=== PATIENT | male | born 1955 | race Caucasian/White ===

== ENCOUNTER 2021-09-05 03:59 | Inpatient (IN) | payer MEDICARE, SELFPAY ==
[2021-09-05] VITALS (12 sets, daily range): BP systolic 133–194; BP diastolic 74–98; PULSE 68–118; RESP 16–28; TEMP 36.5–37.2; O2SAT 90–100; BMI 45.6
--- NOTE | ~2021-09-05 | US_ITS ---
EXAMINATION: US VENOUS ULTRASOUND WITH DOPPLER LOWER EXTREMITY, BILATERAL CLINICAL INFORMATION: Bilateral lower extremity swelling. COMPARISON: Left lower extremity DVT study dated 01/23/2017. TECHNIQUE: Ultrasound of the deep veins is performed from the hip to the calf with compression sonography and color and pulse Doppler assessment. Spectral analysis with color-flow imaging is performed. FINDINGS: Technically limited study due to patient's body habitus. Limited visualization of bilateral mid to distal femoral and popliteal and the calf veins. RIGHT: There is normal venous compression and respiratory variation and augmented flow. The visualized common femoral vein, superficial femoral vein, profunda femoral vein, popliteal vein, and the trifurcation region shows no evidence of deep venous thrombosis. There is no significant popliteal fossa cyst. LEFT: There is normal venous compression and respiratory variation and augmented flow. The visualized common femoral vein, superficial femoral vein, profunda femoral vein, popliteal vein, and the trifurcation region shows no evidence of deep venous thrombosis. There is no significant popliteal fossa cyst. If the patient's symptoms persist, followup ultrasound in 5 days 7 days might be of value to exclude proximal propagation from a non-visualized calf vein. US/US venous duplex LE BI IMPRESSION: No DVT demonstrated in the bilateral lower extremity. Technically limited study due to suboptimal visualization (related to body habitus) of bilateral mid to distal femoral, and popliteal and calf veins.
--- NOTE | ~2021-09-05 | CT_ITS ---
EXAMINATION: CT HEAD WITHOUT CONTRAST CLINICAL INFORMATION: Fall. Unknown loss of consciousness. COMPARISON: None. TECHNIQUE: Contiguous axial imaging was performed from the skull base to vertex without intravenous contrast. This CT examination was performed using dose optimization techniques as appropriate, variously including the following: * Automated exposure control * Adjustment of mA and/or kV according to patient size (this includes techniques or standardized protocols for targeted exams where dose is matched to indication/reason for exam; i.e. extremities or head) Use of iterative reconstruction technique DLP: 841 mGy-cm. FINDINGS: There is no evidence of acute intracranial hemorrhage or territorial infarction. No abnormal mass effect or midline shift is seen. Darnell to white matter differentiation is well preserved. No extra-axial fluid collections are identified. No hydrocephalus. Proportional prominence of the ventricles and sulcal spaces is consistent with mild volume loss. Patchy periventricular and deep white matter hypoattenuation is consistent with mild small vessel ischemic changes. The osseous structures and soft tissues are normal. The mastoid air cells and visualized portions of the paranasal sinuses are well aerated. CT/CT head/brain wo con IMPRESSION: No acute intracranial pathology.
--- NOTE | ~2021-09-05 | XR_ITS ---
EXAMINATION: XR CHEST CLINICAL INFORMATION: Shortness of breath COMPARISON: 01/23/2017 TECHNIQUE: Frontal view of the chest was obtained. FINDINGS: Cardiac leads overlie the chest. The lungs are well expanded. Central vascular prominence without overt edema. Small left pleural effusion suspected. No pneumothorax. The cardiomediastinal silhouette is unchanged XR/XR chest 1V IMPRESSION: Central vascular prominence without overt edema. Small left pleural effusion suspected.
--- NOTE | 2021-09-05 04:11 | ECG_ITS ---
Test Reason : CHF Blood Pressure : / mmHG Vent. Rate : 096 BPM Atrial Rate : 096 BPM P-R Int : 168 ms QRS Dur : 082 ms QT Int : 368 ms P-R-T Axes : 067 121 016 degrees QTc Int : 464 ms Normal sinus rhythm Right axis deviation Possible Right ventricular hypertrophy Nonspecific T wave abnormality Abnormal ECG When compared with ECG of 23-JAN-2017 14:52, Nonspecific T wave abnormality now evident in Inferior leads Nonspecific T wave abnormality, worse in Anterolateral leads QT has lengthened Referred By: Willa Phan Electronically Signed By:TOBIAS ALBERTO MD
--- NOTE | 2021-09-05 04:17 | ED_ITS ---
HPI - SOB/Dyspnea General Chief Complaint: Dyspnea Stated Complaint: difficulty breathing Time Seen by Provider: 09/05/21 04:11 Source: patient and EMS Mode of arrival: EMS Limitations: no limitations History of Present Illness HPI Narrative: Patient comes to the emergency room complaining of shortness of breath. This morning, patient's friend called the patient to check on him. Patient did not answer, EMS called. Patient was found sleeping on the floor, laying flat. Patient states that he remembers going to bed, unclear how he ended up on the floor. Patient does not remember falling. Patient states that he usually sleeps almost sitting up. But he was on the floor for approximately 5 hours laying completely flat. Oxygen saturation was approximately in the 80s, diffuse crackles, patient was started on CPAP. On arrival to the emergency room, patient speaking in full sentences, CPAP was removed, patient states that he feels much better. Patient denies any chest pain, shortness of breath signifi cantly improved. Related Data Allergies Allergy/AdvReac Type Severity Reaction Status Date / Time No Known Allergies Allergy Unverified 01/31/20 14:57 [No Known Allergies*] Review of Systems Review of Systems: Constitutional : No Weight loss, No Fever, No Chills, No Night Sweats, No Fatigue, No Malaise ENT/Mouth : No Hearing loss, No Ear Pain, No Nasal Congestion, No Sinus Pain, No Hoarseness, No sore throat, No Rhinorrhea, No Swallowing Difficulty Eyes: No Eye Pain, No Swelling, No Redness, No Foreign Body, No Discharge, No Vision Changes Cardiovascular : No Chest Pain, complaining of worsening lower extremity edema, worsening orthopnea, no palpitations Respiratory : No Cough, No Sputum, No Wheezing, No Smoke Exposure, complaining of shortness of breath Gastrointestinal : No Nausea, No Vomiting, No Diarrhea, No Constipation, No abdominal Pain, No Hematochezia, No Melena Genitourinary : no irregular bleeding, No Dysuria, No Urinary Frequency, No Hematuria, No Urinary Incontinence, No Urgency, No Flank Pain, No Urinary Flow Changes, No Hesitancy Musculoskeletal : No joint pain, No Myalgias, No Joint Swelling Skin : No Skin Lesions, No rash Neuro : No Weakness, No Numbness, No Paresthesias, No Loss of Consciousness, No Dizziness, No Headache Psych : No Anxiety/Panic, No Depression, No SI/HI/AH/VH, No Social Issues, Heme/Lymph: No Bruising, No Bleeding,No Lymphadenopathy Endocrine : No Polyuria, No Polydipsia, No Temperature Intolerance [facility] Past Medical History Medical History (Updated 09/05/21 @ 05:16 by Willa Phan MD) Bilateral lower extremity edema CHF (congestive heart failure) Coronary artery disease Diabetes Hypertension Morbid obesity Myocardial infarction Surgical History (Updated 09/05/21 @ 04:20 by Willa Phan MD) S/P coronary artery stent placement Social History Social History Advance Directives: No Physical Exam Vital Signs: Vital Signs: Last Vital Signs Temp 98.0 F 09/05/21 04:07 Pulse 103 H 09/05/21 04:07 Resp 28 H 09/05/21 04:07 BP 145/79 H 09/05/21 04:07 Pulse Ox 99 09/05/21 04:07 Oxygen Flow Rate 99 09/05/21 04:07 BMI result Body Mass Index 45.6 Const: Other: Appearance: Alert. Oriented X3. No acute distress. Eyes: Pupils equal, round and reactive to light. Edematous sclera and periorbital edema ENT: Pharynx normal. Neck: Normal inspection. Neck supple. No lymph nodes noted. No crepitus CVS: Normal heart rate and rhythm. Pulses normal. Normal S1 and S2 Respiratory: No respiratory distress. Breath sounds normal. No Wheezing. No rales Abdomen: Soft and nontender. No rigidity. No distention. Skin: Skin warm and dry. Extremities below Extremities: +4 pitting edema bilaterally, erythematous lower extremities, likely chronic venous stasis, no additional warmth to touch Neuro: Oriented X 3. No motor deficit. No sensory deficit. Moving all extremities. No slurred speech. CN 2 through 12 grossly intact Psych: calm, cooperative, normal affect Course Course Course Narrative: Patient arrived on CPAP. We were able to wean patient off to 4 L of oxygen. Patient does not need O2. In a few more minutes we will go ahead and discontinue oxygen All the labs and imaging pending. Patient doing well own nasal cannula. Chest x-ray shows pulmonary edema and small left pleural effusion. BNP 1100, Patient was given 60 mg of IV Lasix. I discussed the patient with Dr. Biswas, patient being admitted for CHF exacerbation. EKG does not show any acute abnormalities MDM - SOB/Dyspnea Lab Data Result diagrams: 09/05/21 04:18 09/05/21 04:18 Labs: Lab Results 09/05/21 09/05/21 09/05/21 Range/Units 04:18 04:18 04:18 WBC 7.0 (4.8-10.8) X10*3/uL RBC 4.80 (4.60-5.80) X10*6/uL Hgb 13.1 L (14.0-18.0) g/dl Hct 43.3 (42.0-52.0) % MCV 90.2 (80.0-98.0) fL MCH 27.3 (27.0-33.0) pg MCHC 30.3 L (31.0-36.0) g/dl RDW 19.7 H (11.0-16.0) % Plt Count 236 (160-400) X10*3/uL MPV 11.1 (9.4-12.4) fL Immature Gran % (Auto) 0.3 (0.0-0.4) % Neut % (Auto) 69.1 (45-73) % Lymph % (Auto) 20.4 (20-40) % [place] % (Auto) 7.0 (2-11) % Eos % (Auto) 2.6 (0-4) % Baso % (Auto) 0.6 (0-2) % Lymph # (Auto) 1.4 (1.2-4.9) X10*3/uL [place] # (Auto) 0.5 (0.1-1.2) X10*3/uL Eos # (Auto) 0.2 (0.0-0.4) X10*3/uL Baso # (Auto) 0.0 (0.0-0.2) X10*3/uL Abs Immat Gran (auto) 0.02 (0.00-0.03) X10*3/uL Absolute Neuts (auto) 4.9 (2.0-8.3) x10*3/uL Absolute Nucleated RBC 0.000 (0.0-0.012) X10*3/uL Nucleated RBC % (auto) 0.0 (0.0-0.2) /100WBC VBG pH (7.32-7.43) VBG pCO2 mmHg VBG pO2 mmHg VBG HCO3 (22-26) mmol/L VBG O2 Saturation % VBG Base Excess mmol/L Sodium 141 (135-145) mmol/L Potassium 3.9 (3.3-5.1) mmol/L Chloride 101 (96-108) mmol/L Carbon Dioxide 29 (22-29) mmol/L Anion Gap 15 (12-20) BUN 15 (9-16) mg/dL Creatinine 0.86 (0.5-1.4) mg/dL Estim Creat Clear Calc 111.0 Estimated GFR > 60 Random Glucose 137 H (60-115) mg/dL Lactic Acid 1.7 (0.5-2.0) mmol/L Calcium 9.8 (8.4-10.2) mg/dL Magnesium 1.6 (1.6-2.6) mg/dL Total Bilirubin 1.6 H (0.0-1.0) mg/dL Direct Bilirubin 1.0 H (0.0-0.5) mg/dL AST 33 (5-37) U/L ALT 28 (0-40) U/L Alkaline Phosphatase 70 (39-117) U/L Total Creatine Kinase 78 (38-174) U/L Troponin I High Sens (<3.5-35.0) ng/L B-Natriuretic Peptide (<100) pg/mL Total Protein 7.1 (6.5-8.0) g/dL Albumin 3.1 L (3.5-5.0) g/dL TSH 4.61 H (0.32-4.0) uIU/mL Ethyl Alcohol mg/dL COVID-19 ([facility]) (Negative) COVID-19 Clin Com 09/05/21 09/05/21 09/05/21 Range/Units 04:18 04:18 04:18 WBC (4.8-10.8) X10*3/uL RBC (4.60-5.80) X10*6/uL Hgb (14.0-18.0) g/dl Hct (42.0-52.0) % MCV (80.0-98.0) fL MCH (27.0-33.0) pg MCHC (31.0-36.0) g/dl RDW (11.0-16.0) % Plt Count (160-400) X10*3/uL MPV (9.4-12.4) fL Immature Gran % (Auto) (0.0-0.4) % Neut % (Auto) (45-73) % Lymph % (Auto) (20-40) % [place] % (Auto) (2-11) % Eos % (Auto) (0-4) % Baso % (Auto) (0-2) % Lymph # (Auto) (1.2-4.9) X10*3/uL [place] # (Auto) (0.1-1.2) X10*3/uL Eos # (Auto) (0.0-0.4) X10*3/uL Baso # (Auto) (0.0-0.2) X10*3/uL Abs Immat Gran (auto) (0.00-0.03) X10*3/uL Absolute Neuts (auto) (2.0-8.3) x10*3/uL Absolute Nucleated RBC (0.0-0.012) X10*3/uL Nucleated RBC % (auto) (0.0-0.2) /100WBC VBG pH (7.32-7.43) VBG pCO2 mmHg VBG pO2 mmHg VBG HCO3 (22-26) mmol/L VBG O2 Saturation % VBG Base Excess mmol/L Sodium (135-145) mmol/L Potassium (3.3-5.1) mmol/L Chloride (96-108) mmol/L Carbon Dioxide (22-29) mmol/L Anion Gap (12-20) BUN (9-16) mg/dL Creatinine (0.5-1.4) mg/dL Estim Creat Clear Calc Estimated GFR Random Glucose (60-115) mg/dL Lactic Acid (0.5-2.0) mmol/L Calcium (8.4-10.2) mg/dL Magnesium (1.6-2.6) mg/dL Total Bilirubin (0.0-1.0) mg/dL Direct Bilirubin (0.0-0.5) mg/dL AST (5-37) U/L ALT (0-40) U/L Alkaline Phosphatase (39-117) U/L Total Creatine Kinase (38-174) U/L Troponin I High Sens 28.8 (<3.5-35.0) ng/L B-Natriuretic Peptide 1117 H (<100) pg/mL Total Protein (6.5-8.0) g/dL Albumin (3.5-5.0) g/dL TSH (0.32-4.0) uIU/mL Ethyl Alcohol < 10 mg/dL COVID-19 ([facility]) Negative (Negative) COVID-19 Clin Com See Note 09/05/21 Range/Units 04:22 WBC (4.8-10.8) X10*3/uL RBC (4.60-5.80) X10*6/uL Hgb (14.0-18.0) g/dl Hct (42.0-52.0) % MCV (80.0-98.0) fL MCH (27.0-33.0) pg MCHC (31.0-36.0) g/dl RDW (11.0-16.0) % Plt Count (160-400) X10*3/uL MPV (9.4-12.4) fL Immature Gran % (Auto) (0.0-0.4) % Neut % (Auto) (45-73) % Lymph % (Auto) (20-40) % [place] % (Auto) (2-11) % Eos % (Auto) (0-4) % Baso % (Auto) (0-2) % Lymph # (Auto) (1.2-4.9) X10*3/uL [place] # (Auto) (0.1-1.2) X10*3/uL Eos # (Auto) (0.0-0.4) X10*3/uL Baso # (Auto) (0.0-0.2) X10*3/uL Abs Immat Gran (auto) (0.00-0.03) X10*3/uL Absolute Neuts (auto) (2.0-8.3) x10*3/uL Absolute Nucleated RBC (0.0-0.012) X10*3/uL Nucleated RBC % (auto) (0.0-0.2) /100WBC VBG pH 7.34 (7.32-7.43) VBG pCO2 67 mmHg VBG pO2 70 mmHg VBG HCO3 37 H (22-26) mmol/L VBG O2 Saturation 91.0 % VBG Base Excess 8.5 mmol/L Sodium (135-145) mmol/L Potassium (3.3-5.1) mmol/L Chloride (96-108) mmol/L Carbon Dioxide (22-29) mmol/L Anion Gap (12-20) BUN (9-16) mg/dL Creatinine (0.5-1.4) mg/dL Estim Creat Clear Calc Estimated GFR Random Glucose (60-115) mg/dL Lactic Acid (0.5-2.0) mmol/L Calcium (8.4-10.2) mg/dL Magnesium (1.6-2.6) mg/dL Total Bilirubin (0.0-1.0) mg/dL Direct Bilirubin (0.0-0.5) mg/dL AST (5-37) U/L ALT (0-40) U/L Alkaline Phosphatase (39-117) U/L Total Creatine Kinase (38-174) U/L Troponin I High Sens (<3.5-35.0) ng/L B-Natriuretic Peptide (<100) pg/mL Total Protein (6.5-8.0) g/dL Albumin (3.5-5.0) g/dL TSH (0.32-4.0) uIU/mL Ethyl Alcohol mg/dL COVID-19 ([facility]) (Negative) COVID-19 Clin Com Imaging Data Chest x-ray: Radiologist's impression: Cardiac leads overlie the chest. The lungs are well expanded. Central vascular prominence without overt edema. Small left pleural effusion suspected. No pneumothorax. The cardiomediastinal silhouette is unchanged XR/XR chest 1V IMPRESSION: Central vascular prominence without overt edema. Small left pleural effusion suspected. ECG Data Attestation: I personally reviewed and interpreted this ECG as follows: (Sinus rhythm, heart rate 96, no ST segment depression or elevation, no T-wave inver neil, QTC 464) Discharge Plan Discharge Clinical Impression: Congestive heart failure Patient Disposition: Admitted As Inpatient
--- NOTE | 2021-09-05 04:28 | PC.NURSE ---
This RN to bedside to assist primary RN (Rui Hicks). Arrived via [facility] on CPAP, which was placed by EMS. Pt tolerated well, changed to 6L oxygen via nasal cannula per instructions. Maintaining oxygen saturation on 6L oxygen. 18g IV access placed to left AC by this RN, labs drawn and sent for analysis. Awaiting results. Per EMS, patient fell approximately 4-6 hours ago and was unable to get up to call for help. Patient is alert & oriented x4 on evaluation by [facility] staff. Pt does not use oxygen at home at baseline, but does have a history of Congestive Heart Failure. Bilateral lower extremity edema noted, skin is dry & red. Rui COBIAN to continue to monitor patient.
[2021-09-05 04:29] LABS: MANUAL DIFF FLAG NO
[2021-09-05 04:30] LABS: Basophils Percent Auto 0.6 % (0-2); Eosinophils Absolute Auto 0.2 X10*3/uL (0.0-0.4); Eosinophils Percent Auto 2.6 % (0-4); Hematocrit 43.3 % (42.0-52.0); Hemoglobin 13.1 g/dl (14.0-18.0); Imm Gran Abs Auto 0.02 X10*3/uL (0.00-0.03); Imm Gran Pct Auto 0.3 % (0.0-0.4); Lymphocytes Absolute Auto 1.4 X10*3/uL (1.2-4.9); Lymphocytes Percent Auto 20.4 % (20-40); Mean Corpuscular HGB Conc 30.3 g/dl (31.0-36.0); Mean Corpuscular Hemoglobin 27.3 pg (27.0-33.0); Mean Corpuscular Volume 90.2 fL (80.0-98.0); Mean Platelet Volume 11.1 fL (9.4-12.4); Monocytes Absolute Auto 0.5 X10*3/uL (0.1-1.2); Neutrophils Absolute Auto 4.9 x10*3/uL (2.0-8.3); Neutrophils Percent Auto 69.1 % (45-73); Platelet Count 236 X10*3/uL (160-400); Red Cell Distribution Width 19.7 % (11.0-16.0)
[2021-09-05 04:31] LABS: VBG Base Excess 8.5 mmol/L; VBG HCO3 37 mmol/L (22-26); VBG pCO2 67 mmHg; VBG pH 7.34 (7.32-7.43); VBG pO2 70 mmHg
[2021-09-05 04:35] LABS: Venous Blood Gas Refer to POC result
[2021-09-05 04:49] LABS: Lactic Acid 1.7 mmol/L (0.5-2.0)
[2021-09-05 04:53] LABS: Alanine Aminotransferase 28 U/L (0-40); Albumin Level 3.1 g/dL (3.5-5.0); Alkaline Phosphatase 70 U/L (39-117); Anion Gap 15 (12-20); Aspartate Amino Transferase 33 U/L (5-37); Bilirubin Total 1.6 mg/dL (0.0-1.0); Blood Urea Nitrogen 15 mg/dL (9-16); Calcium 9.8 mg/dL (8.4-10.2); Carbon Dioxide 29 mmol/L (22-29); Chloride 101 mmol/L (96-108); Estimated Glomerular Filt Rate > 60; Glucose Random 137 mg/dL (60-115); Magnesium 1.6 mg/dL (1.6-2.6); Potassium 3.9 mmol/L (3.3-5.1); Sodium 141 mmol/L (135-145); Total Protein 7.1 g/dL (6.5-8.0)
[2021-09-05 04:54] LABS: Ethanol < 10 mg/dL
[2021-09-05 04:57] LABS: B Type Natriuretic Peptide 1117 pg/mL (<100); Troponin-I High Sensitivity 28.8 ng/L (<3.5-35.0)
[2021-09-05 05:13] LABS: COVID-19 Test Negative (Negative); TSH reflex Free T4 4.61 uIU/mL (0.32-4.0)
[2021-09-05] MEDS: Furosemide 100 MG/10 ML VIAL 60 MG IVPUSH (05:29)
[2021-09-05 05:44] LABS: INTERNATIONAL NORM RATIO 1.1 (0.9-1.1); Prothrombin Time 12.7 SEC (9.9-13.0)
[2021-09-05 05:45] LABS: Free T4 (Free Thyroxine) 0.82 ng/dL (0.71-1.85)
--- NOTE | 2021-09-05 06:13 | PM.IMHP ---
History of Present Illness Date of Service: 09/05/21 Chief Complaint: Shortness of breath This is a 66-year-old male with past medical history of CHF, CAD, diabetes, HTN, history of CO, presents to the hospital after being hypoxic at home. It appears that patient friend called his home, patient did not answer, therefore she called EMS, on arrival of EMS patient was found to be on the floor and hypoxic with an O2 level of 80%. Patient was placed on CPAP and brought into the ED. patient does not remember losing consciousness, he remembers going to bed but he is unsure how he ended up on the floor. He reports that he was sleeping upright and he usually sleeps in a way to avoid falling, but woke up with many things on top of him so he mustve fallen out of bed, but he does not remember how that might have happened. He reports orthopnea and PND. reports lower extremity edema for past 4-6 wks he states that he stopped taking his diuretics because he felt that they made his swelling worst. He has not taken any diuretic in over 4 wks. On arrival to the ED patient was placed on 4 L of oxygen satting 98%, has a heart rate of 103, respiratory rate of 28, blood pressure 145/79 Labs are significant for WBC count of 7, hemoglobin of 13.1, pH of 7.34 CO2 of 67 bicarb of 29, BNP of 1117, TSH of 4.61, chest x-ray shows central vascular prominence without overt edema . Left pleural effusion Patient started on IV Lasix and will be admitted for further management Review of Systems Review of Systems: Yes all other systems are reviewed and are negative [facility] Medical History Bilateral lower extremity edema CHF (congestive heart failure) Coronary artery disease Diabetes Hypertension Morbid obesity Myocardial infarction Family History Other No family history of coronary artery disease Surgical History S/P coronary artery stent placement Social History Advance Directives: No Meds Allergies Allergy/AdvReac Type Severity Reaction Status Date / Time No Known Allergies Allergy Unverified 01/31/20 14:57 [No Known Allergies*] Physical Exam Vital Signs and Narrative: Vital Signs: Last Vital Signs Temp 98.0 F 09/05/21 04:07 Pulse 98 09/05/21 05:34 Resp 22 H 09/05/21 05:34 BP 145/83 H 09/05/21 05:34 Pulse Ox 98 09/05/21 05:34 Oxygen Flow Rate 99 09/05/21 04:07 BMI result Body Mass Index 45.6 Const: General: cooperative and no acute distress Orientation/consciousness: patient oriented x3 Eyes: General: appearance normal, both eyes and all related structures Pupils: Equal, round and reactive pupils present Resp: Effort & Inspection: normal respiratory effort Auscultation: clear to auscultation bilaterally Cardio: Rate: regular rate Rhythm: regular rhythm GI: Palpation (GI): Soft to palpation Auscultation: normal bowel sounds Skin: General skin exam: no rashes or lesions noted Neuro: General: patient oriented x3 Cranial nerves: Yes Equal, round and reactive pupils present Cognition (Neuro): normal cognition Extrem: Other: Bilateral lower extremity edema, erythema, warmth, 3+ pitting edema to above the knees Results Labs CBC and Chem 7: 09/05/21 04:18 09/05/21 04:18 Labs: Laboratory Results - last 24 hr 09/05/21 09/05/21 09/05/21 04:18 04:18 04:18 MCV 90.2 MCH 27.3 MCHC 30.3 L RDW 19.7 H Plt Count 236 MPV 11.1 Immature Gran % (Auto) 0.3 Neut % (Auto) 69.1 Lymph % (Auto) 20.4 [place] % (Auto) 7.0 Eos % (Auto) 2.6 Baso % (Auto) 0.6 Lymph # (Auto) 1.4 [place] # (Auto) 0.5 Eos # (Auto) 0.2 Baso # (Auto) 0.0 Abs Immat Gran (auto) 0.02 Absolute Neuts (auto) 4.9 Absolute Nucleated RBC 0.000 Nucleated RBC % (auto) 0.0 PT INR VBG pH VBG pCO2 VBG pO2 VBG HCO3 VBG O2 Saturation VBG Base Excess Anion Gap 15 Estim Creat Clear Calc 111.0 Estimated GFR > 60 Random Glucose 137 H Lactic Acid 1.7 Calcium 9.8 Magnesium 1.6 Total Bilirubin 1.6 H Direct Bilirubin 1.0 H AST 33 ALT 28 Alkaline Phosphatase 70 Total Creatine Kinase 78 Troponin I High Sens B-Natriuretic Peptide Total Protein 7.1 Albumin 3.1 L TSH 4.61 H Free T4 0.82 Ethyl Alcohol COVID-19 ([facility]) COVID-19 Clin Com 09/05/21 09/05/21 09/05/21 04:18 04:18 04:18 MCV MCH MCHC RDW Plt Count MPV Immature Gran % (Auto) Neut % (Auto) Lymph % (Auto) [place] % (Auto) Eos % (Auto) Baso % (Auto) Lymph # (Auto) [place] # (Auto) Eos # (Auto) Baso # (Auto) Abs Immat Gran (auto) Absolute Neuts (auto) Absolute Nucleated RBC Nucleated RBC % (auto) PT 12.7 INR 1.1 VBG pH VBG pCO2 VBG pO2 VBG HCO3 VBG O2 Saturation VBG Base Excess Anion Gap Estim Creat Clear Calc Estimated GFR Random Glucose Lactic Acid Calcium Magnesium Total Bilirubin Direct Bilirubin AST ALT Alkaline Phosphatase Total Creatine Kinase Troponin I High Sens 28.8 B-Natriuretic Peptide 1117 H Total Protein Albumin TSH Free T4 Ethyl Alcohol COVID-19 ([facility]) Negative COVID-19 Clin Com See Note 09/05/21 09/05/21 04:18 04:22 MCV MCH MCHC RDW Plt Count MPV Immature Gran % (Auto) Neut % (Auto) Lymph % (Auto) [place] % (Auto) Eos % (Auto) Baso % (Auto) Lymph # (Auto) [place] # (Auto) Eos # (Auto) Baso # (Auto) Abs Immat Gran (auto) Absolute Neuts (auto) Absolute Nucleated RBC Nucleated RBC % (auto) PT INR VBG pH 7.34 VBG pCO2 67 VBG pO2 70 VBG HCO3 37 H VBG O2 Saturation 91.0 VBG Base Excess 8.5 Anion Gap Estim Creat Clear Calc Estimated GFR Random Glucose Lactic Acid Calcium Magnesium Total Bilirubin Direct Bilirubin AST ALT Alkaline Phosphatase Total Creatine Kinase Troponin I High Sens B-Natriuretic Peptide Total Protein Albumin TSH Free T4 Ethyl Alcohol < 10 COVID-19 ([facility]) COVID-19 Clin Com Imaging Radiologist's Impressions: Impressions Chest X-Ray 09/05/21 04:45 IMPRESSION: Central vascular prominence without overt edema. Small left pleural effusion suspected. Head CT 09/05/21 05:25 IMPRESSION: No acute intracranial pathology. Assessment and Plan (1) Acute respiratory failure with hypoxia: Status: Acute (2) Acute exacerbation of CHF (congestive heart failure): Status: Acute (3) Cellulitis: Status: Acute (4) Lower extremity edema: Status: Acute Plan 66-year-old male with past medical history of CHF presents to the hospital with hypoxia # acute hypoxic respiratory failure - as a secondary to CHF exacerbation - no evidence of pneumonia, less likely to be PE - patient currently on 4 L of oxygen satting 98% - will treat with IV Lasix - titrate O2 as tolerated # acute CHF exacerbation - likely 2/2 non-compliance - history of CHF - has elevated BNP, orthopnea, PND, lower extremity edema - will treat with IV Lasix, strict I&O, daily weights, and low-sodium diet - cardiology consulted - Echocardiogram # Cellulitis - has warmth , erythema, tenderness - although bilateral has evidence of cellulitis - will treat w iv abx - follow cultures # lower extremity edema - likely due to chf - will obtain venous duplex # CAD status post CABG - pending all medication review # diabetes - low-dose sliding scale insulin - diabetic diet Hypertension - stable - Continue home antihypertensives when meds reviewed DVT ppx: heparin sub q Pt will need a medically necessary 2 night stay for managemtn of chf and hypoxia Quality Stroke Does the patient have a stroke diagnosis?: No VTE Prior VTE?: No VTE Risk Level:: Medical - moderate - high VTE Device Contraindication: Treatment Not Indicated VTE Drug Contraindication: N/A - Med Ordered
[2021-09-05 06:19] LABS: Appearance Urine CLEAR; Color Urine YELLOW; Glucose Urine UA NEG (NEG); Leukocyte Esterase Urine NEG (NEG); Nitrite Urine NEG (NEG); Specific Gravity - Urine 1.025 (1.005-1.025); UACC Culture Trigger NO; Urine Blood NEG (NEG); Urine Ketones NEG (NEG); Urine Protein 1+ MG/DL (NEG-TRACE)
[2021-09-05 06:25] LABS: Calcium Oxalate Crystals Urine 1+ /LPF; Hyaline Casts Urine 0-2 /LPF; Mucus Urine 2+ /LPF; Squamous Epithelial Cell Urine 1+ /LPF
[2021-09-05 06:26] LABS: Bacteria Urine 1+ /LPF; WBC Urine 0-2 /HPF (0-4)
[2021-09-05 06:31] LABS: Amphetamine Screen Urine Not Detected (Not Detect); Barbiturates, Urine Not Detected (Not Detect); Benzodiazepines Screen Urine Not Detected (Not Detect); Cannabinoid Screen Urine Not Detected (Not Detect); Cocaine Screen Urine Not Detected (Not Detect); Fentanyl, urine Not Detected (Not Detect); Opiate Screen Urine POSITIVE (Not Detect); Phencyclidine Screen Urine Not Detected (Not Detect)
--- NOTE | 2021-09-05 06:45 | PC.NURSE ---
Med rec completed at bed side with PT.
[2021-09-05 07:34] LABS: Lactic Acid 1.5 mmol/L (0.5-2.0)
[2021-09-05] MEDS: ceFAZolin Sodium/Dextrose,Iso 2 GM/50 ML PIGGYBACK IV ×2 (07:40→15:41)
--- NOTE | 2021-09-05 08:04 | PHA.MEDREC ---
Pharmacy Consult ? Medication Reconciliation RN has completed the medication reconciliation., pharmacy reviewed
--- NOTE | 2021-09-05 08:31 | PC.NURSE ---
Transfer report given to ARANZA Mcrae at [facility] [place].
[2021-09-05 08:57] LABS: Glucose, Whole Blood 102 mg/dL (60-115)
[2021-09-05] MEDS: Enoxaparin Sodium 40 MG/0.4 ML SYRINGE SUBCUT (09:03)
[2021-09-05] MEDS: Metoprolol Tartrate 12.5 MG HALFTAB PO ×2 (09:03→20:14)
[2021-09-05] MEDS: Furosemide 40 MG/4 ML VIAL IVPUSH ×2 (09:03→17:25)
[2021-09-05] MEDS: Atorvastatin Calcium 80 MG TABLET PO (09:03)
[2021-09-05] MEDS: lisinopriL 40 MG TABLET PO (09:03)
[2021-09-05 11:42] LABS: Glucose, Whole Blood 165 mg/dL (60-115)
[2021-09-05] MEDS: Ammonium Lactate 12 % Lotion 226 GM BOTTLE 1 APPL TOPICAL ×2 (12:51→20:14)
--- NOTE | 2021-09-05 14:14 | PM.CNCAR ---
History of Present Illness History of Present Illness Date of Service: 09/05/21 Requesting physician: Jessica Nelson Consult reason: congestive heart failure Chief complaint: hypoxic resp failure, chf exacerbation Narrative: I was requested to see Mahesh in cardiology consultation today for hypoxemic respiratory failure. Finding suggestive of heart failure. History was obtained from the chart. Patient does not provide much history and was not very communicative. He appeared to be drowsy but was opening his eyes to verbal cues. On asking question he declined to answer any questions. He was brought to the hospital because of noted to be hypoxemia at home. EMS was called by patient's friend after patient not answering his telephone. EMS came and was noted to be in hypoxemic respiratory failure and was brought to the emergency room with CPAP therapy. Chest x-ray finding suggestive of pulmonary vascular congestion with BNP in above 1000. Patient still appears to be short of breath. As per the chart patient has stopped taking his diuretics for few weeks and has increasing leg swelling. Clinically appears to be short of breath. He does not provide much history to me. History obtained from the chart. Review of Systems Review of Systems: Yes Unobtainable due to mental status PMFSH Past Medical History Medical History Bilateral lower extremity edema CHF (congestive heart failure) Coronary artery disease Diabetes Hypertension Morbid obesity Myocardial infarction Family History Family History Other No family history of coronary artery disease Surgical History Surgical History S/P coronary artery stent placement Social History Social History Household Members: None Housing: Unknown / Unable to assess Do you presently have visiting nurse or other home services: No Patient Tobacco Use Status: Current everyday Tobacco user Tobacco use type: Cigarette Cigarette Packs Per Day: 0.75 Cigarettes Per Day: 15.0 Years Smoked: 50 e-Cigarette/Vaping Use: Never Used Meds Allergies Allergy/AdvReac Type Severity Reaction Status Date / Time No Known Allergies Allergy Unverified 01/31/20 14:57 [No Known Allergies*] Active Medications: Current Medications Acetaminophen (Acetaminophen 325 Mg Tablet) 650 mg PO Q6H PRN PRN Reason: Pain, Mild (Pain Scale 1-3) Atorvastatin Calcium (Atorvastatin Calcium 80 Mg Tablet) 80 mg PO DAILY [facility] Last Admin: 09/05/21 09:03 Dose: 80 mg Documented by: Clotrimazole (Clotrimazole 1 % Cream 15 Gm Tube) 1 appl TOPICAL BID [facility]; Protocol Docusate Sodium (Docusate Sodium 100 Mg Capsule) 100 mg PO DAILY PRN PRN Reason: Constipation Enoxaparin Sodium (Enoxaparin Sodium 40 Mg/0.4 Ml Syringe) 40 mg SUBCUT Q24H [facility] Last Admin: 09/05/21 09:03 Dose: 40 mg Documented by: Furosemide (Furosemide 40 Mg/4 Ml Vial) 40 mg IVPUSH BID@0900,1800 [facility]; Protocol Last Admin: 09/05/21 09:03 Dose: 40 mg Documented by: Cefazolin Sodium/Dextrose (Ancef) 2 gm in 50 mls @ 100 mls/hr IV Q8H [facility] Last Infusion: 09/05/21 08:24 Dose: Infused Documented by: Lactic Acid (Ammonium Lactate 12 % Lotion 226 Gm Bottle) 1 appl TOPICAL BID [facility]; Protocol Last Admin: 09/05/21 12:51 Dose: 1 appl Documented by: Lisinopril (Lisinopril 40 Mg Tablet) 40 mg PO DAILY [facility]; Protocol Last Admin: 09/05/21 09:03 Dose: 40 mg Documented by: Metoprolol Tartrate (Metoprolol Tartrate 12.5 Mg Halftab) 12.5 mg PO BID [facility]; Protocol Last Admin: 09/05/21 09:03 Dose: 12.5 mg Documented by: Morphine Sulfate (Morphine Sulfate Er 15 Mg Tablet.Er) 15 mg PO BID PRN PRN Reason: Pain, Severe (Pain Scale 7-10) Ondansetron HCl (Ondansetron Hcl 4 Mg/2 Ml Vial) 4 mg IVPUSH Q8H PRN PRN Reason: Nausea and Vomiting Oxycodone HCl (Oxycodone Hcl Immed Release 5 Mg Tablet) 5 mg PO Q6H PRN PRN Reason: moderate pain Home Medications Medication Instructions Recorded Confirmed Last Taken Type atorvastatin 80 mg tablet 80 mg PO DAILY 09/05/21 09/05/21 09/04/21 09:00 History duloxetine 60 mg capsule,delayed 60 mg PO DAILY 04/09/05/21 09/04/21 09:00 History release etodolac 400 mg tablet 400 mg PO BID 09/05/21 09/05/21 09/04/21 21:00 History lisinopril 40 mg tablet 40 mg PO DAILY 09/05/21 09/05/21 09/04/21 09:00 History metformin 500 mg tablet 500 mg PO BID 09/05/21 09/05/21 09/04/21 21:00 History metoprolol tartrate 25 mg tablet 12.5 mg PO BID 09/05/21 09/05/21 09/04/21 21:00 History morphine 15 mg tablet,extended 15 mg PO BID PRN 09/05/21 09/05/21 09/04/21 21:00 History release oxycodone 5 mg tablet 5 mg PO Q6H PRN 09/05/21 09/05/21 09/04/21 21:00 History Physical Exam Vital Signs: Vital Signs: Last Vital Signs Temp 98.1 F 09/05/21 11:27 Pulse 97 09/05/21 11:27 Resp 20 09/05/21 11:27 BP 133/81 09/05/21 11:27 Pulse Ox 94 09/05/21 11:27 Oxygen Flow Rate 99 09/05/21 04:07 BMI result Body Mass Index 45.6 Const: General: in distress mild and respiratory, lethargic and poor hygiene Nutritional Appearance: obese Orientation/consciousness: lethargic HEENT: Head: Yes normocephalic and Yes atraumatic Neck: Neck: Yes trachea midline and Yes supple Resp: Effort & Inspection: normal respiratory effort Auscultation: crackles, wheezes and diminished lung sounds Cardio: Palpation: normal PMI Rate: regular rate Rhythm: regular rhythm Heart sounds: S1 normal heart sound present, S2 normal heart sound present, no click, no gallops and no murmurs GI: Auscultation: normal bowel sounds Skin: General skin exam: no rashes or lesions noted Neuro: General: no focal motor deficits Extrem: General: No clubbing, No cyanosis and Yes edema Objective Labs and Meds Result diagrams: 09/05/21 04:18 09/05/21 04:18 Lab results: Laboratory Results - last 24 hr 04/23/22 04/23/22 04/23/22 04:18 04:18 04:18 WBC 7.0 RBC 4.80 Hgb 13.1 L Hct 43.3 MCV 90.2 MCH 27.3 MCHC 30.3 L RDW 19.7 H Plt Count 236 MPV 11.1 Immature Gran % (Auto) 0.3 Neut % (Auto) 69.1 Lymph % (Auto) 20.4 Surry % (Auto) 7.0 Eos % (Auto) 2.6 Baso % (Auto) 0.6 Lymph # (Auto) 1.4 Surry # (Auto) 0.5 Eos # (Auto) 0.2 Baso # (Auto) 0.0 Abs Immat Gran (auto) 0.02 Absolute Neuts (auto) 4.9 Absolute Nucleated RBC 0.000 Nucleated RBC % (auto) 0.0 PT INR VBG pH VBG pCO2 VBG pO2 VBG HCO3 VBG O2 Saturation VBG Base Excess Sodium 141 Potassium 3.9 Chloride 101 Carbon Dioxide 29 Anion Gap 15 BUN 15 Creatinine 0.86 Estim Creat Clear Calc 111.0 Estimated GFR > 60 POC Glucose Random Glucose 137 H Lactic Acid 1.7 Calcium 9.8 Magnesium 1.6 Total Bilirubin 1.6 H Direct Bilirubin 1.0 H AST 33 ALT 28 Alkaline Phosphatase 70 Total Creatine Kinase 78 Troponin I High Sens B-Natriuretic Peptide Total Protein 7.1 Albumin 3.1 L TSH 4.61 H Free T4 0.82 Urine Color Urine Appearance Urine pH Ur Specific Belen Urine Protein Urine Glucose (UA) Urine Ketones Urine Blood Urine Nitrite Ur Leukocyte Esterase Urine RBC Urine WBC Ur Squamous Epith Cells Calcium Oxalate Crystal Urine Bacteria Hyaline Casts Urine Mucus Urine Yeast Urine Opiates Screen Urine Fentanyl Screen Ur Barbiturates Screen Ur Phencyclidine Scrn Ur Amphetamines Screen U Benzodiazepines Scrn Urine Cocaine Screen U Marijuana (THC) Screen Ethyl Alcohol COVID-19 ([facility]) COVID-19 Clin Com 09/05/21 09/05/21 09/05/21 04:18 04:18 04:18 WBC RBC Hgb Hct MCV MCH MCHC RDW Plt Count MPV Immature Gran % (Auto) Neut % (Auto) Lymph % (Auto) Surry % (Auto) Eos % (Auto) Baso % (Auto) Lymph # (Auto) Surry # (Auto) Eos # (Auto) Baso # (Auto) Abs Immat Gran (auto) Absolute Neuts (auto) Absolute Nucleated RBC Nucleated RBC % (auto) PT 12.7 INR 1.1 VBG pH VBG pCO2 VBG pO2 VBG HCO3 VBG O2 Saturation VBG Base Excess Sodium Potassium Chloride Carbon Dioxide Anion Gap BUN Creatinine Estim Creat Clear Calc Estimated GFR POC Glucose Random Glucose Lactic Acid Calcium Magnesium Total Bilirubin Direct Bilirubin AST ALT Alkaline Phosphatase Total Creatine Kinase Troponin I High Sens 28.8 B-Natriuretic Peptide 1117 H Total Protein Albumin TSH Free T4 Urine Color Urine Appearance Urine pH Ur Specific Belen Urine Protein Urine Glucose (UA) Urine Ketones Urine Blood Urine Nitrite Ur Leukocyte Esterase Urine RBC Urine WBC Ur Squamous Epith Cells Calcium Oxalate Crystal Urine Bacteria Hyaline Casts Urine Mucus Urine Yeast Urine Opiates Screen Urine Fentanyl Screen Ur Barbiturates Screen Ur Phencyclidine Scrn Ur Amphetamines Screen U Benzodiazepines Scrn Urine Cocaine Screen U Marijuana (THC) Screen Ethyl Alcohol COVID-19 ([facility]) Negative COVID-19 Clin Com See Note 09/05/21 09/05/21 09/05/21 04:18 04:22 06:14 WBC RBC Hgb Hct MCV MCH MCHC RDW Plt Count MPV Immature Gran % (Auto) Neut % (Auto) Lymph % (Auto) Surry % (Auto) Eos % (Auto) Baso % (Auto) Lymph # (Auto) Surry # (Auto) Eos # (Auto) Baso # (Auto) Abs Immat Gran (auto) Absolute Neuts (auto) Absolute Nucleated RBC Nucleated RBC % (auto) PT INR VBG pH 7.34 VBG pCO2 67 VBG pO2 70 VBG HCO3 37 H VBG O2 Saturation 91.0 VBG Base Excess 8.5 Sodium Potassium Chloride Carbon Dioxide Anion Gap BUN Creatinine Estim Creat Clear Calc Estimated GFR POC Glucose Random Glucose Lactic Acid Calcium Magnesium Total Bilirubin Direct Bilirubin AST ALT Alkaline Phosphatase Total Creatine Kinase Troponin I High Sens B-Natriuretic Peptide Total Protein Albumin TSH Free T4 Urine Color YELLOW Urine Appearance CLEAR Urine pH 6.0 Ur Specific Belen 1.025 Urine Protein 1+ H Urine Glucose (UA) NEG Urine Ketones NEG Urine Blood NEG Urine Nitrite NEG Ur Leukocyte Esterase NEG Urine RBC 5-9 H Urine WBC 0-2 Ur Squamous Epith Cells 1+ Calcium Oxalate Crystal 1+ Urine Bacteria 1+ Hyaline Casts 0-2 Urine Mucus 2+ Urine Yeast TRACE Urine Opiates Screen Urine Fentanyl Screen Ur Barbiturates Screen Ur Phencyclidine Scrn Ur Amphetamines Screen U Benzodiazepines Scrn Urine Cocaine Screen U Marijuana (THC) Screen Ethyl Alcohol < 10 COVID-19 ([facility]) COVID-19 Clin Com 09/05/21 09/05/21 09/05/21 06:14 07:17 08:54 WBC RBC Hgb Hct MCV MCH MCHC RDW Plt Count MPV Immature Gran % (Auto) Neut % (Auto) Lymph % (Auto) Surry % (Auto) Eos % (Auto) Baso % (Auto) Lymph # (Auto) Surry # (Auto) Eos # (Auto) Baso # (Auto) Abs Immat Gran (auto) Absolute Neuts (auto) Absolute Nucleated RBC Nucleated RBC % (auto) PT INR VBG pH VBG pCO2 VBG pO2 VBG HCO3 VBG O2 Saturation VBG Base Excess Sodium Potassium Chloride Carbon Dioxide Anion Gap BUN Creatinine Estim Creat Clear Calc Estimated GFR POC Glucose 102 Random Glucose Lactic Acid 1.5 Calcium Magnesium Total Bilirubin Direct Bilirubin AST ALT Alkaline Phosphatase Total Creatine Kinase Troponin I High Sens B-Natriuretic Peptide Total Protein Albumin TSH Free T4 Urine Color Urine Appearance Urine pH Ur Specific Belen Urine Protein Urine Glucose (UA) Urine Ketones Urine Blood Urine Nitrite Ur Leukocyte Esterase Urine RBC Urine WBC Ur Squamous Epith Cells Calcium Oxalate Crystal Urine Bacteria Hyaline Casts Urine Mucus Urine Yeast Urine Opiates Screen POSITIVE H Urine Fentanyl Screen Not Detected Ur Barbiturates Screen Not Detected Ur Phencyclidine Scrn Not Detected Ur Amphetamines Screen Not Detected U Benzodiazepines Scrn Not Detected Urine Cocaine Screen Not Detected U Marijuana (THC) Screen Not Detected Ethyl Alcohol COVID-19 ([facility]) COVID-19 Clin Com 09/05/21 11:26 WBC RBC Hgb Hct MCV MCH MCHC RDW Plt Count MPV Immature Gran % (Auto) Neut % (Auto) Lymph % (Auto) Surry % (Auto) Eos % (Auto) Baso % (Auto) Lymph # (Auto) Surry # (Auto) Eos # (Auto) Baso # (Auto) Abs Immat Gran (auto) Absolute Neuts (auto) Absolute Nucleated RBC Nucleated RBC % (auto) PT INR VBG pH VBG pCO2 VBG pO2 VBG HCO3 VBG O2 Saturation VBG Base Excess Sodium Potassium Chloride Carbon Dioxide Anion Gap BUN Creatinine Estim Creat Clear Calc Estimated GFR POC Glucose 165 H Random Glucose Lactic Acid Calcium Magnesium Total Bilirubin Direct Bilirubin AST ALT Alkaline Phosphatase Total Creatine Kinase Troponin I High Sens B-Natriuretic Peptide Total Protein Albumin TSH Free T4 Urine Color Urine Appearance Urine pH Ur Specific Belen Urine Protein Urine Glucose (UA) Urine Ketones Urine Blood Urine Nitrite Ur Leukocyte Esterase Urine RBC Urine WBC Ur Squamous Epith Cells Calcium Oxalate Crystal Urine Bacteria Hyaline Casts Urine Mucus Urine Yeast Urine Opiates Screen Urine Fentanyl Screen Ur Barbiturates Screen Ur Phencyclidine Scrn Ur Amphetamines Screen U Benzodiazepines Scrn Urine Cocaine Screen U Marijuana (THC) Screen Ethyl Alcohol COVID-19 ([facility]) COVID-19 Clin Com Imaging Radiologist's impression: Impressions Chest X-Ray 09/05/21 04:45 IMPRESSION: Central vascular prominence without overt edema. Small left pleural effusion suspected. Head CT 09/05/21 05:25 IMPRESSION: No acute intracranial pathology. Venous Duplex 09/05/21 08:09 IMPRESSION: No DVT demonstrated in the bilateral lower extremity. Technically limited study due to suboptimal visualization (related to body habitus) of bilateral mid to distal femoral, and popliteal and calf veins. Assessment and Plan (1) Acute exacerbation of CHF (congestive heart failure): Status: Acute Acute decompensated heart failure in this middle-aged man with multiple risk factors including morbid obesity and most likely obesity hypoventilation syndrome and underlying sleep apnea with underlying probable COPD as well. Patient appears to be volume overloaded significantly. Continue IV diuresis. Strict intake and output chart needs to be pursued. Patient has noncompliance on admission with diuretic therapy. CHF education needs to be provided. Echocardiogram on Tuesday. Continue monitor renal function replace electrolytes as needed. Add Aldactone 25 mg to his regimen. Consider pulmonary evaluation as well as a blood gas as he most likely as chronic hypercapnic respiratory failure. Will continue to follow with you Procedures Date of Service Date of Service: 09/05/21
[2021-09-05 15:37] LABS: Glucose, Whole Blood 154 mg/dL (60-115)
[2021-09-05 16:31] LABS: ABG Base Excess 15.4 mmol/L; ABG HCO3 44 mmol/L (22-26); ABG pCO2 76 mmHg (32-45); ABG pH 7.37 (7.35-7.45); ABG pO2 73 mmHg (83-108)
--- NOTE | 2021-09-05 16:36 | PM.EVENT ---
Event Note Date of Service: 09/05/21 Event Note: Patient seems to be admitted for acute hypoxemic respiratory failure secondary to CHF exacerbation due to noncompliance. This late afternoon-staff call because thought to be patient is short of breath. Patient seen examined: Does not look in much short of breath, patient said he was sleeping and has history of sleep apnea. Sats are also in in 90s on 4 L Otherwise physical exam seems unchanged accept lung exam shows bilateral wheezing. Mental status unchanged (from H&P). ABG noted pH in maintained, pCO2 is slightly up to 76. Assessment and plan: Will continue CHF management with IV Lasix given is extra 1 dose of Lasix. Possibly has COPD exacerbation: Added is nebs, steroids, CPAP also added at night which she use at home. Will repeat ABG if further clinical situation changes. Night staff is aware.
[2021-09-05] MEDS: methylPREDNISolone Sod Succ 40 MG/ML VIAL IVPUSH (16:48)
[2021-09-05] MEDS: Furosemide 20 MG/2 ML VIAL IVPUSH (16:48)
[2021-09-05] MEDS: Albuterol/Iprat 2.5/0.5MG 3 ML AMPUL.NEB INHALE ×2 (17:00→20:21)
--- NOTE | 2021-09-05 17:29 | PC.NURSE ---
Patient drowsy,arousable to louder repeated voice ,shallow breathing , oxygen saturation down to 58% when pt accidentally took the cannula off. DR Cyr evaluated patient at the bedside. ABG gases done, lasix 20 mg IV additional dose ordered, neuro q 2 hrs, duoneb ordered. CPAP at bedtime. Currently pt is on 4 l via NC and o2sat 93-94% .
[2021-09-05 18:11] LABS: ABG Refer to POC result
[2021-09-05 19:50] LABS: Glucose, Whole Blood 163 mg/dL (60-115)
[2021-09-05] MEDS: Clotrimazole 1 % Cream 15 GM TUBE 1 APPL TOPICAL (20:15)
[2021-09-06] VITALS (10 sets, daily range): BP systolic 125–154; BP diastolic 44–88; PULSE 89–108; RESP 16–20; TEMP 36.3–36.7; O2SAT 85–98; BMI 44.1
[2021-09-06] MEDS: ceFAZolin Sodium/Dextrose,Iso 2 GM/50 ML PIGGYBACK IV ×4 (00:48→23:58)
[2021-09-06 02:47] LABS: ABG Base Excess 18.6 mmol/L; ABG HCO3 48 mmol/L (22-26); ABG pCO2 82 mmHg (32-45); ABG pH 7.37 (7.35-7.45); ABG pO2 77 mmHg (83-108)
[2021-09-06 03:49] LABS: ABG Refer to POC result
[2021-09-06] MEDS: methylPREDNISolone Sod Succ 40 MG/ML VIAL IVPUSH ×2 (05:29→17:51)
--- NOTE | 2021-09-06 05:47 | PC.NURSE ---
At approx 0200- pt woke up A&Ox1, confused/disoriented, pulling at BiPAP mask, not redirectable. MD notified, repeat ABGs drawn/aware of results. BiPAP mask replaced and settings changed by RT- current settings 27/12, oxygen titrated between 1-2L to maintain SpO2 > 88%. Resting quietly at this time, tolerating well, responds to tactile stimuli.
--- NOTE | 2021-09-06 05:53 | PM.EVENT ---
Event Note Date of Service: 09/06/21 Event Note: ABG showed worsening Hypercapnia. changed BiPAP setting to go from 04/19 to 27/12
[2021-09-06 07:19] LABS: Glucose, Whole Blood 140 mg/dL (60-115)
[2021-09-06 07:20] LABS: MANUAL DIFF FLAG NO
[2021-09-06 07:23] LABS: Basophils Percent Auto 0.2 % (0-2); Hematocrit 39.9 % (42.0-52.0); Hemoglobin 12.1 g/dl (14.0-18.0); Imm Gran Abs Auto 0.01 X10*3/uL (0.00-0.03); Imm Gran Pct Auto 0.2 % (0.0-0.4); Lymphocytes Absolute Auto 0.8 X10*3/uL (1.2-4.9); Lymphocytes Percent Auto 15.1 % (20-40); Mean Corpuscular HGB Conc 30.3 g/dl (31.0-36.0); Mean Corpuscular Hemoglobin 27.8 pg (27.0-33.0); Mean Corpuscular Volume 91.5 fL (80.0-98.0); Mean Platelet Volume 11.1 fL (9.4-12.4); Monocytes Absolute Auto 0.2 X10*3/uL (0.1-1.2); Monocytes Percent Auto 4.2 % (2-11); Neutrophils Absolute Auto 4.3 x10*3/uL (2.0-8.3); Neutrophils Percent Auto 80.3 % (45-73); Platelet Count 228 X10*3/uL (160-400); Red Blood Count 4.36 X10*6/uL (4.60-5.80); Red Cell Distribution Width 19.2 % (11.0-16.0); White Blood Count 5.3 X10*3/uL (4.8-10.8)
[2021-09-06] MEDS: Albuterol/Iprat 2.5/0.5MG 3 ML AMPUL.NEB INHALE ×3 (07:33→19:23)
[2021-09-06] MEDS: Metoprolol Tartrate 12.5 MG HALFTAB PO ×2 (08:01→20:30)
[2021-09-06] MEDS: Atorvastatin Calcium 80 MG TABLET PO (08:02)
[2021-09-06] MEDS: Furosemide 40 MG/4 ML VIAL IVPUSH ×2 (08:02→17:51)
[2021-09-06] MEDS: lisinopriL 40 MG TABLET PO (08:02)
[2021-09-06] MEDS: Ammonium Lactate 12 % Lotion 226 GM BOTTLE 1 APPL TOPICAL ×2 (08:03→20:31)
[2021-09-06] MEDS: Clotrimazole 1 % Cream 15 GM TUBE 1 APPL TOPICAL ×2 (08:03→20:31)
[2021-09-06 08:09] LABS: B Type Natriuretic Peptide 658 pg/mL (<100)
[2021-09-06 08:48] LABS: ABG Base Excess 21.7 mmol/L; ABG HCO3 49 mmol/L (22-26); ABG pCO2 64 mmHg (32-45); ABG pH 7.49 (7.35-7.45); ABG pO2 66 mmHg (83-108)
[2021-09-06 08:51] LABS: ABG Refer to POC result
--- NOTE | 2021-09-06 09:02 | MHC.CM.PN ---
CM met with Patient at bedside and addressed IMM with him, providing him with the original and placing a copy on the chart. Patient lives alone in a house and uses crutches to assist with mobility. Home no services is the goal for dc and CM has initiated and will follow for dc planning. PCP is Dr. Alecia Spivey and Patient has received Covid/J&J vax X1 only.No home O2 ENROBER.
[2021-09-06 09:16] LABS: Anion Gap 9 (12-20); Blood Urea Nitrogen 13 mg/dL (9-16); Calcium 9.4 mg/dL (8.4-10.2); Carbon Dioxide 43 mmol/L (22-29); Chloride 95 mmol/L (96-108); Estimated Glomerular Filt Rate > 60; Glucose Random 137 mg/dL (60-115); Potassium 3.6 mmol/L (3.3-5.1); Sodium 143 mmol/L (135-145)
[2021-09-06] MEDS: acetaZOLAMIDE sodium 500 MG VIAL IVPUSH (10:25)
[2021-09-06] MEDS: Enoxaparin Sodium 40 MG/0.4 ML SYRINGE SUBCUT (10:26)
[2021-09-06 11:02] LABS: Glucose, Whole Blood 239 mg/dL (60-115)
[2021-09-06] MEDS: Insulin Lispro 100 UNIT/ML 3 ML VIAL SUBCUT ×2 (12:03→21:09)
--- NOTE | 2021-09-06 12:55 | P.PNIM_ITS ---
Subjective Subjective Date of Service: 09/06/21 Physical Exam Vital Signs: Vital Signs: Last Vital Signs Temp 97.3 F 09/06/21 11:20 Pulse 90 09/06/21 11:35 Resp 18 09/06/21 11:35 BP 150/87 H 09/06/21 11:20 Pulse Ox 91 L 09/06/21 11:20 Oxygen Flow Rate 2 09/06/21 03:11 BMI result Body Mass Index 44.1 Objective Data Active Medications Acetaminophen (Acetaminophen 325 Mg Tablet) 650 mg PO Q6H PRN PRN Reason: Pain, Mild (Pain Scale 1-3) Acetazolamide (Acetazolamide 250 Mg Tablet) 500 mg PO BID [facility] Albuterol/Ipratropium (Albuterol/Iprat 2.5/0.5mg 3 Ml Ampul.Neb) 3 ml INHALE RQ4H WHILE AWAKE [facility] Last Admin: 09/06/21 11:33 Dose: 3 ml Documented by: SYLVAIN Albuterol/Ipratropium (Albuterol/Iprat 2.5/0.5mg 3 Ml Ampul.Neb) 3 ml INHALE Q4H PRN PRN Reason: sob Last Admin: 09/05/21 17:00 Dose: 3 ml Documented by: ANH Atorvastatin Calcium (Atorvastatin Calcium 80 Mg Tablet) 80 mg PO DAILY [facility] Last Admin: 09/06/21 08:02 Dose: 80 mg Documented by: BRODY Clotrimazole (Clotrimazole 1 % Cream 15 Gm Tube) 1 appl TOPICAL BID [facility]; Protocol Last Admin: 09/06/21 08:03 Dose: 1 appl Documented by: BRODY Docusate Sodium (Docusate Sodium 100 Mg Capsule) 100 mg PO DAILY PRN PRN Reason: Constipation Enoxaparin Sodium (Enoxaparin Sodium 40 Mg/0.4 Ml Syringe) 40 mg SUBCUT Q24H [facility] Last Admin: 09/06/21 10:26 Dose: 40 mg Documented by: BRODY Furosemide (Furosemide 40 Mg/4 Ml Vial) 40 mg IVPUSH BID@0900,1800 [facility]; Protocol Last Admin: 09/06/21 08:02 Dose: 40 mg Documented by: BRODY Cefazolin Sodium/Dextrose (Ancef) 2 gm in 50 mls @ 100 mls/hr IV Q8H [facility] Last Infusion: 09/06/21 09:08 Dose: 100 mls/hr Documented by: BRODY Insulin Human Lispro (Insulin Lispro 100 Unit/Ml 3 Ml Vial) 0 unit SUBCUT QIDACHS [facility]; Protocol Last Admin: 09/06/21 12:03 Dose: 4 unit Documented by: BRODY Lactic Acid (Ammonium Lactate 12 % Lotion 226 Gm Bottle) 1 appl TOPICAL BID [facility]; Protocol Last Admin: 09/06/21 08:03 Dose: 1 appl Documented by: BRODY Lisinopril (Lisinopril 40 Mg Tablet) 40 mg PO DAILY [facility]; Protocol Last Admin: 09/06/21 08:02 Dose: 40 mg Documented by: BRODY Methylprednisolone Sodium Succinate (Methylprednisolone Sod Succ 40 Mg/Ml Vial) 40 mg IVPUSH Q12H [facility] Last Admin: 09/06/21 05:29 Dose: 40 mg Documented by: CHELITA Metoprolol Tartrate (Metoprolol Tartrate 12.5 Mg Halftab) 12.5 mg PO BID [facility]; Protocol Last Admin: 09/06/21 08:01 Dose: 12.5 mg Documented by: BRODY Morphine Sulfate (Morphine Sulfate Er 15 Mg Tablet.Er) 15 mg PO BID PRN PRN Reason: Pain, Severe (Pain Scale 7-10) Ondansetron HCl (Ondansetron Hcl 4 Mg/2 Ml Vial) 4 mg IVPUSH Q8H PRN PRN Reason: Nausea and Vomiting Oxycodone HCl (Oxycodone Hcl Immed Release 5 Mg Tablet) 5 mg PO Q6H PRN PRN Reason: moderate pain Labs CBC & Chem 7: 09/06/21 06:39 09/06/21 06:39 Labs: Laboratory Results - last 24 hr 09/05/21 09/05/21 09/05/21 15:31 16:22 19:45 MCV MCH MCHC RDW Plt Count MPV Immature Gran % (Auto) Neut % (Auto) Lymph % (Auto) [place] % (Auto) Eos % (Auto) Baso % (Auto) Lymph # (Auto) [place] # (Auto) Eos # (Auto) Baso # (Auto) Abs Immat Gran (auto) Absolute Neuts (auto) Absolute Nucleated RBC Nucleated RBC % (auto) O2 Saturation 92.0 ABG pH at Pt Temp 7.37 ABG pCO2 at Pt Temp 76 H* ABG pO2 at Pt Temp 73 L ABG HCO3 44 H ABG Base Excess (Actual) 15.4 Anion Gap Estim Creat Clear Calc Estimated GFR POC Glucose 154 H 163 H Random Glucose Calcium B-Natriuretic Peptide 09/06/21 09/06/21 09/06/21 02:39 06:39 06:39 MCV 91.5 MCH 27.8 MCHC 30.3 L RDW 19.2 H Plt Count 228 MPV 11.1 Immature Gran % (Auto) 0.2 Neut % (Auto) 80.3 H Lymph % (Auto) 15.1 L [place] % (Auto) 4.2 Eos % (Auto) 0.0 Baso % (Auto) 0.2 Lymph # (Auto) 0.8 L [place] # (Auto) 0.2 Eos # (Auto) 0.0 Baso # (Auto) 0.0 Abs Immat Gran (auto) 0.01 Absolute Neuts (auto) 4.3 Absolute Nucleated RBC 0.000 Nucleated RBC % (auto) 0.0 O2 Saturation 93.0 ABG pH at Pt Temp 7.37 ABG pCO2 at Pt Temp 82 H* ABG pO2 at Pt Temp 77 L ABG HCO3 48 H ABG Base Excess (Actual) 18.6 Anion Gap 9 L Estim Creat Clear Calc 125.0 Estimated GFR > 60 POC Glucose Random Glucose 137 H Calcium 9.4 B-Natriuretic Peptide 09/06/21 09/06/21 09/06/21 06:39 07:12 08:27 MCV MCH MCHC RDW Plt Count MPV Immature Gran % (Auto) Neut % (Auto) Lymph % (Auto) [place] % (Auto) Eos % (Auto) Baso % (Auto) Lymph # (Auto) [place] # (Auto) Eos # (Auto) Baso # (Auto) Abs Immat Gran (auto) Absolute Neuts (auto) Absolute Nucleated RBC Nucleated RBC % (auto) O2 Saturation 91.0 ABG pH at Pt Temp 7.49 H ABG pCO2 at Pt Temp 64 H* ABG pO2 at Pt Temp 66 L ABG HCO3 49 H ABG Base Excess (Actual) 21.7 Anion Gap Estim Creat Clear Calc Estimated GFR POC Glucose 140 H Random Glucose Calcium B-Natriuretic Peptide 658 H 09/06/21 10:56 MCV MCH MCHC RDW Plt Count MPV Immature Gran % (Auto) Neut % (Auto) Lymph % (Auto) [place] % (Auto) Eos % (Auto) Baso % (Auto) Lymph # (Auto) [place] # (Auto) Eos # (Auto) Baso # (Auto) Abs Immat Gran (auto) Absolute Neuts (auto) Absolute Nucleated RBC Nucleated RBC % (auto) O2 Saturation ABG pH at Pt Temp ABG pCO2 at Pt Temp ABG pO2 at Pt Temp ABG HCO3 ABG Base Excess (Actual) Anion Gap Estim Creat Clear Calc Estimated GFR POC Glucose 239 H Random Glucose Calcium B-Natriuretic Peptide Microbiology Microbiology Results: Microbiology 09/05/21 07:17 Blood Culture - Preliminary Blood - Venous No growth after 24 hours. 09/05/21 07:17 Blood Culture - Preliminary Blood - Venous No growth after 24 hours. 09/05/21 04:35 Blood Culture - Preliminary Blood - Venous No growth after 24 hours. 09/05/21 04:18 Blood Culture - Preliminary Blood - Venous No growth after 24 hours. Assessment and Plan (1) Lower extremity edema: Status: Acute (2) Cellulitis: Status: Acute (3) Acute exacerbation of CHF (congestive heart failure): Status: Acute (4) Acute respiratory failure with hypoxia: Status: Acute (5) Hypercapnia: Status: Acute Plan 66-year-old male with past medical history of CHF presents to the hospital with hypoxia # acute hypoxic/ hypercapnic respiratory failure # secondary to CHF exacerbation and OHS\ Sleep apnea improving slowly continue IV Lasix Started on Diamox for traction alkalosis cardiology input appreciated Monitor intake and output Pending echo Low-sodium diet , fluid restriction start all duct own 25 mg daily # OHS\FARSHAD To use BiPAP at night and with naps To get pulmonary evaluation for his hypercapnic respiratory failure Overnight oxygen study # Cellulitis warmth , erythema, tenderness Bilateral lower extremities likely stasis dermatitis with the cellulitis continue iv abx to use cream for athlete's foot follow cultures to apply Khadar wrap # lower extremity edema due to chf Negative venous duplex for DVT # CAD status post CABG restart home medications # diabetes low-dose sliding scale insulin diabetic diet # Hypertension stable Continue home antihypertensives DVT ppx: heparin sub q patient will need overnight hospital stay to continue treatment of CHF exacerbation and hypoxic respiratory failure along with cellulitis Given high c sara of decompensation into respiratory failure. Quality Stroke Does the patient have a stroke diagnosis?: No VTE Prior VTE?: No VTE Risk Level:: Medical - moderate - high VTE Device Contraindication: Treatment Not Indicated VTE Drug Contraindication: N/A - Med Ordered
--- NOTE | 2021-09-06 13:11 | PM.PNCARD ---
Subjective Subjective Date of Service: 09/06/21 Principal diagnosis: CHF Interval history: Patient much more aware and alert today in responding to questions. He said he was getting progressively increasing leg swelling and generally billing a with fluid and could not get up and therefore stopped taking his diuretics. Overnight has diuresed about 5.6 L. he says he is still choking with phlegm and has and feels congested. His blood pressure is elevated. He was given CPAP last night. Review of Systems Constitutional: Reports no additional constitutional complaints Cardiovascular: Denies chest pain, Reports leg edema, Denies lightheadedness, Denies Loss of Consciousness and Reports dyspnea Respiratory: Reports chest congestion, Reports excessive phlegm production and Reports dyspnea Gastrointestinal: Reports no additional gastrointestinal complaints Musculoskeletal: Reports no additional musculoskeletal complaints Reports system reviewed and no additional complaints, except as documented Physical Exam Vital Signs: Last Vital Signs Temp 97.3 F 09/06/21 11:20 Pulse 90 09/06/21 11:35 Resp 18 09/06/21 11:35 BP 150/87 H 09/06/21 11:20 Pulse Ox 91 L 09/06/21 11:20 Oxygen Flow Rate 2 09/06/21 03:11 BMI result Body Mass Index 44.1 Objective Labs and Meds Result diagrams: 09/06/21 06:39 09/06/21 06:39 Lab results: Laboratory Results - last 24 hr 09/05/21 09/05/21 09/05/21 15:31 16:22 19:45 WBC RBC Hgb Hct MCV MCH MCHC RDW Plt Count MPV Immature Gran % (Auto) Neut % (Auto) Lymph % (Auto) [place] % (Auto) Eos % (Auto) Baso % (Auto) Lymph # (Auto) [place] # (Auto) Eos # (Auto) Baso # (Auto) Abs Immat Gran (auto) Absolute Neuts (auto) Absolute Nucleated RBC Nucleated RBC % (auto) O2 Saturation 92.0 ABG pH at Pt Temp 7.37 ABG pCO2 at Pt Temp 76 H* ABG pO2 at Pt Temp 73 L ABG HCO3 44 H ABG Base Excess (Actual) 15.4 Sodium Potassium Chloride Carbon Dioxide Anion Gap BUN Creatinine Estim Creat Clear Calc Estimated GFR POC Glucose 154 H 163 H Random Glucose Calcium B-Natriuretic Peptide 09/06/21 09/06/21 09/06/21 02:39 06:39 06:39 WBC 5.3 RBC 4.36 L Hgb 12.1 L Hct 39.9 L MCV 91.5 MCH 27.8 MCHC 30.3 L RDW 19.2 H Plt Count 228 MPV 11.1 Immature Gran % (Auto) 0.2 Neut % (Auto) 80.3 H Lymph % (Auto) 15.1 L [place] % (Auto) 4.2 Eos % (Auto) 0.0 Baso % (Auto) 0.2 Lymph # (Auto) 0.8 L [place] # (Auto) 0.2 Eos # (Auto) 0.0 Baso # (Auto) 0.0 Abs Immat Gran (auto) 0.01 Absolute Neuts (auto) 4.3 Absolute Nucleated RBC 0.000 Nucleated RBC % (auto) 0.0 O2 Saturation 93.0 ABG pH at Pt Temp 7.37 ABG pCO2 at Pt Temp 82 H* ABG pO2 at Pt Temp 77 L ABG HCO3 48 H ABG Base Excess (Actual) 18.6 Sodium 143 Potassium 3.6 Chloride 95 L Carbon Dioxide 43 H* D Anion Gap 9 L BUN 13 Creatinine 0.75 Estim Creat Clear Calc 125.0 Estimated GFR > 60 POC Glucose Random Glucose 137 H Calcium 9.4 B-Natriuretic Peptide 09/06/21 09/06/21 09/06/21 06:39 07:12 08:27 WBC RBC Hgb Hct MCV MCH MCHC RDW Plt Count MPV Immature Gran % (Auto) Neut % (Auto) Lymph % (Auto) [place] % (Auto) Eos % (Auto) Baso % (Auto) Lymph # (Auto) [place] # (Auto) Eos # (Auto) Baso # (Auto) Abs Immat Gran (auto) Absolute Neuts (auto) Absolute Nucleated RBC Nucleated RBC % (auto) O2 Saturation 91.0 ABG pH at Pt Temp 7.49 H ABG pCO2 at Pt Temp 64 H* ABG pO2 at Pt Temp 66 L ABG HCO3 49 H ABG Base Excess (Actual) 21.7 Sodium Potassium Chloride Carbon Dioxide Anion Gap BUN Creatinine Estim Creat Clear Calc Estimated GFR POC Glucose 140 H Random Glucose Calcium B-Natriuretic Peptide 658 H 09/06/21 10:56 WBC RBC Hgb Hct MCV MCH MCHC RDW Plt Count MPV Immature Gran % (Auto) Neut % (Auto) Lymph % (Auto) [place] % (Auto) Eos % (Auto) Baso % (Auto) Lymph # (Auto) [place] # (Auto) Eos # (Auto) Baso # (Auto) Abs Immat Gran (auto) Absolute Neuts (auto) Absolute Nucleated RBC Nucleated RBC % (auto) O2 Saturation ABG pH at Pt Temp ABG pCO2 at Pt Temp ABG pO2 at Pt Temp ABG HCO3 ABG Base Excess (Actual) Sodium Potassium Chloride Carbon Dioxide Anion Gap BUN Creatinine Estim Creat Clear Calc Estimated GFR POC Glucose 239 H Random Glucose Calcium B-Natriuretic Peptide Progress Note: A&P Assessment and plan (1) Acute exacerbation of CHF (congestive heart failure): Status: Acute Assessment and Plan: Patient present with hypoxic respiratory failure with good response to IV diuresis. Continue IV diuresis with Lasix. Strict intake and output chart needs to be pursued. On discharge may need alternative oral diuretic such as Bumex which is better absorption rate. Will require echocardiogram. Also requires pulmonary workup and consider blood gas to evaluate for chronic respiratory failure. Most likely has obesity hypoventilation syndrome. Continue supportive care. Consider pulmonary consultation. Continue better blood pressure control. Add Aldactone 25 mg to his regimen. Also consider adding Jardiance 10 mg to his regimen. Will continue to follow with you Fall Risk Details Current Medications: Current Medications Acetaminophen (Acetaminophen 325 Mg Tablet) 650 mg PO Q6H PRN PRN Reason: Pain, Mild (Pain Scale 1-3) Acetazolamide (Acetazolamide 250 Mg Tablet) 500 mg PO BID [facility] Albuterol/Ipratropium (Albuterol/Iprat 2.5/0.5mg 3 Ml Ampul.Neb) 3 ml INHALE RQ4H WHILE AWAKE [facility] Last Admin: 09/06/21 11:33 Dose: 3 ml Documented by: Albuterol/Ipratropium (Albuterol/Iprat 2.5/0.5mg 3 Ml Ampul.Neb) 3 ml INHALE Q4H PRN PRN Reason: sob Last Admin: 09/05/21 17:00 Dose: 3 ml Documented by: Atorvastatin Calcium (Atorvastatin Calcium 80 Mg Tablet) 80 mg PO DAILY [facility] Last Admin: 09/06/21 08:02 Dose: 80 mg Documented by: Clotrimazole (Clotrimazole 1 % Cream 15 Gm Tube) 1 appl TOPICAL BID [facility]; Protocol Last Admin: 09/06/21 08:03 Dose: 1 appl Documented by: Docusate Sodium (Docusate Sodium 100 Mg Capsule) 100 mg PO DAILY PRN PRN Reason: Constipation Enoxaparin Sodium (Enoxaparin Sodium 40 Mg/0.4 Ml Syringe) 40 mg SUBCUT Q24H [facility] Last Admin: 09/06/21 10:26 Dose: 40 mg Documented by: Furosemide (Furosemide 40 Mg/4 Ml Vial) 40 mg IVPUSH BID@0900,1800 [facility]; Protocol Last Admin: 09/06/21 08:02 Dose: 40 mg Documented by: Cefazolin Sodium/Dextrose (Ancef) 2 gm in 50 mls @ 100 mls/hr IV Q8H [facility] Last Infusion: 09/06/21 09:08 Dose: Infused Documented by: Insulin Human Lispro (Insulin Lispro 100 Unit/Ml 3 Ml Vial) 0 unit SUBCUT QIDACHS [facility]; Protocol Last Admin: 09/06/21 12:03 Dose: 4 unit Documented by: Lactic Acid (Ammonium Lactate 12 % Lotion 226 Gm Bottle) 1 appl TOPICAL BID [facility]; Protocol Last Admin: 09/06/21 08:03 Dose: 1 appl Documented by: Lisinopril (Lisinopril 40 Mg Tablet) 40 mg PO DAILY [facility]; Protocol Last Admin: 09/06/21 08:02 Dose: 40 mg Documented by: Methylprednisolone Sodium Succinate (Methylprednisolone Sod Succ 40 Mg/Ml Vial) 40 mg IVPUSH Q12H [facility] Last Admin: 09/06/21 05:29 Dose: 40 mg Documented by: Metoprolol Tartrate (Metoprolol Tartrate 12.5 Mg Halftab) 12.5 mg PO BID [facility]; Protocol Last Admin: 09/06/21 08:01 Dose: 12.5 mg Documented by: Morphine Sulfate (Morphine Sulfate Er 15 Mg Tablet.Er) 15 mg PO BID PRN PRN Reason: Pain, Severe (Pain Scale 7-10) Ondansetron HCl (Ondansetron Hcl 4 Mg/2 Ml Vial) 4 mg IVPUSH Q8H PRN PRN Reason: Nausea and Vomiting Oxycodone HCl (Oxycodone Hcl Immed Release 5 Mg Tablet) 5 mg PO Q6H PRN PRN Reason: moderate pain Time Spent With Patient Time: Total time spent is greater than 50% in coordination of care (as documented) at patient's floor/unit and/or counseling patient: Progress Note: Quality Stroke Does the patient have a stroke diagnosis?: No Procedures Date of Service Date of Service: 09/06/21
[2021-09-06 16:31] LABS: Glucose, Whole Blood 160 mg/dL (60-115)
[2021-09-06] MEDS: acetaZOLAMIDE 250 MG TABLET 500 MG PO (20:30)
[2021-09-06] MEDS: oxyCODONE HCl Immed Release 5 MG TABLET PO (20:30)
[2021-09-06] MEDS: Morphine Sulfate ER 15 MG TABLET.ER PO (20:30)
[2021-09-06 20:33] LABS: Glucose, Whole Blood 258 mg/dL (60-115)
[2021-09-07 03:23] VITALS: BP 134/60; PULSE 99; RESP 18; TEMP 36.7; O2SAT 91
[2021-09-07] MEDS: methylPREDNISolone Sod Succ 40 MG/ML VIAL IVPUSH (04:59)
[2021-09-07 05:26] VITALS: BMI 42.7
[2021-09-07 06:56] LABS: B Type Natriuretic Peptide 312 pg/mL (<100)
[2021-09-07 07:04] LABS: Anion Gap 7 (12-20); Blood Urea Nitrogen 37 mg/dL (9-16); Calcium 8.7 mg/dL (8.4-10.2); Carbon Dioxide 37 mmol/L (22-29); Chloride 98 mmol/L (96-108); Creatinine Clr Calc Pharmacy 117.9; Estimated Glomerular Filt Rate > 60; Glucose Random 171 mg/dL (60-115); Potassium 4.1 mmol/L (3.3-5.1); Sodium 138 mmol/L (135-145)
[2021-09-07 07:22] LABS: Glucose, Whole Blood 160 mg/dL (60-115)
[2021-09-07 07:32] VITALS: BP 137/71; PULSE 94; RESP 18; TEMP 36.6; O2SAT 94
[2021-09-07] MEDS: Furosemide 40 MG/4 ML VIAL IVPUSH (07:49)
[2021-09-07] MEDS: ceFAZolin Sodium/Dextrose,Iso 2 GM/50 ML PIGGYBACK IV (07:49)
[2021-09-07] MEDS: lisinopriL 40 MG TABLET PO (07:50)
[2021-09-07] MEDS: Albuterol/Iprat 2.5/0.5MG 3 ML AMPUL.NEB INHALE (07:50)
[2021-09-07] MEDS: Atorvastatin Calcium 80 MG TABLET PO (07:50)
[2021-09-07] MEDS: Metoprolol Tartrate 12.5 MG HALFTAB PO (07:50)
[2021-09-07] MEDS: acetaZOLAMIDE 250 MG TABLET 500 MG PO (07:50)
[2021-09-07] MEDS: Clotrimazole 1 % Cream 15 GM TUBE 1 APPL TOPICAL (07:52)
[2021-09-07] MEDS: Ammonium Lactate 12 % Lotion 226 GM BOTTLE 1 APPL TOPICAL (07:52)
[2021-09-07 07:53] VITALS: PULSE 87; RESP 18; O2SAT 94
[2021-09-07] MEDS: Insulin Lispro 100 UNIT/ML 3 ML VIAL SUBCUT ×2 (08:04→12:06)
[2021-09-07] MEDS: oxyCODONE HCl Immed Release 5 MG TABLET PO (08:04)
[2021-09-07] MEDS: Enoxaparin Sodium 40 MG/0.4 ML SYRINGE SUBCUT (08:05)
[2021-09-07 08:06] VITALS: O2SAT 87
[2021-09-07 08:27] LABS: ABG Base Excess 10.9 mmol/L; ABG HCO3 35 mmol/L (22-26); ABG pCO2 47 mmHg (32-45); ABG pH 7.48 (7.35-7.45); ABG pO2 58 mmHg (83-108)
--- NOTE | 2021-09-07 08:51 | PM.CNPUL ---
History of Present Illness History of Present Illness Consult date: 09/07/21 Requesting physician: Jessica Nelson Chief complaint: hypoxic resp failure, chf exacerbation Narrative: I have seen this 66 years old gentleman this morning, for pulmonary and sleep evaluation, He was admitted on 09/05 after his friend found him on the floor , where he had been during the night. A change in mental status was noted. When brought to the emergency room he had evidence of fluid retention secondary to congestive heart failure, In addition blood gases were grossly abnormal, in face of morbid obesity. Over the weekend with aggressive diuresis he has diuresed well and improved . Because of abnormal blood gas study, pulmonary consultation was requested. The patient denies having had any chronic pulmonary disease. He has morbid obesity, he has been talked about sleep apnea, a sleep study is scheduled to be done in next few weeks. Since he was in the emergency room and found to have CO2 retention a BiPAP has been tried, but he resents putting on the mask. Patient has history of smoking for almost 50 years 15 cigarettes a day. Review of Systems Review of Systems: Yes all other systems are reviewed and are negative Constitutional: Constitutional: Denies snoring Eyes: Eyes: Reports no additional eye complaints ENT: Reports system reviewed and no additional complaints, except as documented Cardiovascular: Cardiovascular: Reports Abdominal Distension, Reports leg edema and Reports dyspnea Respiratory: Respiratory: Denies cough, Denies excessive phlegm production, Reports dyspnea, Denies snoring and Denies wheezing Gastrointestinal: Gastrointestinal: Reports no additional gastrointestinal complaints Genitourinary: Genitourinary: Reports no additional male genitourinary complaints Musculoskeletal: Musculoskeletal: Reports no additional musculoskeletal complaints Neurologic: Reports system reviewed and no additional complaints, except as documented Psychiatric: Psychiatric: Reports no additional psychiatric complaints Allergic/Immunologic: Allergic/Immunologic: Denies wheezing PMFSH Past Medical History Medical History (Updated 09/07/21 @ 09:07 by Ivelisse Herrmann MD) Bilateral lower extremity edema CHF (congestive heart failure) Coronary artery disease Diabetes Hypertension Morbid obesity Morbid obesity Myocardial infarction Respiratory failure with hypoxia and hypercapnia Family History Family History Other No family history of coronary artery disease Surgical History Surgical History S/P coronary artery stent placement Social History Social History Household Members: None Housing: Unknown / Unable to assess Do you presently have visiting nurse or other home services: No Patient Tobacco Use Status: Current everyday Tobacco user Tobacco use type: Cigarette Cigarette Packs Per Day: 0.75 Cigarettes Per Day: 15.0 Years Smoked: 50 e-Cigarette/Vaping Use: Never Used service: No Current occupational status: disabled Meds Allergies Allergy/AdvReac Type Severity Reaction Status Date / Time No Known Allergies Allergy Unverified 01/31/20 14:57 [No Known Allergies*] Active Medications: Current Medications Acetaminophen (Acetaminophen 325 Mg Tablet) 650 mg PO Q6H PRN PRN Reason: Pain, Mild (Pain Scale 1-3) Acetazolamide (Acetazolamide 250 Mg Tablet) 500 mg PO BID [facility] Last Admin: 09/07/21 07:50 Dose: 500 mg Documented by: Albuterol/Ipratropium (Albuterol/Iprat 2.5/0.5mg 3 Ml Ampul.Neb) 3 ml INHALE RQ4H WHILE AWAKE [facility] Last Admin: 09/07/21 07:50 Dose: 3 ml Documented by: Albuterol/Ipratropium (Albuterol/Iprat 2.5/0.5mg 3 Ml Ampul.Neb) 3 ml INHALE Q4H PRN PRN Reason: sob Last Admin: 09/05/21 17:00 Dose: 3 ml Documented by: Atorvastatin Calcium (Atorvastatin Calcium 80 Mg Tablet) 80 mg PO DAILY [facility] Last Admin: 09/07/21 07:50 Dose: 80 mg Documented by: Clotrimazole (Clotrimazole 1 % Cream 15 Gm Tube) 1 appl TOPICAL BID [facility]; Protocol Last Admin: 09/07/21 07:52 Dose: 1 appl Documented by: Docusate Sodium (Docusate Sodium 100 Mg Capsule) 100 mg PO DAILY PRN PRN Reason: Constipation Enoxaparin Sodium (Enoxaparin Sodium 40 Mg/0.4 Ml Syringe) 40 mg SUBCUT Q24H [facility] Last Admin: 09/07/21 08:05 Dose: 40 mg Documented by: Furosemide (Furosemide 40 Mg/4 Ml Vial) 40 mg IVPUSH BID@0900,1800 [facility]; Protocol Last Admin: 09/07/21 07:49 Dose: 40 mg Documented by: Cefazolin Sodium/Dextrose (Ancef) 2 gm in 50 mls @ 100 mls/hr IV Q8H [facility] Last Infusion: 09/07/21 08:20 Dose: Infused Documented by: Insulin Human Lispro (Insulin Lispro 100 Unit/Ml 3 Ml Vial) 0 unit SUBCUT QIDACHS [facility]; Protocol Last Admin: 09/07/21 08:04 Dose: 2 unit Documented by: Lactic Acid (Ammonium Lactate 12 % Lotion 226 Gm Bottle) 1 appl TOPICAL BID [facility]; Protocol Last Admin: 09/07/21 07:52 Dose: 1 appl Documented by: Lisinopril (Lisinopril 40 Mg Tablet) 40 mg PO DAILY [facility]; Protocol Last Admin: 09/07/21 07:50 Dose: 40 mg Documented by: Methylprednisolone Sodium Succinate (Methylprednisolone Sod Succ 40 Mg/Ml Vial) 40 mg IVPUSH Q12H [facility] Last Admin: 09/07/21 04:59 Dose: 40 mg Documented by: Metoprolol Tartrate (Metoprolol Tartrate 12.5 Mg Halftab) 12.5 mg PO BID [facility]; Protocol Last Admin: 09/07/21 07:50 Dose: 12.5 mg Documented by: Morphine Sulfate (Morphine Sulfate Er 15 Mg Tablet.Er) 15 mg PO BID PRN PRN Reason: Pain, Severe (Pain Scale 7-10) Last Admin: 09/06/21 20:30 Dose: 15 mg Documented by: Ondansetron HCl (Ondansetron Hcl 4 Mg/2 Ml Vial) 4 mg IVPUSH Q8H PRN PRN Reason: Nausea and Vomiting Oxycodone HCl (Oxycodone Hcl Immed Release 5 Mg Tablet) 5 mg PO Q6H PRN PRN Reason: moderate pain Last Admin: 09/07/21 08:04 Dose: 5 mg Documented by: Home Medications Medication Instructions Recorded Confirmed Last Taken Type atorvastatin 80 mg tablet 80 mg PO DAILY 09/05/21 09/05/21 09/04/21 09:00 History duloxetine 60 mg capsule,delayed 60 mg PO DAILY 09/05/21 09/05/21 09/04/21 09:00 History release etodolac 400 mg tablet 400 mg PO BID 09/05/21 09/05/21 09/04/21 21:00 History lisinopril 40 mg tablet 40 mg PO DAILY 09/05/21 09/05/21 09/04/21 09:00 History metformin 500 mg tablet 500 mg PO BID 09/05/21 09/05/21 09/04/21 21:00 History metoprolol tartrate 25 mg tablet 12.5 mg PO BID 09/05/21 09/05/21 09/04/21 21:00 History morphine 15 mg tablet,extended 15 mg PO BID PRN 09/05/21 09/05/21 09/04/21 21:00 History release oxycodone 5 mg tablet 5 mg PO Q6H PRN 09/05/21 09/05/21 09/04/21 21:00 History Physical Exam Vital Signs: Vital Signs: Last Vital Signs Temp 97.9 F 09/07/21 07:32 Pulse 87 09/07/21 07:53 Resp 18 09/07/21 07:53 BP 137/71 09/07/21 07:32 Pulse Ox 94 09/07/21 07:32 Oxygen Flow Rate 2 09/06/21 03:11 BMI result Body Mass Index 42.7 Const: Other: Grossly obese, and there is evidence of generalized fluid retention. General: comfortable, no acute distress, alert and awake Orientation/consciousness: patient oriented x3 HEENT: Head: Yes normal to inspection General nose exam: No nasal polyps present and No nasal discharge present Face and sinus: Yes sinuses nontender Mouth: oropharynx normal Throat: No posterior oropharynx normal (Narrow and crowded, Mallampati class 3) Eyes: General: appearance normal, both eyes and all related structures Neck: Other: Neck is short and obese Neck: Yes normal visual inspection, Yes no lymphadenopathy, Yes trachea midline and Yes no JVD Thyroid: Thyroid normal Chest: Chest palpation & inspection: normal inspection of the chest, normal palpation of entire chest wall and no tenderness Resp: Other: Percussion note not perceptible, breath sounds are very distant, A few inspiratory crackles over the basilar areas, no wheezes are heard. Cardio: Palpation: normal PMI Rate: regular rate Rhythm: regular rhythm Heart sounds: no gallops and no murmurs GI: Palpation (GI): Soft to palpation, nontender, No hepatosplenomegaly present, no masses and Other GI palpation findings present (Abdomen is obese and protuberant, with flabby abdominal wall) Auscultation: normal bowel sounds Back/Spine/Pelvis: Other: Not examine Thoracic/Lumbar Spine: thoracic and lumbar spine normal to inspection Skin: General skin exam: no rashes or lesions noted Neuro: General: patient oriented x3 and no focal motor deficits Cranial nerves: Yes CN's II-XII intact bilaterally Extrem: General: Yes normal to inspection, Yes no clubbing, cyanosis or edema and Yes no calf tenderness Psych: Speech and movement: Normal speech and movement present Results Laboratory Findings CBC and BMP: 09/06/21 06:39 09/07/21 06:17 ABG, PT/INR, D-dimer: PT/INR, D-dimer PT 12.7 SEC (9.9-13.0) 09/05/21 04:18 INR 1.1 (0.9-1.1) 09/05/21 04:18 Abnormal lab findings: Abnormal Labs 09/05/21 09/05/21 09/05/21 04:18 04:18 04:18 RBC Hgb 13.1 L Hct MCHC 30.3 L RDW 19.7 H Neut % (Auto) Lymph % (Auto) Lymph # (Auto) ABG pH at Pt Temp ABG pCO2 at Pt Temp ABG pO2 at Pt Temp ABG HCO3 VBG HCO3 Chloride Carbon Dioxide Anion Gap BUN POC Glucose Random Glucose 137 H Total Bilirubin 1.6 H Direct Bilirubin 1.0 H B-Natriuretic Peptide 1117 H Albumin 3.1 L TSH 4.61 H Urine Protein Urine RBC Urine Opiates Screen 09/05/21 09/05/21 09/05/21 04:22 06:14 06:14 RBC Hgb Hct MCHC RDW Neut % (Auto) Lymph % (Auto) Lymph # (Auto) ABG pH at Pt Temp ABG pCO2 at Pt Temp ABG pO2 at Pt Temp ABG HCO3 VBG HCO3 37 H Chloride Carbon Dioxide Anion Gap BUN POC Glucose Random Glucose Total Bilirubin Direct Bilirubin B-Natriuretic Peptide Albumin TSH Urine Protein 1+ H Urine RBC 5-9 H Urine Opiates Screen POSITIVE H 09/05/21 09/05/21 09/05/21 11:26 15:31 16:22 RBC Hgb Hct MCHC RDW Neut % (Auto) Lymph % (Auto) Lymph # (Auto) ABG pH at Pt Temp ABG pCO2 at Pt Temp 76 H* ABG pO2 at Pt Temp 73 L ABG HCO3 44 H VBG HCO3 Chloride Carbon Dioxide Anion Gap BUN POC Glucose 165 H 154 H Random Glucose Total Bilirubin Direct Bilirubin B-Natriuretic Peptide Albumin TSH Urine Protein Urine RBC Urine Opiates Screen 09/05/21 09/06/21 09/06/21 19:45 02:39 06:39 RBC 4.36 L Hgb 12.1 L Hct 39.9 L MCHC 30.3 L RDW 19.2 H Neut % (Auto) 80.3 H Lymph % (Auto) 15.1 L Lymph # (Auto) 0.8 L ABG pH at Pt Temp ABG pCO2 at Pt Temp 82 H* ABG pO2 at Pt Temp 77 L ABG HCO3 48 H VBG HCO3 Chloride Carbon Dioxide Anion Gap BUN POC Glucose 163 H Random Glucose Total Bilirubin Direct Bilirubin B-Natriuretic Peptide Albumin TSH Urine Protein Urine RBC Urine Opiates Screen 09/06/21 09/06/21 09/06/21 06:39 06:39 07:12 RBC Hgb Hct MCHC RDW Neut % (Auto) Lymph % (Auto) Lymph # (Auto) ABG pH at Pt Temp ABG pCO2 at Pt Temp ABG pO2 at Pt Temp ABG HCO3 VBG HCO3 Chloride 95 L Carbon Dioxide 43 H* D Anion Gap 9 L BUN POC Glucose 140 H Random Glucose 137 H Total Bilirubin Direct Bilirubin B-Natriuretic Peptide 658 H Albumin TSH Urine Protein Urine RBC Urine Opiates Screen 09/06/21 09/06/21 09/06/21 08:27 10:56 15:59 RBC Hgb Hct MCHC RDW Neut % (Auto) Lymph % (Auto) Lymph # (Auto) ABG pH at Pt Temp 7.49 H ABG pCO2 at Pt Temp 64 H* ABG pO2 at Pt Temp 66 L ABG HCO3 49 H VBG HCO3 Chloride Carbon Dioxide Anion Gap BUN POC Glucose 239 H 160 H Random Glucose Total Bilirubin Direct Bilirubin B-Natriuretic Peptide Albumin TSH Urine Protein Urine RBC Urine Opiates Screen 09/06/21 09/07/21 09/07/21 20:30 06:17 06:17 RBC Hgb Hct MCHC RDW Neut % (Auto) Lymph % (Auto) Lymph # (Auto) ABG pH at Pt Temp ABG pCO2 at Pt Temp ABG pO2 at Pt Temp ABG HCO3 VBG HCO3 Chloride Carbon Dioxide 37 H Anion Gap 7 L BUN 37 H D POC Glucose 258 H Random Glucose 171 H Total Bilirubin Direct Bilirubin B-Natriuretic Peptide 312 H Albumin TSH Urine Protein Urine RBC Urine Opiates Screen 09/07/21 09/07/21 07:05 08:20 RBC Hgb Hct MCHC RDW Neut % (Auto) Lymph % (Auto) Lymph # (Auto) ABG pH at Pt Temp 7.48 H ABG pCO2 at Pt Temp 47 H ABG pO2 at Pt Temp 58 L ABG HCO3 35 H VBG HCO3 Chloride Carbon Dioxide Anion Gap BUN POC Glucose 160 H Random Glucose Total Bilirubin Direct Bilirubin B-Natriuretic Peptide Albumin TSH Urine Protein Urine RBC Urine Opiates Screen Microbiology: Microbiology 09/05/21 04:35 Blood - Venous Blood Culture - Preliminary No growth after 48 hours. 09/05/21 04:18 Blood - Venous Blood Culture - Preliminary No growth after 48 hours. 09/05/21 07:17 Blood - Venous Blood Culture - Preliminary No growth after 24 hours. 09/05/21 07:17 Blood - Venous Blood Culture - Preliminary No growth after 24 hours. Diagnostic Findings Chest x-ray: report reviewed and image reviewed Additional studies: Venous blood gases on 09/05 : PH 7.34 pCO2 67 bicarb 29. 09/06 : Pco2 =82 04.25 7.48,pco2=47,Po2 58 Assessment and Plan (1) Morbid obesity: Status: Acute (2) Acute exacerbation of CHF (congestive heart failure): Status: Acute (3) Respiratory failure with hypoxia and hypercapnia: Status: Acute Plan This gentleman definitely has features, correct restrict cough obstructive sleep apnea/chronic hypoventilation syndrome. At present his CO2 retention has improved. He requires O2 supplementation to overcome hypoxemia. He would need a sleep study, to determine the diagnosis of FARSHAD/hypoventilation syndrome, and then he should be started on CPAP or Bipap therapy. The patient seems to be in denial, does not like to put the mask on his face, and would need lot of counseling/Education. He may be treated with a small dose of Diamox ( 250 mg daily) to correct the alkalosis, When patient is more cooperative, he should be encouraged to do deep breathing exercises with incentive spirometry, and also with pursed lip technique. Would be glad to follow him as outpatient. Procedures Date of Service Date of Service: 09/07/21
--- NOTE | 2021-09-07 09:51 | MHC.CM.PN ---
Addendum entered by Kristy Cuevas 09/07/21 14:25: No home care services can be obtained due to staffing shortages and [facility] payor. The patient will F/U with his PCP 09/17/21. Original Note: Male 66 DX HF Plan to discharge today. [facility] services referrals placed per pt choice. [facility] [place] will provide home O2 services. The pt qualifies for home O2. Patient has arranged for transport to home.
--- NOTE | 2021-09-07 10:10 | P.PNCA_ITS ---
Subjective Subjective Date of Service: 09/07/21 Principal diagnosis: CHF Interval history: He states that he is feeling good. No specific complaints. He denies any chest pain or shortness of breath or palpitations or in fact anything else cardiac related. Per patient, leg swelling slightly improved but he is somewhat vague about it. Review of Systems Review of Systems Yes all other systems are reviewed and are negative Constitutional: Reports as per HPI Eyes: Reports as per HPI Reports as per HPI Cardiovascular: Reports as per HPI, Denies acrocyanosis, Denies cool extremities, Denies chest pain, Reports pedal edema, Denies leg edema, Denies lightheadedness, Denies palpitations and Denies dyspnea Respiratory: Reports as per HPI, Reports no additional respiratory complaints and Denies dyspnea Gastrointestinal: Reports as per HPI and Reports no additional gastrointestinal complaints Genitourinary: Reports no additional male genitourinary complaints and Reports as per HPI Musculoskeletal: Reports no additional musculoskeletal complaints and Reports as per HPI Skin/Breast: Reports system reviewed and no additional complaints, except as docu Reports system reviewed and no additional complaints, except as documented and Reports as per HPI Psychiatric: Reports no additional psychiatric complaints and Reports as per HPI Endocrine: Reports no additional endocrine complaints, Reports as per HPI and Denies palpitations Hematologic/Lymphatic: Reports no additional hematologic/lymphatic complaints and Reports as per HPI Allergic/Immunologic: Reports no additional allergic/immunologic complaints and Reports as per HPI Physical Exam Vital Signs: Last Vital Signs Temp 97.9 F 09/07/21 07:32 Pulse 87 09/07/21 07:53 Resp 18 09/07/21 07:53 BP 137/71 09/07/21 07:32 Pulse Ox 94 09/07/21 07:32 Oxygen Flow Rate 2 09/06/21 03:11 BMI result Body Mass Index 42.7 Const General: comfortable and no acute distress Orientation/consciousness: patient oriented x3 HEENT Other: Unremarkable Head: Yes normal to inspection Neck Neck: Yes normal visual inspection Chest Chest palpation & inspection: normal inspection of the chest Resp Auscultation: clear to auscultation bilaterally Cardio Palpation: normal PMI Heart sounds: S1 normal heart sound present, S2 normal heart sound present, no gallops, no murmurs and no rubs GI Palpation (GI): Soft to palpation Back/Spine/Pelvis Other: unremarkable Skin General skin exam: no rashes or lesions noted Neuro General: patient oriented x3 Extrem General: Yes pedal edema (2-3+) Psych Mental Status: mental status grossly normal Objective Labs and Meds Result diagrams: 09/06/21 06:39 09/07/21 06:17 Lab results: Laboratory Results - last 24 hr 09/06/21 09/06/21 09/06/21 10:56 15:59 20:30 O2 Saturation ABG pH at Pt Temp ABG pCO2 at Pt Temp ABG pO2 at Pt Temp ABG HCO3 ABG Base Excess (Actual) Sodium Potassium Chloride Carbon Dioxide Anion Gap BUN Creatinine Estim Creat Clear Calc Estimated GFR POC Glucose 239 H 160 H 258 H Random Glucose Calcium B-Natriuretic Peptide 09/07/21 09/07/21 09/07/21 06:17 06:17 07:05 O2 Saturation ABG pH at Pt Temp ABG pCO2 at Pt Temp ABG pO2 at Pt Temp ABG HCO3 ABG Base Excess (Actual) Sodium 138 Potassium 4.1 Chloride 98 Carbon Dioxide 37 H Anion Gap 7 L BUN 37 H D Creatinine 0.78 Estim Creat Clear Calc 117.9 Estimated GFR > 60 POC Glucose 160 H Random Glucose 171 H Calcium 8.7 D B-Natriuretic Peptide 312 H 09/07/21 08:20 O2 Saturation 86.0 ABG pH at Pt Temp 7.48 H ABG pCO2 at Pt Temp 47 H ABG pO2 at Pt Temp 58 L ABG HCO3 35 H ABG Base Excess (Actual) 10.9 Sodium Potassium Chloride Carbon Dioxide Anion Gap BUN Creatinine Estim Creat Clear Calc Estimated GFR POC Glucose Random Glucose Calcium B-Natriuretic Peptide Progress Note: A&P Assessment and plan (1) Acute exacerbation of CHF (congestive heart failure): Status: Acute (2) Morbid obesity: Status: Acute (3) Respiratory failure with hypoxia and hypercapnia: Status: Acute Plan Discussed with patient about prior cardiac history. 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 He has not seen recently as he retired. Otherwise he states he had coronary artery disease/stents about 10 years ago but again cannot recall any further details. Per input output charting, he has diuresed more than 10 L. He still has some volume overload on exam. However, per hospitalist, he is insisting on discharge. Echocardiogram still pending. If he plans to leave before the study completed, then will need arranged as an outpatient. Otherwise, patient diuretics. Labs reviewed. Cardiac BNP 1117, 658, 312. High sensitivity troponin 28.8. Creatinine is 0.78. Potassium 4.1. ABG reviewed. Chest x-ray from 09/05-central vascular prominence without edema. Small left pleural effusion. He will need workup for sleep apnea as an outpatient. Also likely underlying COPD as there is a long history of smoking for more than 50 years per patient. Fall Risk Details Current Medications: Current Medications Acetaminophen (Acetaminophen 325 Mg Tablet) 650 mg PO Q6H PRN PRN Reason: Pain, Mild (Pain Scale 1-3) Acetazolamide (Acetazolamide 250 Mg Tablet) 500 mg PO BID [facility] Last Admin: 09/07/21 07:50 Dose: 500 mg Documented by: Albuterol/Ipratropium (Albuterol/Iprat 2.5/0.5mg 3 Ml Ampul.Neb) 3 ml INHALE RQ4H WHILE AWAKE [facility] Last Admin: 09/07/21 07:50 Dose: 3 ml Documented by: Albuterol/Ipratropium (Albuterol/Iprat 2.5/0.5mg 3 Ml Ampul.Neb) 3 ml INHALE Q4H PRN PRN Reason: sob Last Admin: 09/05/21 17:00 Dose: 3 ml Documented by: Atorvastatin Calcium (Atorvastatin Calcium 80 Mg Tablet) 80 mg PO DAILY [facility] Last Admin: 09/07/21 07:50 Dose: 80 mg Documented by: Clotrimazole (Clotrimazole 1 % Cream 15 Gm Tube) 1 appl TOPICAL BID [facility]; Protocol Last Admin: 09/07/21 07:52 Dose: 1 appl Documented by: Docusate Sodium (Docusate Sodium 100 Mg Capsule) 100 mg PO DAILY PRN PRN Reason: Constipation Enoxaparin Sodium (Enoxaparin Sodium 40 Mg/0.4 Ml Syringe) 40 mg SUBCUT Q24H [facility] Last Admin: 09/07/21 08:05 Dose: 40 mg Documented by: Furosemide (Furosemide 40 Mg/4 Ml Vial) 40 mg IVPUSH BID@0900,1800 [facility]; Protocol Last Admin: 09/07/21 07:49 Dose: 40 mg Documented by: Cefazolin Sodium/Dextrose (Ancef) 2 gm in 50 mls @ 100 mls/hr IV Q8H [facility] Last Infusion: 09/07/21 08:20 Dose: Infused Documented by: Insulin Human Lispro (Insulin Lispro 100 Unit/Ml 3 Ml Vial) 0 unit SUBCUT QIDACHS [facility]; Protocol Last Admin: 09/07/21 08:04 Dose: 2 unit Documented by: Lactic Acid (Ammonium Lactate 12 % Lotion 226 Gm Bottle) 1 appl TOPICAL BID [facility]; Protocol Last Admin: 09/07/21 07:52 Dose: 1 appl Documented by: Lisinopril (Lisinopril 40 Mg Tablet) 40 mg PO DAILY [facility]; Protocol Last Admin: 09/07/21 07:50 Dose: 40 mg Documented by: Methylprednisolone Sodium Succinate (Methylprednisolone Sod Succ 40 Mg/Ml Vial) 40 mg IVPUSH Q12H [facility] Last Admin: 09/07/21 04:59 Dose: 40 mg Documented by: Metoprolol Tartrate (Metoprolol Tartrate 12.5 Mg Halftab) 12.5 mg PO BID [facility]; Protocol Last Admin: 09/07/21 07:50 Dose: 12.5 mg Documented by: Morphine Sulfate (Morphine Sulfate Er 15 Mg Tablet.Er) 15 mg PO BID PRN PRN Reason: Pain, Severe (Pain Scale 7-10) Last Admin: 09/06/21 20:30 Dose: 15 mg Documented by: Ondansetron HCl (Ondansetron Hcl 4 Mg/2 Ml Vial) 4 mg IVPUSH Q8H PRN PRN Reason: Nausea and Vomiting Oxycodone HCl (Oxycodone Hcl Immed Release 5 Mg Tablet) 5 mg PO Q6H PRN PRN Reason: moderate pain Last Admin: 09/07/21 08:04 Dose: 5 mg Documented by: Time Spent With Patient Time: Total time spent is greater than 50% in coordination of care (as documented) at patient's floor/unit and/or counseling patient: 43 Progress Note: Quality Stroke Does the patient have a stroke diagnosis?: No Procedures Date of Service Date of Service: 09/07/21
[2021-09-07 10:54] VITALS: PULSE 120; PULSE 125; PULSE 126; PULSE 98; O2SAT 88; O2SAT 92; O2SAT 98
[2021-09-07 11:08] VITALS: BP 111/64; PULSE 98; RESP 19; TEMP 37.1; O2SAT 96
[2021-09-07 11:13] LABS: Glucose, Whole Blood 224 mg/dL (60-115)
--- NOTE | 2021-09-07 11:40 | P.DS_ITS ---
DS: Providers Provider Date of Service: 09/07/21 Date of admission: 09/05/21 06:12 Primary care physician: Unknown Physician Consults: 09/05/21 06:10 Consult to Cardiology Routine Consulting Provider: Wil Guan Reason for consultation: CHF Has provider been notified: No 09/06/21 13:07 Consult to Pulmonology Routine Consulting Provider: Ivelisse Herrmann Reason for consultation: Hypoxic hypercapnic resp failure w OHS\FARSHAD for your kind eval and rec DS: Diagnosis Discharge Diagnosis (1) Acute exacerbation of CHF (congestive heart failure): Status: Acute (2) Morbid obesity: Status: Acute (3) Respiratory failure with hypoxia and hypercapnia: Status: Acute DS: Summary Hospital Course Hospital Course: admission note HPI This is a 66-year-old male with past medical history of CHF, CAD, diabetes, HTN, history of MA, presents to the hospital after being hypoxic at home.? It appears that patient friend called his home, patient did not answer, therefore she called EMS, on arrival of EMS patient was found to be on the floor and hypoxic with an O2 level of 80%.? Patient was placed on CPAP and brought into the ED. patient does not remember losing consciousness,? he remembers going to bed but he is unsure how he ended up on the floor. He reports that he was sleeping upright and he usually sleeps in a way to avoid falling, but woke up with many things on top of him so he mustve fallen out of bed, but he does not remember how that might have happened. ? He reports orthopnea and PND. reports lower extremity edema for past 4-6 wks he states that he stopped taking his diuretics because he felt that they made his swelling worst. He has not taken any diuretic in over 4 wks. On arrival to the ED patient was placed on 4 L of oxygen satting 98%, has a heart rate of 103, respiratory rate of 28, blood pressure 145/79 Labs are significant for WBC count of 7, hemoglobin of 13.1, pH of 7.34 CO2 of 67 bicarb of 29, BNP of 1117, TSH of 4.61, chest x-ray shows central vascular prominence without overt edema .? Left pleural effusion Hospital course The patient was admitted to the hospital for treatment of acute hypoxic/ hypercapnic respiratory failure which believed to be secondary to CHF exacerbation and OHS\? Sleep apnea. The patient was treated with BiPAP in the emergency with good response as he was admitted to the hospital on IV Lasix with fair response as he Made almost -7 L balance. developed traction alkalosis that was controlled with adding Diamox. He was evaluated by Cardiology team who recommended treatment with Lasix and to do an echo which the patient refused to stay to the hospital to do it. Started on Aldactone as well. To be followed as outpatient. For concern of OHS\FARSHAD the patient used BiPAP at night and with naps before refusing to wear them. ABG at time of presentation showed CO2 retaining in 70s which improved after using BiPAP to 40s. And overnight oxygen study was done show CO2 47 at the day of discharge. Seen by pulmonology team who did not believe the patient qualifies for BiPAP at this time and that he will need an outpatient sleep study which the patient reported being scheduled for him earlier next month. Evaluated by RT team as the patient was found to require oxygen supplement with 2 L with exertion and bedtime and 1 L at rest. Found to have bilateral lower extremity swelling with associated Cellulitis. Treated with IV Lasix, Khadar wrap and IV antibiotics of cefazolin with good response As erythema resolved and swelling decreased down. Noted to have athlete foot infection between his toes and he was started on anti fungal cream. Cultures remain negative. 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 I was concerned about him leaving without getting oxygen at home or a close follow-up in his lower extremities so he agree to stay for PT and RT evaluation were he qualified for home therapy and home oxygen which both will be arranged for him at discharge. He was advised to come back to the hospital for any worsening of the symptoms or shortness of breath as he understand we are doing this discharge to prevent him from leaving AMA. Plan decrease your salt intake, drink up to 1 L a day of fluids. Start Lasix 40 mg daily Continue Ceftin as prescribed, use anti fungal cream to do physical therapy at home Visiting nurses will take care of lower extremities care to repeat blood test next week and to follow-up with PCP and Cardiology as planned. To do sleep study as scheduled Time Spent with Patient Time attestation: Total time spent providing and/or coordinating discharge services: Discharge coordination time: Greater than 30 minutes Quality: Safe Use of Opioids Does Pt have an Active Cancer Diagnosis on the Problem List?: No Quality: Stroke Does the patient have a stroke diagnosis?: No Physical Exam Vital Signs: Vital Signs: Last Vital Signs Temp 98.7 F 09/07/21 11:08 Pulse 98 09/07/21 11:08 Resp 19 09/07/21 11:08 BP 111/64 09/07/21 11:08 Pulse Ox 96 09/07/21 11:08 Oxygen Flow Rate 2 09/06/21 03:11 BMI result Body Mass Index 42.7 Const: Other: Constitutional : Alert, oriented, not in distress Neck : Normal inspection, Supple Cardiovascular : RRR, no JVP, Plus one bilateral lower extremity edema Respiratory : fair bilateral air entry, basal fine bilateral crackles, wheezes or rhonchi, oxygen supplement Gastrointestinal: soft, lax, Normal bowel sounds, Non tender Skin : Warm, Dry, significantly decreased erythema and warmth in his lower extremities Neurological : Alert & oriented x3, No focal deficit , CN 2-12 within normal DS: Data Data Completed and Pending Labs on day of discharge: Laboratory Results - last 24 hr 09/06/21 09/06/21 09/07/21 15:59 20:30 06:17 O2 Saturation ABG pH at Pt Temp ABG pCO2 at Pt Temp ABG pO2 at Pt Temp ABG HCO3 ABG Base Excess (Actual) Sodium 138 Potassium 4.1 Chloride 98 Carbon Dioxide 37 H Anion Gap 7 L BUN 37 H D Creatinine 0.78 Estim Creat Clear Calc 117.9 Estimated GFR > 60 POC Glucose 160 H 258 H Random Glucose 171 H Calcium 8.7 D B-Natriuretic Peptide 09/07/21 09/07/21 09/07/21 06:17 07:05 08:20 O2 Saturation 86.0 ABG pH at Pt Temp 7.48 H ABG pCO2 at Pt Temp 47 H ABG pO2 at Pt Temp 58 L ABG HCO3 35 H ABG Base Excess (Actual) 10.9 Sodium Potassium Chloride Carbon Dioxide Anion Gap BUN Creatinine Estim Creat Clear Calc Estimated GFR POC Glucose 160 H Random Glucose Calcium B-Natriuretic Peptide 312 H 09/07/21 11:10 O2 Saturation ABG pH at Pt Temp ABG pCO2 at Pt Temp ABG pO2 at Pt Temp ABG HCO3 ABG Base Excess (Actual) Sodium Potassium Chloride Carbon Dioxide Anion Gap BUN Creatinine Estim Creat Clear Calc Estimated GFR POC Glucose 224 H Random Glucose Calcium B-Natriuretic Peptide Preliminary micro results at discharge 09/05/21 07:17 Blood Culture - Preliminary Blood - Venous No growth after 48 hours. 09/05/21 07:17 Blood Culture - Preliminary Blood - Venous No growth after 48 hours. 09/05/21 04:35 Blood Culture - Preliminary Blood - Venous No growth after 48 hours. 09/05/21 04:18 Blood Culture - Preliminary Blood - Venous No growth after 48 hours. Discharge Plan Discharge Patient Disposition: Home Health Service Discharge Diagnosis: hypoxic respiratory failure Heart failure exacerbation Obstructive sleep apnea/ obesity hypoventilation syndrome Cellulitis Referrals: Physician,Unknown J [Primary Care Provider] - 1 Week Discharge Medications: New ammonium lactate 12 % Lotion 1 appl topical BID 7 Days 0RF Protocol: Apply to: Apply to: LE bilaterally clotrimazole 1 % Cream 1 appl topical BID 7 Days 0RF Protocol: Apply to: Apply to: Foot and between toes, bilaterally furosemide 40 mg tablet 40 mg PO DAILY Qty: 30 2RF cefuroxime axetil 500 mg tablet 500 mg PO BID Qty: 8 0RF Continued metformin 500 mg tablet 500 mg PO BID 0RF atorvastatin 80 mg tablet 80 mg PO DAILY 0RF etodolac 400 mg tablet 400 mg PO BID 0RF morphine 15 mg tablet extended release 15 mg PO BID PRN (Reason: pain) 0RF lisinopril 40 mg tablet 40 mg PO DAILY 0RF oxycodone 5 mg tablet 5 mg PO Q6H PRN (Reason: moderate pain) 0RF metoprolol tartrate 25 mg tablet 12.5 mg PO BID 0RF duloxetine 60 mg capsule,delayed release(DR/EC) 60 mg PO DAILY 0RF Discharge Orders: Discharge Order (Routine); Ordered 09/07/21 Ordered By: Jessica Nelson Diet: advance to usual diet Activity on Discharge: As tolerated Stand Alone Forms: Patient Portal Discharge page Other Ambulatory Orders: Basic Metabolic Panel (Routine) Timeframe: 1 Week Facility: [facility] - Location: Laboratory Ordered By: Jessica Nelson Care Plan Goals: Read below Health Concerns: Read below Plan of Treatment: Read below Assessment: you were admitted to the hospital with altered mentation. Found to be in respiratory failure From heart failure with elevated CO2 levels requiring BiPAP machine and IV diuresis as you were evaluated by dairy farmer and lung specialist. You were weaned down the oxygen but continue to require 2 L at bedtime and with activity. you were treated with IV antibiotic for evidence of cellulitis in your lower extremities with good response. Evidence of fungal infection in the dose treated with cream. decrease your salt intake, drink up to 1 L a day of fluids. Start Lasix 40 mg daily Continue Ceftin as prescribed, use anti fungal cream to do physical therapy at home Visiting nurses will take care of lower extremities care to repeat blood test next week and to follow-up with PCP and Cardiology as planned. To do sleep study as scheduled
--- NOTE | 2021-09-07 11:49 | P.F2F_ITS ---
Service Date Service Date: 09/07/21 Encounter Date of encounter: 09/07/21 Reasons for Services Signs and symptoms assessed: physical deconditioning, new CHF, cellulitis in lower extremities and athlete foot Reason for senior care: wound care and medication treatment Reason for physical therapy: home safety and mobility and therapeutic exercises Homebound: Leaving the home is medically contraindicated at this time without the asist of a device and/or another person due th the listed conditions above and below. Reason homebound: unsteady gait / fall risk Certification: Based on the above findings, I certify that this patient is confined to the home and needs intermittent senior care care, physical therapy and/or speech therapy, or continues to need occupational therapy. The patient is under my care, and I have initiated the establishment of the plan of care. The patient will be followed by a physician who will periodically review the plan of care.
[2021-09-07 21:05] LABS: ABG Refer to POC result
--- NOTE | 2021-09-11 06:22 | P.CDIR_ITS ---
Documented by User: Yaritza Montes CCS, CDIS 09/11/21 06:25 Retrospective Query PHYSICIAN'S DOCUMENTATION REQUEST Date of Query: 09/11/21621 Patient Name: Mahesh Pham Admit Date: 09/05/21 Dear Doctor, A review of the medical record indicates additional documentation may be needed. Please review below and update the documentation accordingly. Clinical Indicators: Risk Factors/Clinical Indicators/Treatments ED: 09/05- short of breath, 4+ pedal edema, left pleural effusion, placed on IV lasix, RR 28 - oxygen. PMH of Congestive heart failure BNP 1100 Cardiology note 09/07 - Acute Congestive heart failure, difficult breathing feeling better, IV lasix. BNP 312 PN: 09/07 - Acute congestive heart failure likely secondary to non-compliance. Please provide further specificity regarding the most likely type and acuity of CHF you are evaluating, treating, or monitoring. Examples include: Type: * Systolic * Diastolic * Combined Systolic/Diastolic * Other ? please specify * Unable to determine Acuity: * Acute * Chronic * Acute on chronic * Unable to determine Use of terms such as suspected, likely, concern for, or probable (associated with a specific diagnosis that is being evaluated, monitored, or treated as if it exists) are acceptable and can be coded in the inpatient setting, when documented at the time of discharge. Thank you, Yaritza Montes CCS, CDIS Extension: [phone] Please use your independent medical judgment in providing your response. THIS QUERY IS PART OF THE PERMANENT MEDICAL RECORD Documented by User: Jessica Nelson MD 09/16/21 16:51 Retrospective Query Provider Response: Other (Acute diastolic Congestive heart failure)
== END 2021-09-07 13:26 | disposition home health service (06) | DRG 291 ==
LOC: HO.ED 05:16 → HO.EDOVER 06:17 → HO.IMC 07:49
PROVIDERS: Internal Medicine; Admitting Provider Internal Medicine; Emergency Provider Emergency Medicine; Visit Provider Student in an Organized Health Care Education/Training Program
DX: I11.0 Hypertensive heart disease with heart failure (principal); J96.01 Acute respiratory failure with hypoxia; J96.22 Acute and chronic respiratory failure with hypercapnia; J96.21 Acute and chronic respiratory failure with hypoxia; I50.31 Acute diastolic (congestive) heart failure; E66.2 Morbid (severe) obesity with alveolar hypoventilation; Z68.41 Body mass index [BMI] 40.0-44.9, adult; J44.1 Chronic obstructive pulmonary disease with (acute) exacerbation; L03.116 Cellulitis of left lower limb; L03.115 Cellulitis of right lower limb; I25.10 Atherosclerotic heart disease of native coronary artery without angina pectoris; Z95.5 Presence of coronary angioplasty implant and graft; F17.210 Nicotine dependence, cigarettes, uncomplicated; Z71.6 Tobacco abuse counseling; I87.323 Chronic venous hypertension (idiopathic) with inflammation of bilateral lower extremity; Z20.822 Contact with and (suspected) exposure to COVID-19; E11.9 Type 2 diabetes mellitus without complications; Z91.19 Patient's noncompliance with other medical treatment and regimen; Z95.1 Presence of aortocoronary bypass graft; I25.2 Old myocardial infarction; Z79.84 Long term (current) use of oral hypoglycemic drugs; Z79.899 Other long term (current) drug therapy
CPT/HCPCS: 36415; 36600; 70450; 71045; 80048; 80076; 80307; 81001; 82077; 82550; 82803; 82947; 83605; 83735; 83880; 84439; 84443; 84484; 85025; 85610; 87040; 87635; 93005; 93970; 94640; 94660; 96374; 97162; 99285; J0690; J1650; J1940; J2920

== ENCOUNTER 2021-09-23 13:13 | Inpatient (IN) | payer MEDICARE, SELFPAY ==
[2021-09-23] VITALS (17 sets, daily range): BP systolic 102–172; BP diastolic 51–91; PULSE 77–97; RESP 12–20; TEMP 36.3–36.6; O2SAT 84–100; BMI 43.3
--- NOTE | ~2021-09-23 | US_ITS ---
EXAMINATION: US ABDOMEN LIMITED CLINICAL INFORMATION: Abnormal liver CT . COMPARISON: Previous abdominal and pelvic CT from earlier this month TECHNIQUE: Real-time imaging of the right upper quadrant abdominal viscera. Exam is very limited due to patient positioning. FINDINGS: PANCREAS: Not seen LIVER: Liver echotexture is slightly increased. No focal liver lesion is appreciated by ultrasound. Exam is significantly limited due to patient positioning. There is no biliary duct dilatation. GALLBLADDER: Normal. The gallbladder is physiologically distended without evidence of stones, sludge, polyps, wall thickening or pericholecystic fluid. COMMON BILE DUCT: Normal in caliber measuring 0.3 cm in diameter. RIGHT KIDNEY: Limited. The kidney measures 11.2 cm in maximum dimension. FREE FLUID: None. US/US abdomen limited IMPRESSION: Very limited exam. No focal liver lesion appreciated.
--- NOTE | ~2021-09-23 | XR_ITS ---
EXAMINATION: XR CHEST CLINICAL INFORMATION: Hypoxia COMPARISON: Previous chest x-ray most recent August 2021 TECHNIQUE: 2 views of the chest were obtained. FINDINGS: The cardiac silhouette is enlarged but stable. Hilar and mediastinal contours are unremarkable. The lungs are clear. There is no pleural effusion or pneumothorax. There are degenerative changes of the spine. XR/XR chest 2V IMPRESSION: Stable enlargement of the cardiac silhouette.
--- NOTE | ~2021-09-23 | CT_ITS ---
EXAMINATION: CT ABDOMEN AND PELVIS WITH CONTRAST CLINICAL INFORMATION: Question mass COMPARISON: None TECHNIQUE: Multidetector volumetric images were obtained from the superior aspect of the liver through the pubic symphysis following administration 85 mL of Omnipaque 350 intravenous contrast. Sagittal and coronal reformatted images were obtained on the technologist's workstation. Oral contrast: No This CT examination was performed using dose optimization techniques as appropriate, variously including the following: *Automated exposure control *Adjustment of mA and/or kV according to patient size (this includes techniques or standardized protocols for targeted exams where dose is matched to indication/reason for exam; i.e. extremities or head) *Use of iterative reconstruction technique DLP: 1146 mGy-cm FINDINGS: LUNG BASES: Bilateral basilar atelectasis. Probable trace effusions. LIVER, GALLBLADDER, AND BILIARY TREE: Scattered areas of low attenuation within the liver. These could represent cysts. Given history recommend ultrasound to further evaluate. Largest appears to be in the right lobe. Measures 1.4 cm. The gallbladder is unremarkable with no evidence of radiopaque gallstones, gallbladder wall thickening, or obvious pericholecystic inflammatory changes. PANCREAS: Unremarkable. SPLEEN: Unremarkable. ADRENAL GLANDS: -Nodular Appearing left adrenal gland. Measures 1.9 x 1.6 cm. KIDNEYS AND URETERS: Nonobstructing renal calculi. Some scattered areas of low-attenuation may represent evolving cystic change. Again ultrasound would be recommended to fully evaluate. BLADDER: Unremarkable. GASTROINTESTINAL TRACT: There is diverticulosis but no evidence for diverticulitis A normal appendix is not seen but no definitive suspicion around the cecum. There is thickening and soft tissue stranding around the second portion of the duodenum. This area appears thickened. There are some mildly prominent lymph nodes in the region. ABDOMINAL WALL: No significant hernia is appreciated. LYMPH NODES: Again some mildly prominent nodes around the duodenum in the portal region. There is also some mild periaortic adenopathy and some mild adenopathy along the iliac chains. VASCULAR: Atherosclerotic changes. No aneurysmal change PELVIC VISCERA: Unremarkable. OSSEOUS STRUCTURES: Unremarkable. CT/CT abdomen pelvis w con IMPRESSION: There is some thickening here involving the second portion of the duodenum with some surrounding soft tissue stranding. Certainly duodenitis be consideration. Some nodes which could be reactive. Underlying malignancy of course given history cannot be excluded. Recommend clinical correlation and direct visualization Differential for the soft tissue stranding would be from adjacent pancreatitis but the pancreas is grossly within normal limits. Differential would also include inflammatory change in the adjacent gallbladder but again the adjacent gallbladder is grossly unremarkable. Correlation recommended clinically. Some areas of low density within the liver of uncertain etiology. Given the other findings ultrasound would be recommended to further evaluate. This could represent cystic change. Underlying lesion cannot be excluded. Nonobstructing stones and probable evolving cystic change in the kidneys but again ultrasound would be recommended to confirm. Nodular change involving the left adrenal. Etiology is indeterminate. Recommend adrenal protocol CT. Some mildly prominent nodes in the periaortic and iliac regions but no pathologic enlargement. Attention to follow-up. Diverticulosis but no evidence for diverticulitis. The overall bowel pattern is nonobstructing. Mild bilateral basilar atelectasis and probable trace effusions Fleischner guidelines were followed.
--- NOTE | ~2021-09-23 | CT_ITS ---
EXAMINATION: CT HEAD WITHOUT CONTRAST CLINICAL INFORMATION: Confusion COMPARISON: 09/05/2021 TECHNIQUE: Contiguous axial imaging was performed from the skull base to vertex without intravenous contrast. This CT examination was performed using dose optimization techniques as appropriate, variously including the following: * Automated exposure control * Adjustment of mA and/or kV according to patient size (this includes techniques or standardized protocols for targeted exams where dose is matched to indication/reason for exam; i.e. extremities or head) Use of iterative reconstruction technique DLP: 788 mGy-cm. FINDINGS: There is no evidence of acute intracranial hemorrhage or territorial infarction. No abnormal mass effect or midline shift is seen. Darnell to white matter differentiation is well preserved. No extra-axial fluid collections are identified. No hydrocephalus. Proportional prominence of the ventricles and sulcal spaces is consistent with mild volume loss. Patchy periventricular and deep white matter hypoattenuation is consistent with mild small vessel ischemic changes. The osseous structures and soft tissues are normal. The mastoid air cells and visualized portions of the paranasal sinuses are well aerated. CT/CT head/brain wo con IMPRESSION: No acute intracranial pathology. Mild chronic volume loss with small vessel ischemic change.
--- NOTE | 2021-09-23 13:37 | PC.NURSE ---
O2 APPLIED AT 3L [address].C.
[2021-09-23 13:52] LABS: MANUAL DIFF FLAG NO
[2021-09-23 14:00] LABS: Basophils Percent Auto 0.3 % (0-2); Eosinophils Absolute Auto 0.1 X10*3/uL (0.0-0.4); Eosinophils Percent Auto 1.6 % (0-4); Hematocrit 25.6 % (42.0-52.0); Hemoglobin 7.5 g/dl (14.0-18.0); Imm Gran Abs Auto 0.03 X10*3/uL (0.00-0.03); Imm Gran Pct Auto 0.5 % (0.0-0.4); Lymphocytes Absolute Auto 1.4 X10*3/uL (1.2-4.9); Lymphocytes Percent Auto 24.1 % (20-40); Mean Corpuscular HGB Conc 29.3 g/dl (31.0-36.0); Mean Corpuscular Volume 88.9 fL (80.0-98.0); Mean Platelet Volume 8.8 fL (9.4-12.4); Monocytes Absolute Auto 0.5 X10*3/uL (0.1-1.2); Monocytes Percent Auto 8.7 % (2-11); NRBC Pct Auto 0.3 /100WBC (0.0-0.2); Neutrophils Absolute Auto 3.7 x10*3/uL (2.0-8.3); Neutrophils Percent Auto 64.8 % (45-73); Platelet Count 295 X10*3/uL (160-400); Red Blood Count 2.88 X10*6/uL (4.60-5.80); Red Cell Distribution Width 19.2 % (11.0-16.0); White Blood Count 5.7 X10*3/uL (4.8-10.8)
[2021-09-23 14:04] LABS: INTERNATIONAL NORM RATIO 1.1 (0.9-1.1); Prothrombin Time 12.4 SEC (9.9-13.0)
[2021-09-23 14:07] LABS: Anion Gap 12 (12-20); Blood Urea Nitrogen 7 mg/dL (9-16); Calcium 9.4 mg/dL (8.4-10.2); Carbon Dioxide 29 mmol/L (22-29); Chloride 101 mmol/L (96-108); Creatinine Clr Calc Pharmacy 136.3; Estimated Glomerular Filt Rate > 60; Glucose Random 118 mg/dL (60-115); Partial Thromboplastin Time 32.6 SEC (24.1-38.0); Potassium 4.2 mmol/L (3.3-5.1); Sodium 138 mmol/L (135-145)
--- NOTE | 2021-09-23 16:19 | ECG_ITS ---
Test Reason : ABNORMAL LABS Blood Pressure : / mmHG Vent. Rate : 092 BPM Atrial Rate : 092 BPM P-R Int : 180 ms QRS Dur : 092 ms QT Int : 366 ms P-R-T Axes : 043 074 012 degrees QTc Int : 452 ms Normal sinus rhythm Incomplete right bundle branch block T wave abnormality, consider anterior ischemia Abnormal ECG When compared with ECG of 05-SEP-2021 05:01, Nonspecific T wave abnormality no longer evident in Lateral leads Referred By: Lucy Blake Electronically Signed By:TOBIAS ALBERTO MD
[2021-09-23 16:25] LABS: OBS Int Ctl Valid YES; OBS1 NEGATIVE (NEGATIVE)
[2021-09-23 16:41] LABS: Alanine Aminotransferase 14 U/L (0-40); Albumin Level 2.9 g/dL (3.5-5.0); Alkaline Phosphatase 89 U/L (39-117); Aspartate Amino Transferase 20 U/L (5-37); Bilirubin Direct 0.4 mg/dL (0.0-0.5); Bilirubin Total 0.6 mg/dL (0.0-1.0); Lactate Dehydrogenase 217 U/L (118-273); Total Protein 6.2 g/dL (6.5-8.0)
[2021-09-23] MEDS: iohexoL 350 MG/ML 100 ML INFUS..BTL IV (17:35)
[2021-09-23 17:39] LABS: B Type Natriuretic Peptide 733 pg/mL (<100)
--- NOTE | 2021-09-23 17:59 | ED_ITS ---
HPI - Recheck/Abnormal Lab/Rx General Chief Complaint: Recheck/Abnormal Lab/Rx Stated Complaint: abnormal labs Time Seen by Provider: 09/23/21 15:34 Source: patient Mode of arrival: ambulatory Limitations: no limitations History of Present Illness HPI narrative: patient presents to the emergency department by recommendation of his primary care provider. Patient had what sounds like routine laboratory work obtained outpatient. Was contacted by his doctor regarding anemia. Was advised to come to the hospital as he needed a blood transfusion. Patient denies any symptoms. Denies any prior history of anemia requiring a transfusion. Denies any active bleeding. Denies headache, dizziness, lightheadedness, shortness of breath, difficulty breathing, chest pain, palpitations, nausea, vomiting, abdominal pain , bloody or dark stools, hematuria, dysuria, generalized weakness. Related Data Home Medications Medication Instructions Recorded Confirmed atorvastatin 80 mg tablet 80 mg PO DAILY 09/05/21 09/23/21 etodolac 400 mg tablet 400 mg PO BID PRN 09/05/21 09/23/21 lisinopril 40 mg tablet 40 mg PO DAILY 09/05/21 09/23/21 metformin 500 mg tablet 500 mg PO BIDWM 09/05/21 09/23/21 metoprolol tartrate 25 mg tablet 12.5 mg PO BID 09/05/21 09/23/21 morphine 15 mg tablet,extended 15 mg PO BID PRN 09/05/21 09/23/21 release oxycodone 5 mg tablet 5 mg PO Q6H PRN 09/05/21 09/23/21 duloxetine 30 mg capsule,delayed 30 mg PO BEDTIME 09/23/21 09/23/21 release duloxetine 30 mg capsule,delayed 60 mg PO DAILY 09/23/21 09/23/21 release furosemide 20 mg tablet 1 tab PO DAILY 09/23/21 09/23/21 Allergies Allergy/AdvReac Type Severity Reaction Status Date / Time No Known Allergies Allergy Unverified 01/31/20 14:57 [No Known Allergies*] Review of Systems Review of Systems: Constitutional: No weight loss. No fever. No chills. No weakness. No fatigue. Eye: No swelling. No redness. ENT: No sore throat. No rhinorrhea. No nasal congestion. No sore throat. No difficulty swallowing. Skin: No rash. No itching. Cardiovascular: No chest pain. No chest pressure. No palpitations. Positive pedal edema. Respiratory: No shortness of breath. No cough. No sputum production. Gastrointestinal: No anorexia. No nausea. No vomiting. No diarrhea. No abdominal pain. No blood in stool. Genitourinary: No burning micturition. No urinary frequency. No incontinence. Neurologic: No headache. No dizziness. No pre-syncope/ syncope. No unilateral weakness. No ataxia. No numbness. No tingling. No change in bowel or bladder c ontrol. Musculoskeletal: No muscle pain. No back pain. No joint pain. No stiffness. Hematologic: No bleeding. No bruising. Lymphatics: No enlarged lymph nodes. Endocrine: No polydipsia. Yes all other systems are reviewed and are negative PMFSH Past Medical History Attestation statement: The following information was validated with the patient. Source: old records reviewed Medical History Bilateral lower extremity edema CHF (congestive heart failure) Congestive heart failure Coronary artery disease Diabetes Hypertension Lower extremity edema Morbid obesity Morbid obesity Myocardial infarction Respiratory failure with hypoxia and hypercapnia Surgical History S/P coronary artery stent placement Family History Family History Other No family history of coronary artery disease Social History Social History Household Members: None Housing: Unknown / Unable to assess Do you presently have visiting nurse or other home services: No Patient Tobacco Use Status: Current everyday Tobacco user Tobacco use type: Cigarette Cigarette Packs Per Day: 0.75 Cigarettes Per Day: 15.0 Years Smoked: 50 Smoked in Last 30 Days: Yes e-Cigarette/Vaping Use: Never Used Use of substances other than those prescribed or required for medical reasons: No Advance Directives: No Advance Directives Information Provided: No service: No Current occupational status: disabled Physical Exam Vital Signs: Vital Signs: Last Vital Signs Temp 97.5 F 09/23/21 18:48 Pulse 91 09/23/21 18:48 Resp 17 09/23/21 18:48 BP 169/91 H 09/23/21 18:48 Pulse Ox 98 09/23/21 18:48 BMI result Body Mass Index 43.3 Vital signs have been reviewed as normal and appeared to be correct. hypertens inocente.? Heart rate normal.? Respiration rate normal. Temperature normal.? Oxygen saturation normal. Appearance: Alert.?Oriented to person, place and time. No acute distress.?Normal affect. Eyes: Pupils equal, round and reactive to light.? ENT: Pharynx normal.?? Neck: Normal inspection.? Neck supple.?? CVS: Heart sounds normal. Normal heart rate and rhythm.? Pulses normal.?? Respiratory: No respiratory distress.? Lung sounds clear to auscultation in upper lobes bilaterally, fine rales in the lower lobes. Abdomen: Soft and non-tender. Normoactive bowel sounds. Skin: Skin warm and dry.? Skin appears pale Extremities: bilateral 2+ pitting edema of the lower extremities. Chronic venous stasis. No calf tenderness to palpation. No erythema, warmth Neuro: Moves all extremities spontaneously. Sensation intact bilaterally. CN II- XII intact. No focal neuro deficits. Ambulates with normal steady gait. Course Course Course Narrative: patient is a 66-year-old male with a past medical History of congestive heart failure, coronary artery disease, myocardial infarction with stent, type 2 diabetes, hypertension, obesity. Presenting to emergency department for evaluation of anemia, with no obvious source of bleeding. He is drowsy during exam, reporting that he often does not get much sleep in this is typical for him. But easily arousable and answering questions appropriately. He has no physical complaints. Noted to be hypoxic on arrival at 84%, during exam O2 removed in patient's O2 saturation dropped to 86% while at rest with good wave form. Will obtain CBC and type and screen, CMP, troponin and EKG to evaluate for ischemia/ACS, chest x-ray and BNP to evaluate for pulmonary congestion /pleural effusion. Reevaluation(s) Reevaluation #1: CBC reveals a normocytic anemia hemoglobin 7.5 and hematocrit 25.6, prior labs obtained 09/06/2021 H&H was 12.1 and 39.9. Consent obtained from patient for transfusion, discussed risks, and possible complications. Patient agreeable for transfusion, will order 2 units PRBC. BNP is elevated at 733, room air hypoxia 84%, improved on 2L via nasal cannula, chest x-ray reveals no pleural effusion or acute process. will order Lasix 40 mg IV given his history of CHF and current BNP, to prevent fluid overload with infusions. CMP is overall unremarkable. Initial troponin is normal, EKG reveals normal sinus rhythm with incomplete right bundle branch block new when compared to August 2021, T-wave inversion in V2-V3 which appears consistent with prior EKG is August 2021. occult stool testing is negative. CT of the abdomen and pelvis is pending at this time. Time: 17:00 Reevaluation #2: Spoke with hospitalist Dr. Galarza for admission to medicine service, patient to be received by night hospitalist. Patient signed out to [facility] SN[facility] pending CT of the abdomen. All findings have been discussed with patient and he is updated on plan of care, ass questions answered Time: 18:29 MDM - Recheck/Abnormal Lab/Rx Medical Records Attestation: I reviewed the patient's medical records. Lab Data Attestation: I reviewed the patient's lab results. Result diagrams: 09/23/21 13:47 09/23/21 13:47 Labs: Lab Results 09/23/21 09/23/21 09/23/21 Range/Units 13:47 13:47 13:47 WBC 5.7 (4.8-10.8) X10*3/uL RBC 2.88 L D (4.60-5.80) X10*6/uL Hgb 7.5 L D (14.0-18.0) g/dl Hct 25.6 L D (42.0-52.0) % MCV 88.9 (80.0-98.0) fL MCH 26.0 L (27.0-33.0) pg MCHC 29.3 L (31.0-36.0) g/dl RDW 19.2 H (11.0-16.0) % Plt Count 295 D (160-400) X10*3/uL MPV 8.8 L (9.4-12.4) fL Immature Gran % (Auto) 0.5 H (0.0-0.4) % Neut % (Auto) 64.8 (45-73) % Lymph % (Auto) 24.1 (20-40) % [place] % (Auto) 8.7 (2-11) % Eos % (Auto) 1.6 (0-4) % Baso % (Auto) 0.3 (0-2) % Lymph # (Auto) 1.4 (1.2-4.9) X10*3/uL [place] # (Auto) 0.5 (0.1-1.2) X10*3/uL Eos # (Auto) 0.1 (0.0-0.4) X10*3/uL Baso # (Auto) 0.0 (0.0-0.2) X10*3/uL Abs Immat Gran (auto) 0.03 (0.00-0.03) X10*3/uL Absolute Neuts (auto) 3.7 (2.0-8.3) x10*3/uL Absolute Nucleated RBC 0.020 H (0.0-0.012) X10*3/uL Nucleated RBC % (auto) 0.3 H (0.0-0.2) /100WBC PT 12.4 (9.9-13.0) SEC INR 1.1 (0.9-1.1) APTT 32.6 (24.1-38.0) SEC Sodium 138 (135-145) mmol/L Potassium 4.2 (3.3-5.1) mmol/L Chloride 101 (96-108) mmol/L Carbon Dioxide 29 (22-29) mmol/L Anion Gap 12 (12-20) BUN 7 L D (9-16) mg/dL Creatinine 0.68 (0.5-1.4) mg/dL Estim Creat Clear Calc 136.3 Estimated GFR > 60 Random Glucose 118 H (60-115) mg/dL Calcium 9.4 D (8.4-10.2) mg/dL Total Bilirubin 0.6 (0.0-1.0) mg/dL Direct Bilirubin 0.4 (0.0-0.5) mg/dL AST 20 (5-37) U/L ALT 14 (0-40) U/L Alkaline Phosphatase 89 D (39-117) U/L Lactate Dehydrogenase 217 (118-273) U/L Troponin I High Sens (<3.5-35.0) ng/L B-Natriuretic Peptide (<100) pg/mL Total Protein 6.2 L (6.5-8.0) g/dL Albumin 2.9 L (3.5-5.0) g/dL Stool Occult Blood (NEGATIVE) Blood Type Antibody Screen Crossmatch 09/23/21 09/23/21 09/23/21 Range/Units 16:09 16:12 17:10 WBC (4.8-10.8) X10*3/uL RBC (4.60-5.80) X10*6/uL Hgb (14.0-18.0) g/dl Hct (42.0-52.0) % MCV (80.0-98.0) fL MCH (27.0-33.0) pg MCHC (31.0-36.0) g/dl RDW (11.0-16.0) % Plt Count (160-400) X10*3/uL MPV (9.4-12.4) fL Immature Gran % (Auto) (0.0-0.4) % Neut % (Auto) (45-73) % Lymph % (Auto) (20-40) % [place] % (Auto) (2-11) % Eos % (Auto) (0-4) % Baso % (Auto) (0-2) % Lymph # (Auto) (1.2-4.9) X10*3/uL [place] # (Auto) (0.1-1.2) X10*3/uL Eos # (Auto) (0.0-0.4) X10*3/uL Baso # (Auto) (0.0-0.2) X10*3/uL Abs Immat Gran (auto) (0.00-0.03) X10*3/uL Absolute Neuts (auto) (2.0-8.3) x10*3/uL Absolute Nucleated RBC (0.0-0.012) X10*3/uL Nucleated RBC % (auto) (0.0-0.2) /100WBC PT (9.9-13.0) SEC INR (0.9-1.1) APTT (24.1-38.0) SEC Sodium (135-145) mmol/L Potassium (3.3-5.1) mmol/L Chloride (96-108) mmol/L Carbon Dioxide (22-29) mmol/L Anion Gap (12-20) BUN (9-16) mg/dL Creatinine (0.5-1.4) mg/dL Estim Creat Clear Calc Estimated GFR Random Glucose (60-115) mg/dL Calcium (8.4-10.2) mg/dL Total Bilirubin (0.0-1.0) mg/dL Direct Bilirubin (0.0-0.5) mg/dL AST (5-37) U/L ALT (0-40) U/L Alkaline Phosphatase (39-117) U/L Lactate Dehydrogenase (118-273) U/L Troponin I High Sens 8.0 D (<3.5-35.0) ng/L B-Natriuretic Peptide 733 H (<100) pg/mL Total Protein (6.5-8.0) g/dL Albumin (3.5-5.0) g/dL Stool Occult Blood NEGATIVE (NEGATIVE) Blood Type A Positive Antibody Screen NEGATIVE Crossmatch See Detail Imaging Data Chest x-ray: Radiologist's impression: FINDINGS: The cardiac silhouette is enlarged but stable. Hilar and mediastinal contours are unremarkable. The lungs are clear. There is no pleural effusion or pneumothorax. There are degenerative changes of the spine. XR/XR chest 2V IMPRESSION: Stable enlargement of the cardiac silhouette. ECG Data Attestation: I personally reviewed and interpreted this ECG as follows: ECG interpretation date: 09/23/21 ECG interpretation time: 16:30 Prior ECG tracings: available for review Interpretation: Rate: 92 Rhythm:? Normal sinus rhythm incomplete right bundle-branch block [place]:? Normal Normal P waves.? Normal ANH.?? Normal QRS complex.?? ST T wave :? No ST elevation. No ST depression. T-wave inversion in V2 and V3 consistent with prior EKG qTC: 452 prior studies:? August 2021 The study has been interpreted contemporaneously by me. Discharge Plan Discharge Clinical Impression: Normocytic anemia, Congestive heart failure (CHF), Hypoxia Patient Disposition: Still a Patient Prescriptions: No Action metformin 500 mg tablet 500 mg PO BIDWM 0RF atorvastatin 80 mg tablet 80 mg PO DAILY 0RF etodolac 400 mg tablet 400 mg PO BID PRN (Reason: Pain) 0RF morphine 15 mg tablet extended release 15 mg PO BID PRN (Reason: pain) 0RF lisinopril 40 mg tablet 40 mg PO DAILY 0RF oxycodone 5 mg tablet 5 mg PO Q6H PRN (Reason: moderate pain) 0RF metoprolol tartrate 25 mg tablet 12.5 mg PO BID 0RF furosemide 20 mg tablet 1 tab PO DAILY 0RF duloxetine 30 mg capsule,delayed release(DR/EC) 60 mg PO DAILY 0RF duloxetine 30 mg capsule,delayed release(DR/EC) 30 mg PO BEDTIME 0RF
[2021-09-23] MEDS: Furosemide 40 MG/4 ML VIAL IVPUSH (18:26)
--- NOTE | 2021-09-23 18:49 | PHA.MEDREC ---
Pharmacy Consult ? Medication Reconciliation Pharmacy has completed the medication reconciliation.
[2021-09-23 18:53] LABS: COVID-19 Test Negative (Negative); IDNOW Serial# 9DB6401D
--- NOTE | 2021-09-23 19:23 | P.HPHOSP_ITS ---
History of Present Illness Date of Service: 09/23/21 Chief Complaint: SOB 66-year-old male with a past medical history of hypertension, hyperlipidemia, diabetes, CAD, CHF, morbid obesity, recent admission to the hospital in August 2021 for acute hypoxic/hypercapnic respiratory failure in the setting of acute CHF/OHS/sleep apnea, presented today to the hospital with a chief complaint of abnormal labs as outpatient showing low hemoglobin. Patient reported that he had routine blood work done as outpatient which showed hemoglobin dropped to 7.5; his PCP recommended him go to the hospital for further evaluation. Patient denied any chest pain or palpitations. Denies any fever chills cough. Reports intermittent lightheadedness and occasional dyspnea on exertion. Denies any numbness tingling or focal weakness. Denies any GI symptoms. Denies any signs of bleeding. Review of all other systems is negative except mentioned above ER course: Per ER team patient hemoglobin noted to be 7.5; stool guaiac was negative; vitals was stable; but patient was saturating 84% on room air; on labs noted to have elevated proBNP; concern for acute CHF; given Lasix; placed on supplemental oxygen; admitted to the hospital for further management [facility] Medical History (Updated 09/23/21 @ 19:24 by Karlo Woods MD) Bilateral lower extremity edema CHF (congestive heart failure) Congestive heart failure Coronary artery disease Diabetes Hypertension Lower extremity edema Morbid obesity Morbid obesity Myocardial infarction Respiratory failure with hypoxia and hypercapnia Family History Other No family history of coronary artery disease Surgical History S/P coronary artery stent placement Social History Household Members: None Housing: Unknown / Unable to assess Do you presently have visiting nurse or other home services: No Patient Tobacco Use Status: Current everyday Tobacco user Tobacco use type: Cigarette Cigarette Packs Per Day: 0.75 Cigarettes Per Day: 15.0 Years Smoked: 50 Smoked in Last 30 Days: Yes e-Cigarette/Vaping Use: Never Used Use of substances other than those prescribed or required for medical reasons: No Advance Directives: No Advance Directives Information Provided: No service: No Current occupational status: disabled Meds Allergies Allergy/AdvReac Type Severity Reaction Status Date / Time No Known Allergies Allergy Unverified 01/31/20 14:57 [No Known Allergies*] Active Medications: Current Medications Acetaminophen (Acetaminophen 325 Mg Tablet) 650 mg PO Q6H PRN PRN Reason: Pain, Mild (Pain Scale 1-3) Benzonatate (Benzonatate 100 Mg Capsule) 100 mg PO TID PRN PRN Reason: Cough Dextrose (Dextrose 50 % 25 Gm/50 Ml Syringe) 25 gm IVPUSH Q15M PRN; Protocol PRN Reason: per Hypoglycemia Standing Ord. Enoxaparin Sodium (Enoxaparin Sodium 40 Mg/0.4 Ml Syringe) 40 mg SUBCUT Q24H ALBERT Furosemide (Furosemide 40 Mg/4 Ml Vial) 40 mg IVPUSH DAILY [facility]; Protocol Glucose (Glucose Gel 15 Gm Gel..Gram.) 15 gm PO Q15M PRN; Protocol PRN Reason: per Hypoglycemia Standing Ord. Insulin Human Lispro (Insulin Lispro 100 Unit/Ml 3 Ml Vial) 0 unit SUBCUT QIDACHS [facility]; Protocol Melatonin (Melatonin 3 Mg Tablet) 6 mg PO BEDTIME PRN PRN Reason: Insomnia Pharmacy Consult (Consult Rx Perform Med Rec) 1 each MISCELLANE ONCE PRN PRN Reason: Consult order Senna (Sennosides 8.6 Mg Tablet) 17.2 mg PO BEDTIME PRN PRN Reason: Constipation Sodium Chloride (0.9 % Sodium Chloride Flush 3 Ml Syringe) 3 ml [facility] Home Medications Medication Instructions Recorded Confirmed Last Taken Type atorvastatin 80 mg tablet 80 mg PO DAILY 09/05/21 09/23/21 09/23/21 History etodolac 400 mg tablet 400 mg PO BID PRN 09/05/21 09/23/21 09/04/21 21:00 History lisinopril 40 mg tablet 40 mg PO DAILY 09/05/21 09/23/21 09/23/21 History metformin 500 mg tablet 500 mg PO BIDWM 09/05/21 09/23/21 09/23/21 History metoprolol tartrate 25 mg tablet 12.5 mg PO BID 09/05/21 09/23/21 09/23/21 History morphine 15 mg tablet,extended 15 mg PO BID PRN 09/05/21 09/23/21 09/23/21 History release oxycodone 5 mg tablet 5 mg PO Q6H PRN 09/05/21 09/23/21 09/23/21 History duloxetine 30 mg capsule,delayed 30 mg PO BEDTIME 09/23/21 09/23/21 09/22/21 History release duloxetine 30 mg capsule,delayed 60 mg PO DAILY 09/23/21 09/23/21 09/23/21 History release furosemide 20 mg tablet 1 tab PO DAILY 09/23/21 09/23/21 09/20/21 History Physical Exam Vital Signs and Narrative: Vital Signs: Last Vital Signs Temp 97.5 F 09/23/21 19:12 Pulse 91 09/23/21 19:20 Resp 12 09/23/21 19:20 BP 157/80 H 09/23/21 19:12 Pulse Ox 98 09/23/21 19:20 BMI result Body Mass Index 43.3 Results Labs CBC and Chem 7: 09/23/21 13:47 09/23/21 13:47 Labs: Laboratory Results - last 24 hr 09/23/21 09/23/21 09/23/21 13:47 13:47 13:47 MCV 88.9 MCH 26.0 L MCHC 29.3 L RDW 19.2 H Plt Count 295 D MPV 8.8 L Immature Gran % (Auto) 0.5 H Neut % (Auto) 64.8 Lymph % (Auto) 24.1 [place] % (Auto) 8.7 Eos % (Auto) 1.6 Baso % (Auto) 0.3 Lymph # (Auto) 1.4 [place] # (Auto) 0.5 Eos # (Auto) 0.1 Baso # (Auto) 0.0 Abs Immat Gran (auto) 0.03 Absolute Neuts (auto) 3.7 Absolute Nucleated RBC 0.020 H Nucleated RBC % (auto) 0.3 H PT 12.4 INR 1.1 APTT 32.6 Anion Gap 12 Estim Creat Clear Calc 136.3 Estimated GFR > 60 Random Glucose 118 H Calcium 9.4 D Total Bilirubin 0.6 Direct Bilirubin 0.4 AST 20 ALT 14 Alkaline Phosphatase 89 D Lactate Dehydrogenase 217 Troponin I High Sens B-Natriuretic Peptide Total Protein 6.2 L Albumin 2.9 L Stool Occult Blood COVID-19 ([facility]) COVID-19 Clin Com Blood Type Antibody Screen Crossmatch 09/23/21 09/23/21 09/23/21 16:09 16:12 17:10 MCV MCH MCHC RDW Plt Count MPV Immature Gran % (Auto) Neut % (Auto) Lymph % (Auto) [place] % (Auto) Eos % (Auto) Baso % (Auto) Lymph # (Auto) [place] # (Auto) Eos # (Auto) Baso # (Auto) Abs Immat Gran (auto) Absolute Neuts (auto) Absolute Nucleated RBC Nucleated RBC % (auto) PT INR APTT Anion Gap Estim Creat Clear Calc Estimated GFR Random Glucose Calcium Total Bilirubin Direct Bilirubin AST ALT Alkaline Phosphatase Lactate Dehydrogenase Troponin I High Sens 8.0 D B-Natriuretic Peptide 733 H Total Protein Albumin Stool Occult Blood NEGATIVE COVID-19 ([facility]ZO) COVID-19 Clin Com Blood Type A Positive Antibody Screen NEGATIVE Crossmatch See Detail 09/23/21 18:34 MCV MCH MCHC RDW Plt Count MPV Immature Gran % (Auto) Neut % (Auto) Lymph % (Auto) [place] % (Auto) Eos % (Auto) Baso % (Auto) Lymph # (Auto) [place] # (Auto) Eos # (Auto) Baso # (Auto) Abs Immat Gran (auto) Absolute Neuts (auto) Absolute Nucleated RBC Nucleated RBC % (auto) PT INR APTT Anion Gap Estim Creat Clear Calc Estimated GFR Random Glucose Calcium Total Bilirubin Direct Bilirubin AST ALT Alkaline Phosphatase Lactate Dehydrogenase Troponin I High Sens B-Natriuretic Peptide Total Protein Albumin Stool Occult Blood COVID-19 ([facility]ZO) Negative COVID-19 Clin Com See Note Blood Type Antibody Screen Crossmatch Imaging Radiologist's Impressions: Impressions Chest X-Ray 09/23/21 16:33 IMPRESSION: Stable enlargement of the cardiac silhouette. Abdomen/Pelvis CT 09/23/21 17:40 IMPRESSION: There is some thickening here involving the second portion of the duodenum with some surrounding soft tissue stranding. Certainly duodenitis be consideration. Some nodes which could be reactive. Underlying malignancy of course given history cannot be excluded. Recommend clinical correlation and direct visualization Differential for the soft tissue stranding would be from adjacent pancreatitis but the pancreas is grossly within normal limits. Differential would also include inflammatory change in the adjacent gallbladder but again the adjacent gallbladder is grossly unremarkable. Correlation recommended clinically. Some areas of low density within the liver of uncertain etiology. Given the other findings ultrasound would be recommended to further evaluate. This could represent cystic change. Underlying lesion cannot be excluded. Nonobstructing stones and probable evolving cystic change in the kidneys but again ultrasound would be recommended to confirm. Nodular change involving the left adrenal. Etiology is indeterminate. Recommend adrenal protocol CT. Some mildly prominent nodes in the periaortic and iliac regions but no pathologic enlargement. Attention to follow-up. Diverticulosis but no evidence for diverticulitis. The overall bowel pattern is nonobstructing. Mild bilateral basilar atelectasis and probable trace effusions Fleischner guidelines were followed. Assessment and Plan (1) Normocytic anemia: Status: Acute (2) Congestive heart failure (CHF): Status: Acute (3) Hypoxia: Status: Acute (4) Diabetes: Status: Acute Plan 66-year-old male with a past medical history of hypertension, hyperlipidemia, diabetes, CAD, CHF, morbid obesity, recent admission to the hospital in August 2021 for acute hypoxic/hypercapnic respiratory failure in the setting of acute CHF/OHS/sleep apnea, presented today to the hospital with a chief complaint of abnormal labs as outpatient showing low hemoglobin. Noted to have normocytic anemia/hypoxia. Admitted for further management. Normocytic anemia: Patient stool guaiac was negative Will obtain iron studies, folate, B12 Hematology-Oncology consult Patient being transfused 2 units of blood in the ER. Monitor for signs of fluid overload CT abdomen showed no evidence of retroperitoneal hemorrhage. Duodenitis: Incidental finding on the CT. Noticed irregular thickening. Question inflammation versus malignancy. Gastroenterology consult for possible EGD. Hypoxia: Likely in the setting of CHF/OHS/sleep apnea. Placed on supplemental oxygen. Breathing comfortably. Not in distress. Trending pulse oximetry once clinically improves Patient denies being on any home CPAP or home oxygen. pulmonology follow-up Acute CHF: Placed on Lasix 40 mg IV daily. Monitor I's and O's and daily weights. Telemetry. Cardiology follow-up. History of diabetes: Hold metformin. Insulin sliding scale History of hypertension: Continue home lisinopril, metoprolol History of depression: Continue home duloxetine DVT prophylaxis: Lovenox Code status: Full code Quality Stroke Does the patient have a stroke diagnosis?: No VTE Prior VTE?: No VTE Risk Level:: Medical - moderate - high VTE Device Contraindication: Treatment Not Indicated VTE Drug Contraindication: N/A - Med Ordered
[2021-09-23 20:56] LABS: Glucose, Whole Blood 112 mg/dL (60-115)
[2021-09-23] MEDS: Enoxaparin Sodium 40 MG/0.4 ML SYRINGE SUBCUT (21:25)
[2021-09-23] MEDS: DULoxetine HCl 30 MG CAPSULE.DR PO (21:26)
[2021-09-23] MEDS: Metoprolol Tartrate 12.5 MG HALFTAB PO (21:26)
--- NOTE | 2021-09-23 22:28 | PC.NURSE ---
pt has bilateral lower extremity redness. pt states this is chronic. denies fevers. BLE warm to touch, redness outlined with surgical marker to ensure that it is not getting more extensive. MD Iyer aware
[2021-09-24] VITALS (9 sets, daily range): BP systolic 104–148; BP diastolic 59–79; PULSE 78–92; RESP 15–20; TEMP 36.6–37; O2SAT 91–98
[2021-09-24] MEDS: 0.9 % Sodium Chloride Flush 3 ML SYRINGE IVFLUSH ×4 (00:32→19:55)
--- NOTE | 2021-09-24 00:40 | PC.NURSE ---
pt required bed change/incontinent care after missing urinal while voiding in bed. pt able to roll from side to side to assist this RN and animal health technician with the bedchange. pt has no c/o pain. resting in bed at this time
[2021-09-24 06:48] LABS: MANUAL DIFF FLAG NO
[2021-09-24 06:52] LABS: Basophils Percent Auto 0.5 % (0-2); Eosinophils Absolute Auto 0.1 X10*3/uL (0.0-0.4); Hemoglobin 9.3 g/dl (14.0-18.0); Imm Gran Abs Auto 0.08 X10*3/uL (0.00-0.03); Imm Gran Pct Auto 1.3 % (0.0-0.4); Lymphocytes Absolute Auto 1.2 X10*3/uL (1.2-4.9); Lymphocytes Percent Auto 19.7 % (20-40); Mean Corpuscular Volume 90.1 fL (80.0-98.0); Mean Platelet Volume 9.6 fL (9.4-12.4); Monocytes Absolute Auto 0.5 X10*3/uL (0.1-1.2); NRBC Pct Auto 0.3 /100WBC (0.0-0.2); Neutrophils Absolute Auto 4.1 x10*3/uL (2.0-8.3); Neutrophils Percent Auto 68.5 % (45-73); Platelet Count 276 X10*3/uL (160-400); Red Blood Count 3.44 X10*6/uL (4.60-5.80); Red Cell Distribution Width 18.1 % (11.0-16.0)
[2021-09-24 07:09] LABS: Anion Gap 11 (12-20); Blood Urea Nitrogen 6 mg/dL (9-16); Calcium 9.4 mg/dL (8.4-10.2); Carbon Dioxide 35 mmol/L (22-29); Chloride 99 mmol/L (96-108); Creatinine Clr Calc Pharmacy 136.3; Estimated Glomerular Filt Rate > 60; Glucose Random 110 mg/dL (60-115); Potassium 3.7 mmol/L (3.3-5.1); Sodium 141 mmol/L (135-145)
[2021-09-24 07:24] LABS: Glucose, Whole Blood 99 mg/dL (60-115)
--- NOTE | 2021-09-24 07:32 | PC.NURSE ---
Pt alert/oriented. Denies any pin or discomfort, SOB or dizziness. Reports feeling tired. Skin is pale, warm and dry. Breathing easy, non labored. NSR on tele. 02 at 2lpm via nc sat 97%. POC 99, no coverage needed. Speech clear, speaking full sentences. 400ml emptied from urinal. B/L LE swelling/redness noted +3
[2021-09-24] MEDS: Furosemide 40 MG/4 ML VIAL IVPUSH ×2 (08:15→17:47)
[2021-09-24] MEDS: Metoprolol Tartrate 12.5 MG HALFTAB PO ×2 (08:15→19:59)
[2021-09-24] MEDS: DULoxetine HCl 60 MG CAPSULE.DR PO (08:15)
[2021-09-24] MEDS: lisinopriL 40 MG TABLET PO (08:15)
[2021-09-24] MEDS: Atorvastatin Calcium 80 MG TABLET PO (08:15)
--- NOTE | 2021-09-24 10:29 | P.CONCA_ITS ---
History of Present Illness History of Present Illness Date of Service: 09/24/21 Requesting physician: Alisha Hughes Chief complaint: CHF Exacerbation Narrative: I was requested to see Mahesh in cardiology consultation today because of recurrent heart failure. He is of very vague historian with prior history admitted about 3 weeks ago to the hospital with decompensated congestive heart failure, 1st time. At that time was worked up but then left early against medical advise before his workup was completed. Did not get an echocardiogram. A suspected this was diastolic/right heart failure related to obesity hypoventilation syndrome and possibly sleep apnea. No workup has been done. He said he was referred by his primary care physician Alecia Spivey to the hospital because of severe anemia. He was noted to be markedly anemic and was in heart failure. He has received 1 unit of packed RBC transfusion. He has also been diuresed although remain short of breath and requiring oxygen. He denies any chest pain. He says over the last month he had a couple of episodes of orthopnea/ PND. Does not exercise much due to his arthritic issue and is on not cardiac for management. He has prior history of diabetes, hyperlipidemia, hypertension, CAD, had stents about 10 years ago as per him. He does not recall as to the exact reason for the same. 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 Denies palpitations, lightheadedness, syncope. Does have progressive bilateral lower extremity swelling as per him. Review of Systems Constitutional: Constitutional: Reports no additional constitutional complaints Eyes: Eyes: Reports no additional eye complaints Cardiovascular: Cardiovascular: Denies chest pain, Denies chest pain with activity, Reports leg edema, Denies lightheadedness, Denies Loss of Consciousness, Denies palpitations, Reports dyspnea and Reports paroxysmal nocturnal dyspnea Respiratory: Respiratory: Reports no additional respiratory complaints and Reports dyspnea Gastrointestinal: Gastrointestinal: Reports no additional gastrointestinal complaints Genitourinary: Genitourinary: Reports no additional male genitourinary complaints Musculoskeletal: Musculoskeletal: Reports no additional musculoskeletal complaints Integumentary/Breasts: Skin/Breast: Reports system reviewed and no additional complaints, except as docu Neurologic: Reports system reviewed and no additional complaints, except as documented Psychiatric: Psychiatric: Reports no additional psychiatric complaints Endocrine: Endocrine: Reports no additional endocrine complaints and Denies palpitations PMFSH Past Medical History Medical History Bilateral lower extremity edema CHF (congestive heart failure) Congestive heart failure Coronary artery disease Diabetes Hypertension Lower extremity edema Morbid obesity Morbid obesity Myocardial infarction Respiratory failure with hypoxia and hypercapnia Family History Family History Other No family history of coronary artery disease Surgical History Surgical History S/P coronary artery stent placement Social History Social History Household Members: None Housing: Unknown / Unable to assess Do you presently have visiting nurse or other home services: No Patient Tobacco Use Status: Current everyday Tobacco user Tobacco use type: Cigarette Cigarette Packs Per Day: 0.75 Cigarettes Per Day: 15.0 Years Smoked: 50 Smoked in Last 30 Days: Yes e-Cigarette/Vaping Use: Never Used Use of substances other than those prescribed or required for medical reasons: No Advance Directives: No Advance Directives Information Provided: No service: No Current occupational status: disabled [employer] Allergies Allergy/AdvReac Type Severity Reaction Status Date / Time No Known Allergies Allergy Unverified 01/31/20 14:57 [No Known Allergies*] Active Medications: Current Medications Acetaminophen (Acetaminophen 325 Mg Tablet) 650 mg PO Q6H PRN PRN Reason: Pain, Mild (Pain Scale 1-3) Atorvastatin Calcium (Atorvastatin Calcium 80 Mg Tablet) 80 mg PO DAILY [facility] Last Admin: 09/24/21 08:15 Dose: 80 mg Documented by: Benzonatate (Benzonatate 100 Mg Capsule) 100 mg PO TID PRN PRN Reason: Cough Dextrose (Dextrose 50 % 25 Gm/50 Ml Syringe) 25 gm IVPUSH Q15M PRN; Protocol PRN Reason: per Hypoglycemia Standing Ord. Duloxetine HCl (Duloxetine Hcl 30 Mg Capsule.) 30 mg PO BEDTIME [facility] Last Admin: 09/23/21 21:26 Dose: 30 mg Documented by: Duloxetine HCl (Duloxetine Hcl 60 Mg Capsule.) 60 mg PO DAILY [facility] Last Admin: 09/24/21 08:15 Dose: 60 mg Documented by: Enoxaparin Sodium (Enoxaparin Sodium 40 Mg/0.4 Ml Syringe) 40 mg SUBCUT Q24H [facility] Last Admin: 09/23/21 21:25 Dose: 40 mg Documented by: Furosemide (Furosemide 40 Mg/4 Ml Vial) 40 mg IVPUSH DAILY [facility]; Protocol Last Admin: 09/24/21 08:15 Dose: 40 mg Documented by: Glucose (Glucose Gel 15 Gm Gel..Gram.) 15 gm PO Q15M PRN; Protocol PRN Reason: per Hypoglycemia Standing Ord. Insulin Human Lispro (Insulin Lispro 100 Unit/Ml 3 Ml Vial) 0 unit SUBCUT QIDACHS [facility]; Protocol Last Admin: 09/24/21 07:23 Dose: Not Given Documented by: Lisinopril (Lisinopril 40 Mg Tablet) 40 mg PO DAILY [facility]; Protocol Last Admin: 09/24/21 08:15 Dose: 40 mg Documented by: Melatonin (Melatonin 3 Mg Tablet) 6 mg PO BEDTIME PRN PRN Reason: Insomnia Metoprolol Tartrate (Metoprolol Tartrate 12.5 Mg Halftab) 12.5 mg PO BID [facility]; Protocol Last Admin: 09/24/21 08:15 Dose: 12.5 mg Documented by: Oxycodone HCl (Oxycodone Hcl Immed Release 5 Mg Tablet) 5 mg PO Q6H PRN PRN Reason: moderate pain Pharmacy Consult (Consult Rx Perform Med Rec) 1 each MISCELLANE ONCE PRN PRN Reason: Consult order Senna (Sennosides 8.6 Mg Tablet) 17.2 mg PO BEDTIME PRN PRN Reason: Constipation Sodium Chloride (0.9 % Sodium Chloride Flush 3 Ml Syringe) 3 ml [facility] Last Admin: 09/24/21 07:24 Dose: 3 ml Documented by: Home Medications Medication Instructions Recorded Confirmed Last Taken Type atorvastatin 80 mg tablet 80 mg PO DAILY 09/05/21 09/23/21 09/23/21 History etodolac 400 mg tablet 400 mg PO BID PRN 09/05/21 09/23/21 09/04/21 21:00 History lisinopril 40 mg tablet 40 mg PO DAILY 09/05/21 09/23/21 09/23/21 History metformin 500 mg tablet 500 mg PO BIDWM 09/05/21 09/23/21 09/23/21 History metoprolol tartrate 25 mg tablet 12.5 mg PO BID 09/05/21 09/23/21 09/23/21 History morphine 15 mg tablet,extended 15 mg PO BID PRN 09/05/21 09/23/21 09/23/21 History release oxycodone 5 mg tablet 5 mg PO Q6H PRN 09/05/21 09/23/21 09/23/21 History duloxetine 30 mg capsule,delayed 30 mg PO BEDTIME 09/23/21 09/23/21 09/22/21 History release duloxetine 30 mg capsule,delayed 60 mg PO DAILY 09/23/21 09/23/21 09/23/21 History release furosemide 20 mg tablet 1 tab PO DAILY 09/23/21 09/23/21 09/20/21 History Physical Exam Vital Signs: Vital Signs: Last Vital Signs Temp 97.8 F 09/23/21 23:50 Pulse 82 09/24/21 04:04 Resp 17 09/24/21 04:04 BP 148/79 H 09/24/21 04:04 Pulse Ox 93 09/24/21 04:04 BMI result Body Mass Index 43.3 Const: General: cooperative, alert, awake, in distress mild and respiratory and poor hygiene Nutritional Appearance: obese Orientation/consciousness: patient oriented x3 HEENT: Head: Yes normocephalic and Yes atraumatic Neck: Neck: Yes JVD Resp: Effort & Inspection: decreased respiratory effort Auscultation: crackles bilateral at the base Cardio: Jugular venous distension: JVD Palpation: normal PMI Rate: regular rate Rhythm: regular rhythm Heart sounds: S1 normal heart sound present, S2 normal heart sound present, no click, no gallops, no murmurs and no rubs GI: Inspection: Yes obesity Auscultation: normal bowel sounds Skin: General skin exam: no rashes or lesions noted Neuro: General: patient oriented x3 and no focal motor deficits Extrem: General: No clubbing, No cyanosis and Yes edema Psych: Appearance: grossly normal Objective Labs and Meds Result diagrams: 09/24/21 06:33 09/24/21 06:33 Lab results: Laboratory Results - last 24 hr 09/23/21 09/23/21 09/23/21 13:47 13:47 13:47 WBC 5.7 RBC 2.88 L D Hgb 7.5 L D Hct 25.6 L D MCV 88.9 MCH 26.0 L MCHC 29.3 L RDW 19.2 H Plt Count 295 D MPV 8.8 L Immature Gran % (Auto) 0.5 H Neut % (Auto) 64.8 Lymph % (Auto) 24.1 Garza % (Auto) 8.7 Eos % (Auto) 1.6 Baso % (Auto) 0.3 Lymph # (Auto) 1.4 Garza # (Auto) 0.5 Eos # (Auto) 0.1 Baso # (Auto) 0.0 Abs Immat Gran (auto) 0.03 Absolute Neuts (auto) 3.7 Absolute Nucleated RBC 0.020 H Nucleated RBC % (auto) 0.3 H PT 12.4 INR 1.1 APTT 32.6 Sodium 138 Potassium 4.2 Chloride 101 Carbon Dioxide 29 Anion Gap 12 BUN 7 L D Creatinine 0.68 Estim Creat Clear Calc 136.3 Estimated GFR > 60 POC Glucose Random Glucose 118 H Calcium 9.4 D Total Bilirubin 0.6 Direct Bilirubin 0.4 AST 20 ALT 14 Alkaline Phosphatase 89 D Lactate Dehydrogenase 217 Troponin I High Sens B-Natriuretic Peptide Total Protein 6.2 L Albumin 2.9 L Stool Occult Blood COVID-19 ([facility]) COVID-[employer] Blood Type Antibody Screen Crossmatch 09/23/21 09/23/21 09/23/21 16:09 16:12 17:10 WBC RBC Hgb Hct MCV MCH MCHC RDW Plt Count MPV Immature Gran % (Auto) Neut % (Auto) Lymph % (Auto) Garza % (Auto) Eos % (Auto) Baso % (Auto) Lymph # (Auto) Garza # (Auto) Eos # (Auto) Baso # (Auto) Abs Immat Gran (auto) Absolute Neuts (auto) Absolute Nucleated RBC Nucleated RBC % (auto) PT INR APTT Sodium Potassium Chloride Carbon Dioxide Anion Gap BUN Creatinine Estim Creat Clear Calc Estimated GFR POC Glucose Random Glucose Calcium Total Bilirubin Direct Bilirubin AST ALT Alkaline Phosphatase Lactate Dehydrogenase Troponin I High Sens 8.0 D B-Natriuretic Peptide 733 H Total Protein Albumin Stool Occult Blood NEGATIVE COVID-19 ([facility]) COVID-[employer] Blood Type A Positive Antibody Screen NEGATIVE Crossmatch See Detail 09/23/21 09/23/21 09/23/21 18:34 19:39 20:36 WBC RBC Hgb Hct MCV MCH MCHC RDW Plt Count MPV Immature Gran % (Auto) Neut % (Auto) Lymph % (Auto) Garza % (Auto) Eos % (Auto) Baso % (Auto) Lymph # (Auto) Garza # (Auto) Eos # (Auto) Baso # (Auto) Abs Immat Gran (auto) Absolute Neuts (auto) Absolute Nucleated RBC Nucleated RBC % (auto) PT INR APTT Sodium Potassium Chloride Carbon Dioxide Anion Gap BUN Creatinine Estim Creat Clear Calc Estimated GFR POC Glucose 112 Random Glucose Calcium Total Bilirubin Direct Bilirubin AST ALT Alkaline Phosphatase Lactate Dehydrogenase Troponin I High Sens 7.0 B-Natriuretic Peptide Total Protein Albumin Stool Occult Blood COVID-19 ([facility]) Negative COVID-19 Clin Com See Note Blood Type Antibody Screen Crossmatch 09/24/21 09/24/21 09/24/21 06:33 06:33 07:10 WBC 6.0 RBC 3.44 L Hgb 9.3 L D Hct 31.0 L D MCV 90.1 MCH 27.0 MCHC 30.0 L RDW 18.1 H Plt Count 276 MPV 9.6 Immature Gran % (Auto) 1.3 H Neut % (Auto) 68.5 Lymph % (Auto) 19.7 L Garza % (Auto) 8.0 Eos % (Auto) 2.0 Baso % (Auto) 0.5 Lymph # (Auto) 1.2 Garza # (Auto) 0.5 Eos # (Auto) 0.1 Baso # (Auto) 0.0 Abs Immat Gran (auto) 0.08 H Absolute Neuts (auto) 4.1 Absolute Nucleated RBC 0.020 H Nucleated RBC % (auto) 0.3 H PT INR APTT Sodium 141 Potassium 3.7 Chloride 99 Carbon Dioxide 35 H Anion Gap 11 L BUN 6 L Creatinine 0.68 Estim Creat Clear Calc 136.3 Estimated GFR > 60 POC Glucose 99 Random Glucose 110 Calcium 9.4 Total Bilirubin Direct Bilirubin AST ALT Alkaline Phosphatase Lactate Dehydrogenase Troponin I High Sens B-Natriuretic Peptide Total Protein Albumin Stool Occult Blood COVID-19 ([facility]) COVID-19 Clin Com Blood Type Antibody Screen Crossmatch Imaging Radiologist's impression: Impressions Chest X-Ray 09/23/21 16:33 IMPRESSION: Stable enlargement of the cardiac silhouette. Abdomen/Pelvis CT 09/23/21 17:40 IMPRESSION: There is some thickening here involving the second portion of the duodenum with some surrounding soft tissue stranding. Certainly duodenitis be consideration. Some nodes which could be reactive. Underlying malignancy of course given history cannot be excluded. Recommend clinical correlation and direct visualization Differential for the soft tissue stranding would be from adjacent pancreatitis but the pancreas is grossly within normal limits. Differential would also include inflammatory change in the adjacent gallbladder but again the adjacent gallbladder is grossly unremarkable. Correlation recommended clinically. Some areas of low density within the liver of uncertain etiology. Given the other findings ultrasound would be recommended to further evaluate. This could represent cystic change. Underlying lesion cannot be excluded. Nonobstructing stones and probable evolving cystic change in the kidneys but again ultrasound would be recommended to confirm. Nodular change involving the left adrenal. Etiology is indeterminate. Recommend adrenal protocol CT. Some mildly prominent nodes in the periaortic and iliac regions but no pathologic enlargement. Attention to follow-up. Diverticulosis but no evidence for diverticulitis. The overall bowel pattern is nonobstructing. Mild bilateral basilar atelectasis and probable trace effusions Fleischner guidelines were followed. Assessment and Plan (1) Decompensated heart failure: Status: Acute decompensated CHF in this elderly gentleman with poor activity status at home, recently admitted with decompensated congestive heart failure but noted to be significantly anemic, most likely exacerbated by his severe anemia. Anemia needs to be corrected and worked up. Most likely GI bleed related. Hospitalist team managing the same. Clinically appears to be in heart failure with volume overload. Continue IV diuresis. Increase Lasix to 40 mg IV b.i.d.. Strict intake and output chart needs to be pursued. Also add Aldactone 25 mg to his regimen. His risk factor include morbid obesity, hypertension, diabetes, CAD and high likelihood of underlying untreated obstructive sleep apnea As well as obesity hypoventilation syndrome. Consider pulmonary consultation as well. Echocardiogram needs to be performed hopefully today. Will continue to follow with you. Thank you for allowing us to partake in his care Procedures Date of Service Date of Service: 09/24/21
--- NOTE | 2021-09-24 11:35 | PC.NURSE ---
called floor to give report, nurse to call us back
[2021-09-24 11:40] LABS: Glucose, Whole Blood 130 mg/dL (60-115)
--- NOTE | 2021-09-24 11:47 | PC.NURSE ---
pharmacy to bring missing meds
[2021-09-24] MEDS: Spironolactone 25 MG TABLET PO (12:08)
[2021-09-24] MEDS: acetaZOLAMIDE 250 MG TABLET PO ×2 (12:08→20:00)
--- NOTE | 2021-09-24 12:10 | PC.NURSE ---
report obtained from [facility], patient sleeping, woke to verbal stimulus, cardia monitor nsr 80s, vss, pt denies pain or discomfort at this time, took meds whole with water, call poe within reach, will continue to monitor
--- NOTE | 2021-09-24 13:29 | P.PNIM_ITS ---
Subjective Subjective Date of Service: 09/24/21 Interval History: seen and examined this morning admitted overnight with abnormal labs found to be hypoxic recent admission for hypoxic/hypercapnic respiratory failure r/t CHF/OHS/probable FARSHAD - was d/c with oxygen pt has not been using oxygen as he feels that he does not need it, has not scheduled outpatient sleep study for similar reasons denies shortness of breath, chest pain or cough at this time Review of Systems Review of Systems: Yes all other systems are reviewed and are negative Constitutional Constitutional: Denies chills and Denies fever(s) Cardiovascular Cardiovascular: Denies chest pain, Denies palpitations and Denies dyspnea Respiratory Respiratory: Denies cough and Denies dyspnea Gastrointestinal Gastrointestinal: Denies abdominal pain Endocrine Endocrine: Denies palpitations Physical Exam Vital Signs: Vital Signs: Last Vital Signs Temp 98.0 F 09/24/21 11:33 Pulse 78 09/24/21 11:33 Resp 16 09/24/21 11:33 BP 136/69 09/24/21 11:33 Pulse Ox 96 09/24/21 11:33 BMI result Body Mass Index 43.3 Const: General: alert and awake Nutritional Appearance: obese Resp: Effort & Inspection: normal respiratory effort and able to speak in complete sentences Auscultation: crackles bilateral Cardio: Rate: regular rate Heart sounds: S1 normal heart sound present and S2 normal heart sound present GI: Inspection: Yes obesity Palpation (GI): Soft to palpation and nontender Extrem: Other: b/l leg edema Objective Data Active Medications Acetaminophen (Acetaminophen 325 Mg Tablet) 650 mg PO Q6H PRN PRN Reason: Pain, Mild (Pain Scale 1-3) Acetazolamide (Acetazolamide 250 Mg Tablet) 250 mg PO BID [facility] Last Admin: 09/24/21 12:08 Dose: 250 mg Documented by: DEIRDRE Atorvastatin Calcium (Atorvastatin Calcium 80 Mg Tablet) 80 mg PO DAILY [facility] Last Admin: 09/24/21 08:15 Dose: 80 mg Documented by: IZABEL Benzonatate (Benzonatate 100 Mg Capsule) 100 mg PO TID PRN PRN Reason: Cough Dextrose (Dextrose 50 % 25 Gm/50 Ml Syringe) 25 gm IVPUSH Q15M PRN; Protocol PRN Reason: per Hypoglycemia Standing Ord. Duloxetine HCl (Duloxetine Hcl 30 Mg Capsule.) 30 mg PO BEDTIME [facility] Last Admin: 09/23/21 21:26 Dose: 30 mg Documented by: BALJIT Duloxetine HCl (Duloxetine Hcl 60 Mg Capsule.) 60 mg PO DAILY [facility] Last Admin: 09/24/21 08:15 Dose: 60 mg Documented by: IZABEL Enoxaparin Sodium (Enoxaparin Sodium 40 Mg/0.4 Ml Syringe) 40 mg SUBCUT Q24H [facility] Last Admin: 09/23/21 21:25 Dose: 40 mg Documented by: BALJIT Furosemide (Furosemide 40 Mg/4 Ml Vial) 40 mg IVPUSH BID@0900,1800 [facility]; Protocol Glucose (Glucose Gel 15 Gm Gel..Gram.) 15 gm PO Q15M PRN; Protocol PRN Reason: per Hypoglycemia Standing Ord. Insulin Human Lispro (Insulin Lispro 100 Unit/Ml 3 Ml Vial) 0 unit SUBCUT QI DACHS [facility]; Protocol Last Admin: 09/24/21 12:04 Dose: Not Given Documented by: DEIRDRE Non-Admin Reason: No Insulin Coverage Lisinopril (Lisinopril 40 Mg Tablet) 40 mg PO DAILY [facility]; Protocol Last Admin: 09/24/21 08:15 Dose: 40 mg Documented by: IZABEL Melatonin (Melatonin 3 Mg Tablet) 6 mg PO BEDTIME PRN PRN Reason: Insomnia Metoprolol Tartrate (Metoprolol Tartrate 12.5 Mg Halftab) 12.5 mg PO BID [facility]; Protocol Last Admin: 09/24/21 08:15 Dose: 12.5 mg Documented by: IZABEL Oxycodone HCl (Oxycodone Hcl Immed Release 5 Mg Tablet) 5 mg PO Q6H PRN PRN Reason: moderate pain Pharmacy Consult (Consult Rx Perform Med Rec) 1 each MISCELLANE ONCE PRN PRN Reason: Consult order Senna (Sennosides 8.6 Mg Tablet) 17.2 mg PO BEDTIME PRN PRN Reason: Constipation Sodium Chloride (0.9 % Sodium Chloride Flush 3 Ml Syringe) 3 ml IVFLUSH QSHIFT [facility] Last Admin: 09/24/21 07:24 Dose: 3 ml Documented by: IZABEL Spironolactone (Spironolactone 25 Mg Tablet) 25 mg PO DAILY [facility]; Protocol Last Admin: 09/24/21 12:08 Dose: 25 mg Documented by: DEIRDRE Labs CBC & Chem 7: 09/24/21 06:33 09/24/21 06:33 Labs: Laboratory Results - last 24 hr 09/23/21 09/23/21 09/23/21 13:47 13:47 13:47 MCV 88.9 MCH 26.0 L MCHC 29.3 L RDW 19.2 H Plt Count 295 D MPV 8.8 L Immature Gran % (Auto) 0.5 H Neut % (Auto) 64.8 Lymph % (Auto) 24.1 [place] % (Auto) 8.7 Eos % (Auto) 1.6 Baso % (Auto) 0.3 Lymph # (Auto) 1.4 [place] # (Auto) 0.5 Eos # (Auto) 0.1 Baso # (Auto) 0.0 Abs Immat Gran (auto) 0.03 Absolute Neuts (auto) 3.7 Absolute Nucleated RBC 0.020 H Nucleated RBC % (auto) 0.3 H PT 12.4 INR 1.1 APTT 32.6 Anion Gap 12 Estim Creat Clear Calc 136.3 Estimated GFR > 60 POC Glucose Random Glucose 118 H Calcium 9.4 D Total Bilirubin 0.6 Direct Bilirubin 0.4 AST 20 ALT 14 Alkaline Phosphatase 89 D Lactate Dehydrogenase 217 Troponin I High Sens B-Natriuretic Peptide Total Protein 6.2 L Albumin 2.9 L Stool Occult Blood COVID-19 (ENZO) [facility] Blood Type Antibody Screen Crossmatch 09/23/21 09/23/21 09/23/21 16:09 16:12 17:10 MCV MCH MCHC RDW Plt Count MPV Immature Gran % (Auto) Neut % (Auto) Lymph % (Auto) [place] % (Auto) Eos % (Auto) Baso % (Auto) Lymph # (Auto) [place] # (Auto) Eos # (Auto) Baso # (Auto) Abs Immat Gran (auto) Absolute Neuts (auto) Absolute Nucleated RBC Nucleated RBC % (auto) PT INR APTT Anion Gap Estim Creat Clear Calc Estimated GFR POC Glucose Random Glucose Calcium Total Bilirubin Direct Bilirubin AST ALT Alkaline Phosphatase Lactate Dehydrogenase Troponin I High Sens 8.0 D B-Natriuretic Peptide 733 H Total Protein Albumin Stool Occult Blood NEGATIVE COVID-19 (ENZO) [employer] Blood Type A Positive Antibody Screen NEGATIVE Crossmatch See Detail 09/23/21 09/23/21 09/23/21 18:34 19:39 20:36 MCV MCH MCHC RDW Plt Count MPV Immature Gran % (Auto) Neut % (Auto) Lymph % (Auto) [place] % (Auto) Eos % (Auto) Baso % (Auto) Lymph # (Auto) [place] # (Auto) Eos # (Auto) Baso # (Auto) Abs Immat Gran (auto) Absolute Neuts (auto) Absolute Nucleated RBC Nucleated RBC % (auto) PT INR APTT Anion Gap Estim Creat Clear Calc Estimated GFR POC Glucose 112 Random Glucose Calcium Total Bilirubin Direct Bilirubin AST ALT Alkaline Phosphatase Lactate Dehydrogenase Troponin I High Sens 7.0 B-Natriuretic Peptide Total Protein Albumin Stool Occult Blood COVID-19 (ENZO) Negative [facility] Com See Note Blood Type Antibody Screen Crossmatch 09/24/21 09/24/21 09/24/21 06:33 06:33 07:10 MCV 90.1 MCH 27.0 MCHC 30.0 L RDW 18.1 H Plt Count 276 MPV 9.6 Immature Gran % (Auto) 1.3 H Neut % (Auto) 68.5 Lymph % (Auto) 19.7 L [place] % (Auto) 8.0 Eos % (Auto) 2.0 Baso % (Auto) 0.5 Lymph # (Auto) 1.2 [place] # (Auto) 0.5 Eos # (Auto) 0.1 Baso # (Auto) 0.0 Abs Immat Gran (auto) 0.08 H Absolute Neuts (auto) 4.1 Absolute Nucleated RBC 0.020 H Nucleated RBC % (auto) 0.3 H PT INR APTT Anion Gap 11 L Estim Creat Clear Calc 136.3 Estimated GFR > 60 POC Glucose 99 Random Glucose 110 Calcium 9.4 Total Bilirubin Direct Bilirubin AST ALT Alkaline Phosphatase Lactate Dehydrogenase Troponin I High Sens B-Natriuretic Peptide Total Protein Albumin Stool Occult Blood COVID-19 ([facility]ZO) [facility] Com Blood Type Antibody Screen Crossmatch 09/24/21 11:37 MCV MCH MCHC RDW Plt Count MPV Immature Gran % (Auto) Neut % (Auto) Lymph % (Auto) [place] % (Auto) Eos % (Auto) Baso % (Auto) Lymph # (Auto) [place] # (Auto) Eos # (Auto) Baso # (Auto) Abs Immat Gran (auto) Absolute Neuts (auto) Absolute Nucleated RBC Nucleated RBC % (auto) PT INR APTT Anion Gap Estim Creat Clear Calc Estimated GFR POC Glucose 130 H Random Glucose Calcium Total Bilirubin Direct Bilirubin AST ALT Alkaline Phosphatase Lactate Dehydrogenase Troponin I High Sens B-Natriuretic Peptide Total Protein Albumin Stool Occult Blood COVID-19 (ENZO) COVID-19 Clin Com Blood Type Antibody Screen Crossmatch Assessment and Plan (1) Decompensated heart failure: Status: Acute (2) Normocytic anemia: Status: Acute Plan 66-year-old male with a past medical history of hypertension, hyperlipidemia, d iabetes, CAD, CHF, morbid obesity, recent admission to the hospital in August 2021 for acute hypoxic/hypercapnic respiratory failure in the setting of acute CHF/OHS/sleep apnea, presented today to the hospital with a chief complaint of abnormal labs as outpatient showing low hemoglobin. Noted to have normocytic anemia/hypoxia. Admitted for further management. Acute respiratory failure with Hypoxia: Likely multifactorial in the setting of CHF/OHS/sleep apnea. Patient denies being on any home CPAP was seen by pulmonology on last admission was d/c with 2L supplemental o2 with activity and at bedtime and 1L at rest - pt not compliant outpatient sleep study recommended Normocytic anemia: H/H dropped from 12.1/39.9 to 7.5/25.6. stool guaiac was negative s/p transfusion of 2U rbcs 09/23 Will obtain iron studies, folate, B12 Hematology consult pending Duodenitis: Incidental finding on the CT. Noticed irregular thickening. Question inflammation versus malignancy. Gastroenterology consult pending Acute on chronic CHF no echo in system likely exacerbated by anemia will increase dose of lasix to 40 bid aldactone 25 mg added Monitor I's and O's, daily weights. cardiology following echo pending History of diabetes: Hold metformin. Insulin sliding scale History of hypertension: Continue home lisinopril, metoprolol HLD continue statin History of depression: Continue home duloxetine DVT prophylaxis: Lovenox Code status: Full code attending: dr. francis patient requires ongoing inpatient hospitalization due to acute decompensated CHF and need for IV diuretics Quality Stroke Does the patient have a stroke diagnosis?: No VTE Prior VTE?: No VTE Risk Level:: Medical - moderate - high VTE Device Contraindication: Treatment Not Indicated VTE Drug Contraindication: N/A - Med Ordered
[2021-09-24 14:22] LABS: Iron 157 mcg/dL (45-160); Percent Iron Saturation 49 % (15-50); Total Iron Binding Capacity 319 mcg/dL (228-428); Unsaturated Iron Binding 162 ug/dL
[2021-09-24 14:32] LABS: Ferritin 34 ng/mL (20-250)
[2021-09-24 15:03] LABS: Folate 5.1 ng/mL (> or = 4.0); Vitamin B12 704 pg/mL (200-900)
[2021-09-24 15:49] LABS: Glucose, Whole Blood 185 mg/dL (60-115)
[2021-09-24] MEDS: Insulin Lispro 100 UNIT/ML 3 ML VIAL SUBCUT (17:46)
[2021-09-24] MEDS: Omeprazole 40 MG CAPSULE.DR PO (17:47)
--- NOTE | 2021-09-24 18:59 | P.EN_ITS ---
Event Note Date of Service: 09/24/21 Event Note: GI Consult-Full note dictated Imp: Probable GI bleed 2-3 weeks ago by his description of black stools for at least 2 days and a decreased appetite. He denies any black stools since then nor any UGI complaints other than a decreased appetite. He does use Etodolac BID regularly for arthritis and also describes a low dose aspirin. He does smoke but denies EtOH, although does describe some heavy drinking in the past. His CT probably reflects some residual acid-peptic disease in the duodenum. The CT of his liver may reflect underlying fatty liver and/or hepatic cysts, but need to further evaluate as per radiology report. Rec: U/S of liver. He might require a MRI of the liver but he may be too large for the MRI here. Eventual EGD once he is medically optimized and cleared from a cardiopulmonary standpoint. I could plan on doing the EGD on Tuesday, 09/28. Dona oliver let me know if he is cleared for that. Full consent obtained for this, including risks of bleeding and perforation. Oral PPI. Caution with blood thinners(presently on Lovenox). F/U labs in AM. I did advise him that he needs to avoid all NSAIDs and aspirin. D/W patient in detail and he is comfortable with this plan. Thanks
[2021-09-24] MEDS: Enoxaparin Sodium 40 MG/0.4 ML SYRINGE SUBCUT (19:59)
[2021-09-24 20:00] LABS: Glucose, Whole Blood 91 mg/dL (60-115)
[2021-09-24] MEDS: DULoxetine HCl 30 MG CAPSULE.DR PO (20:00)
[2021-09-25] VITALS (9 sets, daily range): BP systolic 104–183; BP diastolic 54–84; PULSE 73–97; RESP 16–22; TEMP 35.9–37; O2SAT 92–98; BMI 43.3
[2021-09-25] MEDS: oxyCODONE HCl Immed Release 5 MG TABLET PO ×2 (02:49→08:57)
--- NOTE | 2021-09-25 05:00 | CONS_ITS ---
DATE OF SERVICE: 09/24/2021 REASON FOR CONSULTATION: Abnormal CT scan of duodenum, abnormal CT scan of liver, and anemia. HISTORY OF PRESENT ILLNESS: The patient is a 66-year-old male admitted to the hospital for evaluation of anemia and weakness, as well as other multiple problems including cardiopulmonary disease. The patient does use etodolac b.i.d. on a regular basis for arthritis, and also reports that he is on a low dose aspirin. He describes black stool about 2 or 3 weeks ago that lasted for 2 or 3 days. During this time he did have somewhat diminished appetite but denies any nausea, vomiting, heartburn, nor dysphagia. He denies any abdominal pain. He did not notice any hematochezia. After about 2 or 3 days the black stool cleared, and since that time, his stools have been brown. However, he did have some outpatient laboratories with his primary care physician and was noted to have a hemoglobin of 7.5. He was referred to the ER and was admitted. He did receive a unit of blood overnight. The patient presently denies any abdominal pain. He has not had any black stools here in the hospital either. He denies any nausea nor vomiting and has been eating comfortably here in the hospital. The patient does smoke. He denies any alcohol use presently, although does describe that he was a heavy drinker in the past. He denies any known family history of colorectal cancer nor ulcer disease. He has never had an upper endoscopy nor colonoscopy. His present medications include Diamox, atorvastatin, Tessalon, Cymbalta, Lovenox, Lasix, insulin, lisinopril, melatonin, metoprolol, oxycodone, Senokot, and spironolactone. PAST MEDICAL HISTORY: Congestive heart failure, peripheral edema, cellulitis, diabetes mellitus, hyperlipidemia, hypertension, coronary artery disease with stent placements, previous history of NE, obesity, respiratory disease with hypoxia and hypercapnia. He describes some type of foot surgery. SOCIAL HISTORY: He is single. He does smoke. Denies alcohol use presently. FAMILY HISTORY: Noncontributory. REVIEW OF SYSTEMS: CONSTITUTIONAL: He tends to have a lot of fatigue and feels poorly at home in general. SKIN: Denies any rash nor jaundice. CARDIAC: He denies any recent chest pain. PULMONARY: No coughing nor hemoptysis. GI: As above. PHYSICAL EXAMINATION: GENERAL: The patient is alert and comfortable appearing male, though does appear to be chronically ill. SKIN: Warm and dry. Nonjaundiced. ABDOMEN: Soft and nontender without palpable mass. EXTREMITIES: Reveal bilateral edema and erythema. LABORATORY DATA: His CT scan of the abdomen and pelvis describes some areas of low attenuation in the liver that could represent cysts, but this was not definitive. There was no evidence of any gallbladder disease nor biliary disease. Pancreas and spleen were unremarkable. The GI tract was unremarkable in the colon. However, there was evidence of some thickening and soft tissue stranding around the 2nd portion of the duodenum with some mildly prominent lymph nodes in that area. There were also some other enlarged lymph nodes noted in the abdomen as well. A chest x-ray showed some cardiomegaly, but was otherwise unremarkable. His laboratories on admission showed a hemoglobin of 7.5, which has improved to 9.3 today. White blood cell count 6.0, platelets 276,000. PT 12.4 with INR 1.1. Normal electrolytes. BUN 6, creatinine 0.7. Iron 157, iron saturation 49%. Normal B12 and folate levels. Liver profile was completely normal. Albumin 2.9. IMPRESSION: In regard to the patient's anemia and abnormal CT scan, I do suspect this represented some residual peptic ulcer disease in relation to his chronic NSAID and aspirin use. His description of some black stool 2-3 weeks ago would certainly support that diagnosis. At the present time, he does not show any signs of active bleeding whatsoever and his abdominal exam is benign. At this point, I did review with him the most likely diagnosis of that of ulcer disease and the need to avoid all NSAIDs and aspirin in the future. I did advise him that ideally I would recommend upper endoscopy for a definitive evaluation. I advised him that I would not recommend doing this tomorrow given his ongoing cardiopulmonary issues, but we could do this later during the hospitalization once things are optimized from a cardiopulmonary standpoint. I would need to be notified of this by the hospitalist team in regard to when he would be stable enough to have the procedure done. In the meantime, I shall start him on an oral PPI and follow his hemoglobin. Caution will be needed with the Lovenox that he is on. Full consent has been obtained for the upper endoscopy, including risks of bleeding and perforation. A followup CBC has been ordered for tomorrow. In regard to the abnormal CT of the liver, I have ordered an abdominal ultrasound as recommended by the radiologist. Ideally, he might benefit most from a MRI of the liver, but given his size, he may not be compatible with the MRI machine here in the hospital. We can await the results of the ultrasound and then decide if he does need an MRI somewhere else. This has all been discussed with the patient in detail and he is comfortable with this plan. Thank you for the consultation. MD ANIRUDH Sherman/JORGE LUIS / [phone] MTDD
[2021-09-25 05:48] LABS: Glucose, Whole Blood 120 mg/dL (60-115)
--- NOTE | 2021-09-25 05:57 | PM.EVENT ---
Event Note Date of Service: 09/25/21 Event Note: Rapid response note: Around 05:45 rapid response was called in saying patient was altered Patient noted to be drowsy, lethargic; slow to respond; follows commands; denies any pain. Exam grossly nonfocal; Will obtain CT head Will obtain ABG to rule out any CO2 narcosis as patient has a history of retaining CO2 Will obtain stat labs
[2021-09-25 06:01] LABS: Venous Blood Gas Refer to POC result
[2021-09-25 06:01] LABS: VBG HCO3 49 mmol/L (22-26); VBG pCO2 85 mmHg; VBG pH 7.36 (7.32-7.43); VBG pO2 79 mmHg
[2021-09-25 06:05] LABS: Hematocrit 30.6 % (42.0-52.0); Hemoglobin 9.2 g/dl (14.0-18.0); Mean Corpuscular HGB Conc 30.1 g/dl (31.0-36.0); Mean Corpuscular Hemoglobin 26.5 pg (27.0-33.0); Mean Corpuscular Volume 88.2 fL (80.0-98.0); Mean Platelet Volume 9.5 fL (9.4-12.4); Platelet Count 273 X10*3/uL (160-400); Red Blood Count 3.47 X10*6/uL (4.60-5.80); Red Cell Distribution Width 18.4 % (11.0-16.0); White Blood Count 7.6 X10*3/uL (4.8-10.8)
[2021-09-25 06:14] LABS: Ammonia 48 umol/L (13-55)
[2021-09-25 06:19] LABS: Anion Gap 11 (12-20); Blood Urea Nitrogen 9 mg/dL (9-16); Calcium 9.2 mg/dL (8.4-10.2); Carbon Dioxide 37 mmol/L (22-29); Chloride 93 mmol/L (96-108); Creatinine Clr Calc Pharmacy 128.8; Estimated Glomerular Filt Rate > 60; Glucose Random 126 mg/dL (60-115); Potassium 3.3 mmol/L (3.3-5.1); Sodium 138 mmol/L (135-145)
[2021-09-25 06:24] LABS: Troponin-I High Sensitivity 10.5 ng/L (<3.5-35.0)
--- NOTE | 2021-09-25 06:38 | PC.NURSE ---
At 0539, pls was seen asleep on bed, tried to awaken pt for his due med but he was hard to arouse, only opens eyes briefly and unable to answer question or form a sentence, unable to state name and tell where he is, tried to awaken pt more but still unable to respond appropriately, Rapid response was paged, VS WNL, [id number], ABG and labs ordered, CT head ordered and brought pt to ED rad and back to room after, while in CT room pt was able to state name and birthday.
[2021-09-25 07:25] LABS: Glucose, Whole Blood 109 mg/dL (60-115)
[2021-09-25 08:42] LABS: B Type Natriuretic Peptide 599 pg/mL (<100)
[2021-09-25] MEDS: acetaZOLAMIDE 250 MG TABLET PO ×2 (08:57→20:55)
[2021-09-25] MEDS: Atorvastatin Calcium 80 MG TABLET PO (08:57)
[2021-09-25] MEDS: Spironolactone 25 MG TABLET PO (08:57)
[2021-09-25] MEDS: lisinopriL 40 MG TABLET PO (08:58)
[2021-09-25] MEDS: DULoxetine HCl 60 MG CAPSULE.DR PO (08:58)
[2021-09-25] MEDS: Metoprolol Tartrate 12.5 MG HALFTAB PO ×2 (08:58→20:55)
[2021-09-25] MEDS: Furosemide 40 MG/4 ML VIAL IVPUSH ×2 (08:58→18:10)
[2021-09-25] MEDS: 0.9 % Sodium Chloride Flush 3 ML SYRINGE IVFLUSH ×3 (08:58→20:56)
--- NOTE | 2021-09-25 10:27 | P.CDIC_ITS ---
CDI Concurrent Query Documentation Clarification: PHYSICIAN'S DOCUMENTATION REQUEST Date of Query: 09/25/21 1027 Patient Name: Mahesh Pham Admit Date: 09/23/21 Dear Doctor, A review of the medical record indicates additional documentation may be indicated. Please review below and update the documentation accordingly. Clinical Indicators: Risk Factors/Clinical Indicators/Treatments Wound care notes 09/24 - Pressure/wound Stage II left buttock, open to air. slit to coccyx Based on the above, could you please provide, in the Progress Notes, further information regarding the ulcer/wound: * If a pressure ulcer/injury, please also include the stage* of the ulcer: * Stage 1 - Skin intact, non-blanchable redness * Stage 2 - Partial thickness loss of dermis, includes intact or open blister * Stage 3 - Full thickness tissue not including bone, tendon, or muscle * Other * Unable to determine *Source: National Pressure Ulcer Advisory Panel (NPUAP) Use of terms such as suspected, likely, concern for, or probable (associated with a specific diagnosis that is being evaluated, monitored, or treated as if it exists) are acceptable and can be coded in the inpatient setting, when documented at the time of discharge. Thank you, Yaritza Montes [facility], CDIS Extension: [phone] Please use your independent medical judgment in providing your response. THIS QUERY IS PART OF THE PERMANENT MEDICAL RECORD Provider Response: Other Other Diagnosis: stage II pressure ulcer coccyx
[2021-09-25 11:14] LABS: Glucose, Whole Blood 199 mg/dL (60-115)
[2021-09-25] MEDS: Insulin Lispro 100 UNIT/ML 3 ML VIAL SUBCUT (11:53)
--- NOTE | 2021-09-25 13:18 | P.PNCA_ITS ---
Subjective Subjective Date of Service: 09/25/21 <CORAL Anders - Last Filed: 09/25/21 13:36> 09/25/21 <Wil Guan MD - Last Filed: 09/25/21 13:44> Principal diagnosis: CHF <CORAL Anders - Last Filed: 09/25/21 13:36> Interval history: Today he reports feeling ok. Breathing is comfortable at rest. Has not been out of bed yet today. Was sleepy this am which he states is typical for him. He tells me he did not sleep well as he did not get his opiates . Wearing O2 2 liters. No chest pain or palpitation. Still has leg edema, which he states is about the same . Seen at 1130 <CORAL Anders - Last Filed: 09/25/21 13:36> Review of Systems Review of Systems as above <CORAL Anders - Last Filed: 09/25/21 13:36> Yes all other systems are reviewed and are negative <CORAL Anders - Last Filed: 09/25/21 13:36> Physical Exam Vital Signs: Last Vital Signs Temp 96.7 F L 09/25/21 11:31 Pulse 87 09/25/21 11:31 Resp 22 H 09/25/21 11:31 BP 106/58 L 09/25/21 11:31 Pulse Ox 93 09/25/21 11:31 BMI result Body Mass Index 43.3 <CORAL Anders - Last Filed: 09/25/21 13:36> Const General: cooperative, no acute distress, alert and awake <CORAL Anders - Last Filed: 09/25/21 13:36> Orientation/consciousness: patient oriented x3 <CORAL Anders Last Filed: 09/25/21 13:36> Neck Neck: Yes normal visual inspection and Yes no JVD <CORAL Anders Last Filed: 09/25/21 13:36> Resp Effort & Inspection: normal respiratory effort and able to speak in complete sentences <CORAL Anders - Last Filed: 09/25/21 13:36> Auscultation: clear to auscultation bilaterally, no rhonchi and no wheezes <Rosangela SageLUISC - Last Filed: 09/25/21 13:36> Cardio Rate: regular rate <Rosangela Sage CORAL - Last Filed: 09/25/21 13:36> Rhythm: regular rhythm <Rosangela Sage CORAL - Last Filed: 09/25/21 13:36> Heart sounds: S1 normal heart sound present and S2 normal heart sound present <Rosangela SageADANNicanor - Last Filed: 09/25/21 13:36> GI Other: Morbidly obese with large, rounded, nontender abdomen <Rosangela SageADANNicanor - Last Filed: 09/25/21 13:36> Neuro General: patient oriented x3 <Rosangela SageADANNicanor Wood Last Filed: 09/25/21 13:36> Extrem Other: Tight pitting edema in lower extremeties. Some posterior thighs all the way to feet. <Rosangela SageADANNicanor - Last Filed: 09/25/21 13:36> Objective Labs and Meds Result diagrams: : 09/25/21 05:52 09/25/21 05:52 <Rosangela SageADANNicanor - Last Filed: 09/25/21 13:36> Lab results: Laboratory Results - last 24 hr 09/24/21 09/24/21 09/24/21 06:33 06:33 15:24 WBC RBC Hgb Hct MCV MCH MCHC RDW Plt Count MPV Absolute Nucleated RBC Nucleated RBC % (auto) VBG pH VBG pCO2 VBG pO2 VBG HCO3 VBG O2 Saturation VBG Base Excess Sodium Potassium Chloride Carbon Dioxide Anion Gap BUN Creatinine Estim Creat Clear Calc Estimated GFR POC Glucose 185 H Random Glucose Calcium Iron 157 TIBC 319 % Saturation 49 Unsat Iron Binding 162 Ferritin 34 Ammonia Troponin I High Sens B-Natriuretic Peptide Vitamin B12 704 Folate 5.1 09/24/21 09/25/21 09/25/21 19:11 05:44 05:52 WBC 7.6 RBC 3.47 L Hgb 9.2 L Hct 30.6 L MCV 88.2 MCH 26.5 L MCHC 30.1 L RDW 18.4 H Plt Count 273 MPV 9.5 Absolute Nucleated RBC 0.000 Nucleated RBC % (auto) 0.0 VBG pH VBG pCO2 VBG pO2 VBG HCO3 VBG O2 Saturation VBG Base Excess Sodium Potassium Chloride Carbon Dioxide Anion Gap BUN Creatinine Estim Creat Clear Calc Estimated GFR POC Glucose 91 120 H Random Glucose Calcium Iron TIBC % Saturation Unsat Iron Binding Ferritin Ammonia Troponin I High Sens B-Natriuretic Peptide Vitamin B12 Folate 09/25/21 09/25/21 09/25/21 05:52 05:52 05:52 WBC RBC Hgb Hct MCV MCH MCHC RDW Plt Count MPV Absolute Nucleated RBC Nucleated RBC % (auto) VBG pH VBG pCO2 VBG pO2 VBG HCO3 VBG O2 Saturation VBG Base Excess Sodium 138 Potassium 3.3 Chloride 93 L Carbon Dioxide 37 H Anion Gap 11 L BUN 9 Creatinine 0.72 Estim Creat Clear Calc 128.8 Estimated GFR > 60 POC Glucose Random Glucose 126 H Calcium 9.2 Iron TIBC % Saturation Unsat Iron Binding Ferritin Ammonia 48 Troponin I High Sens 10.5 B-Natriuretic Peptide 599 H Vitamin B12 Folate 09/25/21 09/25/21 09/25/21 05:54 07:12 11:11 WBC RBC Hgb Hct MCV MCH MCHC RDW Plt Count MPV Absolute Nucleated RBC Nucleated RBC % (auto) VBG pH 7.36 VBG pCO2 85 VBG pO2 79 VBG HCO3 49 H VBG O2 Saturation 94.0 VBG Base Excess 20.0 Sodium Potassium Chloride Carbon Dioxide Anion Gap BUN Creatinine Estim Creat Clear Calc Estimated GFR POC Glucose 109 199 H Random Glucose Calcium Iron TIBC % Saturation Unsat Iron Binding Ferritin Ammonia Troponin I High Sens B-Natriuretic Peptide Vitamin B12 Folate <CORAL Anders - Last Filed: 09/25/21 13:36> Imaging Radiologist's impression: Impressions Head CT 09/25/21 06:30 IMPRESSION: No acute intracranial pathology. Mild chronic volume loss with small vessel ischemic change. Abdomen Ultrasound 09/25/21 08:27 IMPRESSION: Very limited exam. No focal liver lesion appreciated. <CORAL Anders - Last Filed: 09/25/21 13:36> Progress Note: A&P Assessment and plan (1) Decompensated heart failure: Status: Acute <CORAL Anders - Last Filed: 09/25/21 13:36> Assessment and Plan: New finding of HF on admit 3 weeks ago. He left AMA prior to full eval/ treatment. Presented to ED at direction of PCP due to abnormal labs/ anemia. He was noted to be hypoxic with RA sat 84%. BNP elevated at 733. He was treated for decompensated heart failure with IV Lasix and aldactone added. He was continued on Lisinopril, metoprolol. Echo ordered - still pending. On exam this am he is wearing O2 2 liters with sat 94%, has tight pitting edema to posterior thighs. JVD assessment challenging with his morbid obesity. Fluid balance Neg 5755cc since admit. BNP down to 599 today. He needs further diuresis with IV Lasix. Ongoing strict I+O monitoring. Close monitoring of electrolyte and kidney function. BNP in am. We will follow <Rosangela Sage, CORAL - Last Filed: 09/25/21 13:36> New finding of HF on admit 3 weeks ago. He left AMA prior to full eval/ treatment. Presented to ED at direction of PCP due to abnormal labs/ anemia. He was noted to be hypoxic with RA sat 84%. BNP elevated at 733. He was treated for decompensated heart failure with IV Lasix and aldactone added. He was continued on Lisinopril, metoprolol. Echo ordered - still pending. On exam this am he is wearing O2 2 liters with sat 94%, has tight pitting edema to posterior thighs. JVD assessment challenging with his morbid obesity. Fluid balance Neg 5755cc since admit. BNP down to 599 today. He needs further diuresis with IV Lasix. Ongoing strict I+O monitoring. Close monitoring of electrolyte and kidney function. BNP in am. We will follow Patient seen and examined. Case discussed with Rosangela Sage. Patient has been diuresing well since admission. His BNP is reducing. However still remains significantly fluid overloaded. Will continue with IV Lasix diu resis. Strict intake and output chart needs to be pursued. Continue monitor renal function electrolytes and replace as needed. Continue Aldactone therapy. Continue his antihypertensive therapy. Continue to correct anemia aggressively and maintain hematocrit above 30. Pulmonary workup and will require outpatient sleep study. Strongly recommend to wear BiPAP/CPAP at nighttime. Patient agrees. Not ready for discharge. Will follow with you <Wil Guan MD - Last Filed: 09/25/21 13:44> (2) Respiratory failure with hypoxia and hypercapnia: Status: Resolved <CORAL Anders - Last Filed: 09/25/21 13:36> Assessment and Plan: Being followed by hospitalist. Events of this am reviewed. Pt was difficult to arouse. Head CT showed no acute findings. ABGs shows PCO2 49. Has hypoventilation with his morbid obesity. He tells me that he was told he would be wearing a CPAP mask tonight - It is seen at his bedside. Pulmonary consult from 09/07/21 reviewed. Recommend reconsult this admit. <CORAL Anders - Last Filed: 09/25/21 13:36> (3) Morbid obesity: Status: Acute <CORAL Anders - Last Filed: 09/25/21 13:36> (4) Normocytic anemia: Status: Acute <CORAL Anders - Last Filed: 09/25/21 13:36> Assessment and Plan: Hct 7.5 on admit Recieved 1 unit packed cells. Hgb 9.2 today. Has been seen by GIDr Munoz in consult, note reviewed. He is planning for EGD on 09/28/21. Cardiac clearance will need to be completed prior to that time. <CORAL Anders - Last Filed: 09/25/21 13:36> Time Spent With Patient Time: Total time spent is greater than 50% in coordination of care (as docume nted) at patient's floor/unit and/or counseling patient: 24 <CORAL Anders - Last Filed: 09/25/21 13:36> Progress Note: Quality Stroke Does the patient have a stroke diagnosis?: No <CORAL Anders - Last Filed: 09/25/21 13:36> Procedures Date of Service Date of Service: 09/25/21 <CORAL Anders - Last Filed: 09/25/21 13:36>
--- NOTE | 2021-09-25 13:28 | HO.WOUNDCONS ---
History of Present Illness Data of Consult Service Date: 09/25/21 Requesting physician: Alisha Hughes Primary Care Provider: Alecia Spivey NP HPI Reason for consult: pressure injury coccyx [id number]: 66 year old male with CHF exacerbation reports improvement in SOB, no fever. Bed mobility is good. He has a walker in his room. Hypoxic event last evening per documentation. Wearing CPAP for this exam. Complains of painful area on his left butt cheek. Not draining but olivares when the area is wiped with cleanser. Review of Systems Review of Systems: Yes all other systems are reviewed and are negative [facility] Medical History (Updated 09/25/21 @ 15:48 by GWENDOLYN Clark) Bilateral lower extremity edema CHF (congestive heart failure) Congestive heart failure Coronary artery disease Diabetes Hypertension Lower extremity edema Morbid obesity Morbid obesity Myocardial infarction Respiratory failure with hypoxia and hypercapnia Family History Other No family history of coronary artery disease Surgical History S/P coronary artery stent placement Social History Household Members: None Housing: House Do you presently have visiting nurse or other home services: No Patient Tobacco Use Status: Current everyday Tobacco user Tobacco use type: Cigarette Cigarette Packs Per Day: 0.5 Cigarettes Per Day: 10.0 Years Smoked: 55 e-Cigarette/Vaping Use: Never Used service: No Current occupational status: disabled Meds Allergies Allergy/AdvReac Type Severity Reaction Status Date / Time No Known Allergies Allergy Unverified 01/31/20 14:57 [No Known Allergies*] Active Medications: Current Medications Acetaminophen (Acetaminophen 325 Mg Tablet) 650 mg PO Q6H PRN PRN Reason: Pain, Mild (Pain Scale 1-3) Acetazolamide (Acetazolamide 250 Mg Tablet) 250 mg PO BID [facility] Last Admin: 09/25/21 08:57 Dose: 250 mg Documented by: Atorvastatin Calcium (Atorvastatin Calcium 80 Mg Tablet) 80 mg PO DAILY [facility] Last Admin: 09/25/21 08:57 Dose: 80 mg Documented by: Benzonatate (Benzonatate 100 Mg Capsule) 100 mg PO TID PRN PRN Reason: Cough Dextrose (Dextrose 50 % 25 Gm/50 Ml Syringe) 25 gm IVPUSH Q15M PRN; Protocol PRN Reason: per Hypoglycemia Standing Ord. Duloxetine HCl (Duloxetine Hcl 30 Mg Capsule.) 30 mg PO BEDTIME [facility] Last Admin: 09/24/21 20:00 Dose: 30 mg Documented by: Duloxetine HCl (Duloxetine Hcl 60 Mg Capsule.) 60 mg PO DAILY [facility] Last Admin: 09/25/21 08:58 Dose: 60 mg Documented by: Enoxaparin Sodium (Enoxaparin Sodium 40 Mg/0.4 Ml Syringe) 40 mg SUBCUT Q24H [facility] Last Admin: 09/24/21 19:59 Dose: 40 mg Documented by: Furosemide (Furosemide 40 Mg/4 Ml Vial) 40 mg IVPUSH BID@0900,1800 [facility]; Protocol Last Admin: 09/25/21 08:58 Dose: 40 mg Documented by: Glucose (Glucose Gel 15 Gm Gel..Gram.) 15 gm PO Q15M PRN; Protocol PRN Reason: per Hypoglycemia Standing Ord. Insulin Human Lispro (Insulin Lispro 100 Unit/Ml 3 Ml Vial) 0 unit SUBCUT QIDACHS [facility]; Protocol Last Admin: 09/25/21 11:53 Dose: 2 unit Documented by: Lisinopril (Lisinopril 40 Mg Tablet) 40 mg PO DAILY [facility]; Protocol Last Admin: 09/25/21 08:58 Dose: 40 mg Documented by: Melatonin (Melatonin 3 Mg Tablet) 6 mg PO BEDTIME PRN PRN Reason: Insomnia Metoprolol Tartrate (Metoprolol Tartrate 12.5 Mg Halftab) 12.5 mg PO BID [facility]; Protocol Last Admin: 09/25/21 08:58 Dose: 12.5 mg Documented by: Omeprazole (Omeprazole 40 Mg Capsule.) 40 mg PO DAILY@0630 [facility] Last Admin: 09/25/21 06:00 Dose: Not Given Documented by: Oxycodone HCl (Oxycodone Hcl Immed Release 5 Mg Tablet) 5 mg PO Q6H PRN PRN Reason: moderate pain Last Admin: 09/25/21 08:57 Dose: 5 mg Documented by: Pharmacy Consult (Consult Rx Perform Med Rec) 1 each MISCELLANE ONCE PRN PRN Reason: Consult order Senna (Sennosides 8.6 Mg Tablet) 17.2 mg PO BEDTIME PRN PRN Reason: Constipation Sodium Chloride (0.9 % Sodium Chloride Flush 3 Ml Syringe) 3 ml IVFLUSH QSHIFT [facility] Last Admin: 09/25/21 08:58 Dose: 3 ml Documented by: Spironolactone (Spironolactone 25 Mg Tablet) 25 mg PO DAILY [facility]; Protocol Last Admin: 09/25/21 08:57 Dose: 25 mg Documented by: Home Medications Medication Instructions Recorded Confirmed Last Taken Type atorvastatin 80 mg tablet 80 mg PO DAILY 09/05/21 09/23/21 09/23/21 History etodolac 400 mg tablet 400 mg PO BID PRN 09/05/21 09/23/21 09/04/21 21:00 History lisinopril 40 mg tablet 40 mg PO DAILY 09/05/21 09/23/21 09/23/21 History metformin 500 mg tablet 500 mg PO BIDWM 09/05/21 09/23/21 09/23/21 History metoprolol tartrate 25 mg tablet 12.5 mg PO BID 09/05/21 09/23/21 09/23/21 History morphine 15 mg tablet,extended 15 mg PO BID PRN 09/05/21 09/23/21 09/23/21 History release oxycodone 5 mg tablet 5 mg PO Q6H PRN 09/05/21 09/23/21 09/23/21 History duloxetine 30 mg capsule,delayed 30 mg PO BEDTIME 09/23/21 09/23/21 09/22/21 History release duloxetine 30 mg capsule,delayed 60 mg PO DAILY 09/23/21 09/23/21 09/23/21 History release furosemide 20 mg tablet 1 tab PO DAILY 09/23/21 09/23/21 09/20/21 History Physical Exam Vital Signs and Narrative: Vital Signs: Last Vital Signs Temp 96.7 F L 09/25/21 11:31 Pulse 87 09/25/21 11:31 Resp 22 H 09/25/21 11:31 BP 106/58 L 09/25/21 11:31 Pulse Ox 93 09/25/21 11:31 BMI result Body Mass Index 43.3 Shows good independent bed mobility, rolls onto his left side without assistance. There is nothing on the coccyx. There is intact epithelium. It is fully blanchable. With further inspection, it is the left ischium where a small area of denuded epithelium is identified which is tender to palpation. It is not surrounded by any erythema or edema. It is about 0.2 x 0.5 cm. There is no maceration associated with. This is an area were cross contamination is possible if he is incontinent of stool. Results Labs CBC and Chem 7: 09/25/21 05:52 09/25/21 05:52 Labs: Laboratory Results - last 24 hr 09/24/21 09/24/21 09/24/21 06:33 06:33 15:24 MCV MCH MCHC RDW Plt Count MPV Absolute Nucleated RBC Nucleated RBC % (auto) VBG pH VBG pCO2 VBG pO2 VBG HCO3 VBG O2 Saturation VBG Base Excess Anion Gap Estim Creat Clear Calc Estimated GFR POC Glucose 185 H Random Glucose Calcium Iron 157 TIBC 319 % Saturation 49 Unsat Iron Binding 162 Ferritin 34 Ammonia Troponin I High Sens B-Natriuretic Peptide Vitamin B12 704 Folate 5.1 09/24/21 09/25/21 09/25/21 19:11 05:44 05:52 MCV 88.2 MCH 26.5 L MCHC 30.1 L RDW 18.4 H Plt Count 273 MPV 9.5 Absolute Nucleated RBC 0.000 Nucleated RBC % (auto) 0.0 VBG pH VBG pCO2 VBG pO2 VBG HCO3 VBG O2 Saturation VBG Base Excess Anion Gap Estim Creat Clear Calc Estimated GFR POC Glucose 91 120 H Random Glucose Calcium Iron TIBC % Saturation Unsat Iron Binding Ferritin Ammonia Troponin I High Sens B-Natriuretic Peptide Vitamin B12 Folate 09/25/21 09/25/21 09/25/21 05:52 05:52 05:52 MCV MCH MCHC RDW Plt Count MPV Absolute Nucleated RBC Nucleated RBC % (auto) VBG pH VBG pCO2 VBG pO2 VBG HCO3 VBG O2 Saturation VBG Base Excess Anion Gap 11 L Estim Creat Clear Calc 128.8 Estimated GFR > 60 POC Glucose Random Glucose 126 H Calcium 9.2 Iron TIBC % Saturation Unsat Iron Binding Ferritin Ammonia 48 Troponin I High Sens 10.5 B-Natriuretic Peptide 599 H Vitamin B12 Folate 09/25/21 09/25/21 09/25/21 05:54 07:12 11:11 MCV MCH MCHC RDW Plt Count MPV Absolute Nucleated RBC Nucleated RBC % (auto) VBG pH 7.36 VBG pCO2 85 VBG pO2 79 VBG HCO3 49 H VBG O2 Saturation 94.0 VBG Base Excess 20.0 Anion Gap Estim Creat Clear Calc Estimated GFR POC Glucose 109 199 H Random Glucose Calcium Iron TIBC % Saturation Unsat Iron Binding Ferritin Ammonia Troponin I High Sens B-Natriuretic Peptide Vitamin B12 Folate Imaging Radiologist's Impressions: Impressions Head CT 09/25/21 06:30 IMPRESSION: No acute intracranial pathology. Mild chronic volume loss with small vessel ischemic change. Abdomen Ultrasound 09/25/21 08:27 IMPRESSION: Very limited exam. No focal liver lesion appreciated. Assessment and Plan (1) Unspecified skin changes: Status: Acute Plan 66-year-old male with improving shortness of breath in the setting of CHF exacerbation, denies chronic prednisone exposure and shows good bed mobility. He has a left ischial tuberosity area of irritation which would benefit from topical zinc oxide twice daily after cleansing. There is no evidence that this is pressure associated as it is fully blanchable. Would avoid foam given risks for maceration. Promote mobility to reduce time in bed.
--- NOTE | 2021-09-25 13:44 | HO.PM.IMPN ---
Subjective Subjective Date of Service: 09/25/21 Interval History: Follow up for CHF, respiratory failure RR early this am for lethargy VBG showing some CO2 retention but ph stable Awake and alert this morning Review of Systems Review of Systems: Yes all other systems are reviewed and are negative Constitutional Constitutional: Denies chills and Denies fever(s) Cardiovascular Cardiovascular: Denies chest pain and Denies palpitations Gastrointestinal Gastrointestinal: Denies abdominal pain, Denies nausea and Denies vomiting Endocrine Endocrine: Denies palpitations Physical Exam Vital Signs: Vital Signs: Last Vital Signs Temp 96.7 F L 09/25/21 11:31 Pulse 87 09/25/21 11:31 Resp 22 H 09/25/21 11:31 BP 106/58 L 09/25/21 11:31 Pulse Ox 93 09/25/21 11:31 BMI result Body Mass Index 43.3 Const: General: alert and awake Nutritional Appearance: obese Resp: Effort & Inspection: normal respiratory effort and able to speak in complete sentences Auscultation: diminished lung sounds Cardio: Rate: regular rate Heart sounds: S1 normal heart sound present and S2 normal heart sound present GI: Inspection: Yes obesity Palpation (GI): Soft to palpation and nontender Extrem: Other: b/l leg edema; chronic venous stasis skin changes Objective Data Active Medications Acetaminophen (Acetaminophen 325 Mg Tablet) 650 mg PO Q6H PRN PRN Reason: Pain, Mild (Pain Scale 1-3) Acetazolamide (Acetazolamide 250 Mg Tablet) 250 mg PO BID [facility] Last Admin: 09/25/21 08:57 Dose: 250 mg Documented by: DAY Atorvastatin Calcium (Atorvastatin Calcium 80 Mg Tablet) 80 mg PO DAILY [facility] Last Admin: 09/25/21 08:57 Dose: 80 mg Documented by: DAY Benzonatate (Benzonatate 100 Mg Capsule) 100 mg PO TID PRN PRN Reason: Cough Dextrose (Dextrose 50 % 25 Gm/50 Ml Syringe) 25 gm IVPUSH Q15M PRN; Protocol PRN Reason: per Hypoglycemia Standing Ord. Duloxetine HCl (Duloxetine Hcl 30 Mg ) 30 mg PO BEDTIME [facility] Last Admin: 09/24/21 20:00 Dose: 30 mg Documented by: INÉS Duloxetine HCl (Duloxetine Hcl 60 Mg Capsule) 60 mg PO DAILY [facility] Last Admin: 09/25/21 08:58 Dose: 60 mg Documented by: DAY Enoxaparin Sodium (Enoxaparin Sodium 40 Mg/0.4 Ml Syringe) 40 mg SUBCUT Q24H [facility] Last Admin: 09/24/21 19:59 Dose: 40 mg Documented by: INÉS Furosemide (Furosemide 40 Mg/4 Ml Vial) 40 mg IVPUSH BID@0900,1800 [facility]; Protocol Last Admin: 09/25/21 08:58 Dose: 40 mg Documented by: DAY Glucose (Glucose Gel 15 Gm Gel..Gram.) 15 gm PO Q15M PRN; Protocol PRN Reason: per Hypoglycemia Standing Ord. Insulin Human Lispro (Insulin Lispro 100 Unit/Ml 3 Ml Vial) 0 unit SUBCUT QIDACHS [facility]; Protocol Last Admin: 09/25/21 11:53 Dose: 2 unit Documented by: DAY Lisinopril (Lisinopril 40 Mg Tablet) 40 mg PO DAILY [facility]; Protocol Last Admin: 09/25/21 08:58 Dose: 40 mg Documented by: DAY Melatonin (Melatonin 3 Mg Tablet) 6 mg PO BEDTIME PRN PRN Reason: Insomnia Metoprolol Tartrate (Metoprolol Tartrate 12.5 Mg Halftab) 12.5 mg PO BID [facility]; Protocol Last Admin: 09/25/21 08:58 Dose: 12.5 mg Documented by: DAY Omeprazole (Omeprazole 40 Mg Capsule.Dr) 40 mg PO DAILY@0630 [facility] Last Admin: 09/25/21 06:00 Dose: Not Given Documented by: INÉS Non-Admin Reason: ptwas lethargic and unable to respond well Oxycodone HCl (Oxycodone Hcl Immed Release 5 Mg Tablet) 5 mg PO Q6H PRN PRN Reason: moderate pain Last Admin: 09/25/21 08:57 Dose: 5 mg Documented by: DAY Pharmacy Consult (Consult Rx Perform Med Rec) 1 each MISCELLANE ONCE PRN PRN Reason: Consult order Senna (Sennosides 8.6 Mg Tablet) 17.2 mg PO BEDTIME PRN PRN Reason: Constipation Sodium Chloride (0.9 % Sodium Chloride Flush 3 Ml Syringe) 3 ml IVFLUSH QSHIFT [facility] Last Admin: 09/25/21 08:58 Dose: 3 ml Documented by: DAY Spironolactone (Spironolactone 25 Mg Tablet) 25 mg PO DAILY [facility]; Protocol Last Admin: 09/25/21 08:57 Dose: 25 mg Documented by: DAY Labs CBC & Chem 7: 09/25/21 05:52 09/25/21 05:52 Labs: Laboratory Results - last 24 hr 09/24/21 09/24/21 09/24/21 06:33 06:33 15:24 MCV MCH MCHC RDW Plt Count MPV Absolute Nucleated RBC Nucleated RBC % (auto) VBG pH VBG pCO2 VBG pO2 VBG HCO3 VBG O2 Saturation VBG Base Excess Anion Gap Estim Creat Clear Calc Estimated GFR POC Glucose 185 H Random Glucose Calcium Iron 157 TIBC 319 % Saturation 49 Unsat Iron Binding 162 Ferritin 34 Ammonia Troponin I High Sens B-Natriuretic Peptide Vitamin B12 704 Folate 5.1 09/24/21 09/25/21 09/25/21 19:11 05:44 05:52 MCV 88.2 MCH 26.5 L MCHC 30.1 L RDW 18.4 H Plt Count 273 MPV 9.5 Absolute Nucleated RBC 0.000 Nucleated RBC % (auto) 0.0 VBG pH VBG pCO2 VBG pO2 VBG HCO3 VBG O2 Saturation VBG Base Excess Anion Gap Estim Creat Clear Calc Estimated GFR POC Glucose 91 120 H Random Glucose Calcium Iron TIBC % Saturation Unsat Iron Binding Ferritin Ammonia Troponin I High Sens B-Natriuretic Peptide Vitamin B12 Folate 09/25/21 09/25/21 09/25/21 05:52 05:52 05:52 MCV MCH MCHC RDW Plt Count MPV Absolute Nucleated RBC Nucleated RBC % (auto) VBG pH VBG pCO2 VBG pO2 VBG HCO3 VBG O2 Saturation VBG Base Excess Anion Gap 11 L Estim Creat Clear Calc 128.8 Estimated GFR > 60 POC Glucose Random Glucose 126 H Calcium 9.2 Iron TIBC % Saturation Unsat Iron Binding Ferritin Ammonia 48 Troponin I High Sens 10.5 B-Natriuretic Peptide 599 H Vitamin B12 Folate 09/25/21 09/25/21 09/25/21 05:54 07:12 11:11 MCV MCH MCHC RDW Plt Count MPV Absolute Nucleated RBC Nucleated RBC % (auto) VBG pH 7.36 VBG pCO2 85 VBG pO2 79 VBG HCO3 49 H VBG O2 Saturation 94.0 VBG Base Excess 20.0 Anion Gap Estim Creat Clear Calc Estimated GFR POC Glucose 109 199 H Random Glucose Calcium Iron TIBC % Saturation Unsat Iron Binding Ferritin Ammonia Troponin I High Sens B-Natriuretic Peptide Vitamin B12 Folate Assessment and Plan (1) Morbid obesity: Status: Acute (2) Decompensated heart failure: Status: Acute Plan 66-year-old male with a past medical history of hypertension, hyperlipidemia, diabetes, CAD, CHF, morbid obesity, recent admission to the hospital in August 2021 for acute hypoxic/hypercapnic respiratory failure in the setting of acute CHF/OHS/sleep apnea, presented today to the hospital with a chief complaint of abnormal labs as outpatient showing low hemoglobin. Noted to have normocytic anemia/hypoxia. Admitted for further management. Acute respiratory failure with Hypoxia and hypercarbia: Likely multifactorial in the setting of CHF/OHS/sleep apnea. Patient denies being on any home CPAP was seen by pulmonology on last admission but left AMA was d/c with 2L supplemental o2 with activity and at bedtime and 1L at rest - pt not compliant outpatient sleep study recommended PCO2 elevated, but pH normal, continue cpap at night follow am vbg pulmonology consult pending Acute on chronic CHF net negative nearly 7L no echo in system likely exacerbated by anemia will continue lasix to 40 bid aldactone 25 mg added this admission Monitor I's and O's, daily weights. cardiology following echo pending Normocytic anemia: H/H dropped from 12.1/39.9 to 7.5/25.6. stool guaiac was negative s/p transfusion of 2U rbcs 09/23 Will obtain iron studies, folate, B12 seen by GI, plan for EGD Tuesday if patient's respiratory status has improved with diuresis Multiple incidental findings on belly CT including low density change in liver, ?duodenitis, nodular change of left adrenal, prominent lymph nodes Incidental finding on the CT. Noticed irregular thickening. Question inflammation versus malignancy. GI following, plan for EGD Tuesday as above abdominal US non-diagnostic may need further workup for adrenal gland and lymph nodes as outpatient History of diabetes: Hold metformin. Insulin sliding scale History of hypertension: Continue home lisinopril, metoprolol HLD continue statin History of depression: Continue home duloxetine Stage II coccyx pressure wound continue local wound care wound care consult Morbid obesity BMI 43.3 weight playing direct role in respiratory failure weight reduction encouraged DVT prophylaxis: Lovenox Code status: Full code attending: dr. francis patient requires ongoing inpatient hospitalization due to acute decompensated CHF and need for IV diuretics; workup for anemia; hypoxia and hypercarbic respiratory failure and high risk for decompensation Quality Stroke Does the patient have a stroke diagnosis?: No VTE Prior VTE?: No VTE Risk Level:: Medical - moderate - high VTE Device Contraindication: Treatment Not Indicated VTE Drug Contraindication: N/A - Med Ordered
--- NOTE | 2021-09-25 13:50 | CA_ITS ---
Transthoracic Echocardiogram Patient (Last, First, Middle): Mahesh Pham E Gender: Male Date of : 1955 Age: 66 Procedure Date: 09/25/2021 Procedure Type: Transthoracic Echocardiogram Location: [facility] [place] Height: 172.72 cm Weight: 129.28 kg BSA: 2.38 m2 Heart Rate: bpm BP: 106 / 58 mmHg Behavioral Assistant: JASMYN Referring MD: Alisha SNOW [employer] Department Manager: Wil Guan MD Symptoms: chf Study Quality: Fair ECG Rhythm: Sinus Conclusions: - 1. Normal LV systolic function with mild LVH with pseudonormal filling pattern 2. Moderately dilated right ventricle with reduced systolic function 3. Mildly elevated right atrial pressures 4. Normal cardiac valvular Dopplers 5. Small pericardial effusion Findings Procedure Information Contrast agent, definity, is being given per protocol without apparent complications. Left Ventricle Normal left ventricular size and systolic function. There is mildly increased left ventricular wall thickness. The visually estimated ejection fraction is between 65-70%. Spectral Doppler is indicative of a pseudonormal filling pattern. E/E prime ratio is between 8 and 15 consistent with indeterminate filling pressures. Right Ventricle Moderately increased right ventricular cavity size. There is mild to moderately decreased right ventricular systolic function. Atria The left atrium is likely dilated. There is lipomatous hypertrophy of the interatrial septum. There is no evidence of interatrial shunt. The right atrium is mildly dilated. Aortic Valve The aortic valve structure and function is likely normal. There is no aortic valve stenosis. There is no aortic valve regurgitation. Mitral Valve Likely normal mitral valve structure and function. There is trace mitral valve regurgitation. There is no mitral valve stenosis. Pulmonic Valve The pulmonic valve was not well visualized. Tricuspid Valve Likely normal tricuspid valve structure and function. Tricuspid regurgitation envelope is inadequate for calculation of right ventricular systolic pressure. Mildly elevated right atrial pressure. Great Vessels All visible segments of the aorta are normal in size. The pulmonary artery was not well visualized. Venous The inferior vena cava is mildly dilated and collapses greater than 50% with inspiration. Pericardium/Pleural There is a small circumferential pericardial effusion. Measurements 2D Linear Measurements IVSd: 1.32 0.6-0.9/0.6-1.0 cm LVIDd: 4.93 3.9-5.3/4.2-5.9 cm LVIDd Index: 2.07 2.4-3.2/2.2-3.1 cm/m2 LVIDs: 2.36 2.0-3.6 cm LVPWd: 1.16 0.7-1.1 cm LA Diam: 3.80 2.7-3.8/3.0-4.0 cm LAIDs Index: 1.60 1.5-2.3 cm/m2 LV Mass: 298.53 67-162/88-224 g LV Mass Index: 125.43 43-95/49-115 g/m2 LVOT Diam: 2.10 3.0+(-)1.3 cm 2D Systolic Function EF 4C: 80.30 >55% EF 2C: 65.60 >55% Mitral Valve MV Pk E: 1.07 MV PK A: 0.81 MV Decel Time: 198.00 E/A: 1.30 E'Lateral: 9.90 E'Medial: 7.40 E/E' Med: 14.50 E/E' Lat: 10.80 PHT: 58.00 MVA PHT: 3.79 Decel [place]bon: 5.41 Aortic Valve AoV Pk Papi: 1.91 AoV Mn Papi: 1.29 AoV VTI: 0.33 AoV Pk Grad: 15.00 Aov Mn Grad: 8.00 KATARZYNA Cont.VTI: 2.76 LVOT LVOT Pk Papi: 1.53 LVOT Mn Papi: 1.06 LVOT VTI: 0.26 LVOT Pk Grad: 9.00 LVOT Mn Grad: 5.00 LVOT Diam: 2.10 LVOT Area: 3.46 Diastolic Function MV Pk E: 1.07 MV Pk A: 0.81 E/A: 1.30 E'Medial: 7.40 E/E' Med: 14.50 E' Laterial: 9.90 E/E' Lat: 10.80 Right Ventricle TAPSE (mm): 14.60 TVS' Papi: 11.40 Tricuspid Valve RA Press: 8.00 Great Vessels Aorta Sinus of Valsalva: 3.41 2.0-3.[address] Ridge: 2.85 1.7-3.4 cm Ao Asc: 3.40 2.1-3.4 cm Pulmonary Valve PV Pk Papi: 1.21 Peak PV Grad: 6.00 Updated in Other Vendor System with Status of Final Wil Guan MD electronically signed on 09/26/2021 1:48:13 PM with status of Final
--- NOTE | 2021-09-25 15:18 | MHC.CLN ---
RE: CONSULT PT WITH INCREASED NUTRITION RISK R/T PRESSURE INJURIES PO INTAKE 100% X 1 MEAL DIET RX: 2200DM 2GM NA-APPROPRIATE RECOMMEND ADDING ENSURE MAX BID TO INCREASE PO PROTEIN INTAKE AND PROMOTE WOUND HEALING SUPP TO PROVIDE 300KCALS, 60G PROTEIN MONITOR PO INTAKE AND SUPPLEMENT ACCEPTANCE CLOSELY SEE ALSO FULL CLINICAL NUTRITION ASSESSMENT
[2021-09-25 15:58] LABS: Glucose, Whole Blood 103 mg/dL (60-115)
[2021-09-25 19:52] LABS: Glucose, Whole Blood 129 mg/dL (60-115)
[2021-09-25] MEDS: DULoxetine HCl 30 MG CAPSULE.DR PO (20:55)
[2021-09-25] MEDS: Enoxaparin Sodium 40 MG/0.4 ML SYRINGE SUBCUT (20:56)
[2021-09-26] VITALS (8 sets, daily range): BP systolic 103–139; BP diastolic 57–70; PULSE 81–87; RESP 16–21; TEMP 36.3–36.6; O2SAT 91–98
[2021-09-26] MEDS: oxyCODONE HCl Immed Release 5 MG TABLET PO (00:44)
[2021-09-26] MEDS: Omeprazole 40 MG CAPSULE.DR PO (05:32)
[2021-09-26 07:03] LABS: VBG Base Excess 17.9 mmol/L; VBG HCO3 47 mmol/L (22-26); VBG pCO2 82 mmHg; VBG pH 7.36 (7.32-7.43); VBG pO2 81 mmHg
[2021-09-26 07:10] LABS: Venous Blood Gas Refer to POC result
[2021-09-26 07:32] LABS: B Type Natriuretic Peptide 311 pg/mL (<100)
[2021-09-26 07:58] LABS: Glucose, Whole Blood 108 mg/dL (60-115)
[2021-09-26] MEDS: Atorvastatin Calcium 80 MG TABLET PO (09:35)
[2021-09-26] MEDS: Spironolactone 25 MG TABLET PO (09:35)
[2021-09-26] MEDS: Metoprolol Tartrate 12.5 MG HALFTAB PO ×2 (09:35→22:18)
[2021-09-26] MEDS: acetaZOLAMIDE 250 MG TABLET PO ×2 (09:35→22:17)
[2021-09-26] MEDS: lisinopriL 40 MG TABLET PO (09:35)
[2021-09-26] MEDS: DULoxetine HCl 60 MG CAPSULE.DR PO (09:36)
[2021-09-26] MEDS: Furosemide 40 MG/4 ML VIAL IVPUSH ×2 (09:36→18:10)
[2021-09-26] MEDS: 0.9 % Sodium Chloride Flush 3 ML SYRINGE IVFLUSH ×2 (09:36→23:45)
--- NOTE | 2021-09-26 10:23 | MHC.CM.PN ---
met with pt who explins that he lives alone,and has no servceis he dkid do a hcp naming mhis sister nadine hendrix as his agent [phone] tt/w called nadine who asked that the hcp be mailed to her ..dc tbd pending hospitial course
--- NOTE | 2021-09-26 10:30 | P.CONPL_ITS ---
History of Present Illness History of Present Illness Consult date: 09/26/21 Chief complaint: CHF Exacerbation/Respiratory failure Narrative: This 66 years old gentleman is admitted, because of marked generalized weakness. He has evidence of severe anemia, probably due to low-grade upper GI bleeding. He has somewhat obtunded mental status, Denies any acute respiratory symptoms but ABGs are grossly abnormal, showing pCO2 of 82, and PO2 of 80 bicarb. of 47 I have saw this 66 years old gentleman on his last admission. He was admitted on 09/05 after his friend found him on the floor. A change in mental status was noted. His workup at that time did show that he had chronic respiratory failure, along with morbid obesity and clinical features of obstructive sleep apnea/hypoventilation syndrome. He had improved with, diuresis for his congestive heart failure, Diamox to correct metabolic alkalosis, and with pursed lip breathing exercises. This gentleman was not very receptive to the idea of using non invasive ventilatory support at night. He did mention last time that he was already scheduled to have a sleep study. But since his discharge home, he did not have any sleep study, did not have any CPAP or BiPAP at home. And also did not have oxygen at home. He lives alone and does not seem to be interested in, following up for his respiratory/sleep issues. He still smokes about 15-20 cigarettes a day and I think he must have significant obstructive airway disorder as well as restrictive disorder. He remains grossly obese, His weight does increase due to fluid retention. Review of Systems Review of Systems: Yes Unobtainable due to mental condition PMFSH Past Medical History Medical History (Updated 09/26/21 @ 10:48 by Ivelisse Herrmann MD) Bilateral lower extremity edema CHF (congestive heart failure) Congestive heart failure Coronary artery disease Diabetes Hypertension Hypoventilation syndrome Lower extremity edema Morbid obesity Morbid obesity Myocardial infarction FARSHAD (obstructive sleep apnea) Respiratory failure with hypoxia and hypercapnia Respiratory failure with hypoxia and hypercapnia Family History Family History Other No family history of coronary artery disease Surgical History Surgical History S/P coronary artery stent placement Social History Social History Household Members: None Housing: House Do you presently have visiting nurse or other home services: No Patient Tobacco Use Status: Current everyday Tobacco user Tobacco use type: Cigarette Cigarette Packs Per Day: 0.5 Cigarettes Per Day: 10.0 Years Smoked: 55 e-Cigarette/Vaping Use: Never Used service: No Current occupational status: disabled Meds Allergies Allergy/AdvReac Type Severity Reaction Status Date / Time No Known Allergies Allergy Unverified 01/31/20 14:57 [No Known Allergies*] Active Medications: Current Medications Acetaminophen (Acetaminophen 325 Mg Tablet) 650 mg PO Q6H PRN PRN Reason: Pain, Mild (Pain Scale 1-3) Acetazolamide (Acetazolamide 250 Mg Tablet) 250 mg PO BID [facility] Last Admin: 09/26/21 09:35 Dose: 250 mg Documented by: Atorvastatin Calcium (Atorvastatin Calcium 80 Mg Tablet) 80 mg PO DAILY [facility] Last Admin: 09/26/21 09:35 Dose: 80 mg Documented by: Benzonatate (Benzonatate 100 Mg Capsule) 100 mg PO TID PRN PRN Reason: Cough Dextrose (Dextrose 50 % 25 Gm/50 Ml Syringe) 25 gm IVPUSH Q15M PRN; Protocol PRN Reason: per Hypoglycemia Standing Ord. Duloxetine HCl (Duloxetine Hcl 30 Mg Capsule.) 30 mg PO BEDTIME [facility] Last Admin: 09/25/21 20:55 Dose: 30 mg Documented by: Duloxetine HCl (Duloxetine Hcl 60 Mg Capsule.) 60 mg PO DAILY [facility] Last Admin: 09/26/21 09:36 Dose: 60 mg Documented by: Enoxaparin Sodium (Enoxaparin Sodium 40 Mg/0.4 Ml Syringe) 40 mg SUBCUT Q24H [facility] Last Admin: 09/25/21 20:56 Dose: 40 mg Documented by: Furosemide (Furosemide 40 Mg/4 Ml Vial) 40 mg IVPUSH BID@0900,1800 [facility]; Protocol Last Admin: 09/26/21 09:36 Dose: 40 mg Documented by: Glucose (Glucose Gel 15 Gm Gel..Gram.) 15 gm PO Q15M PRN; Protocol PRN Reason: per Hypoglycemia Standing Ord. Insulin Human Lispro (Insulin Lispro 100 Unit/Ml 3 Ml Vial) 0 unit SUBCUT QIDACHS [facility]; Protocol Last Admin: 09/26/21 08:00 Dose: Not Given Documented by: Lisinopril (Lisinopril 40 Mg Tablet) 40 mg PO DAILY [facility]; Protocol Last Admin: 09/26/21 09:35 Dose: 40 mg Documented by: Melatonin (Melatonin 3 Mg Tablet) 6 mg PO BEDTIME PRN PRN Reason: Insomnia Metoprolol Tartrate (Metoprolol Tartrate 12.5 Mg Halftab) 12.5 mg PO BID [facility]; Protocol Last Admin: 09/26/21 09:35 Dose: 12.5 mg Documented by: Omeprazole (Omeprazole 40 Mg Capsule.Dr) 40 mg PO DAILY@0630 [facility] Last Admin: 09/26/21 05:32 Dose: 40 mg Documented by: Oxycodone HCl (Oxycodone Hcl Immed Release 5 Mg Tablet) 5 mg PO Q6H PRN PRN Reason: moderate pain Last Admin: 09/25/21 08:57 Dose: 5 mg Documented by: Pharmacy Consult (Consult Rx Perform Med Rec) 1 each MISCELLANE ONCE PRN PRN Reason: Consult order Senna (Sennosides 8.6 Mg Tablet) 17.2 mg PO BEDTIME PRN PRN Reason: Constipation Sodium Chloride (0.9 % Sodium Chloride Flush 3 Ml Syringe) 3 ml IVFLUSH [facility] Last Admin: 09/26/21 09:36 Dose: 3 ml Documented by: Spironolactone (Spironolactone 25 Mg Tablet) 25 mg PO DAILY [facility]; Protocol Last Admin: 09/26/21 09:35 Dose: 25 mg Documented by: Home Medications Medication Instructions Recorded Confirmed Last Taken Type atorvastatin 80 mg tablet 80 mg PO DAILY 09/05/21 09/23/21 09/23/21 History etodolac 400 mg tablet 400 mg PO BID PRN 09/05/21 09/23/21 09/04/21 21:00 History lisinopril 40 mg tablet 40 mg PO DAILY 09/05/21 09/23/21 09/23/21 History metformin 500 mg tablet 500 mg PO BIDWM 09/05/21 09/23/21 09/23/21 History metoprolol tartrate 25 mg tablet 12.5 mg PO BID 09/05/21 09/23/21 09/23/21 History morphine 15 mg tablet,extended 15 mg PO BID PRN 09/05/21 09/23/2109/23/22 History release oxycodone 5 mg tablet 5 mg PO Q6H PRN 09/05/21 09/23/21 09/23/21 History duloxetine 30 mg capsule,delayed 30 mg PO BEDTIME 09/23/21 09/23/21 09/22/21 History release duloxetine 30 mg capsule,delayed 60 mg PO DAILY 09/23/21 09/23/21 09/23/21 History release furosemide 20 mg tablet 1 tab PO DAILY 09/23/21 09/23/21 09/20/21 History Physical Exam Vital Signs: Vital Signs: Last Vital Signs Temp 97.8 F 09/26/21 07:36 Pulse 85 09/26/21 07:36 Resp 20 09/26/21 07:36 BP 127/61 09/26/21 07:36 Pulse Ox 97 09/26/21 07:36 BMI result Body Mass Index 43.3 Const: General: comfortable (But slow in conversation), no acute distress, alert and awake Orientation/consciousness: patient oriented x3 (But slow in conversation) HEENT: Head: Yes normal to inspection General nose exam: No nasal polyps present and No nasal discharge present Face and sinus: Yes sinuses nontender Mouth: oropharynx abnormals (Oropharynx is narrow and crowded, Mallampati class 3) Throat: Yes posterior oropharynx normal Eyes: General: appearance normal, both eyes and all related structures Neck: Neck: Yes normal visual inspection, Yes no lymphadenopathy, Yes trachea midline, Yes no JVD and Yes other (Neck is short and obese with a lose skin apron.) Thyroid: Thyroid normal Chest: Chest palpation & inspection: normal inspection of the chest, normal palpation of entire chest wall and no tenderness Resp: Other: Percussion note not perceptible because of thick chest wall. Breath sounds are very distant on both sides especially over the basilar areas. No wheezes or crepitations are heard. Cardio: Palpation: normal PMI Rate: regular rate Rhythm: regular rhythm Heart sounds: no gallops and no murmurs GI: Palpation (GI): Soft to palpation, nontender, No hepatosplenomegaly present, no masses and Other GI palpation findings present (Grossly obese and pr otuberant abdomen) Auscultation: normal bowel sounds Back/Spine/Pelvis: Other: Could not be examined Thoracic/Lumbar Spine: thoracic and lumbar spine normal to inspection Skin: General skin exam: no rashes or lesions noted Neuro: General: patient oriented x3 (But slow in conversation), No gait normal (Non ambulatory at this time) and no focal motor deficits Cranial nerves: Yes CN's II-XII intact bilaterally Extrem: General: Yes normal to inspection, Yes no calf tenderness, Yes edema (Chronic stasis edema of legs) and Yes venous stasis dermatitis Psych: Appearance: disheveled Speech and movement: Normal speech and movement present (Slow in conversation) Results Laboratory Findings CBC and BMP: 09/25/21 05:52 09/25/21 05:52 ABG, PT/INR, D-dimer: PT/INR, D-dimer PT 12.4 SEC (9.9-13.0) 09/23/21 13:47 INR 1.1 (0.9-1.1) 09/23/21 13:47 Abnormal lab findings: Abnormal Labs 09/23/21 09/23/21 09/23/21 13:47 13:47 16:09 RBC 2.88 L D Hgb 7.5 L D Hct 25.6 L D MCH 26.0 L MCHC 29.3 L RDW 19.2 H MPV 8.8 L Immature Gran % (Auto) 0.5 H Lymph % (Auto) Abs Immat Gran (auto) Absolute Nucleated RBC 0.020 H Nucleated RBC % (auto) 0.3 H VBG HCO3 Chloride Carbon Dioxide Anion Gap BUN 7 L D POC Glucose Random Glucose 118 H B-Natriuretic Peptide Total Protein 6.2 L Albumin 2.9 L Crossmatch See Detail 09/23/21 09/24/21 09/24/21 17:10 06:33 06:33 RBC 3.44 L Hgb 9.3 L D Hct 31.0 L D MCH MCHC 30.0 L RDW 18.1 H MPV Immature Gran % (Auto) 1.3 H Lymph % (Auto) 19.7 L Abs Immat Gran (auto) 0.08 H Absolute Nucleated RBC 0.020 H Nucleated RBC % (auto) 0.3 H VBG HCO3 Chloride Carbon Dioxide 35 H Anion Gap 11 L BUN 6 L POC Glucose Random Glucose B-Natriuretic Peptide 733 H Total Protein Albumin Crossmatch 09/24/21 09/24/21 09/25/21 11:37 15:24 05:44 RBC Hgb Hct MCH MCHC RDW MPV Immature Gran % (Auto) Lymph % (Auto) Abs Immat Gran (auto) Absolute Nucleated RBC Nucleated RBC % (auto) VBG HCO3 Chloride Carbon Dioxide Anion Gap BUN POC Glucose 130 H 185 H 120 H Random Glucose B-Natriuretic Peptide Total Protein Albumin Crossmatch 09/25/21 09/25/21 09/25/21 05:52 05:52 05:52 RBC 3.47 L Hgb 9.2 L Hct 30.6 L MCH 26.5 L MCHC 30.1 L RDW 18.4 H MPV Immature Gran % (Auto) Lymph % (Auto) Abs Immat Gran (auto) Absolute Nucleated RBC Nucleated RBC % (auto) VBG HCO3 Chloride 93 L Carbon Dioxide 37 H Anion Gap 11 L BUN POC Glucose Random Glucose 126 H B-Natriuretic Peptide 599 H Total Protein Albumin Crossmatch 09/25/21 09/25/21 09/25/21 05:54 11:11 19:49 RBC Hgb Hct MCH MCHC RDW MPV Immature Gran % (Auto) Lymph % (Auto) Abs Immat Gran (auto) Absolute Nucleated RBC Nucleated RBC % (auto) VBG HCO3 49 H Chloride Carbon Dioxide Anion Gap BUN POC Glucose 199 H 129 H Random Glucose B-Natriuretic Peptide Total Protein Albumin Crossmatch 09/26/21 09/26/21 06:47 06:55 RBC Hgb Hct MCH MCHC RDW MPV Immature Gran % (Auto) Lymph % (Auto) Abs Immat Gran (auto) Absolute Nucleated RBC Nucleated RBC % (auto) VBG HCO3 47 H Chloride Carbon Dioxide Anion Gap BUN POC Glucose Random Glucose B-Natriuretic Peptide 311 H Total Protein Albumin Crossmatch Diagnostic Findings Chest x-ray: report reviewed and image reviewed Assessment and Plan (1) Morbid obesity: Status: Acute (2) Hypoventilation syndrome: Status: Acute (3) FARSHAD (obstructive sleep apnea): Status: Acute (4) Respiratory failure with hypoxia and hypercapnia: Status: Acute Plan This gentleman has features of chronic , compensated, respiratory failure, with CO2 level in mid 80s, I think this in turn is causing up 10 day howe of his mind. He also has features of chronic obstructive sleep apnea, which has not been diagnosed and treated. Patient has very poor understanding about these above-noted issues, and has been reluctant to undergo sleep study or accept CPAP/BiPAP treatment. Currently he is admitted with severe anemia probably due to low-grade GI bleeding, hemoglobin has improved. He will need necessary gastrointestinal workup. For his the respiratory failure due to hypoventilation syndrome, keep him on controlled O2 to keep O2 sat just above 90%. Instruct him to do deep breathing exercises with pursed lip technique, as much as possible. Have him use BiPAP, with pressure setting 15/6 cm, at night time at least for 4- 6 hours per night. I talked to him in detail and try to make him understand. He does agree to continue trying the BiPAP at night. We may not be able to do a complete sleep study as outpatient. To qualify him for use of BiPAP, we should do overnight oximetry recording with O2 2 L/minute, and without BiPAP. Continue Diamox 250 mg b.i.d. at this time. I would also suggest to start him on DuoNeb updraft Q 6 hours while awake, this is to improve his ventilation. And also I think he does have significant obstructive/restrictive pulmonary disorder. After optimization of his condition I think he will be better of placed in a rehab facility, until he becomes trained to use BiPAP at night. I did discuss with him the secondary option of permanent tracheostomy, if he cannot get use to the BiPAP. Without adequate treatment of his chronic respiratory failure, I am afraid he will keep on coming back to the hospital, repeatedly. Thank you very much for asking me to see this patient. Procedures Date of Service Date of Service: 09/26/21
--- NOTE | 2021-09-26 11:11 | HO.PM.IMPN ---
Subjective Subjective Date of Service: 09/26/21 Review of Systems Follow up for CHF, respiratory failure Awake and alert this morning denies pain Physical Exam Vital Signs: Vital Signs: Last Vital Signs Temp 97.8 F 09/26/21 07:36 Pulse 85 09/26/21 07:36 Resp 20 09/26/21 07:36 BP 127/61 09/26/21 07:36 Pulse Ox 97 09/26/21 07:36 BMI result Body Mass Index 43.3 Appearing in no acute distress lung sounds rhonchi heart regular rate rhythm, clear S1, S2 positive bowel sounds, abdomen is soft, nontender, obese neuro patient is alert x3, no focal deficits Objective Data Active Medications Acetaminophen (Acetaminophen 325 Mg Tablet) 650 mg PO Q6H PRN PRN Reason: Pain, Mild (Pain Scale 1-3) Acetazolamide (Acetazolamide 250 Mg Tablet) 250 mg PO BID [facility] Last Admin: 09/26/21 09:35 Dose: 250 mg Documented by: BROB Albuterol/Ipratropium (Albuterol/Iprat 2.5/0.5mg 3 Ml Ampul.Neb) 3 ml INHALE RQ6H WHILE AWAKE [facility] Atorvastatin Calcium (Atorvastatin Calcium 80 Mg Tablet) 80 mg PO DAILY [facility] Last Admin: 09/26/21 09:35 Dose: 80 mg Documented by: DOBROB Benzonatate (Benzonatate 100 Mg Capsule) 100 mg PO TID PRN PRN Reason: Cough Dextrose (Dextrose 50 % 25 Gm/50 Ml Syringe) 25 gm IVPUSH Q15M PRN; Protocol PRN Reason: per Hypoglycemia Standing Ord. Duloxetine HCl (Duloxetine Hcl 30 Mg Capsule.) 30 mg PO BEDTIME [facility] Last Admin: 09/25/21 20:55 Dose: 30 mg Documented by: ANDERM Duloxetine HCl (Duloxetine Hcl 60 Mg Capsule.) 60 mg PO DAILY [facility] Last Admin: 09/26/21 09:36 Dose: 60 mg Documented by: DOBROB Enoxaparin Sodium (Enoxaparin Sodium 40 Mg/0.4 Ml Syringe) 40 mg SUBCUT Q24H [facility] Last Admin: 09/25/21 20:56 Dose: 40 mg Documented by: ANDEVERARDO Furosemide (Furosemide 40 Mg/4 Ml Vial) 40 mg IVPUSH BID@0900,1800 [facility]; Protocol Last Admin: 09/26/21 09:36 Dose: 40 mg Documented by: JUANJOSE Glucose (Glucose Gel 15 Gm Gel..Gram.) 15 gm PO Q15M PRN; Protocol PRN Reason: per Hypoglycemia Standing Ord. Insulin Human Lispro (Insulin Lispro 100 Unit/Ml 3 Ml Vial) 0 unit SUBCUT QIDACHS [facility]; Protocol Last Admin: 09/26/21 08:00 Dose: Not Given Documented by: JUANJOSE Non-Admin Reason: No Insulin Coverage Lisinopril (Lisinopril 40 Mg Tablet) 40 mg PO DAILY [facility]; Protocol Last Admin: 09/26/21 09:35 Dose: 40 mg Documented by: JUANJOSE Melatonin (Melatonin 3 Mg Tablet) 6 mg PO BEDTIME PRN PRN Reason: Insomnia Metoprolol Tartrate (Metoprolol Tartrate 12.5 Mg Halftab) 12.5 mg PO BID [facility]; Protocol Last Admin: 09/26/21 09:35 Dose: 12.5 mg Documented by: JUANJOSE Omeprazole (Omeprazole 40 Mg Capsule.Dr) 40 mg PO DAILY@0630 [facility] Last Admin: 09/26/21 05:32 Dose: 40 mg Documented by: ISHMAEL Oxycodone HCl (Oxycodone Hcl Immed Release 5 Mg Tablet) 5 mg PO Q6H PRN PRN Reason: moderate pain Last Admin: 09/25/21 08:57 Dose: 5 mg Documented by: DAY Pharmacy Consult (Consult Rx Perform Med Rec) 1 each MISCELLANE ONCE PRN PRN Reason: Consult order Senna (Sennosides 8.6 Mg Tablet) 17.2 mg PO BEDTIME PRN PRN Reason: Constipation Sodium Chloride (0.9 % Sodium Chloride Flush 3 Ml Syringe) 3 ml IVFLUSH QSHIFT [facility] Last Admin: 09/26/21 09:36 Dose: 3 ml Documented by: JUANJOSE Spironolactone (Spironolactone 25 Mg Tablet) 25 mg PO DAILY [facility]; Protocol Last Admin: 09/26/21 09:35 Dose: 25 mg Documented by: JUANJOSE Labs CBC & Chem 7: 09/25/21 05:52 09/25/21 05:52 Labs: Laboratory Results - last 24 hr 09/25/21 09/25/21 09/25/21 11:11 15:52 19:49 VBG pH VBG pCO2 VBG pO2 VBG HCO3 VBG O2 Saturation VBG Base Excess POC Glucose 199 H 103 129 H B-Natriuretic Peptide 09/26/21 09/26/21 09/26/21 06:47 06:55 07:38 VBG pH 7.36 VBG pCO2 82 VBG pO2 81 VBG HCO3 47 H VBG O2 Saturation 94.0 VBG Base Excess 17.9 POC Glucose 108 B-Natriuretic Peptide 311 H Assessment and Plan (1) Morbid obesity: Status: Acute (2) Decompensated heart failure: Status: Acute Plan 66-year-old male with a past medical history of hypertension, hyperlipidemia, diabetes, CAD, CHF, morbid obesity, recent admission to the hospital in August 2021 for acute hypoxic/hypercapnic respiratory failure in the setting of acute CHF/OHS/sleep apnea, presented today to the hospital with a chief complaint of abnormal labs as outpatient showing low hemoglobin. Noted to have normocytic anemia/hypoxia. Admitted for further management. Acute respiratory failure with Hypoxia and hypercarbia Likely multifactorial in the setting of CHF/OHS/sleep apnea. Patient denies being on any home CPAP was seen by pulmonology on last admission but left AMA was d/c with 2L supplemental o2 with activity and at bedtime and 1L at rest - pt not compliant outpatient sleep study recommended PCO2 elevated, but pH normal, continue cpap at night pulmonology following Acute on chronic CHF net negative nearly 7L no echo in system likely exacerbated by anemia will continue lasix to 40 bid aldactone 25 mg added this admission Monitor I's and O's, daily weights. cardiology following echo pending Normocytic anemia H/H dropped from 12.1/39.9 to 7.5/25.6. stool guaiac was negative s/p transfusion of 2U rbcs 09/23 Will obtain iron studies, folate, B12>All WNL seen by GI, plan for EGD Tuesday if patient's respiratory status has improved with diuresis Multiple incidental findings on abd CT including low density change in liver, ?duodenitis, nodular change of left adrenal, prominent lymph nodes Incidental finding on the CT. Noticed irregular thickening. Question inflammation versus malignancy. GI following, plan for EGD Tuesday as above abdominal US non-diagnostic may need further workup for adrenal gland and lymph nodes as outpatient History of diabetes Hold metformin. Insulin sliding scale History of hypertension Continue home lisinopril, metoprolol HLD continue statin History of depression Continue home duloxetine Stage II coccyx pressure wound continue local wound care wound care consult Morbid obesity BMI 43.3 weight playing direct role in respiratory failure weight reduction encouraged DVT prophylaxis: Lovenox Code status: Full code attending: Dr. Galarza patient requires ongoing inpatient hospitalization due to acute decompensated CHF and need for IV diuretics; workup for anemia; hypoxia and hypercarbic respiratory failure and high risk for decompensation Quality Stroke Does the patient have a stroke diagnosis?: No VTE Prior VTE?: No VTE Risk Level:: Medical - moderate - high VTE Device Contraindication: Treatment Not Indicated VTE Drug Contraindication: N/A - Med Ordered
[2021-09-26 11:37] LABS: Glucose, Whole Blood 169 mg/dL (60-115)
[2021-09-26] MEDS: Insulin Lispro 100 UNIT/ML 3 ML VIAL SUBCUT ×2 (12:13→22:19)
--- NOTE | 2021-09-26 13:07 | PM.PNCARD ---
Subjective Subjective Date of Service: 09/26/21 Principal diagnosis: CHF Interval history: Patient responding to diuresis well. Renal function is adequate. BNP is reducing. Clinically still appears mildly fluid overloaded. No arrhythmias noted. Still anemic. GI workup on Tuesday. Review of Systems Constitutional: Reports no additional constitutional complaints Cardiovascular: Reports leg edema and Reports dyspnea Respiratory: Reports dyspnea Gastrointestinal: Reports no additional gastrointestinal complaints Musculoskeletal: Reports no additional musculoskeletal complaints Skin/Breast: Reports system reviewed and no additional complaints, except as docu Reports system reviewed and no additional complaints, except as documented Physical Exam Vital Signs: Last Vital Signs Temp 97.5 F 09/26/21 11:17 Pulse 82 09/26/21 11:17 Resp 18 09/26/21 11:17 BP 123/62 09/26/21 11:17 Pulse Ox 98 09/26/21 11:17 BMI result Body Mass Index 43.3 Objective Labs and Meds Result diagrams: 09/25/21 05:52 09/25/21 05:52 Lab results: Laboratory Results - last 24 hr 09/25/21 09/25/21 09/26/21 15:52 19:49 06:47 VBG pH VBG pCO2 VBG pO2 VBG HCO3 VBG O2 Saturation VBG Base Excess POC Glucose 103 129 H B-Natriuretic Peptide 311 H 09/26/21 09/26/21 09/26/21 06:55 07:38 11:21 VBG pH 7.36 VBG pCO2 82 VBG pO2 81 VBG HCO3 47 H VBG O2 Saturation 94.0 VBG Base Excess 17.9 POC Glucose 108 169 H B-Natriuretic Peptide Progress Note: A&P Assessment and plan (1) Decompensated heart failure: Status: Acute Assessment and Plan: Continue IV diuresis for 1 more day. Strict intake and output chart needs to be pursued. Continue to monitor renal function electrolytes. Check BNP tomorrow. Continue pulmonary treatment as well as CPAP treatment nighttime. Blood pressure is optimized. Will review the echocardiogram. Anemia workup needs to be pursued at this contributes to his heart failure. Plan for GI workup on Tuesday. Switch to p.o. Bumex 2 mg tomorrow. Maximize Aldactone. Will follow with you Time Spent With Patient Time: Total time spent is greater than 50% in coordination of care (as documented) at patient's floor/unit and/or counseling patient: Progress Note: Quality Stroke Does the patient have a stroke diagnosis?: No Procedures Date of Service Date of Service: 09/26/21
[2021-09-26] MEDS: Albuterol/Iprat 2.5/0.5MG 3 ML AMPUL.NEB INHALE (14:40)
[2021-09-26 16:16] LABS: Glucose, Whole Blood 124 mg/dL (60-115)
[2021-09-26 19:41] LABS: Glucose, Whole Blood 228 mg/dL (60-115)
[2021-09-26] MEDS: Enoxaparin Sodium 40 MG/0.4 ML SYRINGE SUBCUT (19:45)
[2021-09-26] MEDS: DULoxetine HCl 30 MG CAPSULE.DR PO (22:17)
[2021-09-26] MEDS: Acetaminophen 325 MG TABLET 650 MG PO (23:50)
[2021-09-27] VITALS (8 sets, daily range): BP systolic 106–130; BP diastolic 56–78; PULSE 72–88; RESP 16–18; TEMP 36.3–37.1; O2SAT 93–96
[2021-09-27] MEDS: Omeprazole 40 MG CAPSULE.DR PO (05:54)
[2021-09-27 06:13] LABS: Hematocrit 32.3 % (42.0-52.0); Hemoglobin 9.7 g/dl (14.0-18.0); Mean Corpuscular Hemoglobin 26.1 pg (27.0-33.0); Mean Corpuscular Volume 87.1 fL (80.0-98.0); Platelet Count 272 X10*3/uL (160-400); Red Blood Count 3.71 X10*6/uL (4.60-5.80); Red Cell Distribution Width 18.7 % (11.0-16.0); White Blood Count 7.5 X10*3/uL (4.8-10.8)
[2021-09-27 06:36] LABS: Anion Gap 9 (12-20); Blood Urea Nitrogen 18 mg/dL (9-16); Calcium 9.4 mg/dL (8.4-10.2); Carbon Dioxide 37 mmol/L (22-29); Chloride 93 mmol/L (96-108); Creatinine Clr Calc Pharmacy 120.4; Estimated Glomerular Filt Rate > 60; Glucose Random 144 mg/dL (60-115); Potassium 3.1 mmol/L (3.3-5.1); Sodium 136 mmol/L (135-145)
[2021-09-27 07:39] LABS: Glucose, Whole Blood 134 mg/dL (60-115)
[2021-09-27] MEDS: Albuterol/Iprat 2.5/0.5MG 3 ML AMPUL.NEB INHALE (08:22)
[2021-09-27] MEDS: Acetaminophen 325 MG TABLET 650 MG PO (09:59)
[2021-09-27] MEDS: DULoxetine HCl 60 MG CAPSULE.DR PO (09:59)
[2021-09-27] MEDS: lisinopriL 40 MG TABLET PO (09:59)
[2021-09-27] MEDS: Benzonatate 100 MG CAPSULE PO (09:59)
[2021-09-27] MEDS: acetaZOLAMIDE 250 MG TABLET PO ×2 (09:59→20:21)
[2021-09-27] MEDS: 0.9 % Sodium Chloride Flush 3 ML SYRINGE IVFLUSH ×3 (09:59→20:21)
[2021-09-27] MEDS: Furosemide 40 MG/4 ML VIAL IVPUSH ×2 (09:59→17:18)
[2021-09-27] MEDS: Metoprolol Tartrate 12.5 MG HALFTAB PO ×2 (09:59→20:21)
[2021-09-27] MEDS: Atorvastatin Calcium 80 MG TABLET PO (09:59)
[2021-09-27] MEDS: Spironolactone 25 MG TABLET PO (09:59)
--- NOTE | 2021-09-27 11:21 | HO.PM.IMPN ---
Subjective Subjective Date of Service: 09/27/21 Review of Systems Follow up for CHF, respiratory failure Awake and alert this morning denies pain Physical Exam Vital Signs: Vital Signs: Last Vital Signs Temp 98.4 F 09/27/21 07:21 Pulse 72 09/27/21 08:23 Resp 18 09/27/21 08:23 BP 130/71 09/27/21 07:21 Pulse Ox 96 09/27/21 07:21 BMI result Body Mass Index 43.3 Appearing in no acute distress lung sounds are clear to auscultation heart regular rate rhythm, clear S1, S2 positive bowel sounds, abdomen is soft, nontender neuro patient is alert x3, no focal deficits Objective Data Active Medications Acetaminophen (Acetaminophen 325 Mg Tablet) 650 mg PO Q6H PRN PRN Reason: Pain, Mild (Pain Scale 1-3) Last Admin: 09/27/21 09:59 Dose: 650 mg Documented by: COTEMA Acetazolamide (Acetazolamide 250 Mg Tablet) 250 mg PO BID [facility] Last Admin: 09/27/21 09:59 Dose: 250 mg Documented by: COTEMA Albuterol/Ipratropium (Albuterol/Iprat 2.5/0.5mg 3 Ml Ampul.Neb) 3 ml INHALE RQ6H WHILE AWAKE [facility] Last Admin: 09/27/21 08:22 Dose: 3 ml Documented by: LAURO Atorvastatin Calcium (Atorvastatin Calcium 80 Mg Tablet) 80 mg PO DAILY [facility] Last Admin: 09/27/21 09:59 Dose: 80 mg Documented by: COTEMA Benzonatate (Benzonatate 100 Mg Capsule) 100 mg PO TID PRN PRN Reason: Cough Last Admin: 09/27/21 09:59 Dose: 100 mg Documented by: COTEMA Dextrose (Dextrose 50 % 25 Gm/50 Ml Syringe) 25 gm IVPUSH Q15M PRN; Protocol PRN Reason: per Hypoglycemia Standing Ord. Duloxetine HCl (Duloxetine Hcl 30 Mg Capsule.) 30 mg PO BEDTIME [facility] Last Admin: 09/26/21 22:17 Dose: 30 mg Documented by: VANESSA Duloxetine HCl (Duloxetine Hcl 60 Mg Capsule.) 60 mg PO DAILY [facility] Last Admin: 09/27/21 09:59 Dose: 60 mg Documented by: COTEMA Enoxaparin Sodium (Enoxaparin Sodium 40 Mg/0.4 Ml Syringe) 40 mg SUBCUT Q24H [facility] Last Admin: 09/26/21 19:45 Dose: 40 mg Documented by: RYLAN Furosemide (Furosemide 40 Mg/4 Ml Vial) 40 mg IVPUSH BID@0900,1800 [facility]; Protocol Last Admin: 09/27/21 09:59 Dose: 40 mg Documented by: ROSSYEMA Glucose (Glucose Gel 15 Gm Gel..Gram.) 15 gm PO Q15M PRN; Protocol PRN Reason: per Hypoglycemia Standing Ord. Insulin Human Lispro (Insulin Lispro 100 Unit/Ml 3 Ml Vial) 0 unit SUBCUT QIDACHS [facility]; Protocol Last Admin: 09/27/21 07:45 Dose: Not Given Documented by: AZEEM Non-Admin Reason: No Insulin Coverage Lisinopril (Lisinopril 40 Mg Tablet) 40 mg PO DAILY [facility]; Protocol Last Admin: 09/27/21 09:59 Dose: 40 mg Documented by: AZEEM Melatonin (Melatonin 3 Mg Tablet) 6 mg PO BEDTIME PRN PRN Reason: Insomnia Metoprolol Tartrate (Metoprolol Tartrate 12.5 Mg Halftab) 12.5 mg PO BID [facility]; Protocol Last Admin: 09/27/21 09:59 Dose: 12.5 mg Documented by: AZEEM Omeprazole (Omeprazole 40 Mg Capsule.Dr) 40 mg PO DAILY@0630 [facility] Last Admin: 09/27/21 05:54 Dose: 40 mg Documented by: MARLI Oxycodone HCl (Oxycodone Hcl Immed Release 5 Mg Tablet) 5 mg PO Q6H PRN PRN Reason: moderate pain Last Admin: 09/25/21 08:57 Dose: 5 mg Documented by: DAY Pharmacy Consult (Consult Rx Perform Med Rec) 1 each MISCELLANE ONCE PRN PRN Reason: Consult order Senna (Sennosides 8.6 Mg Tablet) 17.2 mg PO BEDTIME PRN PRN Reason: Constipation Sodium Chloride (0.9 % Sodium Chloride Flush 3 Ml Syringe) 3 ml IVFLUSH QSHIFT [facility] Last Admin: 09/27/21 09:59 Dose: 3 ml Documented by: AZEEM Spironolactone (Spironolactone 25 Mg Tablet) 25 mg PO DAILY [facility]; Protocol Last Admin: 09/27/21 09:59 Dose: 25 mg Documented by: AZEEM Labs CBC & Chem 7: 09/27/21 05:58 09/27/21 05:58 Labs: Laboratory Results - last 24 hr 09/23/21 09/24/21 09/25/21 13:47 06:33 05:52 Hgb 7.5 L D 9.3 L D 9.2 L MCV MCH MCHC RDW Plt Count MPV Absolute Nucleated RBC Nucleated RBC % (auto) Anion Gap Estim Creat Clear Calc Estimated GFR POC Glucose Random Glucose Calcium 09/26/21 09/26/21 09/26/21 11:21 16:09 19:37 Hgb MCV MCH MCHC RDW Plt Count MPV Absolute Nucleated RBC Nucleated RBC % (auto) Anion Gap Estim Creat Clear Calc Estimated GFR POC Glucose 169 H 124 H 228 H Random Glucose Calcium 09/27/21 09/27/21 09/27/21 05:58 05:58 07:18 Hgb 9.7 L MCV 87.1 MCH 26.1 L MCHC 30.0 L RDW 18.7 H Plt Count 272 MPV 10.0 Absolute Nucleated RBC 0.000 Nucleated RBC % (auto) 0.0 Anion Gap 9 L Estim Creat Clear Calc 120.4 Estimated GFR > 60 POC Glucose 134 H Random Glucose 144 H Calcium 9.4 Assessment and Plan (1) Morbid obesity: Status: Acute (2) Decompensated heart failure: Status: Acute Plan 66-year-old male with a past medical history of hypertension, hyperlipidemia, diabetes, CAD, CHF, morbid obesity, recent admission to the hospital in August 2021 for acute hypoxic/hypercapnic respiratory failure in the setting of acute CHF/OHS/sleep apnea, presented today to the hospital with a chief complaint of abnormal labs as outpatient showing low hemoglobin. Noted to have normocytic anemia/hypoxia. Admitted for further management. Normocytic anemia H/H dropped from 12.1/39.9 to 7.5/25.6. stool guaiac was negative s/p transfusion of 2U rbcs 09/23 HH now stable plan for EGD in am, NPO after midnight Hold lovenox Hypokalemia Replete follow BMP Acute respiratory failure with Hypoxia and hypercarbia Likely multifactorial in the setting of CHF/OHS/sleep apnea. Patient denies being on any home CPAP pt not compliant with oxygen at home outpatient sleep study recommended pulmonology following Acute on chronic HFpEF net negative nearly 7L EF 65-70% likely exacerbated by anemia will continue lasix to 40 bid aldactone 25 mg added this admission Monitor I's and O's, daily weights. cardiology following Multiple incidental findings on abd CT including low density change in liver, ?duodenitis, nodular change of left adrenal, prominent lymph nodes Incidental finding on the CT. Noticed irregular thickening. Question inflammation versus malignancy. GI following, plan for EGD Tuesday as above abdominal US non-diagnostic may need further workup for adrenal gland and lymph nodes as outpatient History of diabetes Hold metformin. Insulin sliding scale History of hypertension Continue home lisinopril, metoprolol HLD continue statin History of depression Continue home duloxetine Stage II coccyx pressure wound continue local wound care wound care consult Morbid obesity BMI 43.3 weight playing direct role in respiratory failure weight reduction encouraged DVT prophylaxis: Hold Lovenox for EGD Code status: Full code attending: Dr. Galarza patient requires ongoing inpatient hospitalization due to acute decompensated CHF and need for IV diuretics; workup for anemia; hypoxia and hypercarbic respiratory failure and high risk for decompensation, EGD planned for the morning Quality Stroke Does the patient have a stroke diagnosis?: No VTE Prior VTE?: No VTE Risk Level:: Medical - moderate - high VTE Device Contraindication: Treatment Not Indicated VTE Drug Contraindication: N/A - Med Ordered
[2021-09-27 12:10] LABS: Glucose, Whole Blood 137 mg/dL (60-115)
[2021-09-27] MEDS: Potassium Chloride ER 20 MEQ TAB.ER.PRT 40 MEQ PO (12:25)
--- NOTE | 2021-09-27 12:35 | MHC.SHP ---
Pre-Procedural Eval Section A Date of Service: 09/28/21 The patient is an INPATIENT: Yes The History & Physical has been completed within 30 days and I have reviewed it.: Yes Section B Chief Complaint: CHF Exacerbation/Respiratory failure Allergies: Allergies Allergy/AdvReac Type Severity Reaction Status Date / Time No Known Allergies Allergy Unverified 01/31/20 14:57 [No Known Allergies*] Plan I have reviewed the history and physical and performed a pertinent physical examination on my patient. No changes have occurred unless specified.
--- NOTE | 2021-09-27 13:08 | PM.PNCARD ---
Subjective Subjective Date of Service: 09/27/21 Principal diagnosis: CHF Interval history: No significant shortness of breath. Leg edema is improved. Still remains anemic. Complains of generalized body pain and says he has not been getting his pain meds. Echo findings consistent with chronic cor pulmonale with right-sided chamber enlargement most likely due to obesity hypoventilation and/or untreated sleep apnea. Review of Systems Constitutional: Reports body ache(s) Eyes: Reports no additional eye complaints Cardiovascular: Reports no additional cardiovascular complaints Respiratory: Reports no additional respiratory complaints Gastrointestinal: Reports no additional gastrointestinal complaints Genitourinary: Reports no additional male genitourinary complaints Musculoskeletal: Reports no additional musculoskeletal complaints Skin/Breast: Reports system reviewed and no additional complaints, except as docu Reports system reviewed and no additional complaints, except as documented Psychiatric: Reports no additional psychiatric complaints Endocrine: Reports no additional endocrine complaints Physical Exam Vital Signs: Last Vital Signs Temp 98.0 F 09/27/21 11:20 Pulse 80 09/27/21 11:20 Resp 16 09/27/21 11:20 BP 125/78 09/27/21 11:20 Pulse Ox 93 09/27/21 11:20 BMI result Body Mass Index 43.3 Const General: cooperative, comfortable, alert and awake Nutritional Appearance: obese Orientation/consciousness: patient oriented x3 Neck Neck: Yes trachea midline, Yes supple and Yes no JVD Resp Effort & Inspection: normal respiratory effort Auscultation: no rales, no wheezes and diminished lung sounds Cardio Jugular venous distension: no JVD Rate: regular rate Rhythm: regular rhythm Heart sounds: S1 normal heart sound present, S2 normal heart sound present, no click, no gallops and no murmurs GI Inspection: Yes obesity Auscultation: normal bowel sounds Skin General skin exam: no rashes or lesions noted Neuro General: patient oriented x3 and no focal motor deficits Extrem General: No clubbing, No cyanosis, Yes edema and Yes venous stasis dermatitis Objective Labs and Meds Result diagrams: 09/27/21 05:58 09/27/21 05:58 Lab results: Laboratory Results - last 24 hr 09/26/21 09/26/21 09/27/21 16:09 19:37 05:58 WBC 7.5 RBC 3.71 L Hgb 9.7 L Hct 32.3 L MCV 87.1 MCH 26.1 L MCHC 30.0 L RDW 18.7 H Plt Count 272 MPV 10.0 Absolute Nucleated RBC 0.000 Nucleated RBC % (auto) 0.0 Sodium Potassium Chloride Carbon Dioxide Anion Gap BUN Creatinine Estim Creat Clear Calc Estimated GFR POC Glucose 124 H 228 H Random Glucose Calcium 09/27/21 09/27/21 09/27/21 05:58 07:18 12:06 WBC RBC Hgb Hct MCV MCH MCHC RDW Plt Count MPV Absolute Nucleated RBC Nucleated RBC % (auto) Sodium 136 Potassium 3.1 L Chloride 93 L Carbon Dioxide 37 H Anion Gap 9 L BUN 18 H D Creatinine 0.77 Estim Creat Clear Calc 120.4 Estimated GFR > 60 POC Glucose 134 H 137 H Random Glucose 144 H Calcium 9.4 Progress Note: A&P Assessment and plan (1) Decompensated heart failure: Status: Acute Assessment and Plan: Decompensated congestive heart failure predominantly right-sided in this elderly man most likely related to obesity hypoventilation, untreated sleep apnea and underlying pulmonary restrictive physiology. Clinically appears more euvolemic. I would consider switching him to p.o. Bumex 2 mg daily. One of the reasons for his decompensate appears to be significant anemia. This needs to be worked up. Being followed by GI. I would consider this as an inpatient workup. Continue Aldactone therapy. Also add Jardiance 10 mg to his regimen. Blood pressure is otherwise well optimized. Will sign of the case at this point time. Will set up for outpatient follow-up Time Spent With Patient Time: Total time spent is greater than 50% in coordination of care (as documented) at patient's floor/unit and/or counseling patient: Progress Note: Quality Stroke Does the patient have a stroke diagnosis?: No Procedures Date of Service Date of Service: 09/27/21
[2021-09-27 16:50] LABS: Glucose, Whole Blood 157 mg/dL (60-115)
[2021-09-27] MEDS: Insulin Lispro 100 UNIT/ML 3 ML VIAL SUBCUT (17:18)
--- NOTE | 2021-09-27 19:51 | PC.RT ---
pt refusing Nebulizer tx as well as NOC CPAP. RT will return at later time to ask pt if they would like to go on CPAP
[2021-09-27] MEDS: DULoxetine HCl 30 MG CAPSULE.DR PO (20:21)
[2021-09-27 21:06] LABS: Glucose, Whole Blood 119 mg/dL (60-115)
--- NOTE | 2021-09-27 21:28 | PM.GIPN ---
Subjective Subjective Date of Service: 09/27/21 Interval History: Patient seen this afternoon. Course noted. He denies any GI sx. There is no report of any further melena and his Hgb has been stable. Critical Care Time (minutes): 0 Physical Exam Vital Signs: Vital Signs: Last Vital Signs Temp 98.4 F 09/27/21 19:33 Pulse 80 09/27/21 19:33 Resp 18 09/27/21 19:33 BP 120/58 L 09/27/21 19:33 Pulse Ox 95 09/27/21 19:33 BMI result Body Mass Index 43.3 Const: General: cooperative, comfortable, no acute distress, alert and awake GI: Other: Abd-soft, NT, nondistended Objective Data Labs CBC & Chem 7: 09/27/21 05:58 09/27/21 05:58 Labs: Laboratory Results - last 24 hr 09/27/21 09/27/21 09/27/21 05:58 05:58 07:18 WBC 7.5 RBC 3.71 L Hgb 9.7 L Hct 32.3 L MCV 87.1 MCH 26.1 L MCHC 30.0 L RDW 18.7 H Plt Count 272 MPV 10.0 Absolute Nucleated RBC 0.000 Nucleated RBC % (auto) 0.0 Sodium 136 Potassium 3.1 L Chloride 93 L Carbon Dioxide 37 H Anion Gap 9 L BUN 18 H D Creatinine 0.77 Estim Creat Clear Calc 120.4 Estimated GFR > 60 POC Glucose 134 H Random Glucose 144 H Calcium 9.4 09/27/21 09/27/21 09/27/21 12:06 15:58 20:51 WBC RBC Hgb Hct MCV MCH MCHC RDW Plt Count MPV Absolute Nucleated RBC Nucleated RBC % (auto) Sodium Potassium Chloride Carbon Dioxide Anion Gap BUN Creatinine Estim Creat Clear Calc Estimated GFR POC Glucose 137 H 157 H 119 H Random Glucose Calcium Procedures Date of Service Date of Service: 09/27/21 Progress Note: A&P Assessment and plan (1) Melena: Status: Acute Assessment and Plan: Imp: He has had no further reported signs of bleeding here in the hospital and his Hgb has been stable. Given his presentation we did review the need for an upper endoscopy before discharge to R/O significant PUD or other pathology as suggested on his CT scan. Full consent is obtained for this, including risks of bleeding and perforation. His cardiopulmonary status seems improved and he has been cleared by the hospitalist service for the procedure. He was comfortable with this plan. Thanks (2) Duodenum disorder: Status: Acute Time Spent With Patient Time: Total time spent is greater than 50% in coordination of care (as documented) at patient's floor/unit and/or counseling patient: Quality Stroke Does the patient have a stroke diagnosis?: No VTE Prior VTE?: No VTE Risk Level:: Medical - moderate - high VTE Device Contraindication: Treatment Not Indicated VTE Drug Contraindication: N/A - Med Ordered
[2021-09-28] VITALS (12 sets, daily range): BP systolic 93–133; BP diastolic 54–71; PULSE 67–89; RESP 16–23; TEMP 36.1–37.1; O2SAT 90–98
[2021-09-28] MEDS: 0.9 % Sodium Chloride Flush 3 ML SYRINGE IVFLUSH ×3 (07:53→21:08)
[2021-09-28 07:59] LABS: Glucose, Whole Blood 138 mg/dL (60-115)
--- NOTE | 2021-09-28 08:43 | P.PNIM_ITS ---
Subjective Subjective Date of Service: 09/28/21 <Anjana Jiménez NP - Last Filed: 09/28/21 17:22> 09/29/21 <Tony Panchal MD - Last Filed: 09/29/21 09:02> Review of Systems Follow up for CHF, respiratory failure Awake and alert this morning denies pain <Anjana Jiménez NP - Last Filed: 09/28/21 17:22> Physical Exam Vital Signs: Vital Signs: Last Vital Signs Temp 98.6 F 09/28/21 07:40 Pulse 82 09/28/21 07:40 Resp 16 09/28/21 07:40 BP 125/59 L 09/28/21 07:40 Pulse Ox 97 09/28/21 07:40 BMI result Body Mass Index 43.3 <Anjana Jiménez NP - Last Filed: 09/28/21 17:22> Appearing in no acute distress lung sounds are clear to auscultation heart regular rate rhythm, clear S1, S2 positive bowel sounds, abdomen is soft, nontender neuro patient is alert x3, no focal deficits arthritic joints <Anjana Jiménez NP - Last Filed: 09/28/21 17:22> Objective Data Active Medications Acetaminophen (Acetaminophen 325 Mg Tablet) 650 mg PO Q6H PRN PRN Reason: Pain, Mild (Pain Scale 1-3) Last Admin: 09/27/21 09:59 Dose: 650 mg Documented by: AZEEM Acetazolamide (Acetazolamide 250 Mg Tablet) 250 mg PO BID [facility] Last Admin: 09/27/21 20:21 Dose: 250 mg Documented by: ANTOIC Albuterol/Ipratropium (Albuterol/Iprat 2.5/0.5mg 3 Ml Ampul.Neb) 3 ml INHALE RQ6H WHILE AWAKE [facility] Last Admin: 09/27/21 19:51 Dose: Not Given Documented by: JAIROJGAEL Non-Admin Reason: Patient Refused Atorvastatin Calcium (Atorvastatin Calcium 80 Mg Tablet) 80 mg PO DAILY [facility] Last Admin: 09/27/21 09:59 Dose: 80 mg Documented by: COTEMA Benzonatate (Benzonatate 100 Mg Capsule) 100 mg PO TID PRN PRN Reason: Cough Last Admin: 09/27/21 09:59 Dose: 100 mg Documented by: HO.COTEMA Dextrose (Dextrose 50 % 25 Gm/50 Ml Syringe) 25 gm IVPUSH Q15M PRN; Protocol PRN Reason: per Hypoglycemia Standing Ord. Duloxetine HCl (Duloxetine Hcl 30 Mg Capsule.) 30 mg PO BEDTIME [facility] Last Admin: 09/27/21 20:21 Dose: 30 mg Documented by: ANTOIC Duloxetine HCl (Duloxetine Hcl 60 Mg Capsule.) 60 mg PO DAILY [facility] Last Admin: 09/27/21 09:59 Dose: 60 mg Documented by: COTEMA Furosemide (Furosemide 40 Mg/4 Ml Vial) 40 mg IVPUSH BID@0900,1800 [facility]; Protoc ol Last Admin: 09/27/21 17:18 Dose: 40 mg Documented by: COTEMA Glucose (Glucose Gel 15 Gm Gel..Gram.) 15 gm PO Q15M PRN; Protocol PRN Reason: per Hypoglycemia Standing Ord. Insulin Human Lispro (Insulin Lispro 100 Unit/Ml 3 Ml Vial) 0 unit SUBCUT QIDACHS [facility]; Protocol Last Admin: 09/28/21 07:53 Dose: Not Given Documented by: SUNDAY Non-Admin Reason: No Insulin Coverage Lisinopril (Lisinopril 40 Mg Tablet) 40 mg PO DAILY [facility]; Protocol Last Admin: 09/27/21 09:59 Dose: 40 mg Documented by: AZEEM Melatonin (Melatonin 3 Mg Tablet) 6 mg PO BEDTIME PRN PRN Reason: Insomnia Metoprolol Tartrate (Metoprolol Tartrate 12.5 Mg Halftab) 12.5 mg PO BID [facility]; Protocol Last Admin: 09/27/21 20:21 Dose: 12.5 mg Documented by: ANTOIC Omeprazole (Omeprazole 40 Mg Capsule.) 40 mg PO DAILY@0630 [facility] Last Admin: 09/28/21 03:15 Dose: Not Given Documented by: ANTPOLO Non-Admin Reason: NPO Oxycodone HCl (Oxycodone Hcl Immed Release 5 Mg Tablet) 5 mg PO Q6H PRN PRN Reason: moderate pain Last Admin: 09/25/21 08:57 Dose: 5 mg Documented by: DAY Pharmacy Consult (Consult Rx Perform Med Rec) 1 each MISCELLANE ONCE PRN PRN Reason: Consult order Senna (Sennosides 8.6 Mg Tablet) 17.2 mg PO BEDTIME PRN PRN Reason: Constipation Sodium Chloride (0.9 % Sodium Chloride Flush 3 Ml Syringe) 3 ml IVFLUSH QSHIFT [facility] Last Admin: 09/28/21 07:53 Dose: 3 ml Documented by: SUNDAY Spironolactone (Spironolactone 25 Mg Tablet) 25 mg PO DAILY [facility]; Protocol Last Admin: 09/27/21 09:59 Dose: 25 mg Documented by: AZEEM <Anjana Jiménez NP - Last Filed: 09/28/21 17:22> Labs CBC & Chem 7: : 09/29/21 05:13 09/29/21 05:13 <Anjana Jiménez NP - Last Filed: 09/28/21 17:22> Labs: Laboratory Results - last 24 hr 09/27/21 09/27/21 09/27/21 12:06 15:58 20:51 POC Glucose 137 H 157 H 119 H 09/28/21 07:43 POC Glucose 138 H <Anjana Jiménez NP - Last Filed: 09/28/21 17:22> Assessment and Plan (1) Morbid obesity: Status: Acute <Anjana Jiménez NP - Last Filed: 09/28/21 17:22> (2) Decompensated heart failure: Status: Acute <Anjana Jiménez NP - Last Filed: 09/28/21 17:22> Plan 66-year-old male with a past medical history of hypertension, hyperlipidemia, diabetes, CAD, CHF, morbid obesity, recent admission to the hospital in August 2021 for acute hypoxic/hypercapnic respiratory failure in the setting of acute CHF/OHS/sleep apnea, presented today to the hospital with a chief complaint of abnormal labs as outpatient showing low hemoglobin. Noted to have normocytic anemia/hypoxia. Admitted for further management. Normocytic anemia H/H dropped from 12.1/39.9 to 7.5/25.6. stool guaiac was negative s/p transfusion of 2U rbcs 09/23 HH now stable plan for EGD today Hold lovenox Hypokalemia Replete follow BMP Acute respiratory failure with Hypoxia and hypercarbia Likely multifactorial in the setting of CHF/OHS/sleep apnea. Patient denies being on any home CPAP pt not compliant with oxygen at home outpatient sleep study recommended pulmonology following Acute on chronic HFpEF net negative nearly 7L EF 65-70% likely exacerbated by anemia will continue lasix to 40 bid aldactone 25 mg added this admission Monitor I's and O's, daily weights. cardiology following Multiple incidental findings on abd CT including low density change in liver, ?duodenitis, nodular change of left adrenal, prominent lymph nodes Incidental finding on the CT. Noticed irregular thickening. Question inflammation versus malignancy. GI following, plan for EGD Tuesday as above abdominal US non-diagnostic may need further workup for adrenal gland and lymph nodes as outpatient History of diabetes Hold metformin. Insulin sliding scale History of hypertension Continue home lisinopril, metoprolol HLD continue statin History of depression Continue home duloxetine Stage II coccyx pressure wound continue local wound care wound care consult Morbid obesity BMI 43.3 weight playing direct role in respiratory failure weight reduction encouraged DVT prophylaxis: Hold Lovenox for EGD Code status: Full code attending: Dr. Galarza patient requires ongoing inpatient hospitalization due to acute decompensated CHF and need for IV diuretics; workup for anemia; hypoxia and hypercarbic respiratory failure and high risk for decompensation, EGD planned for the morning <Anjana Jiménez NP - Last Filed: 09/28/21 17:22> Quality Stroke Does the patient have a stroke diagnosis?: No <Anjana Jiménez NP - Last Filed: 09/28/21 17:22> VTE Prior VTE?: No <Anjana Jiménez NP - Last Filed: 09/28/21 17:22> VTE Risk Level:: Medical - moderate - high <Anjana Jiménez NP - Last Filed: 09/28/21 17:22> VTE Device Contraindication: Treatment Not Indicated <Anjana Jiménez NP - Last Filed: 09/28/21 17:22> VTE Drug Contraindication: N/A - Med Ordered <Anjana Jiménez NP - Last Filed: 09/28/21 17:22>
[2021-09-28] MEDS: Potassium Chloride ER 20 MEQ TAB.ER.PRT 40 MEQ PO (10:36)
[2021-09-28] MEDS: Metoprolol Tartrate 12.5 MG HALFTAB PO ×2 (10:36→21:08)
[2021-09-28 11:24] LABS: Glucose, Whole Blood 120 mg/dL (60-115)
--- NOTE | 2021-09-28 11:48 | MHC.CLN ---
F/U PT WITH INCREASED NUTRITION RISK R/T PRESSURE INJURIES SEE FULL CLINICAL NUTRITION ASSESSMENT DATED 09/25/21 PO INTAKE 100% X 6 MEALS PT IS CURRENTLY NPO WHEN DIET TO ADVANCE, RECOMMEND ADDING ENSURE MAX BID TO INCREASE PO PROTEIN INTAKE AND PROMOTE WOUND HEALING SUPP TO PROVIDE 300KCALS, 60G PROTEIN MONITOR PO INTAKE AND SUPPLEMENT ACCEPTANCE CLOSELY
--- NOTE | 2021-09-28 12:31 | MHC.CM.PN ---
PER MD ROUNDS, PT EXPECTED TP BE CLEARED TO DC HOME TODAY WITH NO SERVICES
--- NOTE | 2021-09-28 13:38 | HO.ANESPROP2 ---
HPI - Anesthesia Eval Consult details Narrative: 66 M for EGD CAD s/p stents ,CHF , COPD , FARSHAD , Morbid Obesity , smoker . [facility] Active Problems Active Problems: All Active Problems (Updated 09/27/21 @ 21:31 by Dino Munoz) Duodenum disorder (Acute) Melena (Acute) Respiratory failure with hypoxia and hypercapnia (Acute) FARSHAD (obstructive sleep apnea) (Acute) Hypoventilation syndrome (Acute) Unspecified skin changes (Acute) Morbid obesity (Acute) Decompensated heart failure (Acute) Diabetes (Acute) Normocytic anemia (Acute) Congestive heart failure (CHF) (Acute) Hypoxia (Acute) Past Medical History Medical History (Updated 09/27/21 @ 21:31 by Dino Munoz) Bilateral lower extremity edema CHF (congestive heart failure) Congestive heart failure Coronary artery disease Diabetes Hypertension Hypoventilation syndrome Lower extremity edema Morbid obesity Morbid obesity Myocardial infarction FARSHAD (obstructive sleep apnea) Respiratory failure with hypoxia and hypercapnia Respiratory failure with hypoxia and hypercapnia Family History Family History Other No family history of coronary artery disease Family history of problems with anesthesia: No Surgical History Surgical History S/P coronary artery stent placement History of Problems with Anesthesia: No Social History Social History Household Members: None Housing: House Do you presently have visiting nurse or other home services: No Patient Tobacco Use Status: Current everyday Tobacco user Tobacco use type: Cigarette Cigarette Packs Per Day: 0.5 Cigarettes Per Day: 10.0 Years Smoked: 55 e-Cigarette/Vaping Use: Never Used service: No Current occupational status: disabled Meds Allergies Allergy/AdvReac Type Severity Reaction Status Date / Time No Known Allergies Allergy Unverified 01/31/20 14:57 [No Known Allergies*] Active Medications: Current Medications Acetaminophen (Acetaminophen 325 Mg Tablet) 650 mg PO Q6H PRN PRN Reason: Pain, Mild (Pain Scale 1-3) Last Admin: 09/27/21 09:59 Dose: 650 mg Documented by: Acetazolamide (Acetazolamide 250 Mg Tablet) 250 mg PO BID ALBERT Last Admin: 09/28/21 10:36 Dose: Not Given Documented by: Albuterol/Ipratropium (Albuterol/Iprat 2.5/0.5mg 3 Ml Ampul.Neb) 3 ml INHALE RQ6H WHILE AWAKE [facility] Last Admin: 09/28/21 08:49 Dose: Not Given Documented by: Atorvastatin Calcium (Atorvastatin Calcium 80 Mg Tablet) 80 mg PO DAILY [facility] Last Admin: 09/28/21 10:36 Dose: Not Given Documented by: Benzonatate (Benzonatate 100 Mg Capsule) 100 mg PO TID PRN PRN Reason: Cough Last Admin: 09/27/21 09:59 Dose: 100 mg Documented by: Dextrose (Dextrose 50 % 25 Gm/50 Ml Syringe) 25 gm IVPUSH Q15M PRN; Protocol PRN Reason: per Hypoglycemia Standing Ord. Duloxetine HCl (Duloxetine Hcl 30 Mg Capsule.) 30 mg PO BEDTIME [facility] Last Admin: 09/27/21 20:21 Dose: 30 mg Documented by: Duloxetine HCl (Duloxetine Hcl 60 Mg Capsule.) 60 mg PO DAILY [facility] Last Admin: 09/28/21 10:36 Dose: Not Given Documented by: Furosemide (Furosemide 40 Mg/4 Ml Vial) 40 mg IVPUSH BID@0900,1800 [facility]; Protocol Last Admin: 09/28/21 10:37 Dose: Not Given Documented by: Glucose (Glucose Gel 15 Gm Gel..Gram.) 15 gm PO Q15M PRN; Protocol PRN Reason: per Hypoglycemia Standing Ord. Insulin Human Lispro (Insulin Lispro 100 Unit/Ml 3 Ml Vial) 0 unit SUBCUT QIDACHS [facility]; Protocol Last Admin: 09/28/21 11:29 Dose: Not Given Documented by: Lisinopril (Lisinopril 40 Mg Tablet) 40 mg PO DAILY [facility]; Protocol Last Admin: 09/28/21 10:37 Dose: Not Given Documented by: Melatonin (Melatonin 3 Mg Tablet) 6 mg PO BEDTIME PRN PRN Reason: Insomnia Metoprolol Tartrate (Metoprolol Tartrate 12.5 Mg Halftab) 12.5 mg PO BID [facility]; Protocol Last Admin: 09/28/21 10:36 Dose: 12.5 mg Documented by: Omeprazole (Omeprazole 40 Mg Capsule.) 40 mg PO DAILY@0630 [facility] Last Admin: 09/28/21 03:15 Dose: Not Given Documented by: Oxycodone HCl (Oxycodone Hcl Immed Release 5 Mg Tablet) 5 mg PO Q6H PRN PRN Reason: moderate pain Last Admin: 09/25/21 08:57 Dose: 5 mg Documented by: Pharmacy Consult (Consult Rx Perform Med Rec) 1 each MISCELLANE ONCE PRN PRN Reason: Consult order Senna (Sennosides 8.6 Mg Tablet) 17.2 mg PO BEDTIME PRN PRN Reason: Constipation Sodium Chloride (0.9 % Sodium Chloride Flush 3 Ml Syringe) 3 ml IVFLUSH QSHIFT [facility] Last Admin: 09/28/21 07:53 Dose: 3 ml Documented by: Spironolactone (Spironolactone 25 Mg Tablet) 25 mg PO DAILY [facility]; Protocol Last Admin: 09/28/21 10:37 Dose: Not Given Documented by: Home Medications Medication Instructions Recorded Confirmed Last Taken Type atorvastatin 80 mg tablet 80 mg PO DAILY 09/05/21 09/23/21 09/23/21 History etodolac 400 mg tablet 400 mg PO BID PRN 09/05/21 09/23/21 09/04/21 21:00 History lisinopril 40 mg tablet 40 mg PO DAILY 09/05/21 09/23/21 09/23/21 History metformin 500 mg tablet 500 mg PO BIDWM 09/05/21 09/23/21 09/23/21 History metoprolol tartrate 25 mg tablet 12.5 mg PO BID 09/05/21 09/23/21 09/23/21 History morphine 15 mg tablet,extended 15 mg PO BID PRN 09/05/21 09/23/21 09/23/21 History release oxycodone 5 mg tablet 5 mg PO Q6H PRN 09/05/21 09/23/21 09/23/21 History duloxetine 30 mg capsule,delayed 30 mg PO BEDTIME 09/23/21 09/23/21 09/22/21 History release duloxetine 30 mg capsule,delayed 60 mg PO DAILY 09/23/21 09/23/21 09/23/21 History release furosemide 20 mg tablet 1 tab PO DAILY 09/23/21 09/23/21 09/20/21 History Exam Exam Date and Time: September 28, 2021 1338 Height,Weight and Vital Signs: Height 5 ft 8 in Weight 129.274 kg Last Vital Signs Temp 96.9 F 09/28/21 12:13 Pulse 76 09/28/21 12:13 Resp 18 09/28/21 12:13 BP 109/67 09/28/21 12:13 Pulse Ox 98 09/28/21 12:13 Pertinent Lab Results Pertinent Lab Results: Laboratory Tests 09/23/21 09/23/21 09/23/21 13:47 13:47 13:47 WBC 5.7 RBC 2.88 L D Hgb 7.5 L D Hct 25.6 L D MCV 88.9 MCH 26.0 L MCHC 29.3 L RDW 19.2 H Plt Count 295 D MPV 8.8 L Immature Gran % (Auto) 0.5 H Neut % (Auto) 64.8 Lymph % (Auto) 24.1 Morgan % (Auto) 8.7 Eos % (Auto) 1.6 Baso % (Auto) 0.3 Lymph # (Auto) 1.4 Morgan # (Auto) 0.5 Eos # (Auto) 0.1 Baso # (Auto) 0.0 Abs Immat Gran (auto) 0.03 Absolute Neuts (auto) 3.7 Absolute Nucleated RBC 0.020 H Nucleated RBC % (auto) 0.3 H PT 12.4 INR 1.1 APTT 32.6 VBG pH VBG pCO2 VBG pO2 VBG HCO3 VBG O2 Saturation VBG Base Excess Sodium 138 Potassium 4.2 Chloride 101 Carbon Dioxide 29 Anion Gap 12 BUN 7 L D Creatinine 0.68 Estim Creat Clear Calc 136.3 Estimated GFR > 60 POC Glucose Random Glucose 118 H Calcium 9.4 D Iron TIBC % Saturation Unsat Iron Binding Ferritin Total Bilirubin 0.6 Direct Bilirubin 0.4 AST 20 ALT 14 Alkaline Phosphatase 89 D Ammonia Lactate Dehydrogenase 217 Troponin I High Sens B-Natriuretic Peptide Total Protein 6.2 L Albumin 2.9 L Vitamin B12 Folate Stool Occult Blood COVID-19 (ENZO) COVID-19 Clin Com Blood Type Antibody Screen Crossmatch 09/23/21 09/23/21 09/23/21 16:09 16:12 17:10 WBC RBC Hgb Hct MCV MCH MCHC RDW Plt Count MPV Immature Gran % (Auto) Neut % (Auto) Lymph % (Auto) Morgan % (Auto) Eos % (Auto) Baso % (Auto) Lymph # (Auto) Morgan # (Auto) Eos # (Auto) Baso # (Auto) Abs Immat Gran (auto) Absolute Neuts (auto) Absolute Nucleated RBC Nucleated RBC % (auto) PT INR APTT VBG pH VBG pCO2 VBG pO2 VBG HCO3 VBG O2 Saturation VBG Base Excess Sodium Potassium Chloride Carbon Dioxide Anion Gap BUN Creatinine Estim Creat Clear Calc Estimated GFR POC Glucose Random Glucose Calcium Iron TIBC % Saturation Unsat Iron Binding Ferritin Total Bilirubin Direct Bilirubin AST ALT Alkaline Phosphatase Ammonia Lactate Dehydrogenase Troponin I High Sens 8.0 D B-Natriuretic Peptide 733 H Total Protein Albumin Vitamin B12 Folate Stool Occult Blood NEGATIVE COVID-19 (ENZO) COVID-19 Clin Com Blood Type A Positive Antibody Screen NEGATIVE Crossmatch See Detail 09/23/21 09/23/21 09/23/21 18:34 19:39 20:36 WBC RBC Hgb Hct MCV MCH MCHC RDW Plt Count MPV Immature Gran % (Auto) Neut % (Auto) Lymph % (Auto) Morgan % (Auto) Eos % (Auto) Baso % (Auto) Lymph # (Auto) Morgan # (Auto) Eos # (Auto) Baso # (Auto) Abs Immat Gran (auto) Absolute Neuts (auto) Absolute Nucleated RBC Nucleated RBC % (auto) PT INR APTT VBG pH VBG pCO2 VBG pO2 VBG HCO3 VBG O2 Saturation VBG Base Excess Sodium Potassium Chloride Carbon Dioxide Anion Gap BUN Creatinine Estim Creat Clear Calc Estimated GFR POC Glucose 112 Random Glucose Calcium Iron TIBC % Saturation Unsat Iron Binding Ferritin Total Bilirubin Direct Bilirubin AST ALT Alkaline Phosphatase Ammonia Lactate Dehydrogenase Troponin I High Sens 7.0 B-Natriuretic Peptide Total Protein Albumin Vitamin B12 Folate Stool Occult Blood COVID-19 (ENZO) Negative COVID-19 Clin Com See Note Blood Type Antibody Screen Crossmatch 09/24/21 09/24/21 09/24/21 06:33 06:33 06:33 WBC 6.0 RBC 3.44 L Hgb 9.3 L D Hct 31.0 L D MCV 90.1 MCH 27.0 MCHC 30.0 L RDW 18.1 H Plt Count 276 MPV 9.6 Immature Gran % (Auto) 1.3 H Neut % (Auto) 68.5 Lymph % (Auto) 19.7 L Morgan % (Auto) 8.0 Eos % (Auto) 2.0 Baso % (Auto) 0.5 Lymph # (Auto) 1.2 Morgan # (Auto) 0.5 Eos # (Auto) 0.1 Baso # (Auto) 0.0 Abs Immat Gran (auto) 0.08 H Absolute Neuts (auto) 4.1 Absolute Nucleated RBC 0.020 H Nucleated RBC % (auto) 0.3 H PT INR APTT VBG pH VBG pCO2 VBG pO2 VBG HCO3 VBG O2 Saturation VBG Base Excess Sodium 141 Potassium 3.7 Chloride 99 Carbon Dioxide 35 H Anion Gap 11 L BUN 6 L Creatinine 0.68 Estim Creat Clear Calc 136.3 Estimated GFR > 60 POC Glucose Random Glucose 110 Calcium 9.4 Iron 157 TIBC 319 % Saturation 49 Unsat Iron Binding 162 Ferritin 34 Total Bilirubin Direct Bilirubin AST ALT Alkaline Phosphatase Ammonia Lactate Dehydrogenase Troponin I High Sens B-Natriuretic Peptide Total Protein Albumin Vitamin B12 704 Folate 5.1 Stool Occult Blood COVID-19 (ENZO) [id number] Blood Type Antibody Screen Crossmatch 09/24/21 09/24/21 09/24/21 07:10 11:37 15:24 WBC RBC Hgb Hct MCV MCH MCHC RDW Plt Count MPV Immature Gran % (Auto) Neut % (Auto) Lymph % (Auto) Morgan % (Auto) Eos % (Auto) Baso % (Auto) Lymph # (Auto) Morgan # (Auto) Eos # (Auto) Baso # (Auto) Abs Immat Gran (auto) Absolute Neuts (auto) Absolute Nucleated RBC Nucleated RBC % (auto) PT INR APTT VBG pH VBG pCO2 VBG pO2 VBG HCO3 VBG O2 Saturation VBG Base Excess Sodium Potassium Chloride Carbon Dioxide Anion Gap BUN Creatinine Estim Creat Clear Calc Estimated GFR POC Glucose 99 130 H 185 H Random Glucose Calcium Iron TIBC % Saturation Unsat Iron Binding Ferritin Total Bilirubin Direct Bilirubin AST ALT Alkaline Phosphatase Ammonia Lactate Dehydrogenase Troponin I High Sens B-Natriuretic Peptide Total Protein Albumin Vitamin B12 Folate Stool Occult Blood COVID-19 (ENZO) [id number] Blood Type Antibody Screen Crossmatch 09/24/21 09/25/21 09/25/21 19:11 05:44 05:52 WBC 7.6 RBC 3.47 L Hgb 9.2 L Hct 30.6 L MCV 88.2 MCH 26.5 L MCHC 30.1 L RDW 18.4 H Plt Count 273 MPV 9.5 Immature Gran % (Auto) Neut % (Auto) Lymph % (Auto) Morgan % (Auto) Eos % (Auto) Baso % (Auto) Lymph # (Auto) Morgan # (Auto) Eos # (Auto) Baso # (Auto) Abs Immat Gran (auto) Absolute Neuts (auto) Absolute Nucleated RBC 0.000 Nucleated RBC % (auto) 0.0 PT INR APTT VBG pH VBG pCO2 VBG pO2 VBG HCO3 VBG O2 Saturation VBG Base Excess Sodium Potassium Chloride Carbon Dioxide Anion Gap BUN Creatinine Estim Creat Clear Calc Estimated GFR POC Glucose 91 120 H Random Glucose Calcium Iron TIBC % Saturation Unsat Iron Binding Ferritin Total Bilirubin Direct Bilirubin AST ALT Alkaline Phosphatase Ammonia Lactate Dehydrogenase Troponin I High Sens B-Natriuretic Peptide Total Protein Albumin Vitamin B12 Folate Stool Occult Blood COVID-19 (ENZO) [employer] Blood Type Antibody Screen Crossmatch 09/25/21 09/25/21 09/25/21 05:52 05:52 05:52 WBC RBC Hgb Hct MCV MCH MCHC RDW Plt Count MPV Immature Gran % (Auto) Neut % (Auto) Lymph % (Auto) Morgan % (Auto) Eos % (Auto) Baso % (Auto) Lymph # (Auto) Morgan # (Auto) Eos # (Auto) Baso # (Auto) Abs Immat Gran (auto) Absolute Neuts (auto) Absolute Nucleated RBC Nucleated RBC % (auto) PT INR APTT VBG pH VBG pCO2 VBG pO2 VBG HCO3 VBG O2 Saturation VBG Base Excess Sodium 138 Potassium 3.3 Chloride 93 L Carbon Dioxide 37 H Anion Gap 11 L BUN 9 Creatinine 0.72 Estim Creat Clear Calc 128.8 Estimated GFR > 60 POC Glucose Random Glucose 126 H Calcium 9.2 Iron TIBC % Saturation Unsat Iron Binding Ferritin Total Bilirubin Direct Bilirubin AST ALT Alkaline Phosphatase Ammonia 48 Lactate Dehydrogenase Troponin I High Sens 10.5 B-Natriuretic Peptide 599 H Total Protein Albumin Vitamin B12 Folate Stool Occult Blood COVID-19 (ENZO) COVID-19 [employer] Blood Type Antibody Screen Crossmatch 09/25/21 09/25/21 09/25/21 05:54 07:12 11:11 WBC RBC Hgb Hct MCV MCH MCHC RDW Plt Count MPV Immature Gran % (Auto) Neut % (Auto) Lymph % (Auto) Morgan % (Auto) Eos % (Auto) Baso % (Auto) Lymph # (Auto) Morgan # (Auto) Eos # (Auto) Baso # (Auto) Abs Immat Gran (auto) Absolute Neuts (auto) Absolute Nucleated RBC Nucleated RBC % (auto) PT INR APTT VBG pH 7.36 VBG pCO2 85 VBG pO2 79 VBG HCO3 49 H VBG O2 Saturation 94.0 VBG Base Excess 20.0 Sodium Potassium Chloride Carbon Dioxide Anion Gap BUN Creatinine Estim Creat Clear Calc Estimated GFR POC Glucose 109 199 H Random Glucose Calcium Iron TIBC % Saturation Unsat Iron Binding Ferritin Total Bilirubin Direct Bilirubin AST ALT Alkaline Phosphatase Ammonia Lactate Dehydrogenase Troponin I High Sens B-Natriuretic Peptide Total Protein Albumin Vitamin B12 Folate Stool Occult Blood COVID-19 (ENZO) [email or web address] Blood Type Antibody Screen Crossmatch 09/25/21 09/25/21 09/26/21 15:52 19:49 06:47 WBC RBC Hgb Hct MCV MCH MCHC RDW Plt Count MPV Immature Gran % (Auto) Neut % (Auto) Lymph % (Auto) Morgan % (Auto) Eos % (Auto) Baso % (Auto) Lymph # (Auto) Morgan # (Auto) Eos # (Auto) Baso # (Auto) Abs Immat Gran (auto) Absolute Neuts (auto) Absolute Nucleated RBC Nucleated RBC % (auto) PT INR APTT VBG pH VBG pCO2 VBG pO2 VBG HCO3 VBG O2 Saturation VBG Base Excess Sodium Potassium Chloride Carbon Dioxide Anion Gap BUN Creatinine Estim Creat Clear Calc Estimated GFR POC Glucose 103 129 H Random Glucose Calcium Iron TIBC % Saturation Unsat Iron Binding Ferritin Total Bilirubin Direct Bilirubin AST ALT Alkaline Phosphatase Ammonia Lactate Dehydrogenase Troponin I High Sens B-Natriuretic Peptide 311 H Total Protein Albumin Vitamin B12 Folate Stool Occult Blood COVID-19 (ENZO) [employer] Blood Type Antibody Screen Crossmatch 09/26/21 09/26/21 09/26/21 06:55 07:38 11:21 WBC RBC Hgb Hct MCV MCH MCHC RDW Plt Count MPV Immature Gran % (Auto) Neut % (Auto) Lymph % (Auto) Morgan % (Auto) Eos % (Auto) Baso % (Auto) Lymph # (Auto) Morgan # (Auto) Eos # (Auto) Baso # (Auto) Abs Immat Gran (auto) Absolute Neuts (auto) Absolute Nucleated RBC Nucleated RBC % (auto) PT INR APTT VBG pH 7.36 VBG pCO2 82 VBG pO2 81 VBG HCO3 47 H VBG O2 Saturation 94.0 VBG Base Excess 17.9 Sodium Potassium Chloride Carbon Dioxide Anion Gap BUN Creatinine Estim Creat Clear Calc Estimated GFR POC Glucose 108 169 H Random Glucose Calcium Iron TIBC % Saturation Unsat Iron Binding Ferritin Total Bilirubin Direct Bilirubin AST ALT Alkaline Phosphatase Ammonia Lactate Dehydrogenase Troponin I High Sens B-Natriuretic Peptide Total Protein Albumin Vitamin B12 Folate Stool Occult Blood COVID-19 (ENZO) COVID-19 [employer] Blood Type Antibody Screen Crossmatch 09/26/21 09/26/21 09/27/21 16:09 19:37 05:58 WBC 7.5 RBC 3.71 L Hgb 9.7 L Hct 32.3 L MCV 87.1 MCH 26.1 L MCHC 30.0 L RDW 18.7 H Plt Count 272 MPV 10.0 Immature Gran % (Auto) Neut % (Auto) Lymph % (Auto) Morgan % (Auto) Eos % (Auto) Baso % (Auto) Lymph # (Auto) Morgan # (Auto) Eos # (Auto) Baso # (Auto) Abs Immat Gran (auto) Absolute Neuts (auto) Absolute Nucleated RBC 0.000 Nucleated RBC % (auto) 0.0 PT INR APTT VBG pH VBG pCO2 VBG pO2 VBG HCO3 VBG O2 Saturation VBG Base Excess Sodium Potassium Chloride Carbon Dioxide Anion Gap BUN Creatinine Estim Creat Clear Calc Estimated GFR POC Glucose 124 H 228 H Random Glucose Calcium Iron TIBC % Saturation Unsat Iron Binding Ferritin Total Bilirubin Direct Bilirubin AST ALT Alkaline Phosphatase Ammonia Lactate Dehydrogenase Troponin I High Sens B-Natriuretic Peptide Total Protein Albumin Vitamin B12 Folate Stool Occult Blood COVID-19 (EZNO) COVID-[employer] Blood Type Antibody Screen Crossmatch 09/27/21 09/27/21 09/27/21 05:58 07:18 12:06 WBC RBC Hgb Hct MCV MCH MCHC RDW Plt Count MPV Immature Gran % (Auto) Neut % (Auto) Lymph % (Auto) Morgan % (Auto) Eos % (Auto) Baso % (Auto) Lymph # (Auto) Morgan # (Auto) Eos # (Auto) Baso # (Auto) Abs Immat Gran (auto) Absolute Neuts (auto) Absolute Nucleated RBC Nucleated RBC % (auto) PT INR APTT VBG pH VBG pCO2 VBG pO2 VBG HCO3 VBG O2 Saturation VBG Base Excess Sodium 136 Potassium 3.1 L Chloride 93 L Carbon Dioxide 37 H Anion Gap 9 L BUN 18 H D Creatinine 0.77 Estim Creat Clear Calc 120.4 Estimated GFR > 60 POC Glucose 134 H 137 H Random Glucose 144 H Calcium 9.4 Iron TIBC % Saturation Unsat Iron Binding Ferritin Total Bilirubin Direct Bilirubin AST ALT Alkaline Phosphatase Ammonia Lactate Dehydrogenase Troponin I High Sens B-Natriuretic Peptide Total Protein Albumin Vitamin B12 Folate Stool Occult Blood COVID-19 (ENZO) [employer] [facility] Blood Type Antibody Screen Crossmatch 09/27/21 09/27/21 09/28/21 15:58 20:51 07:43 WBC RBC Hgb Hct MCV MCH MCHC RDW Plt Count MPV Immature Gran % (Auto) Neut % (Auto) Lymph % (Auto) Morgan % (Auto) Eos % (Auto) Baso % (Auto) Lymph # (Auto) Morgan # (Auto) Eos # (Auto) Baso # (Auto) Abs Immat Gran (auto) Absolute Neuts (auto) Absolute Nucleated RBC Nucleated RBC % (auto) PT INR APTT VBG pH VBG pCO2 VBG pO2 VBG HCO3 VBG O2 Saturation VBG Base Excess Sodium Potassium Chloride Carbon Dioxide Anion Gap BUN Creatinine Estim Creat Clear Calc Estimated GFR POC Glucose 157 H 119 H 138 H Random Glucose Calcium Iron TIBC % Saturation Unsat Iron Binding Ferritin Total Bilirubin Direct Bilirubin AST ALT Alkaline Phosphatase Ammonia Lactate Dehydrogenase Troponin I High Sens B-Natriuretic Peptide Total Protein Albumin Vitamin B12 Folate Stool Occult Blood COVID-19 (ENZO) [employer] [facility] Blood Type Antibody Screen Crossmatch 09/28/21 11:21 WBC RBC Hgb Hct MCV MCH MCHC RDW Plt Count MPV Immature Gran % (Auto) Neut % (Auto) Lymph % (Auto) Morgan % (Auto) Eos % (Auto) Baso % (Auto) Lymph # (Auto) Morgan # (Auto) Eos # (Auto) Baso # (Auto) Abs Immat Gran (auto) Absolute Neuts (auto) Absolute Nucleated RBC Nucleated RBC % (auto) PT INR APTT VBG pH VBG pCO2 VBG pO2 VBG HCO3 VBG O2 Saturation VBG Base Excess Sodium Potassium Chloride Carbon Dioxide Anion Gap BUN Creatinine Estim Creat Clear Calc Estimated GFR POC Glucose 120 H Random Glucose Calcium Iron TIBC % Saturation Unsat Iron Binding Ferritin Total Bilirubin Direct Bilirubin AST ALT Alkaline Phosphatase Ammonia Lactate Dehydrogenase Troponin I High Sens B-Natriuretic Peptide Total Protein Albumin Vitamin B12 Folate Stool Occult Blood COVID-19 (ENZO) COVID-19 Clin Com Blood Type Antibody Screen Crossmatch Airway Mallampati Class: IV TM Dist: >3cm Neck ROM: Full Loose/Missing/Broken Teeth: Yes (Chipped teeth , poor dentition ) Heart: S1, S2 Lungs: diminished breath sounds b/l Assessment and Plan Assessment Anesthesia Assessment: Anesthesia Plan Discussed Final Anesthetic Review Family History of Problems with Anesthesia: No History of Problems with Anesthesia: No NPO: Yes ASA Class: III Final Preanesthetic Review: Meds/Allgs Chart Reviewed, Consent Obtained/Reviewed and Anes Risks/Benef Reviewed Patient Risk: High Procedure Risk: Intermediate Anesthetic Plan Anesthetic Plan: MAC: Disposition: Inp. Admit - Standard Bed
--- NOTE | 2021-09-28 14:52 | P.BOP_ITS ---
Brief Operative Note Date of Service: 09/28/21 Pre-op diagnosis: Melena, Abnormal CT of duodenum Post-op diagnosis: other (Duodenal bulb ulcer, Duodenitis, Hiatal hernia) Procedure: EGD with biopsies Surgeon: Dino Munoz Anesthesia: MAC Was an Counter Sales Person used for this Procedure?: No Estimated blood loss (mL): 2.0 Pathology: other (A. Gastric antrum) Condition: stable Disposition: PACU
--- NOTE | 2021-09-28 14:54 | P.EN_ITS ---
Event Note Date of Service: 09/28/21 Event Note: GI-EGD-Full note dictated Findings: 1. Approx. 1.2cm Duodenal bulb ulcer in the superior portion with a clean base 2. Duodenitis in bulb 3. Descending duodenum appeared normal 4. Gastric antrum WNL-Biopsied x 3 5. Small hiatal hernia Rec: Continue PPI nursing home. 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 Advance diet. I called his sister, Barbara, but there was no answer and no voicemail. Thanks
[2021-09-28 16:35] LABS: Glucose, Whole Blood 124 mg/dL (60-115)
[2021-09-28] MEDS: Furosemide 40 MG/4 ML VIAL IVPUSH (17:33)
[2021-09-28] MEDS: Albuterol/Iprat 2.5/0.5MG 3 ML AMPUL.NEB INHALE (20:25)
[2021-09-28 21:07] LABS: Glucose, Whole Blood 142 mg/dL (60-115)
[2021-09-28] MEDS: acetaZOLAMIDE 250 MG TABLET PO (21:08)
[2021-09-28] MEDS: DULoxetine HCl 30 MG CAPSULE.DR PO (21:08)
[2021-09-29] VITALS (10 sets, daily range): BP systolic 94–132; BP diastolic 54–73; PULSE 76–95; RESP 16–22; TEMP 36.4–36.9; O2SAT 92–97
--- NOTE | 2021-09-29 02:03 | OP_ITS ---
SURGEON: Dino Munoz MD INDICATIONS: The patient presents for evaluation of previous GI bleeding and abnormal CT scan of duodenum. Full consent obtained from him for this, including risks of bleeding and perforation. PREOPERATIVE DIAGNOSIS: POSTOPERATIVE DIAGNOSIS: PROCEDURE PERFORMED: Esophagogastroduodenoscopy with biopsy. ESTIMATED BLOOD LOSS: COMPLICATIONS: ANESTHESIA: Monitored anesthesia care. ASSISTANTS: SPECIMENS: PREOPERATIVE DIAGNOSES: Previous history of gastrointestinal bleeding with melena and abnormal CT scan of duodenum. POSTOPERATIVE DIAGNOSES: Previous history of gastrointestinal bleeding with melena and abnormal CT scan of duodenum, duodenal ulcer, duodenitis, hiatal hernia. DESCRIPTION OF PROCEDURE: The patient was placed in the left lateral decubitus position. The Olympus video gastroscope was passed in the posterior oropharynx and upper esophagus under direct vision. The scope was passed slowly to the distal esophagus. The gastroesophageal junction appeared at 38 cm. There was some slight irregularity, but no evidence of any esophagitis, ulceration, mass, nor definitive evidence of Ruiz mucosa. The scope entered into the stomach. There was a small hiatal hernia. The scope was advanced to pylorus and duodenum was cannulated in the descending portion. The second and third portions of duodenum appeared normal. In the distal portion of the duodenal bulb, in the superior portion, there was an approximately 1.2 cm ulcer crater with a clean base and no sign of any visible vessel nor bleeding. There was surrounding edema. The duodenal bulb had duodenitis as well. The scope was withdrawn back into the stomach. The gastric antrum and body appeared normal with good peristalsis. Biopsies were obtained. The scope was retroflexed visualizing the proximal stomach carefully, which appeared normal, without any sign of mass or ulceration. The scope was straightened and withdrawn back into the esophagus. The esophageal mucosa appeared normal. The scope was withdrawn from the patient. He tolerated the procedure well and was returned to the recovery area in stable condition. IMPRESSION: 1. Small hiatal hernia. 2. Duodenal bulb ulcer. 3. Duodenitis. PLAN: The results of the biopsy will be checked. If Helicobacter pylori is present in the gastric biopsies, I would recommend treating that. He will need to avoid all aspirin, NSAIDs, and blood thinners long-term as well as continue his omeprazole long-term as well. His diet will be advanced. MD ANIRUDH Sherman/JORGE LUIS / [id number] MTDD
[2021-09-29 05:44] LABS: MANUAL DIFF FLAG NO
[2021-09-29 05:48] LABS: Basophils Percent Auto 0.3 % (0-2); Eosinophils Absolute Auto 0.2 X10*3/uL (0.0-0.4); Eosinophils Percent Auto 2.1 % (0-4); Hematocrit 32.8 % (42.0-52.0); Imm Gran Abs Auto 0.03 X10*3/uL (0.00-0.03); Imm Gran Pct Auto 0.3 % (0.0-0.4); Lymphocytes Absolute Auto 1.7 X10*3/uL (1.2-4.9); Lymphocytes Percent Auto 18.9 % (20-40); Mean Corpuscular HGB Conc 30.5 g/dl (31.0-36.0); Mean Corpuscular Hemoglobin 26.3 pg (27.0-33.0); Mean Corpuscular Volume 86.3 fL (80.0-98.0); Mean Platelet Volume 10.1 fL (9.4-12.4); Monocytes Absolute Auto 0.8 X10*3/uL (0.1-1.2); Monocytes Percent Auto 8.8 % (2-11); Neutrophils Absolute Auto 6.2 x10*3/uL (2.0-8.3); Neutrophils Percent Auto 69.6 % (45-73); Platelet Count 258 X10*3/uL (160-400); Red Cell Distribution Width 18.8 % (11.0-16.0); White Blood Count 8.9 X10*3/uL (4.8-10.8)
[2021-09-29 06:08] LABS: Anion Gap 12 (12-20); Blood Urea Nitrogen 33 mg/dL (9-16); Calcium 9.8 mg/dL (8.4-10.2); Carbon Dioxide 30 mmol/L (22-29); Chloride 100 mmol/L (96-108); Creatinine Clr Calc Pharmacy 90.9; Estimated Glomerular Filt Rate > 60; Glucose Fasting 152 mg/dL (60-99); Potassium 3.6 mmol/L (3.3-5.1); Sodium 138 mmol/L (135-145)
[2021-09-29] MEDS: Omeprazole 40 MG CAPSULE.DR PO (06:27)
--- NOTE | 2021-09-29 06:51 | HO.POSTANES ---
Post Anesthesia Evaluation Post Anesthesia Evaluation Vital Signs: Vital Signs Temp Pulse Resp BP Pulse Ox 09/29/21 03:38 98.2 F 90 20 116/58 L 92 09/28/21 23:18 98.0 F 84 17 112/67 97 09/28/21 20:46 23 H 09/28/21 20:25 89 16 09/28/21 19:32 97.7 F 85 16 133/69 90 L Anesthesia: Monitored Mental Status: Awake Pain Control: Satisfactory Nausea/Vomiting: None Hydration: Adequate Anesthesia-Related Issues: No Anes. Related Issues
[2021-09-29 07:04] LABS: Glucose, Whole Blood 155 mg/dL (60-115)
[2021-09-29] MEDS: Insulin Lispro 100 UNIT/ML 3 ML VIAL SUBCUT ×3 (07:56→21:48)
[2021-09-29] MEDS: DULoxetine HCl 60 MG CAPSULE.DR PO (07:56)
[2021-09-29] MEDS: Spironolactone 25 MG TABLET PO (07:56)
[2021-09-29] MEDS: Atorvastatin Calcium 80 MG TABLET PO (07:56)
[2021-09-29] MEDS: acetaZOLAMIDE 250 MG TABLET PO ×2 (07:57→21:48)
[2021-09-29] MEDS: 0.9 % Sodium Chloride Flush 3 ML SYRINGE IVFLUSH ×3 (07:57→21:48)
[2021-09-29] MEDS: lisinopriL 40 MG TABLET PO (07:57)
[2021-09-29] MEDS: Metoprolol Tartrate 12.5 MG HALFTAB PO ×2 (07:57→21:48)
[2021-09-29] MEDS: oxyCODONE HCl Immed Release 5 MG TABLET PO ×2 (08:12→17:33)
[2021-09-29 11:08] LABS: Venous Blood Gas Refer to POC result
[2021-09-29 11:10] LABS: VBG Base Excess 11.7 mmol/L; VBG HCO3 39 mmol/L (22-26); VBG pCO2 68 mmHg; VBG pH 7.36 (7.32-7.43); VBG pO2 72 mmHg
[2021-09-29 11:44] LABS: Glucose, Whole Blood 164 mg/dL (60-115)
--- NOTE | 2021-09-29 12:40 | HO.PM.IMPN ---
Subjective Subjective Date of Service: 09/29/21 Review of Systems Follow up for CHF, respiratory failure Awake and alert this morning denies pain Physical Exam Vital Signs: Vital Signs: Last Vital Signs Temp 97.7 F 09/29/21 11:30 Pulse 76 09/29/21 11:30 Resp 18 09/29/21 11:30 BP 115/58 L 09/29/21 11:30 Pulse Ox 93 09/29/21 11:30 BMI result Body Mass Index 43.3 Appearing in no acute distress lung sounds are clear to auscultation heart regular rate rhythm, clear S1, S2 positive bowel sounds, abdomen is soft, nontender neuro patient is alert x3, no focal deficits MSK Objective Data Active Medications Acetaminophen (Acetaminophen 325 Mg Tablet) 650 mg PO Q6H PRN PRN Reason: Pain, Mild (Pain Scale 1-3) Last Admin: 09/27/21 09:59 Dose: 650 mg Documented by: COTEMA Acetazolamide (Acetazolamide 250 Mg Tablet) 250 mg PO BID [facility] Last Admin: 09/29/21 07:57 Dose: 250 mg Documented by: NARCISA Albuterol/Ipratropium (Albuterol/Iprat 2.5/0.5mg 3 Ml Ampul.Neb) 3 ml INHALE RQ6H WHILE AWAKE [facility] Last Admin: 09/29/21 08:20 Dose: Not Given Documented by: LAURO Non-Admin Reason: Patient Refused Atorvastatin Calcium (Atorvastatin Calcium 80 Mg Tablet) 80 mg PO DAILY [facility] Last Admin: 09/29/21 07:56 Dose: 80 mg Documented by: NARCISA Benzonatate (Benzonatate 100 Mg Capsule) 100 mg PO TID PRN PRN Reason: Cough Last Admin: 09/27/21 09:59 Dose: 100 mg Documented by: COTEMA Dextrose (Dextrose 50 % 25 Gm/50 Ml Syringe) 25 gm IVPUSH Q15M PRN; Protocol PRN Reason: per Hypoglycemia Standing Ord. Duloxetine HCl (Duloxetine Hcl 30 Mg Capsule.) 30 mg PO BEDTIME [facility] Last Admin: 09/28/21 21:08 Dose: 30 mg Documented by: VALENTINA Duloxetine HCl (Duloxetine Hcl 60 Mg Capsule.) 60 mg PO DAILY [facility] Last Admin: 09/29/21 07:56 Dose: 60 mg Documented by: NARCISA Furosemide (Furosemide 40 Mg/4 Ml Vial) 40 mg IVPUSH BID@0900,1800 [facility]; Protocol Last Admin: 09/29/21 09:25 Dose: Not Given Documented by: NARCISA Non-Admin Reason: Physician Held Med Glucose (Glucose Gel 15 Gm Gel..Gram.) 15 gm PO Q15M PRN; Protocol PRN Reason: per Hypoglycemia Standing Ord. Insulin Human Lispro (Insulin Lispro 100 Unit/Ml 3 Ml Vial) 0 unit SUBCUT QIDACHS [facility]; Protocol Last Admin: 09/29/21 11:50 Dose: 2 unit Documented by: NARCISA Lisinopril (Lisinopril 40 Mg Tablet) 40 mg PO DAILY [facility]; Protocol Last Admin: 09/29/21 07:57 Dose: 40 mg Documented by: NARCISA Melatonin (Melatonin 3 Mg Tablet) 6 mg PO BEDTIME PRN PRN Reason: Insomnia Metoprolol Tartrate (Metoprolol Tartrate 12.5 Mg Halftab) 12.5 mg PO BID [facility]; Protocol Last Admin: 09/29/21 07:57 Dose: 12.5 mg Documented by: NARCISA Omeprazole (Omeprazole 40 Mg Capsule.) 40 mg PO DAILY@0630 [facility] Last Admin: 09/29/21 06:27 Dose: 40 mg Documented by: VALENTINA Oxycodone HCl (Oxycodone Hcl Immed Release 5 Mg Tablet) 5 mg PO Q6H PRN PRN Reason: moderate pain Last Admin: 09/29/21 08:12 Dose: 5 mg Documented by: NARCISA Pharmacy Consult (Consult Rx Perform Med Rec) 1 each MISCELLANE ONCE PRN PRN Reason: Consult order Senna (Sennosides 8.6 Mg Tablet) 17.2 mg PO BEDTIME PRN PRN Reason: Constipation Sodium Chloride (0.9 % Sodium Chloride Flush 3 Ml Syringe) 3 ml IVFLUSH QSHIFT [facility] Last Admin: 09/29/21 07:57 Dose: 3 ml Documented by: NARCISA Spironolactone (Spironolactone 25 Mg Tablet) 25 mg PO DAILY [facility]; Protocol Last Admin: 09/29/21 07:56 Dose: 25 mg Documented by: NARCISA Labs CBC & Chem 7: 09/29/21 05:13 09/29/21 05:13 Labs: Laboratory Results - last 24 hr 09/28/21 09/28/21 09/29/21 16:31 20:58 05:13 MCV 86.3 MCH 26.3 L MCHC 30.5 L RDW 18.8 H Plt Count 258 MPV 10.1 Immature Gran % (Auto) 0.3 Neut % (Auto) 69.6 Lymph % (Auto) 18.9 L [place] % (Auto) 8.8 Eos % (Auto) 2.1 Baso % (Auto) 0.3 Lymph # (Auto) 1.7 [place] # (Auto) 0.8 Eos # (Auto) 0.2 Baso # (Auto) 0.0 Abs Immat Gran (auto) 0.03 Absolute Neuts (auto) 6.2 Absolute Nucleated RBC 0.000 Nucleated RBC % (auto) 0.0 VBG pH VBG pCO2 VBG pO2 VBG HCO3 VBG O2 Saturation VBG Base Excess Anion Gap Estim Creat Clear Calc Estimated GFR POC Glucose 124 H 142 H Fasting Glucose Calcium 09/29/21 09/29/21 09/29/21 05:13 06:56 11:02 MCV MCH MCHC RDW Plt Count MPV Immature Gran % (Auto) Neut % (Auto) Lymph % (Auto) [place] % (Auto) Eos % (Auto) Baso % (Auto) Lymph # (Auto) [place] # (Auto) Eos # (Auto) Baso # (Auto) Abs Immat Gran (auto) Absolute Neuts (auto) Absolute Nucleated RBC Nucleated RBC % (auto) VBG pH 7.36 VBG pCO2 68 VBG pO2 72 VBG HCO3 39 H VBG O2 Saturation 91.0 VBG Base Excess 11.7 Anion Gap 12 Estim Creat Clear Calc 90.9 Estimated GFR > 60 POC Glucose 155 H Fasting Glucose 152 H Calcium 9.8 09/29/21 11:32 MCV MCH MCHC RDW Plt Count MPV Immature Gran % (Auto) Neut % (Auto) Lymph % (Auto) [place] % (Auto) Eos % (Auto) Baso % (Auto) Lymph # (Auto) [place] # (Auto) Eos # (Auto) Baso # (Auto) Abs Immat Gran (auto) Absolute Neuts (auto) Absolute Nucleated RBC Nucleated RBC % (auto) VBG pH VBG pCO2 VBG pO2 VBG HCO3 VBG O2 Saturation VBG Base Excess Anion Gap Estim Creat Clear Calc Estimated GFR POC Glucose 164 H Fasting Glucose Calcium Assessment and Plan (1) Morbid obesity: Status: Acute (2) Decompensated heart failure: Status: Acute Plan 66-year-old male with a past medical history of hypertension, hyperlipidemia, diabetes, CAD, CHF, morbid obesity, recent admission to the hospital in August 2021 for acute hypoxic/hypercapnic respiratory failure in the setting of acute CHF/OHS/sleep apnea, presented today to the hospital with a chief complaint of abnormal labs as outpatient showing low hemoglobin. Noted to have normocytic anemia/hypoxia. Admitted for further management. Normocytic anemia H/H dropped from 12.1/39.9 to 7.5/25.6. stool guaiac was negative s/p transfusion of 2U rbcs 09/23 HH now stable EGD showed duodenitis, hiatal hernia, continue PPI, avoid NSAIDS Hypokalemia Replete follow BMP Acute respiratory failure with Hypoxia and hypercarbia Likely multifactorial in the setting of CHF/OHS/sleep apnea. Patient denies being on any home CPAP pt not compliant with oxygen at home outpatient sleep study recommended pulmonology following Acute on chronic HFpEF net negative nearly 7L EF 65-70% likely exacerbated by anemia will continue lasix to 40 bid aldactone 25 mg added this admission Monitor I's and O's, daily weights. cardiology following Multiple incidental findings on abd CT including low density change in liver, ?duodenitis, nodular change of left adrenal, prominent lymph nodes Incidental finding on the CT. Noticed irregular thickening. Question inflammation versus malignancy. GI following, plan for EGD Tuesday as above abdominal US non-diagnostic may need further workup for adrenal gland and lymph nodes as outpatient History of diabetes Hold metformin. Insulin sliding scale History of hypertension Continue home lisinopril, metoprolol HLD continue statin History of depression Continue home duloxetine Stage II coccyx pressure wound continue local wound care wound care consult Morbid obesity BMI 43.3 weight playing direct role in respiratory failure weight reduction encouraged DVT prophylaxis lovenox Code status: Full code attending: Dr. Panchal DISPO plan for STR tx patient requires ongoing inpatient hospitalization due to acute decompensated CHF and need for IV diuretics; workup for anemia; hypoxia and hypercarbic respiratory failure and high risk for decompensation, EGD planned for the morning Quality Stroke Does the patient have a stroke diagnosis?: No VTE Prior VTE?: No VTE Risk Level:: Medical - moderate - high VTE Device Contraindication: Treatment Not Indicated VTE Drug Contraindication: N/A - Med Ordered
--- NOTE | 2021-09-29 13:13 | MHC.CM.PN ---
CM met with Patient at bedside to discuss PT's recommendation for STR. Patient is in agreement to STR at [facility], who CM has asked to initiate auth process with [facility]. CM will follow.
[2021-09-29] MEDS: Enoxaparin Sodium 40 MG/0.4 ML SYRINGE SUBCUT (13:56)
--- NOTE | 2021-09-29 14:42 | P.DS_ITS ---
DS: Providers Provider Date of Service: 09/29/21 Date of admission: 09/23/21 19:18 Primary care physician: Alecia Spivey NP Consults: 09/23/21 19:18 Consult to Cardiology Routine Consulting Provider: Wil Guan Reason for consultation: CHF 09/23/21 21:50 Consult to Gastroenterology Routine Consulting Provider: Dino Munoz Reason for consultation: Abdominal CT abdomen. Question EGD 09/24/21 18:20 Consult to Wound Care Routine Consulting Provider: Tamra Turner Reason for consultation: pressure injury to coccyx 09/25/21 13:54 Consult to Pulmonology Routine Consulting Provider: Ivelisse Herrmann Reason for consultation: respiratory failure Has provider been notified: No Attending physician on discharge: Tony Panchal Discharging clinician: Anjana Jiménez DS: Diagnosis Discharge Diagnosis (1) Morbid obesity: Status: Acute (2) Decompensated heart failure: Status: Acute DS: Summary Hospital Course Hospital Course: 66-year-old male with a past medical history of hypertension, hyperlipidemia, diabetes, CAD, CHF, morbid obesity, recent admission to the hospital in August 2021 for acute hypoxic/hypercapnic respiratory failure in the setting of acute CHF/OHS/sleep apnea, presented today to the hospital with a chief complaint of abnormal labs as outpatient showing low hemoglobin.? Noted to have normocytic anemia/hypoxia.? Admitted for further management.? Normocytic anemia H/H dropped from 12.1/39.9 to 7.5/25.6. stool guaiac was negative s/p transfusion of 2U rbcs 09/23 HH now stable EGD showed duodenitis, hiatal hernia, continue PPI, avoid NSAIDS ? Hypokalemia Replete follow BMP Acute respiratory failure with Hypoxia and hypercarbia? Likely multifactorial in the setting of CHF/OHS/sleep apnea.? Patient denies being on any home CPAP pt not compliant with oxygen at home outpatient sleep study recommended pulmonology following Acute on chronic HFpEF net negative nearly 7L EF 65-70% likely exacerbated by anemia will continue lasix to 40 bid aldactone 25 mg added this admission Monitor I's and O's,? daily weights.? cardiology following Multiple incidental findings on abd CT including low density change in liver, nodular change of left adrenal, prominent lymph nodes Incidental finding on the CT.? Noticed irregular thickening.? Question inflammation versus malignancy.? abdominal US non-diagnostic EGD showed duodenitis with hiatal hernia History of diabetes continue home medications ? History of hypertension Continue home lisinopril, metoprolol HLD continue statin History of depression Continue home duloxetine Stage II coccyx pressure wound continue local wound care Morbid obesity BMI 43.3 weight playing direct role in respiratory failure weight reduction encouraged Time Spent with Patient Time attestation: Total time spent providing and/or coordinating discharge services: Discharge coordination time: Greater than 30 minutes Quality: Safe Use of Opioids Does Pt have an Active Cancer Diagnosis on the Problem List?: No Quality: Stroke Does the patient have a stroke diagnosis?: No Physical Exam Vital Signs: Vital Signs: Last Vital Signs Temp 97.7 F 09/29/21 11:30 Pulse 76 09/29/21 11:30 Resp 18 09/29/21 11:30 BP 115/58 L 09/29/21 11:30 Pulse Ox 93 09/29/21 11:30 BMI result Body Mass Index 43.3 Appearing in no acute distress head is normocephalic atraumatic eyes pupils are PERRLA sclera is anicteric mouth throat mucous membranes are intact and moist neck is supple no lymphadenopathy, no JVD noted lung sounds are clear to auscultation heart regular rate rhythm, clear S1, S2 positive bowel sounds, abdomen is soft, nontender neuro patient is alert x3, no focal deficits MSK arthritic appearing joints DS: Data Data Completed and Pending Completed studies during hospitalization [Text1]: Procedures Assistance with Respiratory Ventilation, Less than 24 Consecutive Hours, Continuous Positive Airway Pressure (09/05/21) Pending studies at discharge: Pending at discharge 09/28/21 14:37 Surgical [PTH] Routine Labs on day of discharge: Laboratory Results - last 24 hr 09/28/21 09/28/21 09/29/21 16:31 20:58 05:13 WBC 8.9 RBC 3.80 L Hgb 10.0 L Hct 32.8 L MCV 86.3 MCH 26.3 L MCHC 30.5 L RDW 18.8 H Plt Count 258 MPV 10.1 Immature Gran % (Auto) 0.3 Neut % (Auto) 69.6 Lymph % (Auto) 18.9 L [place] % (Auto) 8.8 Eos % (Auto) 2.1 Baso % (Auto) 0.3 Lymph # (Auto) 1.7 [place] # (Auto) 0.8 Eos # (Auto) 0.2 Baso # (Auto) 0.0 Abs Immat Gran (auto) 0.03 Absolute Neuts (auto) 6.2 Absolute Nucleated RBC 0.000 Nucleated RBC % (auto) 0.0 VBG pH VBG pCO2 VBG pO2 VBG HCO3 VBG O2 Saturation VBG Base Excess Sodium Potassium Chloride Carbon Dioxide Anion Gap BUN Creatinine Estim Creat Clear Calc Estimated GFR POC Glucose 124 H 142 H Fasting Glucose Calcium 09/29/21 09/29/21 09/29/21 05:13 06:56 11:02 WBC RBC Hgb Hct MCV MCH MCHC RDW Plt Count MPV Immature Gran % (Auto) Neut % (Auto) Lymph % (Auto) [place] % (Auto) Eos % (Auto) Baso % (Auto) Lymph # (Auto) [place] # (Auto) Eos # (Auto) Baso # (Auto) Abs Immat Gran (auto) Absolute Neuts (auto) Absolute Nucleated RBC Nucleated RBC % (auto) VBG pH 7.36 VBG pCO2 68 VBG pO2 72 VBG HCO3 39 H VBG O2 Saturation 91.0 VBG Base Excess 11.7 Sodium 138 Potassium 3.6 Chloride 100 Carbon Dioxide 30 H Anion Gap 12 BUN 33 H D Creatinine 1.02 Estim Creat Clear Calc 90.9 Estimated GFR > 60 POC Glucose 155 H Fasting Glucose 152 H Calcium 9.8 09/29/21 11:32 WBC RBC Hgb Hct MCV MCH MCHC RDW Plt Count MPV Immature Gran % (Auto) Neut % (Auto) Lymph % (Auto) [place] % (Auto) Eos % (Auto) Baso % (Auto) Lymph # (Auto) [place] # (Auto) Eos # (Auto) Baso # (Auto) Abs Immat Gran (auto) Absolute Neuts (auto) Absolute Nucleated RBC Nucleated RBC % (auto) VBG pH VBG pCO2 VBG pO2 VBG HCO3 VBG O2 Saturation VBG Base Excess Sodium Potassium Chloride Carbon Dioxide Anion Gap BUN Creatinine Estim Creat Clear Calc Estimated GFR POC Glucose 164 H Fasting Glucose Calcium Discharge Plan Discharge Anticipated Discharge Date/Time: 09/29/21 14:33 Patient Disposition: Xfer Inpatient Rehab Fac Discharge Diagnosis: Normocytic anemia Hypokalemia Acute respiratory failure with hypoxia and hypercarbia Acute on chronic heart failure with preserved ejection fraction Referrals: Alecia Spivey NP [Primary Care Provider] - 1 Week Discharge Medications: New omeprazole 40 mg Capsule,Delayed Release(Dr/Ec) 40 mg PO DAILY@0630 Qty: 30 0RF spironolactone 25 mg Tablet 25 mg PO DAILY Qty: 30 0RF Protocol: Hold for SBP< HOLD for SBP < : 90 bumetanide 2 mg tablet 2 mg PO DAILY Qty: 30 0RF Jardiance 10 mg tablet 10 mg PO DAILY Qty: 30 0RF Continued metformin 500 mg tablet 500 mg PO BIDWM 0RF atorvastatin 80 mg tablet 80 mg PO DAILY 0RF morphine 15 mg tablet extended release 15 mg PO BID PRN (Reason: pain) 0RF lisinopril 40 mg tablet 40 mg PO DAILY 0RF oxycodone 5 mg tablet 5 mg PO Q6H PRN (Reason: moderate pain) 0RF metoprolol tartrate 25 mg tablet 12.5 mg PO BID 0RF duloxetine 30 mg capsule,delayed release(DR/EC) 60 mg PO DAILY 0RF duloxetine 30 mg capsule,delayed release(DR/EC) 30 mg PO BEDTIME 0RF Discontinued etodolac 400 mg tablet 400 mg PO BID PRN (Reason: Pain) 0RF furosemide 20 mg tablet 1 tab PO DAILY 0RF Diet: advance to usual diet Activity on Discharge: As tolerated Stand Alone Forms: Patient Portal Discharge page Care Plan Goals: complete resolution of symptoms Health Concerns: Normocytic anemia Hypokalemia Acute respiratory failure with hypoxia and hypercarbia Acute on chronic heart failure with preserved ejection fraction Plan of Treatment: Follow-up with her primary care provider as neede Take all medications as prescribed Avoid NSAIDS such as aspirin, ibuprofen, ect Assessment: see discharge summary
[2021-09-29 15:58] LABS: COVID-19 Test Negative (Negative)
[2021-09-29] MEDS: Albuterol/Iprat 2.5/0.5MG 3 ML AMPUL.NEB INHALE ×2 (16:10→19:17)
[2021-09-29 16:13] LABS: Glucose, Whole Blood 130 mg/dL (60-115)
[2021-09-29] MEDS: Furosemide 40 MG/4 ML VIAL IVPUSH (17:19)
[2021-09-29 20:23] LABS: Glucose, Whole Blood 161 mg/dL (60-115)
[2021-09-29] MEDS: DULoxetine HCl 30 MG CAPSULE.DR PO (21:48)
[2021-09-30] VITALS (8 sets, daily range): BP systolic 94–113; BP diastolic 52–63; PULSE 74–91; RESP 16–19; TEMP 36–36.6; O2SAT 96–100
[2021-09-30] MEDS: oxyCODONE HCl Immed Release 5 MG TABLET PO ×3 (00:15→16:22)
[2021-09-30] MEDS: Omeprazole 40 MG CAPSULE.DR PO (05:10)
[2021-09-30] MEDS: Albuterol/Iprat 2.5/0.5MG 3 ML AMPUL.NEB INHALE ×2 (07:28→13:53)
[2021-09-30 08:00] LABS: Glucose, Whole Blood 134 mg/dL (60-115)
[2021-09-30 10:59] LABS: Glucose, Whole Blood 163 mg/dL (60-115)
[2021-09-30] MEDS: 0.9 % Sodium Chloride Flush 3 ML SYRINGE IVFLUSH (10:59)
[2021-09-30] MEDS: Atorvastatin Calcium 80 MG TABLET PO (11:05)
[2021-09-30] MEDS: Spironolactone 25 MG TABLET PO (11:05)
[2021-09-30] MEDS: Metoprolol Tartrate 12.5 MG HALFTAB PO (11:05)
[2021-09-30] MEDS: lisinopriL 40 MG TABLET PO (11:05)
[2021-09-30] MEDS: DULoxetine HCl 60 MG CAPSULE.DR PO (11:05)
[2021-09-30] MEDS: acetaZOLAMIDE 250 MG TABLET PO (11:05)
[2021-09-30] MEDS: Furosemide 40 MG/4 ML VIAL IVPUSH (11:06)
--- NOTE | 2021-09-30 12:00 | MHC.CLN ---
F/U PT WITH INCREASED NUTRITION RISK R/T PRESSURE INJURIES SEE FULL CLINICAL NUTRITION ASSESSMENT DATED 09/25/21 PO INTAKE 100% X 6 MEALS DIET RX: 1800DM CARDIAC-RECOMMEND INCREASING TO 2200DM DIET TO PROMOTE WOUND HEALING RECOMMEND ADDING ENSURE MAX BID TO INCREASE PO PROTEIN INTAKE AND PROMOTE WOUND HEALING SUPP TO PROVIDE 300KCALS, 60G PROTEIN MONITOR PO INTAKE AND SUPPLEMENT ACCEPTANCE CLOSELY
[2021-09-30] MEDS: Enoxaparin Sodium 40 MG/0.4 ML SYRINGE SUBCUT (12:22)
[2021-09-30] MEDS: Insulin Lispro 100 UNIT/ML 3 ML VIAL SUBCUT (12:23)
--- NOTE | 2021-09-30 13:03 | MHC.CM.PN ---
Patient has been medically cleared for dc to STR/SNF today at 5 PM to [facility], via [facility] .Second IMM addressed with Patient and original was given to him and a copy has been placed on the chart.Patient is aware of and in agreement with the dc plan. CM attempted to inform Sister/HCP/Barbara @ [phone] but no one answered and there was not an opportunity to leave a message.
== END 2021-09-30 17:42 | disposition skilled nursing facility (03) | DRG 811 ==
LOC: HO.ED 18:57 → HO.EDOVER 22:02 → HO.IMC 09-24 11:22
PROVIDERS: Emergency Medicine; Internal Medicine; Nurse Practitioner Family; Physician Assistant Medical; Admitting Provider Hospitalist; Emergency Provider Emergency Medicine Emergency Medical Services; PCP Nurse Practitioner Family; Visit Provider Nurse Practitioner Acute Care
PROC: 0DJ08ZZ Inspection of Upper Intestinal Tract, Via Natural or Artificial Opening Endoscopic (ICD-10-PCS; CPT 43235; principal; 2021-09-28 12:50)
DX: D64.9 Anemia, unspecified (principal); J96.01 Acute respiratory failure with hypoxia; J96.02 Acute respiratory failure with hypercapnia; I50.33 Acute on chronic diastolic (congestive) heart failure; E66.2 Morbid (severe) obesity with alveolar hypoventilation; Z68.41 Body mass index [BMI] 40.0-44.9, adult; I11.0 Hypertensive heart disease with heart failure; F17.210 Nicotine dependence, cigarettes, uncomplicated; Z71.6 Tobacco abuse counseling; F32.A Depression, unspecified; E78.5 Hyperlipidemia, unspecified; Z99.81 Dependence on supplemental oxygen; K44.9 Diaphragmatic hernia without obstruction or gangrene; K29.80 Duodenitis without bleeding; K26.9 Duodenal ulcer, unspecified as acute or chronic, without hemorrhage or perforation; L89.152 Pressure ulcer of sacral region, stage 2; I25.2 Old myocardial infarction; I25.10 Atherosclerotic heart disease of native coronary artery without angina pectoris; Z20.822 Contact with and (suspected) exposure to COVID-19; Z95.5 Presence of coronary angioplasty implant and graft; Z79.84 Long term (current) use of oral hypoglycemic drugs; Z79.899 Other long term (current) drug therapy
CPT/HCPCS: 36415; 36430; 36600; 70450; 71046; 74177; 76705; 80048; 80076; 82140; 82272; 82607; 82728; 82746; 82803; 82947; 83540; 83615; 83880; 84484; 85025; 85027; 85610; 85730; 86850; 86900; 86901; 86923; 87635; 88305; 88342; 93005; 93306; 94660; 97162; 97530; 99285; J1650; J1940; J2250; P9016; Q9957; Q9967

== ENCOUNTER 2021-10-01 06:44 | Outpatient (REF) | payer MEDICARE, SELFPAY ==
[2021-10-01 06:49] LABS: MANUAL DIFF FLAG NO
[2021-10-01 07:27] LABS: Basophils Absolute Auto 0.1 X10*3/uL (0.0-0.2); Basophils Percent Auto 0.6 % (0-2); Eosinophils Absolute Auto 0.3 X10*3/uL (0.0-0.4); Hematocrit 30.1 % (42.0-52.0); Hemoglobin 9.1 g/dl (14.0-18.0); Imm Gran Abs Auto 0.02 X10*3/uL (0.00-0.03); Imm Gran Pct Auto 0.2 % (0.0-0.4); Lymphocytes Absolute Auto 2.2 X10*3/uL (1.2-4.9); Lymphocytes Percent Auto 25.9 % (20-40); Mean Corpuscular HGB Conc 30.2 g/dl (31.0-36.0); Mean Corpuscular Hemoglobin 26.5 pg (27.0-33.0); Mean Corpuscular Volume 87.5 fL (80.0-98.0); Mean Platelet Volume 11.4 fL (9.4-12.4); Monocytes Absolute Auto 0.8 X10*3/uL (0.1-1.2); Neutrophils Percent Auto 60.3 % (45-73); Platelet Count 262 X10*3/uL (160-400); Red Blood Count 3.44 X10*6/uL (4.60-5.80); Red Cell Distribution Width 18.7 % (11.0-16.0); White Blood Count 8.3 X10*3/uL (4.8-10.8)
[2021-10-01 07:54] LABS: Alanine Aminotransferase 18 U/L (0-40); Albumin Level 2.8 g/dL (3.5-5.0); Alkaline Phosphatase 71 U/L (39-117); Anion Gap 7 (12-20); Aspartate Amino Transferase 25 U/L (5-37); Bilirubin Total 0.6 mg/dL (0.0-1.0); Blood Urea Nitrogen 47 mg/dL (9-16); Calcium 9.1 mg/dL (8.4-10.2); Carbon Dioxide 32 mmol/L (22-29); Chloride 99 mmol/L (96-108); Estimated Glomerular Filt Rate > 60; Glucose Random 116 mg/dL (60-115); Potassium 3.8 mmol/L (3.3-5.1); Sodium 134 mmol/L (135-145); Total Protein 5.8 g/dL (6.5-8.0)
== END 2021-10-01 06:45 | disposition home or self-care (01) ==
LOC: HO.MMNH2L 06:44
PROVIDERS: Visit Provider Family Medicine
DX: J44.9 Chronic obstructive pulmonary disease, unspecified (principal); I10 Essential (primary) hypertension; E11.9 Type 2 diabetes mellitus without complications
CPT/HCPCS: 36415; 80053; 85025

== ENCOUNTER 2021-10-15 11:07 | Outpatient (REF) | payer MEDICARE, SELFPAY ==
[2021-10-13 06:23] LABS: MANUAL DIFF FLAG NO
[2021-10-13 06:50] LABS: Basophils Percent Auto 0.3 % (0-2); Eosinophils Absolute Auto 0.3 X10*3/uL (0.0-0.4); Eosinophils Percent Auto 3.3 % (0-4); Hematocrit 30.3 % (42.0-52.0); Hemoglobin 9.4 g/dl (14.0-18.0); Imm Gran Abs Auto 0.04 X10*3/uL (0.00-0.03); Imm Gran Pct Auto 0.4 % (0.0-0.4); Lymphocytes Absolute Auto 2.7 X10*3/uL (1.2-4.9); Lymphocytes Percent Auto 28.4 % (20-40); Mean Corpuscular Hemoglobin 26.3 pg (27.0-33.0); Mean Corpuscular Volume 84.6 fL (80.0-98.0); Mean Platelet Volume 10.4 fL (9.4-12.4); Monocytes Absolute Auto 0.7 X10*3/uL (0.1-1.2); Monocytes Percent Auto 7.2 % (2-11); Neutrophils Absolute Auto 5.8 x10*3/uL (2.0-8.3); Neutrophils Percent Auto 60.4 % (45-73); Platelet Count 415 X10*3/uL (160-400); Red Blood Count 3.58 X10*6/uL (4.60-5.80); Red Cell Distribution Width 18.6 % (11.0-16.0); White Blood Count 9.7 X10*3/uL (4.8-10.8)
[2021-10-13 07:39] LABS: Anion Gap 15 (12-20); Blood Urea Nitrogen 22 mg/dL (9-16); Calcium 9.2 mg/dL (8.4-10.2); Carbon Dioxide 27 mmol/L (22-29); Chloride 96 mmol/L (96-108); Estimated Glomerular Filt Rate > 60; Glucose Random 99 mg/dL (60-115); Potassium 3.9 mmol/L (3.3-5.1); Sodium 134 mmol/L (135-145)
== END 2021-10-15 11:08 | disposition home or self-care (01) ==
LOC: HO.MMNH2L 11:07
PROVIDERS: Visit Provider Family Medicine
DX: E11.9 Type 2 diabetes mellitus without complications (principal); D64.9 Anemia, unspecified
CPT/HCPCS: 36415; 80048; 85025

== ENCOUNTER 2021-10-15 11:19 | Outpatient (REF) | payer MEDICARE, SELFPAY ==
[2021-10-05 06:49] LABS: MANUAL DIFF FLAG NO
[2021-10-05 07:05] LABS: Basophils Absolute Auto 0.1 X10*3/uL (0.0-0.2); Basophils Percent Auto 0.5 % (0-2); Eosinophils Absolute Auto 0.2 X10*3/uL (0.0-0.4); Eosinophils Percent Auto 2.6 % (0-4); Hematocrit 31.7 % (42.0-52.0); Hemoglobin 9.9 g/dl (14.0-18.0); Imm Gran Abs Auto 0.02 X10*3/uL (0.00-0.03); Imm Gran Pct Auto 0.2 % (0.0-0.4); Lymphocytes Absolute Auto 2.3 X10*3/uL (1.2-4.9); Lymphocytes Percent Auto 24.6 % (20-40); Mean Corpuscular HGB Conc 31.2 g/dl (31.0-36.0); Mean Corpuscular Hemoglobin 26.5 pg (27.0-33.0); Mean Corpuscular Volume 84.8 fL (80.0-98.0); Monocytes Absolute Auto 0.9 X10*3/uL (0.1-1.2); Monocytes Percent Auto 9.8 % (2-11); Neutrophils Absolute Auto 5.8 x10*3/uL (2.0-8.3); Neutrophils Percent Auto 62.3 % (45-73); Platelet Count 325 X10*3/uL (160-400); Red Blood Count 3.74 X10*6/uL (4.60-5.80); Red Cell Distribution Width 18.4 % (11.0-16.0); White Blood Count 9.4 X10*3/uL (4.8-10.8)
[2021-10-05 07:13] LABS: Anion Gap 11 (12-20); Blood Urea Nitrogen 37 mg/dL (9-16); Calcium 9.3 mg/dL (8.4-10.2); Carbon Dioxide 32 mmol/L (22-29); Chloride 96 mmol/L (96-108); Estimated Glomerular Filt Rate > 60; Glucose Random 100 mg/dL (60-115); Potassium 3.7 mmol/L (3.3-5.1); Sodium 135 mmol/L (135-145)
== END 2021-10-15 11:20 | disposition home or self-care (01) ==
LOC: HO.MMNH2L 11:19
PROVIDERS: Visit Provider Family Medicine
DX: E11.9 Type 2 diabetes mellitus without complications (principal); I10 Essential (primary) hypertension; J44.9 Chronic obstructive pulmonary disease, unspecified
CPT/HCPCS: 36415; 80048; 85025

== ENCOUNTER 2021-10-19 05:00 | Outpatient (REF) | payer MEDICARE, SELFPAY | END 2021-10-19 05:01 | disposition home or self-care (01) | LOC: HO.MMNH2L 05:00 | PROVIDERS: Visit Provider Family Medicine | DX: Z13.89 Encounter for screening for other disorder (principal) ==

== ENCOUNTER 2021-11-01 13:31 | Emergency (ER) | payer MEDICARE, SELFPAY ==
[2021-11-01] VITALS (7 sets, daily range): BP systolic 99–127; BP diastolic 62–82; PULSE 66–89; RESP 16–18; TEMP 36–36.7; O2SAT 93–98; BMI 37.5
--- NOTE | ~2021-11-01 | XR_ITS ---
EXAMINATION: BILATERAL KNEE. CLINICAL INFORMATION: Acute on chronic knee pain COMPARISON: None TECHNIQUE: 4 views each knee. FINDINGS: Left knee: There is severe loss of medial and mild to moderate loss of lateral and patellofemoral compartment joint space with periarticular spurring. There are no loose bodies. There is small suprapatellar joint effusion. No bony erosive changes or fracture. Right knee: There is severe loss of medial and patellofemoral compartment joint space with periarticular spurring. No fracture, loose bodies or bony erosive changes. The soft tissues are normal. XR/XR knee RT 4V IMPRESSION: Degenerative arthritic changes bilateral knee medial and patellar femoral compartment with small suprapatellar joint effusion. No visible acute fracture or dislocation seen.
--- NOTE | ~2021-11-01 | XR_ITS ---
EXAMINATION: BILATERAL KNEE. CLINICAL INFORMATION: Acute on chronic knee pain COMPARISON: None TECHNIQUE: 4 views each knee. FINDINGS: Left knee: There is severe loss of medial and mild to moderate loss of lateral and patellofemoral compartment joint space with periarticular spurring. There are no loose bodies. There is small suprapatellar joint effusion. No bony erosive changes or fracture. Right knee: There is severe loss of medial and patellofemoral compartment joint space with periarticular spurring. No fracture, loose bodies or bony erosive changes. The soft tissues are normal. XR/XR knee LT 4V IMPRESSION: Degenerative arthritic changes bilateral knee medial and patellar femoral compartment with small suprapatellar joint effusion. No visible acute fracture or dislocation seen.
[2021-11-01] MEDS: oxyCODONE HCl Immed Release 5 MG TABLET 10 MG PO (14:30)
[2021-11-01] MEDS: Ketorolac Tromethamine 30 MG/ML VIAL IM (14:31)
--- NOTE | 2021-11-01 16:05 | PHA.MEDREC ---
Pharmacy Consult ? Medication Reconciliation Pharmacy has completed the medication reconciliation.
--- NOTE | 2021-11-01 16:43 | ED.LOWEXIN ---
HPI - Extremity Injury (Lower) General Chief Complaint: Extremity Injury, Lower Stated Complaint: KNEE PAIN Time Seen by Provider: 11/01/21 14:09 Source: patient and EMS Mode of arrival: EMS History of Present Illness HPI Narrative: 66-year-old male with past medical history of CHF, bilateral edema, CHD, diabetes, hypertension, morbid obesity, UT, sleep apnea, respiratory failure with hypoxia and hypercapnia, presenting to the ED complaining of acute on chronic bilateral knee pain. States at baseline uses crutches x years to take weight off of his knees, however has been unable to get around on crutches over the past couple days due to increasing pain. Takes oxycodone and morphine at home without relief. Denies injury, trauma, fall, numbness, tingling, weakness, back pain, urine incontinence/retention, fever Onset (ago): day(s) Related Data Home Medications Medication Instructions Recorded Confirmed atorvastatin 80 mg tablet 80 mg PO BEDTIME 09/05/21 11/01/21 metformin 500 mg tablet 500 mg PO BIDWM 09/05/21 11/01/21 metoprolol tartrate 25 mg tablet 12.5 mg PO BID 09/05/21 11/01/21 morphine 15 mg tablet,extended 15 mg PO BID 09/05/21 11/01/21 release oxycodone 5 mg tablet 5 mg PO Q6H PRN moderate pain 09/05/21 11/01/21 duloxetine 30 mg capsule,delayed 30 mg PO BEDTIME 09/23/21 11/01/21 release duloxetine 30 mg capsule,delayed 60 mg PO DAILY 09/23/21 11/01/21 release Previous Rx's Medication Instructions Recorded bumetanide 2 mg tablet 2 mg PO DAILY #30 tabs 09/29/21 empagliflozin 10 mg tablet 10 mg PO DAILY #30 tabs 09/29/21 (Jardiance) omeprazole 40 mg capsule,delayed 40 mg PO DAILY@0630 #30 caps 09/29/21 release spironolactone 25 mg tablet 25 mg PO DAILY #30 tabs 09/29/21 Allergies Allergy/AdvReac Type Severity Reaction Status Date / Time No Known Allergies Allergy Unverified 01/31/20 14:57 [No Known Allergies*] Review of Systems Review of Systems: Constitutional: No Fever, No Chills ENT/Mouth: No Ear Pain, No Nasal Congestion, No Sinus Pain, No Hoarseness, No sore throat, No Rhinorrhea, No Swallowing Difficulty Cardiovascular: No Chest Pain, No SOB Respiratory: No Cough, No Sputum, No Wheezing Gastrointestinal: No Nausea, No Vomiting, No Diarrhea, No Constipation, No Abdominal pain Genitourinary: No Dysuria, No Urinary Frequency, No Hematuria, No Urinary Incontinence/retention, No Urgency, No Flank Pain Musculoskeletal: + joint pain, No Myalgias, No Joint Swelling Skin: No Skin Lesions, No rash Neuro: No Weakness, No Numbness, No Paresthesias Yes all other systems are reviewed and are negative [facility] Past Medical History Attestation statement: The following information was validated with the patient. Medical History Bilateral lower extremity edema CHF (congestive heart failure) Congestive heart failure Congestive heart failure (CHF) Coronary artery disease Decompensated heart failure Diabetes Duodenum disorder Hypertension Hypoventilation syndrome Lower extremity edema Morbid obesity Morbid obesity Myocardial infarction Normocytic anemia FARSHAD (obstructive sleep apnea) Respiratory failure with hypoxia and hypercapnia Respiratory failure with hypoxia and hypercapnia Unspecified skin changes Surgical History S/P coronary artery stent placement Family History Family History Other No family history of coronary artery disease Social History Social History Household Members: None Housing: House Do you presently have visiting nurse or other home services: No Alcohol intake: never Patient Tobacco Use Status: Current everyday Tobacco user Tobacco use type: Cigarette Cigarette Packs Per Day: 0.5 Cigarettes Per Day: 10.0 Years Smoked: 55 Smoked in Last 30 Days: Yes e-Cigarette/Vaping Use: Never Used Use of substances other than those prescribed or required for medical reasons: No Advance Directives: No Advance Directives Information Provided: No service: No Current occupational status: disabled Physical Exam Vital Signs: Vital Signs: Last Vital Signs Temp 98.2 F 11/03/21 05:10 Pulse 90 11/03/21 07:39 Resp 18 11/03/21 07:39 BP 128/75 11/03/21 07:39 Pulse Ox 98 11/03/21 07:39 O2 Del Method 11/03/21 05:10 BMI result Body Mass Index 37.5 Const: General: cooperative, healthy appearing and no acute distress Orientation/consciousness: patient oriented x3 Limitations: no limitations HEENT: Head: Yes normal to inspection and Yes atraumatic Ears: hearing grossly normal bilaterally General nose exam: Normal external nose present Face and sinus: Yes normal facial exam Eyes: General: appearance normal, both eyes and all related structures EOM: EOMs intact bilaterally Neck: Neck: Yes normal visual inspection and Yes no meningeal signs Resp: Effort & Inspection: normal respiratory effort and no respiratory distress Auscultation: clear to auscultation bilaterally Cardio: Rate: regular rate Heart sounds: S1 normal heart sound present and S2 normal heart sound present Peripheral pulses: dorsalis pedis present GI: Inspection: Yes normal to inspection Skin: Rashes: no rashes Wounds: no wounds Neuro: General: patient oriented x3, tone normal and no meningeal signs Extrem: Other: Mild bilateral knee swelling appreciated. + bilateral diffuse tenderness with decreased flexion secondary to pain. Neurovascularly intact distally. No erythema/ecchymosis or crepitus. Bilateral lower extremity venous stasis changes without evidence of acute cellulitis. General: Yes no pedal edema Course Course Course Narrative: XR knee RT 4V/XR knee LT 4V IMPRESSION: Degenerative arthritic changes bilateral knee medial and patellar femoral compartment with small suprapatellar joint effusion. ? No visible acute fracture or dislocation seen.? -1650--position observation initiated as patient needs more time to be evaluated by Physical therapy and Case Management. -190--ED care transferred to [facility]OL[facility] pending PT/case management MDM - Extremity Injury (Lower) MDM Narrative Medical decision making narrative: 66-year-old male with past medical history of CHF, bilateral edema, CHD, diabetes, hypertension, morbid obesity, UT, sleep apnea, respiratory failure with hypoxia and hypercapnia, presenting to the ED complaining of acute on chronic bilateral knee pain. On exam vital signs stable, NAD, physical exam as above. Concern for acute on chronic arthritic pain. No evidence of infection, low concern for fracture/dislocation or DVT Plan: X-rays, PT/case management consult for STR Medical Records Attestation: I reviewed the patient's medical records. Lab Data Attestation: I reviewed the patient's lab results. Result diagrams: 11/02/21 16:20 Labs: Lab Results 11/02/21 11/02/21 11/02/21 Range/Units 07:12 16:20 17:46 Creatinine 1.73 H 1.55 H (0.5-1.4) mg/dL Estim Creat Clear Calc 49.6 55.4 Estimated GFR 39 45 COVID-19 (ENZO) Negative (Negative) COVID-19 Clin Com See Note Discharge Plan Discharge Clinical Impression: Acute bilateral knee pain Patient Disposition: Still a Patient Prescriptions: No Action metformin 500 mg tablet 500 mg PO BIDWM atorvastatin 80 mg tablet 80 mg PO BEDTIME morphine 15 mg tablet extended release 15 mg PO BID oxycodone 5 mg tablet 5 mg PO Q6H PRN (Reason: moderate pain) metoprolol tartrate 25 mg tablet 12.5 mg PO BID duloxetine 30 mg capsule,delayed release(DR/EC) 60 mg PO DAILY duloxetine 30 mg capsule,delayed release(DR/EC) 30 mg PO BEDTIME omeprazole 40 mg Capsule,Delayed Release(Dr/Ec) 40 mg PO DAILY@0630 Qty: 30 0RF spironolactone 25 mg Tablet 25 mg PO DAILY Qty: 30 0RF Protocol: Hold for SBP< HOLD for SBP < : 90 bumetanide 2 mg tablet 2 mg PO DAILY Qty: 30 0RF Jardiance 10 mg tablet 10 mg PO DAILY Qty: 30 0RF
[2021-11-01] MEDS: metFORMIN HCl 500 MG TABLET PO ×2 (17:07→17:15)
[2021-11-01] MEDS: Morphine Sulfate ER 15 MG TABLET.ER PO (21:24)
[2021-11-01] MEDS: Metoprolol Tartrate 12.5 MG HALFTAB PO (21:24)
[2021-11-01] MEDS: Atorvastatin Calcium 80 MG TABLET PO (21:24)
[2021-11-01] MEDS: DULoxetine HCl 30 MG CAPSULE.DR PO (21:25)
[2021-11-02] MEDS: Omeprazole 40 MG CAPSULE.DR PO (05:33)
[2021-11-02 05:58] VITALS: BP 116/62; PULSE 70; RESP 16; TEMP 36.6; O2SAT 98
--- NOTE | 2021-11-02 05:59 | PC.NURSE ---
PATIENT SLEPT THROUGHOUT THE NIGHT ,URINAL EMPTY 600 ML .
--- NOTE | 2021-11-02 07:26 | PC.NURSE ---
PT at bedside to see pt
[2021-11-02 07:30] VITALS: BP 116/62; PULSE 70; O2SAT 98
[2021-11-02 07:31] LABS: Creatinine Clr Calc Pharmacy 49.6; Estimated Glomerular Filt Rate 39
[2021-11-02 08:21] VITALS: BP 116/65; PULSE 78; RESP 16; O2SAT 92
[2021-11-02] MEDS: metFORMIN HCl 500 MG TABLET PO ×2 (08:33→17:52)
[2021-11-02] MEDS: DULoxetine HCl 60 MG CAPSULE.DR PO (08:34)
[2021-11-02] MEDS: Bumetanide 1 MG TABLET 2 MG PO (08:34)
[2021-11-02] MEDS: Morphine Sulfate ER 15 MG TABLET.ER PO ×2 (08:34→20:07)
[2021-11-02] MEDS: Spironolactone 25 MG TABLET PO (08:35)
[2021-11-02] MEDS: Metoprolol Tartrate 12.5 MG HALFTAB PO ×2 (08:35→20:07)
--- NOTE | 2021-11-02 08:39 | PC.NURSE ---
pt resting in bed, reporting 7/10 pain in ERIK knee, reports he wants ketoralac because thats the only thing that works for his pain. pt medicated with morphine and informed he has oxycodone PRN available.
[2021-11-02] MEDS: Empagliflozin 10 MG TABLET PO (09:00)
--- NOTE | 2021-11-02 10:14 | MHC.CM.ED ---
Addendum entered by Hannah Britt 11/02/21 12:50: Reapproached pt with STR consideration: pt admits he would not be able to care for self at home as he cannot safely transfer out of bed to chair/bathroom or to prepare his meals. Pt has agreed to a broad STR search. Referrals made: no offers as of yet. Original Note: Received consult for assessment of discharge needs: Pt presents with exacerbation of chronic joint pain impeding mobility. Pt states he resides with a room mate, has [facility] and uses bilateral crutches (for years per pt). Pt relies on friends for transportation needs but does drive when his vehicle is operating. PT jo recommends STR: discussed with pt who declined placement citing that he had been to [facility] in the past and felt STR did nothing for him Pt states if he could d/c to home with an anti inflammatory he would be able function. Discussed with MD: pt has mild STEPHANY with an elevated creatinine. He would not be a candidate for this med. MD to order IVF to assist with renal function. Likely d/c plan is for a return to home with existing VNA services. Pt states his friend will transport. Vaxed w/J&J x1, HCP declined, PCP Alecia Spivey. Re-referred to [facility] for continuation of services
[2021-11-02] MEDS: oxyCODONE HCl Immed Release 5 MG TABLET PO ×2 (10:17→17:51)
[2021-11-02] MEDS: 0.9 % Sodium Chloride 1,000 ML 999 ML IV (10:23)
--- NOTE | 2021-11-02 11:49 | PC.NURSE ---
pt requests toradol, informed of his elevated creatinine and the inability to give him this medication. pt reports he is still in pain. reports that he better be d/c with something for the pain otherwise hes just going to come right back . pt reports thats what I came here for in the first place . pt continues to refuse CM referral for rehab
[2021-11-02 14:08] VITALS: BP 124/75; PULSE 81; RESP 16; O2SAT 96
[2021-11-02 16:44] LABS: Creatinine Clr Calc Pharmacy 55.4; Estimated Glomerular Filt Rate 45
[2021-11-02 18:36] LABS: COVID-19 Test Negative (Negative)
--- NOTE | 2021-11-02 18:39 | MHC.CM.ED ---
Addendum entered by Andreina Mora 11/02/21 18:50: ED MD aware of patient requests for Lodine and Torodol and is aware that they cannot order it for him because of his elevated kidney functions. Pt agreeable to STR, but feels that medication would be more helpful. Awaiting insurance authorization. CM to follow for d/c needs. Original Note: CM met with patient to discuss d/c plan. Pt has been accepted at [facility]. Pt is agreeable to STR. Aware that he will remain in the ED until the insurance approves his STR. Pt has [facility]NE. Authorization can take 24-48 hours. Pt is very concerned that he would feel much better if the doctors would just prescribe his Lodine. He was on it for a while and it worked well for his inflammation. Per pt, his doctor took him off it because of ?Kidney/Liver concerns. Encouraged pt to speak with his primary care doctor, as the emergency room provider will not start a medication like that for him. Covid screen ordered.
[2021-11-02] MEDS: Atorvastatin Calcium 80 MG TABLET PO (20:07)
[2021-11-02] MEDS: DULoxetine HCl 30 MG CAPSULE.DR PO (20:07)
[2021-11-02 20:13] VITALS: BP 124/84; PULSE 96; RESP 18; TEMP 36.6; O2SAT 95
[2021-11-03 00:45] VITALS: BP 122/76; PULSE 94; RESP 18; TEMP 36.3; O2SAT 96
[2021-11-03 05:10] VITALS: BP 117/68; PULSE 78; RESP 18; TEMP 36.8; O2SAT 96
[2021-11-03 06:00] VITALS: RESP 18
[2021-11-03] MEDS: metFORMIN HCl 500 MG TABLET PO (07:36)
[2021-11-03] MEDS: Omeprazole 40 MG CAPSULE.DR PO (07:36)
[2021-11-03] MEDS: Morphine Sulfate ER 15 MG TABLET.ER PO (07:37)
[2021-11-03] MEDS: Spironolactone 25 MG TABLET PO (07:37)
[2021-11-03] MEDS: Bumetanide 1 MG TABLET 2 MG PO (07:37)
[2021-11-03] MEDS: Metoprolol Tartrate 12.5 MG HALFTAB PO (07:38)
[2021-11-03] MEDS: DULoxetine HCl 60 MG CAPSULE.DR PO (07:38)
[2021-11-03 07:39] VITALS: BP 128/75; PULSE 90; RESP 18; O2SAT 98
[2021-11-03] MEDS: Empagliflozin 10 MG TABLET PO (07:40)
--- NOTE | 2021-11-03 07:48 | MHC.CM.ED ---
Patient remains in ER. Anticipate patient will transfer to [facility] when insurance auth is obtained. Continue to monitor for d/c needs.
[2021-11-03 15:34] VITALS: BP 114/64; PULSE 82; RESP 16; TEMP 36.8; O2SAT 99
--- NOTE | 2021-11-03 16:51 | MHC.CM.ED ---
Insurance auth obtained. [facility] booked for transport. Dennis Tavares notified. Pt aware. Will upload ED Summary and discharge note. CM to monitor for d/c needs.
== END 2021-11-03 17:50 ==
PROVIDERS: Emergency Medicine; Physician Assistant; Emergency Provider Emergency Medicine Emergency Medical Services; PCP Nurse Practitioner Family
DX: M25.561 Pain in right knee (principal); M25.562 Pain in left knee; Z20.822 Contact with and (suspected) exposure to COVID-19; Z79.899 Other long term (current) drug therapy
CPT/HCPCS: 36415; 73564; 82565; 87635; 96372; 97162; 99284; J1885

== ENCOUNTER 2021-11-02 05:00 | Outpatient (REF) | payer MEDICARE, SELFPAY | END 2021-11-02 05:01 | disposition home or self-care (01) | LOC: HO.MMNH2L 05:00 | PROVIDERS: Visit Provider Family Medicine | DX: Z13.89 Encounter for screening for other disorder (principal) ==

== ENCOUNTER 2021-11-04 06:14 | Outpatient (REF) | payer MEDICARE, SELFPAY ==
[2021-11-04 06:30] LABS: Hematocrit 34.8 % (42.0-52.0); Hemoglobin 10.9 g/dl (14.0-18.0); Mean Corpuscular HGB Conc 31.3 g/dl (31.0-36.0); Mean Corpuscular Hemoglobin 25.9 pg (27.0-33.0); Mean Corpuscular Volume 82.7 fL (80.0-98.0); Mean Platelet Volume 10.9 fL (9.4-12.4); Platelet Count 420 X10*3/uL (160-400); Red Blood Count 4.21 X10*6/uL (4.60-5.80); Red Cell Distribution Width 18.8 % (11.0-16.0); White Blood Count 10.4 X10*3/uL (4.8-10.8)
[2021-11-04 06:55] LABS: Alanine Aminotransferase 11 U/L (0-40); Albumin Level 3.3 g/dL (3.5-5.0); Alkaline Phosphatase 74 U/L (39-117); Anion Gap 15 (12-20); Aspartate Amino Transferase 22 U/L (5-37); Bilirubin Total 0.5 mg/dL (0.0-1.0); Blood Urea Nitrogen 46 mg/dL (9-16); Calcium 9.9 mg/dL (8.4-10.2); Carbon Dioxide 29 mmol/L (22-29); Chloride 95 mmol/L (96-108); Estimated Glomerular Filt Rate 47; Glucose Random 152 mg/dL (60-115); Potassium 4.7 mmol/L (3.3-5.1); Sodium 134 mmol/L (135-145); Total Protein 7.3 g/dL (6.5-8.0)
== END 2021-11-04 06:15 | disposition home or self-care (01) ==
LOC: HO.MMNH1L 06:14
PROVIDERS: Visit Provider Family Medicine
DX: D64.9 Anemia, unspecified (principal); E11.9 Type 2 diabetes mellitus without complications
CPT/HCPCS: 36415; 80053; 85027

== ENCOUNTER 2021-11-09 06:19 | Outpatient (REF) | payer MEDICARE, SELFPAY ==
[2021-11-09 06:48] LABS: Hematocrit 33.4 % (42.0-52.0); Hemoglobin 10.3 g/dl (14.0-18.0); Mean Corpuscular HGB Conc 30.8 g/dl (31.0-36.0); Mean Corpuscular Hemoglobin 25.9 pg (27.0-33.0); Mean Corpuscular Volume 83.9 fL (80.0-98.0); Mean Platelet Volume 10.7 fL (9.4-12.4); Platelet Count 395 X10*3/uL (160-400); Red Blood Count 3.98 X10*6/uL (4.60-5.80); Red Cell Distribution Width 18.5 % (11.0-16.0); White Blood Count 9.4 X10*3/uL (4.8-10.8)
[2021-11-09 06:53] LABS: Anion Gap 17 (12-20); Blood Urea Nitrogen 68 mg/dL (9-16); Calcium 9.7 mg/dL (8.4-10.2); Carbon Dioxide 26 mmol/L (22-29); Chloride 98 mmol/L (96-108); Estimated Glomerular Filt Rate 31; Glucose Random 120 mg/dL (60-115); Potassium 5.5 mmol/L (3.3-5.1); Sodium 135 mmol/L (135-145)
== END 2021-11-09 06:20 | disposition home or self-care (01) ==
LOC: HO.MMNH1L 06:19
PROVIDERS: Visit Provider Family Medicine
DX: E11.9 Type 2 diabetes mellitus without complications (principal); D64.9 Anemia, unspecified
CPT/HCPCS: 36415; 80048; 85027

== ENCOUNTER 2021-11-17 07:10 | Outpatient (REF) | payer MEDICARE, SELFPAY ==
[2021-11-17 06:43] LABS: Hematocrit 32.9 % (42.0-52.0); Hemoglobin 10.4 g/dl (14.0-18.0); Mean Corpuscular HGB Conc 31.6 g/dl (31.0-36.0); Mean Corpuscular Hemoglobin 26.4 pg (27.0-33.0); Mean Corpuscular Volume 83.5 fL (80.0-98.0); Mean Platelet Volume 10.4 fL (9.4-12.4); Platelet Count 366 X10*3/uL (160-400); Red Blood Count 3.94 X10*6/uL (4.60-5.80); Red Cell Distribution Width 18.5 % (11.0-16.0); White Blood Count 11.4 X10*3/uL (4.8-10.8)
[2021-11-17 06:51] LABS: Anion Gap 14 (12-20); Blood Urea Nitrogen 64 mg/dL (9-16); Calcium 9.6 mg/dL (8.4-10.2); Carbon Dioxide 29 mmol/L (22-29); Chloride 95 mmol/L (96-108); Estimated Glomerular Filt Rate 40; Glucose Random 99 mg/dL (60-115); Potassium 5.2 mmol/L (3.3-5.1); Sodium 133 mmol/L (135-145)
== END 2021-11-17 07:11 | disposition home or self-care (01) ==
LOC: HO.MMNH1L 07:10
PROVIDERS: Visit Provider Family Medicine
DX: D64.9 Anemia, unspecified (principal); E11.9 Type 2 diabetes mellitus without complications
CPT/HCPCS: 36415; 80048; 85027

== ENCOUNTER 2021-11-23 06:42 | Outpatient (REF) | payer MEDICARE, SELFPAY | END 2021-11-23 06:43 | disposition home or self-care (01) | LOC: HO.MMNH1L 06:42 | PROVIDERS: Visit Provider Family Medicine | DX: Z13.89 Encounter for screening for other disorder (principal) ==

== ENCOUNTER 2022-11-04 13:54 | Outpatient (REF) | payer MEDICARE, SELFPAY ==
[2022-11-04 16:04] LABS: Anion Gap 11 (12-20); Blood Urea Nitrogen 24 mg/dL (9-16); Calcium 9.5 mg/dL (8.4-10.2); Carbon Dioxide 25 mmol/L (22-29); Chloride 106 mmol/L (96-108); Estimated Glomerular Filt Rate 44; Glucose Random 89 mg/dL (60-115); Sodium 137 mmol/L (135-145)
[2022-11-04 16:05] LABS: Alanine Aminotransferase 9 U/L (0-40); Alkaline Phosphatase 100 U/L (39-117); Aspartate Amino Transferase 16 U/L (5-37); Bilirubin Total 0.6 mg/dL (0.0-1.0); Total Protein 7.8 g/dL (6.5-8.0)
== END 2022-11-04 13:55 | disposition home or self-care (01) ==
LOC: HO.LAB 13:54
PROVIDERS: Visit Provider Nurse Practitioner Family
DX: I10 Essential (primary) hypertension (principal); E78.2 Mixed hyperlipidemia; E11.9 Type 2 diabetes mellitus without complications; Z12.5 Encounter for screening for malignant neoplasm of prostate
CPT/HCPCS: 36415; 80053

== ENCOUNTER 2023-12-08 21:25 | Emergency (ER) | payer MEDICARE, SELFPAY ==
--- NOTE | ~2023-12-08 | XR_ITS ---
Examination: XR knee RT 2V, XR knee LT 2V Indication: pain Comparison: 11/02/2019 Technique: 2 views of each knee obtained Findings: Left: Small joint effusion. Extensive tricompartmental degenerative changes seen with loss of joint space and subchondral sclerosis more so in the medial compartment. No acute fracture or dislocation seen. Right knee: Small knee joint effusion. Prominent degenerative changes are seen again more so in the medial compartment with more subchondral sclerosis and osteophyte formation. No acute fracture or dislocation. Prominent vascular calcification seen. XR/XR knee LT 2V Impression: Chronic appearing and degenerative changes bilaterally. No acute fracture or dislocation. Small bilateral joint effusions.
--- NOTE | ~2023-12-08 | XR_ITS ---
Examination: XR knee RT 2V, XR knee LT 2V Indication: pain Comparison: 11/02/2019 Technique: 2 views of each knee obtained Findings: Left: Small joint effusion. Extensive tricompartmental degenerative changes seen with loss of joint space and subchondral sclerosis more so in the medial compartment. No acute fracture or dislocation seen. Right knee: Small knee joint effusion. Prominent degenerative changes are seen again more so in the medial compartment with more subchondral sclerosis and osteophyte formation. No acute fracture or dislocation. Prominent vascular calcification seen. XR/XR knee RT 2V Impression: Chronic appearing and degenerative changes bilaterally. No acute fracture or dislocation. Small bilateral joint effusions.
--- NOTE | ~2023-12-08 | XR_ITS ---
EXAMINATION: XR CHEST CLINICAL INFORMATION: CHF COMPARISON: 09/23/2021 TECHNIQUE: Frontal view of the chest was obtained. FINDINGS: The lungs are clear with no focal consolidation. No evidence of pneumothorax, pulmonary edema, or significant pleural effusions. Cardiac size is within normal limits. Calcification is present at the aortic arch. No acute osseous findings are seen. XR/XR chest 1V IMPRESSION: No acute cardiopulmonary findings.
[2023-12-08 21:32] VITALS: BP 97/74; PULSE 89; RESP 18; TEMP 36.8; O2SAT 100
[2023-12-08 21:38] VITALS: BMI 35.0
--- NOTE | 2023-12-08 23:35 | ED_ITS ---
HPI - General Adult General Chief complaint: Extremity Injury, Lower Stated complaint: unable to feel legs Time Seen by Provider: 12/08/23 23:10 Source: patient Mode of arrival: ambulatory Limitations: no limitations History of Present Illness ED Provider: rebecca ARTEAGA narrative: Patient is 68 years old with history of chronic obstructive sleep apnea not on CPAP or oxygen, morbid obesity hypoventilation syndrome with history of congestive heart failure diabetes hypertension bilateral knee osteoarthritis comes here as for last 2 weeks not able to ambulate because of pain in the knee patient has been taking oxycodone for last 17 years for the same been followed by cloth mercerizer operator to clear him for surgery and still has not seen orthopedics lately also patient had multiple steroid shots in the past and bilateral knees patient also feel more depressed as her 2 cats at age of 18 patient lives alone looking for some help Related Data Home Medications ?Medication ?Instructions ?Recorded ?Confirmed atorvastatin 80 mg tablet 80 mg PO BEDTIME 09/05/21 12/09/23 metformin 500 mg tablet 500 mg PO BIDWM 09/05/21 12/09/23 morphine 15 mg tablet,extended 15 mg PO BID 09/05/21 12/09/23 release oxycodone 5 mg tablet 5 mg PO Q6H PRN moderate pain 09/05/21 12/09/23 duloxetine 30 mg capsule,delayed 30 mg PO BEDTIME 09/23/21 12/09/23 release diclofenac sodium 50 mg 50 mg PO MOWEFR 12/09/23 12/09/23 tablet,delayed release Allergies Allergy/AdvReac Type Severity Reaction Status Date / Time No Known Allergies Allergy Unverified 12/08/23 21:43 [No Known Allergies*] Review of Systems 2 Review of Systems: Yes all other systems are reviewed and are negative [facility] Past Medical History Medical History Duodenum disorder Respiratory failure with hypoxia and hypercapnia FARSHAD (obstructive sleep apnea) Hypoventilation syndrome Unspecified skin changes Decompensated heart failure Congestive heart failure (CHF) Normocytic anemia Respiratory failure with hypoxia and hypercapnia Morbid obesity Lower extremity edema Congestive heart failure Myocardial infarction Coronary artery disease Bilateral lower extremity edema Diabetes Morbid obesity Hypertension CHF (congestive heart failure) Surgical History S/P coronary artery stent placement Family History Family History Other No family history of coronary artery disease Social History Social History Household Members: None Housing: House Do you presently have visiting nurse or other home services: No Alcohol intake: never Patient Tobacco Use Status: Current everyday Tobacco user Tobacco use type: Cigarette Cigarette Packs Per Day: 0.5 Cigarettes Per Day: 10.0 Years Smoked: 55 e-Cigarette/Vaping Use: Never Used Advance Directives: No Advance Directives Information Provided: Yes Do you have a plan to hurt others: No Plan service: No Current occupational status: disabled Physical Exam ED Vital Signs: Vital Signs - 24 hr 12/08/23 21:32 12/09/23 02:07 12/09/23 06:21 Temperature 98.2 F Pulse Rate 89 88 77 Respiratory Rate 18 16 16 Blood Pressure 97/74 122/79 137/82 Pulse Oximetry 100 95 96 Oxygen Delivery Method Room Air Room Air Room Air BMI result Body Mass Index 35.0 Appearance: Alert. Oriented X3. No acute distress. Obese unkept Eyes: PERRLA, No Nystagmus ENT: Pharynx normal. Oral Mucosa moist Neck: Normal inspection. Neck supple. CVS: Normal heart rate and rhythm. Pulses normal. Respiratory: No respiratory distress. Equal air entry bilateral, no wheezing/rales/rhonchi Abdomen: Soft and nontender. Bowel sounds are present, no mass palpable, no CVA tenderness Skin: Skin warm and dry. Normal skin color. Normal skin turgor. Extremities: No lower extremity edema. No calf tenderness bilateral knee diffuse swelling tenderness joint effusion+ Neuro: Oriented X 3. No motor deficit. No sensory deficit.No cerebellar signs , cranial nerves II-XII intact Medications Administered Generic Name Dose Route Start Last Admin Trade Name Freq PRN Reason Stop Dose Admin Atorvastatin Calcium 80 mg 12/09/23 01:15 12/09/23 01:31 Atorvastatin Calcium 80 Mg Tablet PO 80 mg BEDTIME ALBERT Administration Duloxetine HCl 30 mg 12/09/23 01:15 12/09/23 01:31 Duloxetine Hcl 30 Mg Capsule.Dr PO 30 mg BEDTIME ALBERT Administration Metformin HCl 500 mg 12/09/23 01:15 12/09/23 01:31 Metformin Hcl 500 Mg Tablet PO 500 mg BIDWM ALBERT Administration Discontinued Medications Generic Name Dose Route Start Last Admin Trade Name Abby PRN Reason Stop Dose Admin Ketorolac Tromethamine 60 mg 12/08/23 23:44 12/08/23 23:53 Ketorolac Tromethamine 60 Mg/2 Ml Vial IM 12/08/23 23:45 60 mg ONCE ONE Administration Medical Decision Making Medical Decision Making [facility] Narrative: Patient with bilateral knee osteoarthritis unable to ambulate at home because of pain lives alone looking for rehab will consult case management Lab Data [facility] Lab Attestation statement: I reviewed the patient's lab results. 12/09/23 00:05 12/09/23 00:05 Labs: Lab Results 12/09/23 12/09/23 Range/Units 00:04 00:05 WBC 8.5 (4.8-10.8) X10*3/uL RBC 4.66 (4.60-5.80) X10*6/uL Hgb 13.2 L D (14.0-18.0) g/dl Hct 41.3 L D (42.0-52.0) % MCV 88.6 (80.0-98.0) fL MCH 28.3 (27.0-33.0) pg MCHC 32.0 (31.0-36.0) g/dl RDW 14.1 (11.0-16.0) % Plt Count 298 (160-400) X10*3/uL MPV 9.5 (9.4-12.4) fL Immature Gran % (Auto) 0.4 (0.0-0.4) % Neut % (Auto) 70.0 (45-73) % Lymph % (Auto) 20.3 (20-40) % [place] % (Auto) 5.4 (2-11) % Eos % (Auto) 3.2 (0-4) % Baso % (Auto) 0.7 (0-2) % Lymph # (Auto) 1.7 (1.2-4.9) X10*3/uL [place] # (Auto) 0.5 (0.1-1.2) X10*3/uL Eos # (Auto) 0.3 (0.0-0.4) X10*3/uL Baso # (Auto) 0.1 (0.0-0.2) X10*3/uL Abs Immat Gran (auto) 0.03 (0.00-0.03) X10*3/uL Absolute Neuts (auto) 6.0 (2.0-8.3) x10*3/uL Absolute Nucleated RBC 0.000 (0.0-0.012) X10*3/uL Nucleated RBC % (auto) 0.0 (0.0-0.2) /100WBC VBG pH 7.34 (7.32-7.43) VBG pCO2 40 mmHg VBG pO2 56 mmHg VBG HCO3 22 (22-26) mmol/L VBG O2 Saturation 85.0 % VBG Base Excess -3.3 mmol/L Sodium 135 (135-145) mmol/L Potassium 4.9 (3.3-5.1) mmol/L Chloride 103 (96-108) mmol/L Carbon Dioxide 19 L (22-29) mmol/L Anion Gap 18 (12-20) BUN 33 H (9-16) mg/dL Creatinine 1.48 H (0.5-1.4) mg/dL Estim Creat Clear Calc 54.3 Estimated GFR 47 Random Glucose 89 (60-115) mg/dL Calcium 10.3 H D (8.4-10.2) mg/dL Magnesium 1.9 (1.6-2.6) mg/dL Total Bilirubin 0.7 (0.0-1.0) mg/dL AST 15 (5-37) U/L ALT 9 (0-40) U/L Alkaline Phosphatase 118 H (39-117) U/L Total Protein 7.8 (6.5-8.0) g/dL Albumin 4.2 (3.5-5.0) g/dL Independent Interpretation I performed an independent interpretation of an: EKG and Plain X-Ray Interpretation: Normal sinus rhythm heart rate 71 beats per minute PACs no acute STT wave changes no acute ischemia Radiology Impression Discussion of test interpretation with radiology: I have reviewed the radiologist's reading. Radiologist Impression: CT/CT knee RT wo IV con IMPRESSION: Subcutaneous fluid collection in the anterolateral aspect of the knee measuring up to approximately 8.5 x 3.4 x 11.3 cm, which may represent abscess in the proper clinical setting. Surrounding subcutaneous edema and skin thickening, and possible tract extending to the anterolateral skin surface. Of note, there are some more hyperdense components within the inferior aspect of the collection which could reflect more complex fluid versus blood products. Discharge Plan Discharge Clinical Impression: Knee osteoarthritis, Physical deconditioning Patient Disposition: Still a Patient Prescriptions: No Action metformin 500 mg tablet 500 mg PO BIDWM atorvastatin 80 mg tablet 80 mg PO BEDTIME morphine 15 mg tablet extended release 15 mg PO BID oxycodone 5 mg tablet 5 mg PO Q6H PRN (Reason: moderate pain) duloxetine 30 mg capsule,delayed release(DR/EC) 30 mg PO BEDTIME diclofenac sodium 50 mg tablet,delayed release (DR/EC) 50 mg PO MOWEFR Print Language: [place]
[2023-12-08] MEDS: Ketorolac Tromethamine 60 MG/2 ML VIAL IM (23:53)
--- NOTE | 2023-12-08 23:55 | ECG_ITS ---
Test Reason : FALL Blood Pressure : / mmHG Vent. Rate : 071 BPM Atrial Rate : 071 BPM P-R Int : 250 ms QRS Dur : 078 ms QT Int : 378 ms P-R-T Axes : 037 029 065 degrees QTc Int : 410 ms Artifact in tracing Sinus rhythm with 1st degree A-V block with Premature atrial complexes Nonspecific T wave abnormality Abnormal ECG When compared with ECG of 23-SEP-2021 16:46, Premature atrial complexes are now Present LA interval has increased Nonspecific T wave abnormality no longer evident in Inferior leads Referred By: Cm Jenkins Electronically Signed By:LINDSAY LIMA
[2023-12-09 00:09] LABS: MANUAL DIFF FLAG NO
--- NOTE | 2023-12-09 00:12 | PC.NURSE ---
called [facility] they will fax med rec over
[2023-12-09 00:15] LABS: VBG Base Excess -3.3 mmol/L; VBG HCO3 22 mmol/L (22-26); VBG pCO2 40 mmHg; VBG pH 7.34 (7.32-7.43); VBG pO2 56 mmHg
[2023-12-09 00:19] LABS: Venous Blood Gas Refer to POC result
[2023-12-09 00:32] LABS: Basophils Absolute Auto 0.1 X10*3/uL (0.0-0.2); Basophils Percent Auto 0.7 % (0-2); Eosinophils Absolute Auto 0.3 X10*3/uL (0.0-0.4); Eosinophils Percent Auto 3.2 % (0-4); Hematocrit 41.3 % (42.0-52.0); Hemoglobin 13.2 g/dl (14.0-18.0); Imm Gran Abs Auto 0.03 X10*3/uL (0.00-0.03); Imm Gran Pct Auto 0.4 % (0.0-0.4); Lymphocytes Absolute Auto 1.7 X10*3/uL (1.2-4.9); Lymphocytes Percent Auto 20.3 % (20-40); Mean Corpuscular Hemoglobin 28.3 pg (27.0-33.0); Mean Corpuscular Volume 88.6 fL (80.0-98.0); Mean Platelet Volume 9.5 fL (9.4-12.4); Monocytes Absolute Auto 0.5 X10*3/uL (0.1-1.2); Monocytes Percent Auto 5.4 % (2-11); Platelet Count 298 X10*3/uL (160-400); Red Blood Count 4.66 X10*6/uL (4.60-5.80); Red Cell Distribution Width 14.1 % (11.0-16.0); White Blood Count 8.5 X10*3/uL (4.8-10.8)
[2023-12-09 01:15] LABS: Alanine Aminotransferase 9 U/L (0-40); Albumin Level 4.2 g/dL (3.5-5.0); Alkaline Phosphatase 118 U/L (39-117); Anion Gap 18 (12-20); Aspartate Amino Transferase 15 U/L (5-37); Bilirubin Total 0.7 mg/dL (0.0-1.0); Blood Urea Nitrogen 33 mg/dL (9-16); Calcium 10.3 mg/dL (8.4-10.2); Carbon Dioxide 19 mmol/L (22-29); Chloride 103 mmol/L (96-108); Creatinine Clr Calc Pharmacy 54.3; Estimated Glomerular Filt Rate 47; Glucose Random 89 mg/dL (60-115); Magnesium 1.9 mg/dL (1.6-2.6); Potassium 4.9 mmol/L (3.3-5.1); Sodium 135 mmol/L (135-145); Total Protein 7.8 g/dL (6.5-8.0)
[2023-12-09] MEDS: metFORMIN HCl 500 MG TABLET PO ×3 (01:31→17:38)
[2023-12-09] MEDS: DULoxetine HCl 30 MG CAPSULE.DR PO ×2 (01:31→20:07)
[2023-12-09] MEDS: Atorvastatin Calcium 80 MG TABLET PO ×2 (01:31→20:07)
[2023-12-09 02:07] VITALS: BP 122/79; PULSE 88; RESP 16; O2SAT 95
[2023-12-09 06:21] VITALS: BP 137/82; PULSE 77; RESP 16; O2SAT 96
--- NOTE | 2023-12-09 07:40 | PC.NURSE ---
report recieved from previous RN, patient resting comfortably on stretcher at this time, meal tray order placed for breakfast, patient offering no complaints at this time.
[2023-12-09] MEDS: Morphine Sulfate ER 15 MG TABLET.ER PO ×2 (08:22→20:07)
--- NOTE | 2023-12-09 08:49 | PC.NURSE ---
PT at bedside to evaluate patient, patient able to stand from bed x2, did not walk, placed back onto stretcher without difficulty, patient swabbed for covid, sent to lab at this time, provided with urinal, educated on need for urine sample, patient agreeable.
[2023-12-09 09:04] LABS: Appearance Urine Cloudy; Color Urine Yellow; Glucose Urine UA Negative (Negative); Leukocyte Esterase Urine Moderate (2+) (Negative); Nitrite Urine Negative (Negative); PH 5.5 (5.0-9.0); Specific Gravity - Urine 1.015 (1.005-1.025); UMIC TRIGGER UACC YES; Urine Blood Negative (Negative); Urine Ketones Trace mg/dL (Negative); Urine Protein 30 (1+) mg/dL (Neg-Trace)
[2023-12-09 09:17] LABS: Bacteria Urine Trace (None Seen); RBC Urine 0-2 /HPF (0-2); Squamous Epithelial Cell Urine 0-2 /HPF (0-2); UACC Culture Trigger YES; WBC Clumps Urine Present; WBC Urine 21-50 /HPF (0-5)
[2023-12-09 10:11] VITALS: BP 137/82; PULSE 77; O2SAT 96
[2023-12-09 10:25] LABS: COVID-19 Test Negative (Negative); IDNOW Serial# 08D9AD1C
[2023-12-09] MEDS: cefuroxime axetiL 250 MG TABLET PO (12:38)
--- NOTE | 2023-12-09 14:12 | MHC.CM.ED ---
Received case management consult overnight. Patient came to the ER due to leg numbness. Work up essentialy negative. Physical therapy eval completed. Acute rehab is recommended. Referrals made to all 3 acute rehabs. No acute rehab beds offered. Referral broadcasted within 15 miles of patient's home to all facilities that are contracted with [facility]. The following facilities are able to offer a bed: [facility], [facility], [facility], [facility], and [address] [place] [address] are able to offer a bed. Met with patient in regards to discharge planning. Patient lives alone, ambulates with crutches and had no services prior to coming to the ER. PCP is Teresa Hardy. SNF facilities bed offers discussed with patient. Patient accepts bed at [facility]. [facility] is in the process of obtaining insurance auth. Continue to monitor for d/c needs.
--- NOTE | 2023-12-09 14:45 | PHA.MEDREC ---
Pharmacy Consult ? Medication Reconciliation Pharmacy has completed the medication reconciliation. Pharmacy reviewed Med Rec.
[2023-12-09 19:43] VITALS: BP 139/84; PULSE 73; RESP 18; TEMP 36.9; O2SAT 99
--- NOTE | 2023-12-09 19:49 | MHC.EDTECH ---
This tech took over care of patient at 1900,hourly rounds and vitals completed,patient urinated 100MLSof yellow urine in urinal,patient is resting comfortably call poe in reach bed alarm on for safety.
--- NOTE | 2023-12-09 21:26 | MHC.EDTECH ---
Blood sugar taken and is 122,RN made aware,emptied 100MLS of yellow urine from urinal,patient repositioned to comfort
[2023-12-09 21:29] LABS: Glucose, Whole Blood 122 mg/dL (60-115)
--- NOTE | 2023-12-09 21:53 | MHC.CM.ED ---
[facility] has obtained auth. Will book transport in the morning. Pt has [facility]. BLS transport booked with [facility] for 12/09 at 12:30-earliest available time. Med nec completed with face sheet and ED worksheet. All paper work with critical care unit nurse. Pt aware.
[2023-12-10] MEDS: cefuroxime axetiL 250 MG TABLET PO ×2 (00:32→12:44)
[2023-12-10 05:43] VITALS: BP 143/72; PULSE 75; RESP 18; TEMP 36.6; O2SAT 100
--- NOTE | 2023-12-10 06:21 | PC.NURSE ---
Pt Aox3, able to make needs known. He is scheduled to leave for [facility] [place] at 1230 on 12/09. category manager informed this RN and pt last night. Pt has been using urinal, no c/o pain at this time. Call poe within reach.
--- NOTE | 2023-12-10 07:28 | MHC.EDTECH ---
PT used call poe. Pt had been incontinent. This tech washed up the patient( pt was able to roll without complaints), did a bed change. Boosted patient X2 assist. He is now resting comfortably with no concerns.
[2023-12-10] MEDS: Morphine Sulfate ER 15 MG TABLET.ER PO (08:36)
--- NOTE | 2023-12-10 09:21 | PC.NURSE ---
Patient A x3, able to make needs knows. Resting comfortably in bed with no complaints of pain. Breathing even and unlabored. Patient is scheduled to discharge to [facility] today at 12:30. Call poe within reach and all other needs met.
[2023-12-10] MEDS: metFORMIN HCl 500 MG TABLET PO (10:18)
--- NOTE | 2023-12-10 12:45 | MHC.EDTECH ---
called [facility] at 12:42pm to get updated, spoke with Matt,he apologized they didn't call us but they have high volume and delayed the crab picker to 2:15pm
[2023-12-10] MEDS: oxyCODONE HCl Immed Release 5 MG TABLET PO (12:46)
[2023-12-10 15:34] VITALS: BP 143/88; PULSE 77; RESP 18; TEMP 36.6; O2SAT 99
== END 2023-12-10 15:35 ==
PROVIDERS: Emergency Provider Internal Medicine; PCP Registered Nurse
DX: M17.0 Bilateral primary osteoarthritis of knee (principal); G47.33 Obstructive sleep apnea (adult) (pediatric); N39.0 Urinary tract infection, site not specified; E66.01 Morbid (severe) obesity due to excess calories; F33.1 Major depressive disorder, recurrent, moderate; R26.2 Difficulty in walking, not elsewhere classified; I25.10 Atherosclerotic heart disease of native coronary artery without angina pectoris; R94.31 Abnormal electrocardiogram [ECG] [EKG]; F17.210 Nicotine dependence, cigarettes, uncomplicated; Z11.52 Encounter for screening for COVID-19; Z68.35 Body mass index [BMI] 35.0-35.9, adult; Z79.899 Other long term (current) drug therapy
CPT/HCPCS: 36415; 71045; 73560; 80053; 81001; 82803; 82947; 83735; 85025; 87086; 87088; 87186; 87635; 93005; 96372; 97162; 99285; J1885

== ENCOUNTER → 2023-12-08 23:55 | Outpatient (BNV) | payer MEDICARE, SELFPAY | PROVIDERS: Emergency Provider Internal Medicine; Visit Provider Internal Medicine | DX: I44.0 Atrioventricular block, first degree (principal); I49.1 Atrial premature depolarization | CPT/HCPCS: 93010 ==

== ENCOUNTER 2024-02-01 18:59 | Emergency (ER) | payer MEDICARE, SELFPAY ==
--- NOTE | ~2024-02-01 | CT_ITS ---
EXAMINATION: CT HEAD WITHOUT CONTRAST CT CERVICAL SPINE WITHOUT CONTRAST CLINICAL INFORMATION: Fall. COMPARISON: CT head from 09/25/2021. TECHNIQUE: Contiguous axial imaging was performed from the skull base to vertex without intravenous administration of contrast. Contiguous axial imaging was performed from the upper chest through the skull base without intravenous administration of contrast. Coronal and sagittal reformats were obtained at the acquisition workstation. This CT examination was performed using dose optimization techniques as appropriate, variously including the following: *Automated exposure control. *Adjustment of mA and/or kV according to patient size (this includes techniques or standardized protocols for targeted exams where dose is matched to indication/reason for exam; i.e. extremities or head). *Use of iterative reconstruction technique. DLP: 1303 mGy-cm FINDINGS: Head: There is no evidence of acute intracranial hemorrhage or edematous territorial infarction. Darnell-white matter differentiation is preserved. Scattered and partially confluent hypoattenuation in the periventricular and deep white matter are consistent with moderate microangiopathy. Proportional prominence of the ventricles and sulcal spaces without evidence of obstructive hydrocephalus. No abnormal mass effect or midline shift. No extra-axial fluid collections. Calcific atherosclerotic disease of the intracranial internal carotid and vertebral arteries. No hyperdense vessel sign. No acute soft tissue or osseous abnormalities. Mild mucosal thickening of the paranasal sinuses. Moderate rightward nasal septal deviation. Trace bilateral mastoid effusions. Cervical Spine: The atlantooccipital and atlantoaxial articulations remain well aligned. Moderate degenerative arthropathy of the atlantodental articulation. Straightening of the normal cervical lordosis. Mild degenerative anterolistheses of C3 on C4 and C5 on C6. Otherwise, there is anatomic alignment of the vertebral bodies and posterior elements. No evidence of acute fracture or subluxation. The vertebral body heights are maintained. Advanced degenerative disc disease from C3-C7. Facet and uncovertebral joint arthropathy leads to osseous encroachment on the neural foramina from C3-T1. There is no prevertebral soft tissue swelling. The thyroid gland and remaining cervical soft tissues are within normal limits. The lung apices demonstrate no abnormalities. CT/CT cervical spine wo IV con IMPRESSION: 1. No evidence of acute intracranial hemorrhage or edematous territorial infarction. Moderate underlying microangiopathy and generalized cerebral volume loss. 2. No evidence of acute fracture or traumatic subluxation of the cervical spine. Moderate to advanced multilevel degenerative spondyloarthropathy of the cervical spine. Electronically signed by: Taiwo Byrne DO 02/01/2024 10:02 PM EDT
[2024-02-01 19:06] VITALS: BP 135/89; PULSE 104; O2SAT 97; BMI 37.3
[2024-02-01 19:22] VITALS: BP 127/70; PULSE 93; RESP 17; TEMP 36.7; O2SAT 98
--- NOTE | 2024-02-01 19:23 | MHC.EDTECH ---
This tech assumed care of this pt upon arrival. pt changed over into a hospital gown. Red fall risk precaution wristband and red socks put on pt
--- NOTE | 2024-02-01 19:33 | ED_ITS ---
HPI - General Adult General Chief complaint: Extremity Problem Stated complaint: unable to stand, knee pain Time Seen by Provider: 02/01/24 19:14 History of Present Illness ED Provider: Russ HPI narrative: 68 y/o M patient; PMH FARSHAD, morbid obesity, hypoventilation syndrome, hx CHF, T2DM, HTN, bilateral knee osteoarthritis; presents from home via EMS with report of bilateral knee pain and pain with ambulation. The patient states he has Morphine and Oxycodone prescribed at home but recently ran out of his Oxycodone. He ambulates at baseline with crutches. Today he had a fall from standing onto his butt and then onto the back of his head. EMS arrived to his home and helped him back up. He then was sitting in his recliner chair at home. He states he usually moves back and forth to build up the momentum to stand but today he felt he could not stand due to his lower extremity weakness. On chart review he has been seen in this emergency department multiple times for bilateral knee pain. Last evaluated on 12/08/2023 and sent to rehab for placement. Related Data Home Medications ?Medication ?Instructions ?Recorded ?Confirmed atorvastatin 80 mg tablet 80 mg PO BEDTIME 09/05/21 12/09/23 metformin 500 mg tablet 500 mg PO BIDWM 09/05/21 12/09/23 morphine 15 mg tablet,extended 15 mg PO BID 09/05/21 12/09/23 release oxycodone 5 mg tablet 5 mg PO Q6H PRN moderate pain 09/05/21 12/09/23 duloxetine 30 mg capsule,delayed 30 mg PO BEDTIME 09/23/21 12/09/23 release diclofenac sodium 50 mg 50 mg PO MOWEFR 12/09/23 12/09/23 tablet,delayed release Allergies Allergy/AdvReac Type Severity Reaction Status Date / Time No Known Allergies Allergy Verified 02/01/24 19:09 [No Known Allergies*] Review of Systems 2 Review of Systems: Yes all other systems are reviewed and are negative Neurologic: Denies Sensory deficit (Neuro) PMFSH Past Medical History Attestation statement: The following information was validated with the patient. Source: old records reviewed Medical History Duodenum disorder Respiratory failure with hypoxia and hypercapnia FARSHAD (obstructive sleep apnea) Hypoventilation syndrome Unspecified skin changes Decompensated heart failure Congestive heart failure (CHF) Normocytic anemia Respiratory failure with hypoxia and hypercapnia Morbid obesity Lower extremity edema Congestive heart failure Myocardial infarction Coronary artery disease Bilateral lower extremity edema Diabetes Morbid obesity Hypertension CHF (congestive heart failure) Surgical History S/P coronary artery stent placement Family History Family History Other No family history of coronary artery disease Social History Social History Household Members: None Housing: House Do you presently have visiting nurse or other home services: No Alcohol intake: never Patient Tobacco Use Status: Current everyday Tobacco user Tobacco use type: Cigarette Cigarette Packs Per Day: 0.5 Cigarettes Per Day: 10.0 Years Smoked: 55 e-Cigarette/Vaping Use: Never Used Advance Directives: No Advance Directives Information Provided: No service: No Current occupational status: disabled Physical Exam ED Vital Signs: Vital Signs - 24 hr 02/01/24 19:22 Temperature 98.0 F Pulse Rate 93 Respiratory Rate 17 Blood Pressure 127/70 Pulse Oximetry 98 Oxygen Delivery Method Room Air BMI result Body Mass Index 37.3 Patient is afebrile and hemodynamically stable. Const General: cooperative and no acute distress Orientation/consciousness: patient oriented x3 HENMT Head: Yes normal to inspection and Yes atraumatic Eyes General: appearance normal, both eyes and all related structures Pupils: Equal, round and reactive pupils present EOM: EOMs intact bilaterally Neck Neck: Yes normal visual inspection, Yes full ROM, Yes supple and No tender Chest Chest palpation & inspection: normal inspection of the chest and normal palpation of entire chest wall Resp Effort & Inspection: normal respiratory effort, able to speak in complete sentences, no cough and no respiratory distress Auscultation: clear to auscultation bilaterally Cardio Rate: regular rate Rhythm: regular rhythm Peripheral pulses: Peripheral pulses 2+ throughout GI Inspection: Yes normal to inspection, No Abdominal wall edema and No distended Palpation (GI): Soft to palpation, not firm, nontender, no guarding and not rigid Auscultation: normal bowel sounds Back/Spine/Pelvis Back: No back tenderness Neuro General: patient oriented x3 Cranial nerves: Yes Equal, round and reactive pupils present Motor exam (neuro): 5/5 motor strength present throughout Sensory Exam: No Sensory deficit (Neuro) Course Course Course Narrative: Patient is afebrile and hemodynamically stable. Will obtain EKG, CT Head/Neck, screening generalized weakness labs. Plan: Transition care to Dr. Jenkins, anticipate patient will require PT/CC evaluation Condition: Stable Medical Decision Making Lab Data 02/01/24 20:31 02/01/24 20:31 Labs: Lab Results 02/01/24 Range/Units 20:31 Sodium 138 (135-145) mmol/L Potassium 4.9 (3.3-5.1) mmol/L Chloride 107 (96-108) mmol/L Carbon Dioxide 24 (22-29) mmol/L Anion Gap 12 (12-20) BUN 37 H (9-16) mg/dL Creatinine 1.67 H (0.5-1.4) mg/dL Estim Creat Clear Calc 49.8 Estimated GFR 41 Random Glucose 117 H (60-115) mg/dL Calcium 9.2 D (8.4-10.2) mg/dL Total Bilirubin 0.2 (0.0-1.0) mg/dL Direct Bilirubin < 0.2 (0.0-0.5) mg/dL AST 11 (5-37) U/L ALT 8 (0-40) U/L Alkaline Phosphatase 75 (39-117) U/L Total Protein 6.7 (6.5-8.0) g/dL Albumin 3.3 L (3.5-5.0) g/dL Lipase 5 L (8-78) U/L Discharge Plan Discharge Clinical Impression: Generalized weakness Patient Disposition: Still a Patient Prescriptions: No Action metformin 500 mg tablet 500 mg PO BIDWM atorvastatin 80 mg tablet 80 mg PO BEDTIME morphine 15 mg tablet extended release 15 mg PO BID oxycodone 5 mg tablet 5 mg PO Q6H PRN (Reason: moderate pain) duloxetine 30 mg capsule,delayed release(DR/EC) 30 mg PO BEDTIME diclofenac sodium 50 mg tablet,delayed release (DR/EC) 50 mg PO MOWEFR Print Language: Mongolian
--- NOTE | 2024-02-01 20:10 | ECG_ITS ---
Test Reason : FALL Blood Pressure : / mmHG Vent. Rate : 073 BPM Atrial Rate : 073 BPM P-R Int : 204 ms QRS Dur : 074 ms QT Int : 376 ms P-R-T Axes : 052 034 056 degrees QTc Int : 414 ms Normal sinus rhythm Cannot rule out Anterior infarct , age undetermined Abnormal ECG When compared with ECG of 09-DEC-2023 00:06, Premature atrial complexes are no longer Present MI interval has decreased Nonspecific T wave abnormality is no longer Present Referred By: Krystle Solano Electronically Signed By:WAQAR DEMPSEY
[2024-02-01 20:37] LABS: MANUAL DIFF FLAG NO
[2024-02-01 20:57] LABS: Alanine Aminotransferase 8 U/L (0-40); Albumin Level 3.3 g/dL (3.5-5.0); Alkaline Phosphatase 75 U/L (39-117); Anion Gap 12 (12-20); Aspartate Amino Transferase 11 U/L (5-37); Bilirubin Direct < 0.2 mg/dL (0.0-0.5); Bilirubin Total 0.2 mg/dL (0.0-1.0); Blood Urea Nitrogen 37 mg/dL (9-16); Calcium 9.2 mg/dL (8.4-10.2); Carbon Dioxide 24 mmol/L (22-29); Chloride 107 mmol/L (96-108); Creatinine Clr Calc Pharmacy 49.8; Estimated Glomerular Filt Rate 41; Glucose Random 117 mg/dL (60-115); Lipase 5 U/L (8-78); Potassium 4.9 mmol/L (3.3-5.1); Sodium 138 mmol/L (135-145); Total Protein 6.7 g/dL (6.5-8.0)
[2024-02-01 21:04] LABS: Troponin-I High Sensitivity 9.2 ng/L (<3.5-35.0)
[2024-02-01 21:19] VITALS: BP 129/76; PULSE 89; RESP 17; TEMP 36.6; O2SAT 98
[2024-02-01 21:21] LABS: Basophils Percent Auto 0.5 % (0-2); Eosinophils Absolute Auto 0.2 X10*3/uL (0.0-0.4); Eosinophils Percent Auto 2.7 % (0-4); Hematocrit 29.8 % (42.0-52.0); Hemoglobin 9.6 g/dl (14.0-18.0); Imm Gran Abs Auto 0.05 X10*3/uL (0.00-0.03); Imm Gran Pct Auto 0.6 % (0.0-0.4); Lymphocytes Absolute Auto 1.5 X10*3/uL (1.2-4.9); Lymphocytes Percent Auto 18.5 % (20-40); Mean Corpuscular HGB Conc 32.2 g/dl (31.0-36.0); Mean Corpuscular Hemoglobin 29.2 pg (27.0-33.0); Mean Corpuscular Volume 90.6 fL (80.0-98.0); Mean Platelet Volume 9.6 fL (9.4-12.4); Monocytes Absolute Auto 0.7 X10*3/uL (0.1-1.2); Monocytes Percent Auto 8.4 % (2-11); Neutrophils Absolute Auto 5.6 x10*3/uL (2.0-8.3); Neutrophils Percent Auto 69.3 % (45-73); Platelet Count 371 X10*3/uL (160-400); Red Blood Count 3.29 X10*6/uL (4.60-5.80); Red Cell Distribution Width 15.6 % (11.0-16.0); White Blood Count 8.1 X10*3/uL (4.8-10.8)
--- NOTE | 2024-02-01 23:39 | MHC.CM.ED ---
CM met with patient at the request of Dr. Jenkins. C/O bilateral knee pain. Fell today. Does not have any pain meds. Lives alone. Uses crutches. Has no services. HCP on file. No PCP. States he missed an appointment and his PCP fired him. Pt is agreeable to PT assessment and STR. States was at [facility] 1 month ago. Was at [facility] 2 years ago. CM highly encouraged patient to call primary care offices and take the next available appointment, as they are booking 1-2 months out. Will give patient provider listing and HHC contact info at his request when he is discharged. Pt understands that if PT is recommended, it will be up to his insurance company if they will authorize payment. CM will follow for discharge planning.
[2024-02-02 06:00] VITALS: BP 155/74; PULSE 71; RESP 18; TEMP 36.2; O2SAT 97
[2024-02-02 08:00] VITALS: BP 146/69; PULSE 64; RESP 18; TEMP 36.9; O2SAT 97
--- NOTE | 2024-02-02 09:58 | PHA.MEDREC ---
Pharmacy Consult ? Medication Reconciliation Pharmacy has completed the medication reconciliation. Spoke to patient to confirm med list. patient states he no longer takes Diclofenac sod 50 mg. Patient confirmed Duloxetine is 30 mg QAM and 60 mg QPM.
--- NOTE | 2024-02-02 10:07 | PHA.MEDREC ---
Addendum entered by Jimmy Vicente RPh 02/02/24 10:09: Med rec was reviewed by yaquelin. Original Note: Pharmacy Consult ? Medication Reconciliation Pharmacy has completed the medication reconciliation. Spoke to patient to confirm med list. patient states he no longer takes Diclofenac sod 50 mg. Patient confirmed Duloxetine is 30 mg QPM and 60 mg QAM.
[2024-02-02 10:49] VITALS: BP 146/69; PULSE 64; O2SAT 97
--- NOTE | 2024-02-02 11:19 | MHC.CM.ED ---
Addendum entered by Salma Ruiz 02/02/24 12:55: [facility] would be willing to offer a bed if patient has a PCP. Patient's PCP was Alecia Spivey. Alecia no longer practices at a PCP. Patient may be active with Sapna Hardy's office. T/W is waiting for a return telephone call to verify this. [facility] is willing to offer a bed once cleared by psych d/t patient making SI comments during his physical therapy eval. Angie SNOW aware. Psych consult ordered for [employer]. Original Note: Patient remains in ER overflow. Physicla therapy eval completed. Short term rehab is recommended. [facility] does not a bed to offer. Clinical updates sent to facilities still reviewing: [facility], [facility], [facility], [facility], [facility], [facility] and [facility]. Continue to monitor for d/c needs.
[2024-02-02] MEDS: oxyCODONE HCl Immed Release 5 MG TABLET PO (12:30)
[2024-02-02] MEDS: DULoxetine HCl 60 MG CAPSULE.DR PO (12:32)
[2024-02-02] MEDS: Morphine Sulfate ER 15 MG TABLET.ER PO ×2 (12:32→20:21)
[2024-02-02 12:33] VITALS: BP 117/56
[2024-02-02] MEDS: Bumetanide 1 MG TABLET 2 MG PO (12:33)
[2024-02-02 12:41] LABS: COVID-19 Test Negative (Negative); IDNOW Serial# 58CA691E
[2024-02-02 14:00] VITALS: BP 147/70; PULSE 64; RESP 16; TEMP 36.3; O2SAT 96
--- NOTE | 2024-02-02 17:53 | PC.NURSE ---
pt alert and oriented x4, VS as noted. Pt slept much of the morning with no s/s distress. He states he had pain when he roused and was unable to work much with PT. Med rec was completed and home meds ordered. Pt received his scheduled MScontin as well as PRN oxycodone. Pt states upon recheck look, I can move my knees and hands now. He asked to be premedicated for PT tomorrow and plan was discussed. He had a full bed bath today. Pt denies other complaint. Plan of care progressing.
[2024-02-02] MEDS: metFORMIN HCl 500 MG TABLET PO (18:49)
[2024-02-02] MEDS: Atorvastatin Calcium 80 MG TABLET PO (20:21)
[2024-02-02] MEDS: DULoxetine HCl 30 MG CAPSULE.DR PO (20:21)
[2024-02-02 22:00] VITALS: BP 165/90; PULSE 70; RESP 18; TEMP 36.5; O2SAT 94
[2024-02-03] MEDS: Loperamide HCl 2 MG CAPSULE PO (00:55)
[2024-02-03] MEDS: oxyCODONE HCl Immed Release 5 MG TABLET PO ×2 (00:55→08:28)
[2024-02-03 05:53] VITALS: BP 137/75; PULSE 76; RESP 20; TEMP 36.3; O2SAT 96
--- NOTE | 2024-02-03 06:06 | PC.NURSE ---
Pt aox4, able to make needs known. Pt did c/o chronic pain in his hands and BL knees, medicated per MAR. Pt able to use urinal independently. He has had 5 BMs during this RNs shift. One BM he was able to ask for the bed calero, the other 4 he was incontinent/not able to ask for the bed calero in time. Each BM was XL, mushy, brown mary colored. ED GWENDOLYN cummings texted for imodium (see MAR for administration). Pt currently sleeping, bed alarm on.
[2024-02-03 08:27] VITALS: BP 137/75
[2024-02-03] MEDS: Bumetanide 1 MG TABLET 2 MG PO (08:27)
[2024-02-03] MEDS: metFORMIN HCl 500 MG TABLET PO ×2 (08:27→18:56)
[2024-02-03] MEDS: DULoxetine HCl 60 MG CAPSULE.DR PO (08:27)
[2024-02-03] MEDS: Morphine Sulfate ER 15 MG TABLET.ER PO ×2 (08:28→21:05)
--- NOTE | 2024-02-03 09:40 | PC.NURSE ---
Patient mediated at 8:27am per provider orders. Pt requested additional PRN pain medication (Oxycodone 5mg) due to scheduled PT today. Takes Morphine Extended Release 15mg PO daily and Oxycodone 5mg Q6H for pain. Given fresh ice water. Patient ate breakfast and voided 275 mL clear yellow urine into urinal. Urinal emptied and new urinal provided. Call poe within reach. Care ongoing.
--- NOTE | 2024-02-03 10:53 | PC.NURSE ---
Case management, Salma Ruiz at bedside speaking with patient at this time regarding short term rehab placements options and plan.
--- NOTE | 2024-02-03 10:57 | MHC.CM.ED ---
Addendum entered by Salma Ruiz 02/03/24 12:04: Patient has an appointment with [facility] on at 1pm. T/W sent a task to [facility] liasion with this request. Original Note: Patient remains in ER overflow. [facility] and [facility] are able to offer a bed. [facility] and [facility] are still reviewing. These options were discussed with patient. Patient accepts bed at [facility]. [facility] made aware and asked to obtain insurance auth. Continue to monitor for d/c needs.
[2024-02-03 15:15] VITALS: BP 162/77; PULSE 71; RESP 16; TEMP 36.8; O2SAT 97
--- NOTE | 2024-02-03 15:47 | MHC.CM.ED ---
Insurance auth has been obtained. [facility] BLS booked for 02/03 at 9am. [facility] with chart. Patient, Fozia COBIAN and Gabby SNOW aware. Continue to monitor for d/c needs.
--- NOTE | 2024-02-03 18:58 | PC.NURSE ---
assumed care of patient at 1645. He is resting comfortably in bed and denies current complaint. Metformin given when available from pharmacy. safety precautions maintained.
[2024-02-03] MEDS: DULoxetine HCl 30 MG CAPSULE.DR PO (21:04)
[2024-02-03] MEDS: Atorvastatin Calcium 80 MG TABLET PO (21:04)
[2024-02-04 05:51] VITALS: BP 149/81; PULSE 68; RESP 18; TEMP 36.4; O2SAT 98
[2024-02-04 07:22] LABS: Glucose, Whole Blood 92 mg/dL (60-115)
[2024-02-04] MEDS: Morphine Sulfate ER 15 MG TABLET.ER PO (08:00)
[2024-02-04] MEDS: DULoxetine HCl 60 MG CAPSULE.DR PO (08:00)
[2024-02-04] MEDS: metFORMIN HCl 500 MG TABLET PO (08:00)
[2024-02-04] MEDS: Bumetanide 1 MG TABLET 2 MG PO (08:00)
[2024-02-04] MEDS: oxyCODONE HCl Immed Release 5 MG TABLET PO (08:02)
--- NOTE | 2024-02-04 08:32 | MHC.CM.PN ---
PT DISCHARGING TO [facility] FOR STR AT 0900AM, [facility] FOR BLS TRANSPORT D/T [facility].
== END 2024-02-04 09:22 ==
PROVIDERS: Physician Assistant; Emergency Provider Emergency Medicine; PCP Registered Nurse
DX: R53.1 Weakness (principal); R45.851 Suicidal ideations; I10 Essential (primary) hypertension; R26.2 Difficulty in walking, not elsewhere classified; R51.9 Headache, unspecified; M54.2 Cervicalgia; F17.210 Nicotine dependence, cigarettes, uncomplicated; Z79.899 Other long term (current) drug therapy; Z11.52 Encounter for screening for COVID-19
CPT/HCPCS: 36415; 70450; 72125; 80048; 80076; 82947; 83690; 84484; 85025; 87635; 93005; 97162; 99285